=== PATIENT | female | born 1965 | race Caucasian/White ===

== ENCOUNTER 2017-10-30 11:48 | Emergency (ER) | payer MEDICARE, MEDICAID ==
[2016-01-01 08:47] VITALS: Wt 70.3 kg
[~2017-10-30 11:48] MED LIST: ACE3 PO; ACE500 PO; AMOX-556 PO; AMOX875T60 PO; AZIT-1 PO; BEN100 PO; BENZ100C4 PO; BENZ200C15 PO; BUTA1CAP2 PO; BUTA1CAP4 PO; BUTA1TAB14 PO; CEP125L PO; CEP500 PO; CEPH500C24 PO; CHOL400C10 PO; CHOL500045 PO; CHOL500050 PO; CIP500 PO; CIPR-212 PO; CIPR-214 PO; CIPR-344 PO; CODE118S5 PO; CODE473S6 PO; COL0.6 PO; COLC0.6T2; COLC0.6T2 PO; CROM10DR8 OP; CYC10 PO; CYCL10TA29 PO; DAR75 PO; DARI15TA5; DIA5 PO; ENTLA PO; ERGO400T9 PO; ESTR1.2525 PO; ESTR1PAT TD; ESTR1PAT3 TD; ESTR1PAT89; ESTR1PAT89 TD; ESTRADIOL; FAM20 PO; FAMO-67 PO; FEBU40TA2 PO; FEBU80TA3 PO; FES4PT PO; FLUT16SP19 NS; FURO40TA35 PO; GUAI120L3 PO; GUAI600T57 PO; HEPA1DIS12 IM; HYDR-317 PO; HYDR-385 PO; HYDR-4309 PO; HYDR2TAB74 PO; IMI25; IMI25 PO; IMITREX PO; LANS15CA32 PO; LEV100 PO; LEV112 PO; LEV125 PO; LEVO-3 PO; LEVO75TA73 PO; LEVO88TA45 PO; LOPE1TAB55 PO; LOR5 PO; LOR5/325 PO; LOSA25TA50 PO; LOSA25TA51 PO; LOSA50TA72 PO; MECL25TA9 PO; MELA1TAB9; MELA5TAB6 PO; MEPE50TA29 PO; METH-542 PO; METH-543 PO; METH4TAB57 PO; METH4TAB66 PO; MORP-181 PO; MUPI15CR10 TP; NARA2.5T2 PO; OLAN5TAB25 PO; OLME5TAB8 PO; OMEP-218 PO; ONDA-2 PO; ONDA4TAB PO; ONDA4TAB9 PO; ONDA4TAB97 PO; ONDA8TAB94 PO; OSE75 PO; OXY5 PO; OXYC-865 PO; OXYC1TAB54 PO; PER PO; PHEN120S16 PO; PHEN200T32 PO; PHENA200 PO; PNEI IJ; PNEU0.5D3 IM; PRAM0.1221 PO; PRAM0.1225 PO; PRAM0.2520 PO; PRAM0.2524 PO; PRE20 PO; PRED-1 PO; PRED20TA6 PO; PRO25 PO; PROM-110 PO; PROP10TA58 PO; PROP60TA16 PO; PROP80CA40 PO; PROP80TA25 PO; RAM8 PO; RISP0.2563 PO; RISP1TAB79 PO; ROP5 PO; SERT-173 PO; SERT-181 PO; SIMV10TA98 PO; SODI650T7 PO; SULF-198 PO; SUM25 PO; SUMA100T32 PO; SUMA20SP8 NS; SUMA25TA26 PO; SUMA50TA34 PO; SUMA6CAR2 SQ; SUMA6PEN7 SQ; SUMA6VIA16 SQ; TAMS0.4C25 PO; TOBOD OU; TOPI-28 PO; TOVIAZ; TRAM-420 PO; TRAM-627 PO; TROS20TA4 PO; VENL150C61 PO; VENL25TA29 PO; VIT D; ZOLP-350 PO; ZOLP-358 PO; [UNRECOGNIZED DRUG - CODE]; [UNRECOGNIZED DRUG - CODE] PO; [UNRECOGNIZED DRUG - CODE] SQ; [UNRECOGNIZED DRUG - CODE] TD; [UNRECOGNIZED DRUG - OTHER]
--- NOTE | 2017-10-30 11:57 | ER Report ---
History and Physical Time Seen By MD: 11:56 HPI/ROS CHIEF COMPLAINT: Vomiting and diarrhea HISTORY OF PRESENT ILLNESS: This is a 52-year-old female who presents to the emergency department for vomiting and diarrhea. Patient states that she developed some nausea, vomiting and diarrhea about 4:30 yesterday morning. Patient states her is sick with similar symptoms. They've been trying to manage this at home with little success. Bring her in because he is concerned as she only has one functioning kidney and wanted to be sure her renal function is okay with her episodes. Patient denies blood in the stool or the emesis. Patient has no other complaints. REVIEW OF SYSTEMS: Respiratory: No cough, no dyspnea. Cardiovascular: No chest pain, no palpitations. Gastrointestinal: As above. Musculoskeletal: No back pain. Allergies: Coded Allergies: promethazine (Verified Allergy, Severe, RESTLESS LEGS, 10/10/17) sumatriptan (Verified Allergy, Intermediate, HIVES, SOB, 10/10/17) only with nose spray, she can take oral sumatriptan NSAIDS (Non-Steroidal Anti-Inflamma (Verified Allergy, Mild, NAUSEA, HEADACHES, 10/10/17) orphenadrine (Verified Allergy, Unknown, 10/10/17) keeps her awake oxycodone (Verified Allergy, Unknown, 10/10/17) aspirin (Verified Adverse Reaction, Mild, NAUSEA, 10/10/17) furosemide (Verified Adverse Reaction, Unknown, 10/10/17) too hard on kidneys Uncoded Allergies: COBAN (Allergy, Mild, rash, 04/03/13) Home Meds Active Scripts Ondansetron (ZOFRAN ODT) 4 Mg Tab.rapdis, 4 MG PO Q6H Y for NAUSEA/VOMITING, # 20 TAB.ALEJANDRINA Prov:MY HOOPER INTERIOR DESIGN COORDINATOR-BC 10/30/17 Guaifenesin (MUCINEX) 600 Mg Tablet.er, 1 TAB PO QDAY Y for Sinus Congestion, # 30 TAB 0 Refills Prov:BETSEY PIERSON MD 10/23/17 Estradiol (ESTRADIOL 0.05 MG) 1 Each Patch.tdwk, 1 EACH TD Q7D, #4 PATCH.WK 6 Refills Prov:BETSEY PIERSON MD 10/23/17 Losartan Potassium (LOSARTAN POTASSIUM) 50 Mg Tablet, 50 MG PO QDAY, #30 TAB 6 Refills Prov:BETSEY PIERSON MD 10/23/17 Topiramate (TOPIRAMATE) 100 Mg Tablet, 1 TAB PO QDAY, #30 TAB 6 Refills Prov:BETSEY PIERSON MD 10/09/17 Propranolol Hcl (INDERAL LA) 80 Mg Cap.sa.24h, 1 CAP PO QDAY, #90 CAP 1 Refill Prov:BETSEY PIERSON MD 08/06/17 Hydrocodone Bit/Acetaminophen (HYDROCODON-ACETAMINOPHEN 5-325) 1 Each Tablet, 1 EACH PO QDAY Y for MODERATE PAIN, #60 TAB Prov:BETSEY PIERSON MD 07/29/17 Levothyroxine Sodium (LEVOTHYROXINE SODIUM) 88 Mcg Tablet, 88 MCG PO QDAY, #30 TAB 6 Refills Prov:BETSEY PIERSON MD 06/28/17 Sertraline Hcl (SERTRALINE HCL) 100 Mg Tablet, 1.5 TAB PO QDAY, #45 TAB 6 Refills Prov:BETSEY PIERSON MD 06/27/17 Simvastatin (SIMVASTATIN) 10 Mg Tablet, 1 TAB PO QHS, #90 TAB 4 Refills Prov:BETSEY PIERSON MD 01/08/17 Cyclobenzaprine Hcl (CYCLOBENZAPRINE HCL) 10 Mg Tablet, 10 MG PO QDAY Y for headache, #30 TAB 3 Refills Prov:BETSEY PIERSON MD 12/31/16 Olanzapine (ZYPREXA) 5 Mg Tablet, 5 MG PO QDAY, #30 TAB 0 Refills Prov:EFREN URIOSTEGUI MD 10/14/16 Febuxostat (ULORIC) 40 Mg Tablet, 1 TAB PO QDAY, #90 TAB 1 Refill Prov:BETSEY PIERSON MD 07/27/16 Reported Medications Melatonin/Pyridoxine HCl (B6) (Melatonin 3 mg Tablet) 1 Each Tablet, 1 TAB QHS, TAB 10/23/17 Sodium Bicarbonate (SODIUM BICARBONATE) 650 Mg Tablet, 2 TAB PO BID 07/26/16 Lansoprazole (LANSOPRAZOLE) 15 Mg Capsule.dr, 1 CAP PO QDAY 07/25/16 Cholecalciferol (Vitamin D3) (Vitamin D) 50,000 Unit Capsule, 1 CAP PO Q30D 07/25/16 Risperidone (RISPERIDONE) 1 Mg Tablet, 1 MG PO DAILY 05/04/16 Imipramine Hcl (Tofranil) 25 Mg Tab, 1 TAB PO DAILY, 0 Refills 09/26/12 Discontinued Reported Medications Melatonin (MELATONIN) 5 Mg Tablet, 5 MG PO QDAY 07/23/17 Discontinued Scripts Methylprednisolone (METHYLPREDNISOLONE) 4 Mg Tab.ds.pk, 4 MG PO DIRECTED, #1 DOSE-PACK Prov:BETSEY PIERSON MD 09/04/17 Tamsulosin Hcl (FLOMAX) 0.4 Mg Cap.er.24h, 0.4 MG PO DAILY for 10 Days, #10 CAP Prov:YONG HUMPHREY MD 08/11/17 Meclizine Hcl (MECLIZINE HCL) 25 Mg Tablet, 25 MG PO BID Y for DIZZINESS, #10 Prov:MARK SMITH MD 08/09/17 Ondansetron Hcl (ZOFRAN) 4 Mg Tablet, 4 MG PO Q8H for Nausea, #15 TAB 0 Refills Prov:ESTEBAN ALDANA MD 06/14/17 Mupirocin Calcium (BACTROBAN) 15 Gm Cream..g., 0 TP BID, #15 GM Prov:BETSEY PIERSON MD 03/21/17 Losartan Potassium (LOSARTAN POTASSIUM) 25 Mg Tablet, 25 MG PO QDAY, #0 TAB Prov:ALEJANDRO AVELAR MD 08/08/16 Past Medical/Surgical History Patient has a past medical and surgical history of migraines, occasionally has a heart murmur, angina, cardiac catheter which was normal, hypertension, hypercholesterolemia, bronchitis, pneumonia, frequent nausea, colonoscopy, has recurrent abdominal pain, incontinence, one kidney, UTIs, breast augmentation, biopsy, gout, wrist and hand surgery, arthritis, scoliosis, wears glasses, depression, anxiety, tonsillectomy. Reviewed Nurses Notes: Yes Hx Smoking: Yes (SMOKED AGE 16 TO UNTIL 2000, 10/29 PPD) Smoking Status: Former Smoker Exposure to Second Hand Smoke?: No Hx Substance Use Disorder: No Hx Alcohol Use: Yes Constitutional Vital Sign - Last 24 Hours 10/30/17 10/30/17 10/30/17 10/30/17 11:53 11:54 11:58 12:00 Temp 98.1 Pulse 94 87 Resp 18 B/P (MAP) 164/93 (116) 164/93 141/100 (114) Pulse Ox 97 100 O2 Delivery Room Air 10/30/17 10/30/17 10/30/17 10/30/17 12:03 12:08 12:19 12:23 Pulse 84 88 91 B/P (MAP) 144/101 (115) Pulse Ox 100 100 98 10/30/17 10/30/17 10/30/17 10/30/17 12:28 12:33 12:38 12:40 Pulse 88 89 90 B/P (MAP) 145/94 (111) Pulse Ox 96 96 97 10/30/17 10/30/17 10/30/17 10/30/17 12:43 12:48 13:00 13:03 Pulse 91 90 90 B/P (MAP) 145/90 (108) Pulse Ox 95 97 95 10/30/17 10/30/17 10/30/17 10/30/17 13:18 13:20 13:33 13:40 Pulse 89 87 B/P (MAP) 145/94 (111) 159/99 (119) Pulse Ox 95 96 10/30/17 10/30/17 10/30/17 10/30/17 13:45 13:50 13:55 14:00 Pulse 88 86 87 B/P (MAP) 141/93 (109) Pulse Ox 94 94 98 93 10/30/17 10/30/17 10/30/17 10/30/17 14:05 14:10 14:15 14:20 Pulse 87 88 87 85 B/P (MAP) 149/95 (113) Pulse Ox 96 94 94 Intake and Output 10/30/17 10/30/17 10/31/17 15:00 23:00 07:00 Intake Total 1000 ml Balance 1000 ml Physical Exam General Appearance: The patient is alert, has no immediate need for airway protection and no current signs of toxicity. Eyes: Pupils equal and round no injection. Respiratory: Chest is non tender, lungs are clear to auscultation. Cardiac: regular rate and rhythm, mild systolic murmur, no clicks rubs. Gastrointestinal: Abdomen is soft and mild tenderness to epigastrium, no masses , bowel sounds normal. Musculoskeletal: Neck: Neck is supple and non tender. Extremities have full range of motion and are non tender. Skin: No rashes or lesions. DIFFERENTIAL DIAGNOSIS: After history and physical exam differential diagnosis was considered for abdominal pain including but not limited to appendicitis, cholecystitis, gastritis and urinary tract infection. Medical Decision Making Data Points Result Diagram: 10/30/17 1212 10/30/17 1212 Laboratory Hematology Test 10/30/17 12:12 10/30/17 12:25 Red Blood Count 3.90 M/uL (4.17-5.56) Mean Corpuscular Volume 94.7 fL (80.0-96.0) Mean Corpuscular Hemoglobin 33.4 pg (26.0-33.0) Mean Corpuscular Hemoglobin Concent 35.3 g/dL (32.0-36.0) Red Cell Distribution Width 12.6 % (11.5-14.5) Mean Platelet Volume 6.8 fL (7.2-11.1) Neutrophils (%) (Auto) 81.0 % (39.4-72.5) Lymphocytes (%) (Auto) 9.6 % (17.6-49.6) Monocytes (%) (Auto) 6.5 % (4.1-12.4) Eosinophils (%) (Auto) 2.3 % (0.4-6.7) Basophils (%) (Auto) 0.6 % (0.3-1.4) Nucleated RBC Relative Count (auto) 0.0 /100WBC Neutrophils # (Auto) 8.0 K/uL (2.0-7.4) Lymphocytes # (Auto) 0.9 K/uL (1.3-3.6) Monocytes # (Auto) 0.6 K/uL (0.3-1.0) Eosinophils # (Auto) 0.2 K/uL (0.0-0.5) Basophils # (Auto) 0.1 K/uL (0.0-0.1) Nucleated RBC Absolute Count (auto) 0.00 K/uL Sodium Level 140 mmol/L (137-145) Potassium Level 3.8 mmol/L (3.5-5.0) Chloride Level 104 mmol/L (98-107) Carbon Dioxide Level 23 mmol/L (22-31) Blood Urea Nitrogen 22 mg/dl (7-18) Creatinine 2.70 mg/dl (0.52-1.04) Glomerular Filtration Rate Calc 18.5 Random Glucose 83 mg/dl (75-110) Calcium Level 9.2 mg/dl (8.4-10.2) Total Bilirubin 0.4 mg/dl (0.2-1.3) Aspartate Amino Transf (AST/SGOT) 14 U/L (0-35) Alanine Aminotransferase (ALT/SGPT) 31 U/L (0-56) Alkaline Phosphatase 70 U/L (0-126) Total Protein 7.6 gm/dl (6.3-8.2) Albumin 4.1 g/dl (3.5-5.0) Urine Color Straw Urine Clarity Slightly-cloudy Urine pH 8.0 pH (4.8-9.5) Urine Specific [place] 1.010 Urine Protein 100 mg/dL (NEGATIVE) Urine Glucose (UA) Negative mg/dL (NEGATIVE) Urine Ketones Negative mg/dL (NEGATIVE) Urine Blood Moderate (NEGATIVE) Urine Nitrite Negative (NEGATIVE) Urine Bilirubin Negative (NEGATIVE) Urine Urobilinogen Negative mg/dL (0.2-1.9) Urine Leukocyte Esterase Trace (NEGATIVE) Urine RBC 66 /HPF (0-2/HPF) Urine WBC 16 /HPF (0-5/HPF) Urine Squamous Epithelial Cells Many /LPF (</=FEW) Urine Bacteria Negative /HPF (NONE-FEW) Urine Mucus None /HPF (NONE-FEW) Chemistry Test 10/30/17 12:12 10/30/17 12:25 White Blood Count 9.9 k/uL (4.5-11.0) Red Blood Count 3.90 M/uL (4.17-5.56) Hemoglobin 13.0 g/dL (12.0-16.0) Hematocrit 36.9 % (34.0-47.0) Mean Corpuscular Volume 94.7 fL (80.0-96.0) Mean Corpuscular Hemoglobin 33.4 pg (26.0-33.0) Mean Corpuscular Hemoglobin Concent 35.3 g/dL (32.0-36.0) Red Cell Distribution Width 12.6 % (11.5-14.5) Platelet Count 198 K/uL (150-450) Mean Platelet Volume 6.8 fL (7.2-11.1) Neutrophils (%) (Auto) 81.0 % (39.4-72.5) Lymphocytes (%) (Auto) 9.6 % (17.6-49.6) Monocytes (%) (Auto) 6.5 % (4.1-12.4) Eosinophils (%) (Auto) 2.3 % (0.4-6.7) Basophils (%) (Auto) 0.6 % (0.3-1.4) Nucleated RBC Relative Count (auto) 0.0 /100WBC Neutrophils # (Auto) 8.0 K/uL (2.0-7.4) Lymphocytes # (Auto) 0.9 K/uL (1.3-3.6) Monocytes # (Auto) 0.6 K/uL (0.3-1.0) Eosinophils # (Auto) 0.2 K/uL (0.0-0.5) Basophils # (Auto) 0.1 K/uL (0.0-0.1) Nucleated RBC Absolute Count (auto) 0.00 K/uL Glomerular Filtration Rate Calc 18.5 Calcium Level 9.2 mg/dl (8.4-10.2) Total Bilirubin 0.4 mg/dl (0.2-1.3) Aspartate Amino Transf (AST/SGOT) 14 U/L (0-35) Alanine Aminotransferase (ALT/SGPT) 31 U/L (0-56) Alkaline Phosphatase 70 U/L (0-126) Total Protein 7.6 gm/dl (6.3-8.2) Albumin 4.1 g/dl (3.5-5.0) Urine Color Straw Urine Clarity Slightly-cloudy Urine pH 8.0 pH (4.8-9.5) Urine Specific [place] 1.010 Urine Protein 100 mg/dL (NEGATIVE) Urine Glucose (UA) Negative mg/dL (NEGATIVE) Urine Ketones Negative mg/dL (NEGATIVE) Urine Blood Moderate (NEGATIVE) Urine Nitrite Negative (NEGATIVE) Urine Bilirubin Negative (NEGATIVE) Urine Urobilinogen Negative mg/dL (0.2-1.9) Urine Leukocyte Esterase Trace (NEGATIVE) Urine RBC 66 /HPF (0-2/HPF) Urine WBC 16 /HPF (0-5/HPF) Urine Squamous Epithelial Cells Many /LPF (</=FEW) Urine Bacteria Negative /HPF (NONE-FEW) Urine Mucus None /HPF (NONE-FEW) Urinalysis Test 10/30/17 12:25 Urine Color Straw Urine Clarity Slightly-cloudy Urine pH 8.0 pH (4.8-9.5) Urine Specific [place] 1.010 Urine Protein 100 mg/dL (NEGATIVE) Urine Glucose (UA) Negative mg/dL (NEGATIVE) Urine Ketones Negative mg/dL (NEGATIVE) Urine Blood Moderate (NEGATIVE) Urine Nitrite Negative (NEGATIVE) Urine Bilirubin Negative (NEGATIVE) Urine Urobilinogen Negative mg/dL (0.2-1.9) Urine Leukocyte Esterase Trace (NEGATIVE) Urine RBC 66 /HPF (0-2/HPF) Urine WBC 16 /HPF (0-5/HPF) Urine Squamous Epithelial Cells Many /LPF (</=FEW) Urine Bacteria Negative /HPF (NONE-FEW) Urine Mucus None /HPF (NONE-FEW) ED Course/Re-evaluation Clinical Indication for ER IV: Hydration, IV Access ED Course The patient was admitted to room. A history physical obtained. Differential diagnoses were considered. IV was started. A 1 L normal saline bolus was given. A CBC, CMP and UA were obtained which were unchanged and unremarkable from patient's previous visits. 4 mg IV Zofran 2 were given. She states she is feeling better still has some abdominal pain related to the vomiting but at this time the patient feels like she could go home and manage this well enough with her . I did call a prescription for Zofran. She was also encouraged to follow up with her primary care provider the appointment was rescheduled for next week. The patient was also encouraged to return to the emergency department for worsening symptoms. Decision to Disposition Date: Oct 30, 2017 Decision to Disposition Time: 14:13 Depart Departure Latest Vital Signs Vital Signs Date Time Temp Pulse Resp B/P (MAP) Pulse Ox O2 Delivery O2 Flow Rate FiO2 10/30/17 14:20 85 149/95 (113) 94 10/30/17 11:54 98.1 18 Room Air Impression: Primary Impression: Gastroenteritis Condition: Improved Disposition: HOME OR SELF-CARE Referrals: BETSEY PIERSON MD (PCP) New Scripts Ondansetron (ZOFRAN ODT) 4 Mg Tab.rapdis 4 MG PO Q6H Y for NAUSEA/VOMITING, #20 TAB.ALEJANDRINA Prov: MY HOOPER INTERIOR DESIGN COORDINATOR-BC 10/30/17 Patient Instructions: Gastroenteritis (ED) Additional Instructions: Continue drinking G2 as indicated. Get plenty of rest. Keep the appointment with Dr. Deejay next week. Take Zofran as needed for nausea and vomiting. May return to the ED for worsening symptoms. FORM WORKER/PA consult with MD: Verbally MD Consult Note: MY LaroseP-BC Oct 30, 2017 11:57
[2017-10-30] MEDS ORDERED: ONDANSETRON 4 MG/2 ML VIAL IVP ONE ×2 (12:05→13:15)
[2017-10-30] MEDS ORDERED: NS(*) 0.9% 1000 ML BAG 1,000 ML IV ONE (12:05)
[2017-10-30 12:19] LABS: PLATELET COUNT, AUTOMATED 198 K/uL (150-450)
[2017-10-30] MEDS ORDERED: ONDA4TAB PO (14:15)
[2017-10-30 14:20] VITALS: BP 149/95
== END 2017-10-30 14:24 | disposition home or self-care (01) ==
LOC: ER 11:48
DX: K52.9 Noninfective gastroenteritis and colitis, unspecified (principal); R10.9 Unspecified abdominal pain
CPT/HCPCS: 81001; 85025; 87088; 96361; 96374; 96375; 99284; J2405; J7030; 82040; 82247; 82310; 82374; 82435; 82565; 82947; 84075; 84132; 84155; 84295; 84450; 84460; 84520

== ENCOUNTER → 2017-11-05 | Outpatient (CLI) | payer MEDICARE, MEDICAID ==
[2016-01-01 08:47] VITALS: BMI 31.4
== END ==
LOC: SPU 17:08
DX: N30.01 Acute cystitis with hematuria (principal)
CPT/HCPCS: 81001; 87077; 87088; 87186

== ENCOUNTER 2017-11-11 16:33 | Emergency (ER) | payer MEDICARE, MEDICAID ==
[2016-01-01 08:47] VITALS: Ht 149.9 cm; Wt 70.3 kg
[~2017-11-11] VITALS: Ht 149.9 cm; Wt 70.3 kg
[2017-11-11 16:39] VITALS: BP 141/84
--- NOTE | 2017-11-11 16:55 | ER Report ---
History and Physical Time Seen By MD: 16:40 Hx. of Stated Complaint: double took morning meds. refered by pharmacy HPI/ROS CHIEF COMPLAINT: Took her morning meds twice. HISTORY OF PRESENT ILLNESS: Patient is a 52-year-old female coming by her , who presents the ED with complaint that she took her morning medications twice. She states that she initially took her morning dose at 5 AM and then took her medications and can at 11 AM. Her morning medications included simvastatin, Inderal, losartan, 2 [id number] reflux medications. She states that she is feeling well. She was is concerned about possible side effects of taking her medications twice. She denies any dizziness, chest pain, shortness of breath, abdominal pain, nausea, vomiting. REVIEW OF SYSTEMS: Respiratory: No cough, no dyspnea. Cardiovascular: No chest pain, no palpitations. Gastrointestinal: No vomiting, no abdominal pain. Musculoskeletal: No back pain. Allergies: Coded Allergies: promethazine (Verified Allergy, Severe, RESTLESS LEGS, 11/11/17) sumatriptan (Verified Allergy, Intermediate, HIVES, SOB, 11/11/17) only with nose spray, she can take oral sumatriptan NSAIDS (Non-Steroidal Anti-Inflamma (Verified Allergy, Mild, NAUSEA, HEADACHES, 11/11/17) orphenadrine (Verified Allergy, Unknown, 11/11/17) keeps her awake oxycodone (Verified Allergy, Unknown, 11/11/17) aspirin (Verified Adverse Reaction, Mild, NAUSEA, 11/11/17) furosemide (Verified Adverse Reaction, Unknown, 11/11/17) too hard on kidneys Uncoded Allergies: COBAN (Allergy, Mild, rash, 04/03/13) Home Meds Active Scripts Hydrocodone Bit/Acetaminophen (HYDROCODON-ACETAMINOPHEN 5-325) 1 Each Tablet, 1 EACH PO QDAY Y for MODERATE PAIN, #60 TAB Prov:BETSEY PIERSON MD 11/06/17 Ondansetron (ZOFRAN ODT) 4 Mg Tab.rapdis, 4 MG PO Q6H Y for NAUSEA/VOMITING, # 20 TAB.ALEJANDRINA Prov:MY HOOPER DRILL PUNCH OPERATOR-BC 10/30/17 Guaifenesin (MUCINEX) 600 Mg Tablet.er, 1 TAB PO QDAY Y for Sinus Congestion, # 30 TAB 0 Refills Prov:BETSEY PIERSON MD 10/23/17 Estradiol (ESTRADIOL 0.05 MG) 1 Each Patch.tdwk, 1 EACH TD Q7D, #4 PATCH.WK 6 Refills Prov:BETSEY PIERSON MD 10/23/17 Losartan Potassium (LOSARTAN POTASSIUM) 50 Mg Tablet, 50 MG PO QDAY, #30 TAB 6 Refills Prov:BETSEY PIERSON MD 10/23/17 Topiramate (TOPIRAMATE) 100 Mg Tablet, 1 TAB PO QDAY, #30 TAB 6 Refills Prov:BETSEY PIERSON MD 10/09/17 Propranolol Hcl (INDERAL LA) 80 Mg Cap.sa.24h, 1 CAP PO QDAY, #90 CAP 1 Refill Prov:BETSEY PIERSON MD 08/06/17 Levothyroxine Sodium (LEVOTHYROXINE SODIUM) 88 Mcg Tablet, 88 MCG PO QDAY, #30 TAB 6 Refills Prov:BETSEY PIERSON MD 06/28/17 Sertraline Hcl (SERTRALINE HCL) 100 Mg Tablet, 1.5 TAB PO QDAY, #45 TAB 6 Refills Prov:BETSEY PIERSON MD 06/27/17 Simvastatin (SIMVASTATIN) 10 Mg Tablet, 1 TAB PO QHS, #90 TAB 4 Refills Prov:BETSEY PIERSON MD 01/08/17 Cyclobenzaprine Hcl (CYCLOBENZAPRINE HCL) 10 Mg Tablet, 10 MG PO QDAY Y for headache, #30 TAB 3 Refills Prov:BETSEY PIERSON MD 12/31/16 Olanzapine (ZYPREXA) 5 Mg Tablet, 5 MG PO QDAY, #30 TAB 0 Refills Prov:EFREN URIOSTEGUI MD 10/14/16 Febuxostat (ULORIC) 40 Mg Tablet, 1 TAB PO QDAY, #90 TAB 1 Refill Prov:BETSEY PIERSON MD 07/27/16 Reported Medications Ciprofloxacin Hcl (CIPROFLOXACIN HCL) 500 Mg Tablet, 500 MG PO Q24H, #14 TAB 11/06/17 Melatonin/Pyridoxine HCl (B6) (Melatonin 3 mg Tablet) 1 Each Tablet, 1 TAB QHS, TAB 10/23/17 Sodium Bicarbonate (SODIUM BICARBONATE) 650 Mg Tablet, 2 TAB PO BID 9/29/16 Lansoprazole (LANSOPRAZOLE) 15 Mg Capsule.dr, 1 CAP PO QDAY 07/25/16 Cholecalciferol (Vitamin D3) (Vitamin D) 50,000 Unit Capsule, 1 CAP PO Q30D 07/25/16 Risperidone (RISPERIDONE) 1 Mg Tablet, 1 MG PO DAILY 05/04/16 Imipramine Hcl (Tofranil) 25 Mg Tab, 1 TAB PO DAILY, 0 Refills 09/26/12 Reviewed Nurses Notes: Yes Old Medical Records Reviewed: Yes Hx Smoking: Yes (SMOKED AGE 16 TO UNTIL 2000, 1/ PPD) Smoking Status: Former Smoker Exposure to Second Hand Smoke?: No Hx Substance Use Disorder: No Hx Alcohol Use: Yes Constitutional Vital Sign - Last 24 Hours 11/11/17 16:39 Temp 97.1 Pulse 72 Resp 14 B/P (MAP) 141/84 Pulse Ox 95 O2 Delivery Room Air Physical Exam General Appearance: The patient is alert, has no immediate need for airway protection and no current signs of toxicity. She appears to be no acute distress. Eyes: Pupils equal and round no injection. Respiratory: Chest is non tender, lungs are clear to auscultation. Cardiac: regular rate and rhythm Gastrointestinal: Abdomen is soft and non tender, no masses, bowel sounds normal. Musculoskeletal: Neck: Neck is supple and non tender. Extremities have full range of motion and are non tender. Skin: No rashes or lesions. Medical Decision Making ED Course/Re-evaluation ED Course Discussed with patient that her blood pressure and heart rate are normal now. She did take 2 medications that could have made her hypotensive or bradycardic but appears to not be an issue and she is now 5-1/2 hours out from her last dose. Discussed that this does not seem to be too concerning at this point. Decision to Disposition Date: Nov 11, 2017 Decision to Disposition Time: 16:54 Depart Departure Latest Vital Signs Vital Signs Date Time Temp Pulse Resp B/P (MAP) Pulse Ox O2 Delivery O2 Flow Rate FiO2 11/11/17 16:39 97.1 72 14 141/84 95 Room Air Impression: Primary Impression: Medication administered in error Condition: Improved Disposition: HOME OR SELF-CARE Referrals: BETSEY PIERSON MD (PCP) Additional Instructions: Stay well-hydrated. Follow-up with primary care provider in 2-3 days. If having any worsening or concerning symptoms may return to the emergency department. Problem Qualifiers Primary Impression: Medication administered in error Encounter type: initial encounter Injury intent: accidental or unintentional Qualified Codes: T50.901A - Poisoning by unspecified drugs, medicaments and biological substances, accidental (unintentional), initial encounter CHANDAN SANCHEZ PA-C Nov 11, 2017 16:55
== END 2017-11-11 17:05 | disposition home or self-care (01) ==
LOC: ER 17:00
DX: T50.901A Poisoning by unspecified drugs, medicaments and biological substances, accidental (unintentional), initial encounter (principal)
CPT/HCPCS: 99281

== ENCOUNTER 2017-12-05 15:59 | Emergency (ER) | payer MEDICARE, MEDICAID ==
[2016-01-01 08:47] VITALS: Ht 149.9 cm; Wt 70.3 kg
[~2017-12-05] VITALS: Ht 149.9 cm; Wt 70.3 kg
[2017-12-05] MEDS ORDERED: MECLIZINE HCL 25 MG TAB PO ONE (16:15)
[2017-12-05] MEDS ORDERED: LORazepam 2 MG/ML VIAL IVP ONE (16:15)
[2017-12-05] MEDS ORDERED: NS(*) 0.9% 500 ML BAG 500 ML IV ONE (16:15)
--- NOTE | 2017-12-05 16:24 | ER Report ---
History and Physical Time Seen By MD: 15:58 Hx. of Stated Complaint: PT REPORTS NAUSEA AND DIZZINESS; SAW PCP YESTERDAY AND WAS STARTED ON MECLIZINE , WANT TO MAKE SURE EVERYTHING IS OK HPI/ROS CHIEF COMPLAINT: dizziness HISTORY OF PRESENT ILLNESS: Pt started Saturday with intermittent dizziness. Feels the room is moving, off balance and nausea. PT went to pcp yesterday and was started on meclinze.Pt has some improvement but it is not gone. no weakness. no uri symptoms. symptoms worse when changes positions or moves head in certain directions. Pt also with occasional ear ringing. Pt had similar symptoms this summer and was seen in the emergency department. Pt states in the summer it resolved sooner. REVIEW OF SYSTEMS: Constitutional: No fever, no chills. Eyes: No discharge. ENT: No sore throat. Cardiovascular: No chest pain, no palpitations. Respiratory: No cough, no shortness of breath. Gastrointestinal: No abdominal pain, +nauesa, no vomiting. Genitourinary: No hematuria. Musculoskeletal: No back pain. Skin: No rashes. Neurological: No headache, off balance, room spinning. Allergies: Coded Allergies: promethazine (Verified Allergy, Severe, RESTLESS LEGS, 12/05/17) sumatriptan (Verified Allergy, Intermediate, HIVES, SOB, 12/05/17) only with nose spray, she can take oral sumatriptan NSAIDS (Non-Steroidal Anti-Inflamma (Verified Allergy, Mild, NAUSEA, HEADACHES, 12/05/17) orphenadrine (Verified Allergy, Unknown, 12/05/17) keeps her awake oxycodone (Verified Allergy, Unknown, 12/05/17) aspirin (Verified Adverse Reaction, Mild, NAUSEA, 12/05/17) furosemide (Verified Adverse Reaction, Unknown, 12/05/17) too hard on kidneys Uncoded Allergies: COBAN (Allergy, Mild, rash, 04/03/13) Home Meds Active Scripts Meclizine Hcl (MECLIZINE HCL) 25 Mg Tablet, 1 TAB PO BID Y for DIZZINESS, #20 TAB 0 Refills Prov:DADA SHERWOOD DNP, [employer]ING [employer] 12/04/17 Fluticasone Prop 50 Mcg Ns (FLONASE 50 MCG NS) 16 Gm [place].susp, 1 SPRAY NS QDAY , #1 BOT 0 Refills Prov:DADA SHERWOOD DNP, [employer]ING [employer]BC 12/04/17 Hydrocodone Bit/Acetaminophen (HYDROCODON-ACETAMINOPHEN 5-325) 1 Each Tablet, 1 EACH PO QDAY Y for MODERATE PAIN, #60 TAB Prov:BETSEY PIERSON MD 11/06/17 Ondansetron (ZOFRAN ODT) 4 Mg Tab.rapdis, 4 MG PO Q6H Y for NAUSEA/VOMITING, # 20 TAB.ALEJANDRINA Prov:MY HOOPER [employer]LECT[employer]ICAL LOGGING [employer]INE[employer]-BC 10/30/17 Guaifenesin (MUCINEX) 600 Mg Tablet.er, 1 TAB PO QDAY Y for Sinus Congestion, # 30 TAB 0 Refills Prov:BETSEY PIERSON MD 10/23/17 Estradiol (ESTRADIOL 0.05 MG) 1 Each Patch.tdwk, 1 EACH TD Q7D, #4 PATCH.WK 6 Refills Prov:BETSYE PIERSON MD 10/23/17 Losartan Potassium (LOSARTAN POTASSIUM) 50 Mg Tablet, 50 MG PO QDAY, #30 TAB 6 Refills Prov:BETSEY PIERSON MD 10/23/17 Topiramate (TOPIRAMATE) 100 Mg Tablet, 1 TAB PO QDAY, #30 TAB 6 Refills Prov:BETSEY PIERSON MD 10/09/17 Propranolol Hcl (INDERAL LA) 80 Mg Cap.sa.24h, 1 CAP PO QDAY, #90 CAP 1 Refill Prov:BETSEY PIERSON MD 08/06/17 Levothyroxine Sodium (LEVOTHYROXINE SODIUM) 88 Mcg Tablet, 88 MCG PO QDAY, #30 TAB 6 Refills Prov:BETSEY PIERSON MD 06/28/17 Sertraline Hcl (SERTRALINE HCL) 100 Mg Tablet, 1.5 TAB PO QDAY, #45 TAB 6 Refills Prov:BETSEY PIERSON MD 06/27/17 Simvastatin (SIMVASTATIN) 10 Mg Tablet, 1 TAB PO QHS, #90 TAB 4 Refills Prov:BETSEY PIERSON MD 01/08/17 Cyclobenzaprine Hcl (CYCLOBENZAPRINE HCL) 10 Mg Tablet, 10 MG PO QDAY Y for headache, #30 TAB 3 Refills Prov:BETSEY PIERSON MD 12/31/16 Olanzapine (ZYPREXA) 5 Mg Tablet, 5 MG PO QDAY, #30 TAB 0 Refills Prov:EFREN URIOSTEGUI MD 10/14/16 Febuxostat (ULORIC) 40 Mg Tablet, 1 TAB PO QDAY, #90 TAB 1 Refill Prov:BETSEY PIERSON MD 07/27/16 Reported Medications Melatonin/Pyridoxine HCl (B6) (Melatonin 3 mg Tablet) 1 Each Tablet, 1 TAB QHS, TAB 10/23/17 Sodium Bicarbonate (SODIUM BICARBONATE) 650 Mg Tablet, 2 TAB PO BID 07/26/16 Lansoprazole (LANSOPRAZOLE) 15 Mg Capsule.dr, 1 CAP PO QDAY 07/25/16 Cholecalciferol (Vitamin D3) (Vitamin D) 50,000 Unit Capsule, 1 CAP PO Q30D 07/25/16 Risperidone (RISPERIDONE) 1 Mg Tablet, 1 MG PO DAILY 05/04/16 Imipramine Hcl (Tofranil) 25 Mg Tab, 1 TAB PO DAILY, 0 Refills 09/26/12 Discontinued Reported Medications Ciprofloxacin Hcl (CIPROFLOXACIN HCL) 500 Mg Tablet, 500 MG PO Q24H, #14 TAB 11/06/17 Past Medical/Surgical History Pmhx: depression, anxiety, migraines, chronic kidney ds, hypothyroid, restless leg syndrome, gerd, kidney stones Pshx: appy, hyster, lithotripsy Reviewed Nurses Notes: Yes Old Medical Records Reviewed: Yes Hx Smoking: Yes (SMOKED AGE 16 TO UNTIL 2000, 1/ PPD) Smoking Status: Former Smoker Exposure to Second Hand Smoke?: No Hx Substance Use Disorder: No Hx Alcohol Use: Yes Constitutional Vital Sign - Last 24 Hours 12/05/17 16:05 Temp 98.0 Pulse 79 Resp 16 B/P (MAP) 173/86 Pulse Ox 99 O2 Delivery Room Air Physical Exam General Appearance: The patient is alert, has no immediate need for airway protection and no signs of toxicity. Eyes: Pupils equal and round no pallor or injection, EOMI ENT: no pharyngeal erythema or exudates, Mucous membranes are moist, TM are nl b/l Respiratory: There are no retractions, lungs are clear to auscultation. Cardiovascular: Regular rate and rhythm. pulses are equal and symmetrical Gastrointestinal: Abdomen is soft and non tender, no masses, bowel sounds normal, no guarding, no rigidity or rebound Neurological: Cranial nerves II-XII grossly intact, no sensory or motor loss, + halpikes maneuver Skin: Warm and dry, no rashes. Musculoskeletal: Neck is supple non tender, no vertebral tenderness Extremities are nontender, non swollen and have full range of motion. DIFFERENTIAL DIAGNOSIS: After history and physical exam differential diagnosis was considered for bppv, ashly ds Medical Decision Making Data Points Result Diagram: 12/05/17 1610 12/05/17 1610 Laboratory Hematology Test 12/05/17 16:10 Red Blood Count 4.01 M/uL (4.17-5.56) Mean Corpuscular Volume 95.8 fL (80.0-96.0) Mean Corpuscular Hemoglobin 33.2 pg (26.0-33.0) Mean Corpuscular Hemoglobin Concent 34.7 g/dL (32.0-36.0) Red Cell Distribution Width 13.4 % (11.5-14.5) Mean Platelet Volume 6.8 fL (7.2-11.1) Neutrophils (%) (Auto) 67.5 % (39.4-72.5) Lymphocytes (%) (Auto) 18.2 % (17.6-49.6) Monocytes (%) (Auto) 7.3 % (4.1-12.4) Eosinophils (%) (Auto) 6.3 % (0.4-6.7) Basophils (%) (Auto) 0.7 % (0.3-1.4) Nucleated RBC Relative Count (auto) 0.0 /100WBC Neutrophils # (Auto) 4.2 K/uL (2.0-7.4) Lymphocytes # (Auto) 1.1 K/uL (1.3-3.6) Monocytes # (Auto) 0.4 K/uL (0.3-1.0) Eosinophils # (Auto) 0.4 K/uL (0.0-0.5) Basophils # (Auto) 0.0 K/uL (0.0-0.1) Nucleated RBC Absolute Count (auto) 0.00 K/uL Sodium Level 140 mmol/L (137-145) Potassium Level 4.0 mmol/L (3.5-5.0) Chloride Level 104 mmol/L (98-107) Carbon Dioxide Level 23 mmol/L (22-31) Blood Urea Nitrogen 19 mg/dl (7-18) Creatinine 2.90 mg/dl (0.52-1.04) Glomerular Filtration Rate Calc 17.0 Random Glucose 70 mg/dl (75-110) Calcium Level 8.8 mg/dl (8.4-10.2) Chemistry Test 12/05/17 16:10 White Blood Count 6.2 k/uL (4.5-11.0) Red Blood Count 4.01 M/uL (4.17-5.56) Hemoglobin 13.3 g/dL (12.0-16.0) Hematocrit 38.4 % (34.0-47.0) Mean Corpuscular Volume 95.8 fL (80.0-96.0) Mean Corpuscular Hemoglobin 33.2 pg (26.0-33.0) Mean Corpuscular Hemoglobin Concent 34.7 g/dL (32.0-36.0) Red Cell Distribution Width 13.4 % (11.5-14.5) Platelet Count 181 K/uL (150-450) Mean Platelet Volume 6.8 fL (7.2-11.1) Neutrophils (%) (Auto) 67.5 % (39.4-72.5) Lymphocytes (%) (Auto) 18.2 % (17.6-49.6) Monocytes (%) (Auto) 7.3 % (4.1-12.4) Eosinophils (%) (Auto) 6.3 % (0.4-6.7) Basophils (%) (Auto) 0.7 % (0.3-1.4) Nucleated RBC Relative Count (auto) 0.0 /100WBC Neutrophils # (Auto) 4.2 K/uL (2.0-7.4) Lymphocytes # (Auto) 1.1 K/uL (1.3-3.6) Monocytes # (Auto) 0.4 K/uL (0.3-1.0) Eosinophils # (Auto) 0.4 K/uL (0.0-0.5) Basophils # (Auto) 0.0 K/uL (0.0-0.1) Nucleated RBC Absolute Count (auto) 0.00 K/uL Glomerular Filtration Rate Calc 17.0 Calcium Level 8.8 mg/dl (8.4-10.2) EKG/Imaging EKG Interpretation EKG nsr @ 80 with incoplete rbbb and non specific st abnormality when compared to prior ekg on 10-Oct-2017 no signinficant changes are found. ED Course/Re-evaluation Clinical Indication for ER IV: Hydration, IV Access ED Course 12/05/2017 5:01:14 pm Pt feeling tired but improved. Will d/c to home after the fluid bolus is complete. Suggest pt follow up with ENT if symptoms continue. Pt has meclizine by pcp at home. Decision to Disposition Date: Dec 05, 2017 Decision to Disposition Time: 17:01 Depart Departure Latest Vital Signs Vital Signs Date Time Temp Pulse Resp B/P (MAP) Pulse Ox O2 Delivery O2 Flow Rate FiO2 12/05/17 16:05 98.0 79 16 173/86 99 Room Air Impression: Primary Impression: Dizziness Additional Impression: Vertigo Condition: Improved Disposition: HOME OR SELF-CARE Referrals: BETSEY PIERSON MD (PCP) CHANDA CAUSEY JR, MD 5 Days Departure Forms: ER Transition Record, Medications Reconciliation, Patient Portal Information Patient Instructions: Dizziness (GEN) Additional Instructions: Recommend you follow up with ENT specialist, Dr. Causey. You may increase the frequency of your Meclizine to 25mg every 6-8 hours as needed for nausea and dizziness. Return as needed. Problem Qualifiers CHAZ TAYLOR DO Dec 05, 2017 16:24
[2017-12-05 16:29] LABS: PLATELET COUNT, AUTOMATED 181 K/uL (150-450)
--- NOTE | 2017-12-05 16:38 | EKG ---
FACILITY: [facility] - [place], [place] PATIENT NAME: GREGORIO LINDSEY : [id number] MR: [id number] V: [id number] EXAM DATE: ORDERING PHYSICIAN: CHAZ TAYLOR TECHNOLOGIST: JAIR Aguilar Reason : DIZZY Blood Pressure : / mmHG Vent. Rate : 081 BPM Atrial Rate : 081 BPM P-R Int : 156 ms QRS Dur : 096 ms QT Int : 392 ms P-R-T Axes : 066 050 011 degrees QTc Int : 455 ms Sinus rhythm Incomplete right bundle branch block Nonspecific T wave abnormality Abnormal ECG Confirmed by QASIM HAM ([id number] on 12/06/2017 6:03:18 AM Referred By: BRANDON Confirmed By:QASIM HAM
[2017-12-05 17:12] VITALS: BP 152/96
== END 2017-12-05 17:10 | disposition home or self-care (01) ==
LOC: ER 16:12
DX: R42 Dizziness and giddiness (principal)
CPT/HCPCS: 85025; 93005; 96361; 96374; 99284; J2060; J7040; J8597; 82310; 82374; 82435; 82565; 82947; 84132; 84295; 84520

== ENCOUNTER 2017-12-17 14:40 | Emergency (ER) | payer MEDICARE, MEDICAID ==
[2016-01-01 08:47] VITALS: Ht 149.9 cm; Wt 70.3 kg
[~2017-12-17] VITALS: Ht 149.9 cm; Wt 70.3 kg
--- NOTE | 2017-12-17 14:55 | ER Report ---
History and Physical Time Seen By MD: 14:54 HPI/ROS CHIEF COMPLAINT: Cough HISTORY OF PRESENT ILLNESS: This is a well-known 52-year-old female who presents to the emergency department with her for a cough. Patient states that since Saturday she developed a dry nonproductive cough, has had aches and chills since yesterday as well as lightheadedness. She also reports nausea and vomiting. Patient denies fevers, headaches, chest pain or shortness of breath. Patient's had similar symptoms this last week. They're concerned that she has only one kidney. Patient did take Zofran last night for her nausea and vomiting. REVIEW OF SYSTEMS: Constitutional: As above. Eyes: No discharge. ENT: No sore throat. Cardiovascular: No chest pain, no palpitations. Respiratory: No cough, no shortness of breath. Gastrointestinal: As above. Genitourinary: No hematuria. Musculoskeletal: No back pain. Skin: No rashes. Neurological: No headache. Allergies: Coded Allergies: promethazine (Verified Allergy, Severe, RESTLESS LEGS, 12/17/17) sumatriptan (Verified Allergy, Intermediate, HIVES, SOB, 12/17/17) only with nose spray, she can take oral sumatriptan NSAIDS (Non-Steroidal Anti-Inflamma (Verified Allergy, Mild, NAUSEA, HEADACHES, 12/17/17) orphenadrine (Verified Allergy, Unknown, 12/17/17) keeps her awake oxycodone (Verified Allergy, Unknown, 12/17/17) aspirin (Verified Adverse Reaction, Mild, NAUSEA, 12/17/17) furosemide (Verified Adverse Reaction, Unknown, 12/17/17) too hard on kidneys Uncoded Allergies: COBAN (Allergy, Mild, rash, 04/03/13) Home Meds Active Scripts Meclizine Hcl (MECLIZINE HCL) 25 Mg Tablet, 1 TAB PO BID Y for DIZZINESS, #20 TAB 0 Refills Prov:DADA SHERWOOD DNP, FNP-BC 12/04/17 Fluticasone Prop 50 Mcg Ns (FLONASE 50 MCG NS) 16 Gm [place].susp, 1 SPRAY NS QDAY , #1 BOT 0 Refills Prov:DADA SHERWOOD DNP, FNP-BC 12/04/17 Hydrocodone Bit/Acetaminophen (HYDROCODON-ACETAMINOPHEN 5-325) 1 Each Tablet, 1 EACH PO QDAY Y for MODERATE PAIN, #60 TAB Prov:BETSEY VILLALBA MD 11/06/17 Ondansetron (ZOFRAN ODT) 4 Mg Tab.rapdis, 4 MG PO Q6H Y for NAUSEA/VOMITING, # 20 TAB.ALEJANDRINA Prov:[employer]CE WORKER-BC 10/30/17 Guaifenesin (MUCINEX) 600 Mg Tablet.er, 1 TAB PO QDAY Y for Sinus Congestion, # 30 TAB 0 Refills Prov:BETSEY VILLALBA MD 10/23/17 Estradiol (ESTRADIOL 0.05 MG) 1 Each Patch.tdwk, 1 EACH TD Q7D, #4 PATCH.WK 6 Refills Prov:BETSEY VILLALBA MD 10/23/17 Losartan Potassium (LOSARTAN POTASSIUM) 50 Mg Tablet, 50 MG PO QDAY, #30 TAB 6 Refills Prov:BETSEY VILLALBA MD 10/23/17 Topiramate (TOPIRAMATE) 100 Mg Tablet, 1 TAB PO QDAY, #30 TAB 6 Refills Prov:BETSEY VILLALBA MD 10/09/17 Propranolol Hcl (INDERAL LA) 80 Mg Cap.sa.24h, 1 CAP PO QDAY, #90 CAP 1 Refill Prov:BETSEY VILLALBA MD 08/06/17 Levothyroxine Sodium (LEVOTHYROXINE SODIUM) 88 Mcg Tablet, 88 MCG PO QDAY, #30 TAB 6 Refills Prov:BETSEY VILLALBA MD 06/28/17 Sertraline Hcl (SERTRALINE HCL) 100 Mg Tablet, 1.5 TAB PO QDAY, #45 TAB 6 Refills Prov:BETSEY VLILALBA MD 06/27/17 Simvastatin (SIMVASTATIN) 10 Mg Tablet, 1 TAB PO QHS, #90 TAB 4 Refills Prov:BETSEY VILLALBA MD 01/08/17 Cyclobenzaprine Hcl (CYCLOBENZAPRINE HCL) 10 Mg Tablet, 10 MG PO QDAY Y for headache, #30 TAB 3 Refills Prov:BETSEY VILLALBA MD 12/31/16 Olanzapine (ZYPREXA) 5 Mg Tablet, 5 MG PO QDAY, #30 TAB 0 Refills Prov:EFREN URIOSTEGUI MD 10/14/16 Febuxostat (ULORIC) 40 Mg Tablet, 1 TAB PO QDAY, #90 TAB 1 Refill Prov:BETSEY VILLALBA MD 07/27/16 Reported Medications Melatonin/Pyridoxine HCl (B6) (Melatonin 3 mg Tablet) 1 Each Tablet, 1 TAB QHS, TAB 10/23/17 Sodium Bicarbonate (SODIUM BICARBONATE) 650 Mg Tablet, 2 TAB PO BID 07/26/16 Lansoprazole (LANSOPRAZOLE) 15 Mg Capsule.dr, 1 CAP PO QDAY 07/25/16 Cholecalciferol (Vitamin D3) (Vitamin D) 50,000 Unit Capsule, 1 CAP PO Q30D 07/25/16 Risperidone (RISPERIDONE) 1 Mg Tablet, 1 MG PO DAILY 05/04/16 Imipramine Hcl (Tofranil) 25 Mg Tab, 1 TAB PO DAILY, 0 Refills 09/26/12 Past Medical/Surgical History She has a past medical and surgical history of migraines, heart murmur, angina, cardiac catheter which was normal, hypertension, hypercholesterolemia, bronchitis, pneumonia, intermittent abdominal pain, frequent nausea, GERD, incontinence, UTIs, breast augmentation, gout, arthritis, scoliosis, wears glasses, depression, anxiety, right shoulder surgery, right elbow, right hand surgery, tonsillectomy. Reviewed Nurses Notes: Yes Hx Smoking: Yes (SMOKED AGE 16 TO UNTIL 2000, 10/29 PPD) Smoking Status: Former Smoker Exposure to Second Hand Smoke?: No Hx Substance Use Disorder: No Hx Alcohol Use: Yes Constitutional Vital Sign - Last 24 Hours 12/17/17 12/17/17 12/17/17 12/17/17 14:50 14:57 15:00 15:10 Temp 99.0 Pulse 81 82 Resp 16 B/P (MAP) 119/86 149/94 (112) 119/85 (96) Pulse Ox 92 96 O2 Delivery Room Air 12/17/17 12/17/17 12/17/17 12/17/17 15:18 15:18 15:20 15:21 Pulse 91 97 B/P (MAP) 121/80 (94) 121/80 (94) 119/80 (93) 119/80 (93) Pulse Ox 94 O2 Delivery Room Air 12/17/17 12/17/17 12/17/17 12/17/17 15:23 15:24 15:30 15:40 Pulse 93 79 B/P (MAP) 129/82 (98) 129/82 (98) 124/77 (93) Pulse Ox 94 12/17/17 12/17/17 12/17/17 12/17/17 15:55 16:00 16:10 16:25 Pulse 79 80 88 B/P (MAP) 125/82 (96) Pulse Ox 94 96 97 12/17/17 12/17/17 12/17/17 12/17/17 16:30 16:35 16:40 16:55 Pulse 85 79 82 79 B/P (MAP) 147/84 (105) Pulse Ox 93 95 93 97 12/17/17 12/17/17 12/17/17 12/17/17 17:00 17:05 17:10 17:15 Pulse 82 84 81 81 B/P (MAP) 125/82 (96) Pulse Ox 97 95 95 96 12/17/17 17:20 Pulse 79 Pulse Ox 95 Intake and Output 12/17/17 12/17/17 12/18/17 15:00 23:00 07:00 Intake Total 500 ml Balance 500 ml Physical Exam General Appearance: The patient is alert, has no immediate need for airway protection and no signs of toxicity. Eyes: Pupils equal and round no pallor or injection. ENT, Mouth: Mucous membranes are moist. Respiratory: There are no retractions, lungs are clear to auscultation. Cardiovascular: Regular rate and rhythm, no murmurs, clicks or rubs. Gastrointestinal: Abdomen is soft and non tender, no masses, bowel sounds normal. Neurological: Alert and oriented 4. Moving all extremities. Following all commands. No focal neuro deficits. Skin: Warm and dry, no rashes. Musculoskeletal: Neck is supple non tender. Right anterior cervical chain lymphadenopathy. Extremities are nontender, nonswollen and have full range of motion. DIFFERENTIAL DIAGNOSIS: After history and physical exam differential diagnosis was considered for nausea and vomiting including but not limited to gastroenteritis, gastritis, appendicitis, influenza, viral syndrome and medication side effect. Medical Decision Making Data Points Result Diagram: 12/17/17 1505 12/17/17 1505 Laboratory Hematology Test 12/17/17 14:49 12/17/17 15:04 12/17/17 15:05 Urine Color Yellow Urine Clarity Clear Urine pH 7.0 pH (4.8-9.5) Urine Specific [place] 1.011 Urine Protein 30 mg/dL (NEGATIVE) Urine Glucose (UA) Negative mg/dL (NEGATIVE) Urine Ketones Negative mg/dL (NEGATIVE) Urine Blood Negative (NEGATIVE) Urine Nitrite Negative (NEGATIVE) Urine Bilirubin Negative (NEGATIVE) Urine Urobilinogen Negative mg/dL (0.2-1.9) Urine Leukocyte Esterase Negative (NEGATIVE) Urine RBC 1 /HPF (0-2/HPF) Urine WBC <1 /HPF (0-5/HPF) Urine Squamous Epithelial Cells Many /LPF (</=FEW) Urine Bacteria Negative /HPF (NONE-FEW) Urine Mucus None /HPF (NONE-FEW) Influenza Virus Type A (PCR) Negative (NEGATIVE) Influenza Virus Type B (PCR) Negative (NEGATIVE) Red Blood Count 4.06 M/uL (4.17-5.56) Mean Corpuscular Volume 95.3 fL (80.0-96.0) Mean Corpuscular Hemoglobin 33.0 pg (26.0-33.0) Mean Corpuscular Hemoglobin Concent 34.6 g/dL (32.0-36.0) Red Cell Distribution Width 13.1 % (11.5-14.5) Mean Platelet Volume 7.0 fL (7.2-11.1) Neutrophils (%) (Auto) 56.7 % (39.4-72.5) Lymphocytes (%) (Auto) 20.5 % (17.6-49.6) Monocytes (%) (Auto) 19.9 % (4.1-12.4) Eosinophils (%) (Auto) 2.0 % (0.4-6.7) Basophils (%) (Auto) 0.9 % (0.3-1.4) Nucleated RBC Relative Count (auto) 0.0 /100WBC Neutrophils # (Auto) 1.8 K/uL (2.0-7.4) Lymphocytes # (Auto) 0.7 K/uL (1.3-3.6) Monocytes # (Auto) 0.6 K/uL (0.3-1.0) Eosinophils # (Auto) 0.1 K/uL (0.0-0.5) Basophils # (Auto) 0.0 K/uL (0.0-0.1) Nucleated RBC Absolute Count (auto) 0.00 K/uL Sodium Level 137 mmol/L (137-145) Potassium Level 3.8 mmol/L (3.5-5.0) Chloride Level 102 mmol/L (98-107) Carbon Dioxide Level 22 mmol/L (22-31) Blood Urea Nitrogen 18 mg/dl (7-18) Creatinine 3.10 mg/dl (0.52-1.04) Glomerular Filtration Rate Calc 15.8 Random Glucose 83 mg/dl (75-110) Calcium Level 9.3 mg/dl (8.4-10.2) Total Bilirubin 0.4 mg/dl (0.2-1.3) Aspartate Amino Transf (AST/SGOT) 16 U/L (0-35) Alanine Aminotransferase (ALT/SGPT) 26 U/L (0-56) Alkaline Phosphatase 61 U/L (0-126) Total Protein 7.7 gm/dl (6.3-8.2) Albumin 4.1 g/dl (3.5-5.0) Chemistry Test 12/17/17 14:49 12/17/17 15:04 12/17/17 15:05 Urine Color Yellow Urine Clarity Clear Urine pH 7.0 pH (4.8-9.5) Urine Specific [place] 1.011 Urine Protein 30 mg/dL (NEGATIVE) Urine Glucose (UA) Negative mg/dL (NEGATIVE) Urine Ketones Negative mg/dL (NEGATIVE) Urine Blood Negative (NEGATIVE) Urine Nitrite Negative (NEGATIVE) Urine Bilirubin Negative (NEGATIVE) Urine Urobilinogen Negative mg/dL (0.2-1.9) Urine Leukocyte Esterase Negative (NEGATIVE) Urine RBC 1 /HPF (0-2/HPF) Urine WBC <1 /HPF (0-5/HPF) Urine Squamous Epithelial Cells Many /LPF (</=FEW) Urine Bacteria Negative /HPF (NONE-FEW) Urine Mucus None /HPF (NONE-FEW) Influenza Virus Type A (PCR) Negative (NEGATIVE) Influenza Virus Type B (PCR) Negative (NEGATIVE) White Blood Count 3.2 k/uL (4.5-11.0) Red Blood Count 4.06 M/uL (4.17-5.56) Hemoglobin 13.4 g/dL (12.0-16.0) Hematocrit 38.7 % (34.0-47.0) Mean Corpuscular Volume 95.3 fL (80.0-96.0) Mean Corpuscular Hemoglobin 33.0 pg (26.0-33.0) Mean Corpuscular Hemoglobin Concent 34.6 g/dL (32.0-36.0) Red Cell Distribution Width 13.1 % (11.5-14.5) Platelet Count 156 K/uL (150-450) Mean Platelet Volume 7.0 fL (7.2-11.1) Neutrophils (%) (Auto) 56.7 % (39.4-72.5) Lymphocytes (%) (Auto) 20.5 % (17.6-49.6) Monocytes (%) (Auto) 19.9 % (4.1-12.4) Eosinophils (%) (Auto) 2.0 % (0.4-6.7) Basophils (%) (Auto) 0.9 % (0.3-1.4) Nucleated RBC Relative Count (auto) 0.0 /100WBC Neutrophils # (Auto) 1.8 K/uL (2.0-7.4) Lymphocytes # (Auto) 0.7 K/uL (1.3-3.6) Monocytes # (Auto) 0.6 K/uL (0.3-1.0) Eosinophils # (Auto) 0.1 K/uL (0.0-0.5) Basophils # (Auto) 0.0 K/uL (0.0-0.1) Nucleated RBC Absolute Count (auto) 0.00 K/uL Glomerular Filtration Rate Calc 15.8 Calcium Level 9.3 mg/dl (8.4-10.2) Total Bilirubin 0.4 mg/dl (0.2-1.3) Aspartate Amino Transf (AST/SGOT) 16 U/L (0-35) Alanine Aminotransferase (ALT/SGPT) 26 U/L (0-56) Alkaline Phosphatase 61 U/L (0-126) Total Protein 7.7 gm/dl (6.3-8.2) Albumin 4.1 g/dl (3.5-5.0) Urinalysis Test 12/17/17 14:49 Urine Color Yellow Urine Clarity Clear Urine pH 7.0 pH (4.8-9.5) Urine Specific [place] 1.011 Urine Protein 30 mg/dL (NEGATIVE) Urine Glucose (UA) Negative mg/dL (NEGATIVE) Urine Ketones Negative mg/dL (NEGATIVE) Urine Blood Negative (NEGATIVE) Urine Nitrite Negative (NEGATIVE) Urine Bilirubin Negative (NEGATIVE) Urine Urobilinogen Negative mg/dL (0.2-1.9) Urine Leukocyte Esterase Negative (NEGATIVE) Urine RBC 1 /HPF (0-2/HPF) Urine WBC <1 /HPF (0-5/HPF) Urine Squamous Epithelial Cells Many /LPF (</=FEW) Urine Bacteria Negative /HPF (NONE-FEW) Urine Mucus None /HPF (NONE-FEW) EKG/Imaging EKG Interpretation 12 lead EKG: EKG time 1505. Rhythm: Normal sinus rhythm, ventricular rate 80 bpm. [place]: normal QRS: normal ST segments: normal No significant changes from the 12/05/2017 EKG. Imaging 2 VIEWS CHEST INDICATION: Cough COMPARISON: X-ray examination the chest October 10, 2017 FINDINGS: Heart size within normal limits. Lungs are clear without focal infiltrate, consolidation, effusion or pneumothorax. Moderate spondylotic changes are seen in the mid and lower thoracic spine. Bridging osteophytic change is noted in the midthoracic spine. No fracture or acute destructive osseous process is identified. IMPRESSION: 1. No acute cardiopulmonary process. Report Dictated By: Venancio Arevalo MD at 12/17/2017 5:01 PM Report E-Signed By: Venancio Arevalo MD at 12/17/2017 5:02 PM WSN:[id number] ED Course/Re-evaluation Clinical Indication for ER IV: Hydration, IV Access ED Course The patient was admitted to a room. A history of physical obtained. Different diagnoses were considered. An IV was started. A 500 mL bolus of normal saline was given. A CBC, CMP were obtained. White blood cell 3.2 otherwise CBC unremarkable. BUN and creatinine 18 and 3.10 is not significantly different from her previous BUN and creatinine studies. Twelve-lead EKG normal sinus rhythm. I did review these results with the patient and her , I did tell him that this is likely a viral type of illness. While was in their patients that she had been coughing and coughed up some product. I did tell him we go ahead and do a chest x-ray and tried to collect a sputum sample. The chest x- ray was negative for any acute cardiopulmonary process. I did review these results with the patient and her . I did at this is consistent with a viral type of illness and they can go ahead and treat the symptoms however there is no improvements within the next 2-4 days she can follow up with her primary care provider. They are both in agreement with this plan of care and will be discharged home. Patient does states she feels better after the fluids and Zofran. Decision to Disposition Date: Dec 17, 2017 Decision to Disposition Time: 17:21 Depart Departure Latest Vital Signs Vital Signs Date Time Temp Pulse Resp B/P (MAP) Pulse Ox O2 Delivery O2 Flow Rate FiO2 12/17/17 17:20 79 95 12/17/17 17:00 125/82 (96) 12/17/17 15:18 Room Air 12/17/17 14:50 99.0 16 Impression: Primary Impression: Viral illness Additional Impressions: Lightheadedness Nausea Condition: Improved Disposition: HOME OR SELF-CARE Referrals: BETSEY VILLALBA MD (PCP) Patient Instructions: Viral Syndrome (ED) Additional Instructions: Continue drinking the same amount of fluids as were committed by your primary care provider. Get plenty of rest. Continue Taking your current medications. Didn't take the Zofran as directed for your nausea and vomiting. Follow-up with Dr. Villalba and 2-4 days if no improvement. May return to the emergency department for any other concerns or worsening symptoms. 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
[2017-12-17] MEDS ORDERED: NS(*) 0.9% 500 ML BAG 500 ML IV ONE (15:02)
[2017-12-17] MEDS ORDERED: ONDANSETRON 4 MG/2 ML VIAL IVP ONE (15:05)
--- NOTE | 2017-12-17 15:15 | EKG ---
FACILITY: [facility] PATIENT NAME: GREGORIO LINDSEY : [id number] MR: [id number] V: [id number] EXAM DATE: ORDERING PHYSICIAN: MY HOOPER TECHNOLOGIST: SARAH Aguilar Reason : LIGHTHEADEDS Blood Pressure : / mmHG Vent. Rate : 080 BPM Atrial Rate : 080 BPM P-R Int : 148 ms QRS Dur : 094 ms QT Int : 394 ms P-R-T Axes : 040 018 -04 degrees QTc Int : 454 ms Normal sinus rhythm Nonspecific T wave abnormality Abnormal ECG When compared with ECG of 05-DEC-2017 16:28, Relatively unchanged Confirmed by JACINTA RECINOS ([id number]) on 12/17/2017 10:25:36 PM Referred By: Confirmed By:JACINTA RECINOS
[2017-12-17 15:26] LABS: PLATELET COUNT, AUTOMATED 156 K/uL (150-450)
[2017-12-17 17:00] VITALS: BP 125/82
--- NOTE | 2017-12-17 17:06 | RADIOLOGY IMAGING REPORT ---
FACILITY: [facility] [place] PATIENT NAME: Rachel Huang : 1965 MR: [id number] V: [id number] EXAM DATE: ORDERING PHYSICIAN: MY HOOPER TECHNOLOGIST: [facility] Patient: Rachel Huang : 1965 Visit/Account:[id number] Date of Sevice: 12/17/2017 2 VIEWS CHEST INDICATION: Cough COMPARISON: X-ray examination the chest October 10, 2017 FINDINGS: Heart size within normal limits. Lungs are clear without focal infiltrate, consolidation, effusion or pneumothorax. Moderate spondylot ic changes are seen in the mid and lower thoracic spine. Bridging osteophytic change is noted in the midthoracic spine. No fracture or acute destructive osseous process is identified. IMPRESSION: 1. No acute cardiopulmonary process. Report Dictated By: Venancio Arevalo MD at 12/17/2017 5:01 PM Report E-Signed By: Venancio Arevalo MD at 12/17/2017 5:02 PM WSN:[id number]
== END 2017-12-17 17:26 | disposition home or self-care (01) ==
LOC: ER 15:00
DX: B34.9 Viral infection, unspecified (principal); R11.0 Nausea
CPT/HCPCS: 71046; 81001; 85025; 87070; 87502; 93005; 96361; 96374; 99284; J2405; J7040; 82040; 82247; 82310; 82374; 82435; 82565; 82947; 84075; 84132; 84155; 84295; 84450; 84460; 84520

== ENCOUNTER → 2018-01-08 | Outpatient (CLI) | payer MEDICARE, MEDICAID ==
[2016-01-01 08:47] VITALS: BMI 31.4
== END ==
LOC: AUD 14:45
PROVIDERS: ATTEND Otolaryngology
DX: R42 Dizziness and giddiness (principal)
CPT/HCPCS: 92557; 92570

== ENCOUNTER → 2018-01-15 | Outpatient (CLI) | payer MEDICARE, MEDICAID ==
[2016-01-01 08:47] VITALS: BMI 31.4
[~2018-01-15] MED LIST changes: +POTA-28 PO
[2018-01-15 13:41] LABS: PLATELET COUNT, AUTOMATED 182 K/uL (150-450)
== END ==
LOC: LAB 13:22
PROVIDERS: ATTEND Internal Medicine
DX: I12.9 Hypertensive chronic kidney disease with stage 1 through stage 4 chronic kidney disease, or unspecified chronic kidney disease (principal); N18.9 Chronic kidney disease, unspecified; E03.9 Hypothyroidism, unspecified
CPT/HCPCS: 36415; 82040; 82247; 82310; 82374; 82435; 82565; 82947; 84075; 84132; 84155; 84295; 84443; 84450; 84460; 84520; 85025

== ENCOUNTER → 2018-01-22 | Outpatient (CLI) | payer MEDICARE, MEDICAID ==
[2016-01-01 08:47] VITALS: BMI 31.4
== END ==
LOC: LAB 14:32
PROVIDERS: ATTEND Internal Medicine
DX: I15.1 Hypertension secondary to other renal disorders (principal); N18.9 Chronic kidney disease, unspecified
CPT/HCPCS: 36415; 82310; 82374; 82435; 82565; 82947; 84132; 84295; 84520

== ENCOUNTER 2018-01-27 10:19 | Emergency (ER) | payer MEDICARE, MEDICAID ==
[2016-01-01 08:47] VITALS: Wt 70.3 kg
--- NOTE | 2018-01-27 10:22 | ER Report ---
History and Physical Time Seen By MD: 10:22 HPI/ROS CHIEF COMPLAINT: Abdominal pain HISTORY OF PRESENT ILLNESS: A 52-year-old female presents with bilateral lower abdominal pain worse on the left associated with flank pain and urinary frequency that she describes as chronic concern for recurrent kidney stones. Past medical history includes diverticulitis. She reports last bowel was yesterday and was loose stool/ diarrhea and no blood in the stool. She is on a pain contract and is not to receive narcotics. She says she cannot take NSAIDs. REVIEW OF SYSTEMS: Constitutional: No fever, no chills. Eyes: No discharge. ENT: No sore throat. Cardiovascular: No chest pain, no palpitations. Respiratory: No cough, no shortness of breath. Gastrointestinal: Denies bloody stools Genitourinary: No hematuria. Musculoskeletal: No back pain. Skin: No rashes. Neurological: No headache. Allergies: Coded Allergies: promethazine (Verified Allergy, Severe, RESTLESS LEGS, 12/17/17) sumatriptan (Verified Allergy, Intermediate, HIVES, SOB, 12/17/17) only with nose spray, she can take oral sumatriptan NSAIDS (Non-Steroidal Anti-Inflamma (Verified Allergy, Mild, NAUSEA, HEADACHES, 12/17/17) orphenadrine (Verified Allergy, Unknown, 12/17/17) keeps her awake oxycodone (Verified Allergy, Unknown, 12/17/17) aspirin (Verified Adverse Reaction, Mild, NAUSEA, 12/17/17) furosemide (Verified Adverse Reaction, Unknown, 12/17/17) too hard on kidneys Uncoded Allergies: COBAN (Allergy, Mild, rash, 04/03/13) Home Meds Active Scripts Levothyroxine Sodium (LEVOTHYROXINE SODIUM) 88 Mcg Tablet, 88 MCG PO QDAY, #90 TAB 4 Refills Prov:BETSEY PIERSON MD 01/22/18 Hydrocodone Bit/Acetaminophen (HYDROCODON-ACETAMINOPHEN 5-325) 1 Each Tablet, 1 EACH PO QDAY Y for MODERATE PAIN, #30 TAB refill on or after 02/15/2018 Prov:BETSEY PIERSON MD 01/15/18 Meclizine Hcl (MECLIZINE HCL) 25 Mg Tablet, 25 MG PO Q8H Y for DIZZINESS, #30 TAB 1 Refill Prov:CHANDA CAUSEY JR, MD 12/30/17 Fluticasone Prop 50 Mcg Ns (FLONASE 50 MCG NS) 16 Gm [place].susp, 1 SPRAY NS QDAY , #1 BOT 0 Refills Prov:DADA SHERWOOD DNP, [employer] 12/04/17 Ondansetron (ZOFRAN ODT) 4 Mg Tab.rapdis, 4 MG PO Q6H Y for NAUSEA/VOMITING, # 20 TAB.ALEJANDRINA Prov:MY HOOPER [employer] 10/30/17 Guaifenesin (MUCINEX) 600 Mg Tablet.er, 1 TAB PO QDAY Y for Sinus Congestion, # 30 TAB 0 Refills Prov:BETSEY PIERSON MD 10/23/17 Estradiol (ESTRADIOL 0.05 MG) 1 Each Patch.tdwk, 1 EACH TD Q7D, #4 PATCH.WK 6 Refills Prov:BETSEY PIERSON MD 10/23/17 Losartan Potassium (LOSARTAN POTASSIUM) 50 Mg Tablet, 50 MG PO QDAY, #30 TAB 6 Refills Prov:BETSEY PIERSON MD 10/23/17 Topiramate (TOPIRAMATE) 100 Mg Tablet, 1 TAB PO QDAY, #30 TAB 6 Refills Prov:BETSEY PIERSON MD 10/09/17 Propranolol Hcl (INDERAL LA) 80 Mg Cap.sa.24h, 1 CAP PO QDAY, #90 CAP 1 Refill Prov:BETSEY PIERSON MD 08/06/17 Sertraline Hcl (SERTRALINE HCL) 100 Mg Tablet, 1.5 TAB PO QDAY, #45 TAB 6 Refills Prov:BETSEY PIERSON MD 06/27/17 Simvastatin (SIMVASTATIN) 10 Mg Tablet, 1 TAB PO QHS, #90 TAB 4 Refills Prov:BETSEY PIERSON MD 01/08/17 Cyclobenzaprine Hcl (CYCLOBENZAPRINE HCL) 10 Mg Tablet, 10 MG PO QDAY Y for headache, #30 TAB 3 Refills Prov:BETSEY PIERSON MD 12/31/16 Olanzapine (ZYPREXA) 5 Mg Tablet, 5 MG PO QDAY, #30 TAB 0 Refills Prov:EFREN URIOSTEGUI MD 10/14/16 Febuxostat (ULORIC) 40 Mg Tablet, 1 TAB PO QDAY, #90 TAB 1 Refill Prov:BETSEY PIERSON MD 07/27/16 Reported Medications Melatonin/Pyridoxine HCl (B6) (Melatonin 3 mg Tablet) 1 Each Tablet, 1 TAB QHS, TAB 10/23/17 Sodium Bicarbonate (SODIUM BICARBONATE) 650 Mg Tablet, 2 TAB PO BID 07/26/16 Lansoprazole (LANSOPRAZOLE) 15 Mg Capsule.dr, 1 CAP PO QDAY 07/25/16 Cholecalciferol (Vitamin D3) (Vitamin D) 50,000 Unit Capsule, 1 CAP PO Q30D 07/25/16 Risperidone (RISPERIDONE) 1 Mg Tablet, 1 MG PO DAILY 05/04/16 Imipramine Hcl (Tofranil) 25 Mg Tab, 1 TAB PO DAILY, 0 Refills 09/26/12 Discontinued Scripts Potassium Chloride (POTASSIUM CHLORIDE) 10 Meq Tablet.er, 10 MEQ PO QDAY for 2 Days, #2 TAB Prov:BETSEY PIERSON MD 01/16/18 Meclizine Hcl (MECLIZINE HCL) 25 Mg Tablet, 1 TAB PO BID Y for DIZZINESS, #20 TAB 0 Refills Prov:DADA SHERWOOD DNP, [employer] 12/04/17 Hx Smoking: Yes (SMOKED AGE 16 TO UNTIL 2000, 10/29 PPD) Smoking Status: Former Smoker Exposure to Second Hand Smoke?: No Hx Substance Use Disorder: No Hx Alcohol Use: Yes Constitutional Vital Sign - Last 24 Hours 01/27/18 01/27/18 01/27/18 01/27/18 10:19 10:27 10:29 10:34 Temp 97.5 Pulse ??? 71 75 Resp 16 B/P (MAP) 172/114 172/114 (133) Pulse Ox 98 96 O2 Delivery Room Air 01/27/18 01/27/18 01/27/18 01/27/18 10:49 11:03 11:04 11:19 Pulse 75 ??? 72 B/P (MAP) 145/93 (110) Pulse Ox 82 98 01/27/18 11:34 Pulse 74 Pulse Ox 98 Physical Exam General Appearance: The patient is alert, has no immediate need for airway protection and no signs of toxicity. No acute distress Eyes: Pupils equal and round no pallor or injection. ENT, Mouth: Mucous membranes are moist. Respiratory: There are no retractions, lungs are clear to auscultation. Cardiovascular: Regular rate and rhythm. No murmurs gallops or rubs Gastrointestinal: Abdomen is soft and LLQ is tender, no masses, bowel sounds hyperactive. Neurological: normal, grossly Skin: Warm and dry, no rashes. Musculoskeletal: Neck is supple non tender. Extremities are nontender, nonswollen and have full range of motion. no edema DIFFERENTIAL DIAGNOSIS: After history and physical exam differential diagnosis was considered for renal stone, diverticulitis, gastroenteritis, ileitis, crohn' s, inflammatory bowel disorder. This is an incomplete list of diagnoses considered. Medical Decision Making Data Points Result Diagram: 01/27/18 1057 01/27/18 1057 Laboratory Hematology Test 01/27/18 10:26 01/27/18 10:57 Urine Color Yellow Urine Clarity Slightly-cloudy Urine pH 7.0 pH (4.8-9.5) Urine Specific [place] 1.012 Urine Protein 30 mg/dL (NEGATIVE) Urine Glucose (UA) Negative mg/dL (NEGATIVE) Urine Ketones Negative mg/dL (NEGATIVE) Urine Blood Negative (NEGATIVE) Urine Nitrite Negative (NEGATIVE) Urine Bilirubin Negative (NEGATIVE) Urine Urobilinogen Negative mg/dL (0.2-1.9) Urine Leukocyte Esterase Negative (NEGATIVE) Urine RBC <1 /HPF (0-2/HPF) Urine WBC 1 /HPF (0-5/HPF) Urine Squamous Epithelial Cells Many /LPF (</=FEW) Urine Bacteria Negative /HPF (NONE-FEW) Urine Mucus None /HPF (NONE-FEW) Red Blood Count 3.65 M/uL (4.17-5.56) Mean Corpuscular Volume 94.7 fL (80.0-96.0) Mean Corpuscular Hemoglobin 34.2 pg (26.0-33.0) Mean Corpuscular Hemoglobin Concent 36.1 g/dL (32.0-36.0) Red Cell Distribution Width 13.2 % (11.5-14.5) Mean Platelet Volume 7.0 fL (7.2-11.1) Neutrophils (%) (Auto) 66.4 % (39.4-72.5) Lymphocytes (%) (Auto) 18.8 % (17.6-49.6) Monocytes (%) (Auto) 8.3 % (4.1-12.4) Eosinophils (%) (Auto) 5.7 % (0.4-6.7) Basophils (%) (Auto) 0.8 % (0.3-1.4) Nucleated RBC Relative Count (auto) 0.0 /100WBC Neutrophils # (Auto) 4.1 K/uL (2.0-7.4) Lymphocytes # (Auto) 1.2 K/uL (1.3-3.6) Monocytes # (Auto) 0.5 K/uL (0.3-1.0) Eosinophils # (Auto) 0.4 K/uL (0.0-0.5) Basophils # (Auto) 0.1 K/uL (0.0-0.1) Nucleated RBC Absolute Count (auto) 0.00 K/uL Peripheral Blood Smear No Y/N Sodium Level 143 mmol/L (137-145) Potassium Level 3.6 mmol/L (3.5-5.0) Chloride Level 108 mmol/L (98-107) Carbon Dioxide Level 21 mmol/L (22-31) Blood Urea Nitrogen 20 mg/dl (7-18) Creatinine 2.80 mg/dl (0.52-1.04) Glomerular Filtration Rate Calc 17.7 Random Glucose 92 mg/dl (75-110) Calcium Level 8.6 mg/dl (8.4-10.2) Total Bilirubin 0.3 mg/dl (0.2-1.3) Aspartate Amino Transf (AST/SGOT) 12 U/L (0-35) Alanine Aminotransferase (ALT/SGPT) 21 U/L (0-56) Alkaline Phosphatase 59 U/L (0-126) Total Protein 7.2 gm/dl (6.3-8.2) Albumin 3.8 g/dl (3.5-5.0) Lipase 424 U/L (23-300) Chemistry Test 01/27/18 10:26 01/27/18 10:57 Urine Color Yellow Urine Clarity Slightly-cloudy Urine pH 7.0 pH (4.8-9.5) Urine Specific [place] 1.012 Urine Protein 30 mg/dL (NEGATIVE) Urine Glucose (UA) Negative mg/dL (NEGATIVE) Urine Ketones Negative mg/dL (NEGATIVE) Urine Blood Negative (NEGATIVE) Urine Nitrite Negative (NEGATIVE) Urine Bilirubin Negative (NEGATIVE) Urine Urobilinogen Negative mg/dL (0.2-1.9) Urine Leukocyte Esterase Negative (NEGATIVE) Urine RBC <1 /HPF (0-2/HPF) Urine WBC 1 /HPF (0-5/HPF) Urine Squamous Epithelial Cells Many /LPF (</=FEW) Urine Bacteria Negative /HPF (NONE-FEW) Urine Mucus None /HPF (NONE-FEW) White Blood Count 6.2 k/uL (4.5-11.0) Red Blood Count 3.65 M/uL (4.17-5.56) Hemoglobin 12.5 g/dL (12.0-16.0) Hematocrit 34.5 % (34.0-47.0) Mean Corpuscular Volume 94.7 fL (80.0-96.0) Mean Corpuscular Hemoglobin 34.2 pg (26.0-33.0) Mean Corpuscular Hemoglobin Concent 36.1 g/dL (32.0-36.0) Red Cell Distribution Width 13.2 % (11.5-14.5) Platelet Count 179 K/uL (150-450) Mean Platelet Volume 7.0 fL (7.2-11.1) Neutrophils (%) (Auto) 66.4 % (39.4-72.5) Lymphocytes (%) (Auto) 18.8 % (17.6-49.6) Monocytes (%) (Auto) 8.3 % (4.1-12.4) Eosinophils (%) (Auto) 5.7 % (0.4-6.7) Basophils (%) (Auto) 0.8 % (0.3-1.4) Nucleated RBC Relative Count (auto) 0.0 /100WBC Neutrophils # (Auto) 4.1 K/uL (2.0-7.4) Lymphocytes # (Auto) 1.2 K/uL (1.3-3.6) Monocytes # (Auto) 0.5 K/uL (0.3-1.0) Eosinophils # (Auto) 0.4 K/uL (0.0-0.5) Basophils # (Auto) 0.1 K/uL (0.0-0.1) Nucleated RBC Absolute Count (auto) 0.00 K/uL Peripheral Blood Smear No Y/N Glomerular Filtration Rate Calc 17.7 Calcium Level 8.6 mg/dl (8.4-10.2) Total Bilirubin 0.3 mg/dl (0.2-1.3) Aspartate Amino Transf (AST/SGOT) 12 U/L (0-35) Alanine Aminotransferase (ALT/SGPT) 21 U/L (0-56) Alkaline Phosphatase 59 U/L (0-126) Total Protein 7.2 gm/dl (6.3-8.2) Albumin 3.8 g/dl (3.5-5.0) Lipase 424 U/L (23-300) Urinalysis Test 01/27/18 10:26 Urine Color Yellow Urine Clarity Slightly-cloudy Urine pH 7.0 pH (4.8-9.5) Urine Specific [place] 1.012 Urine Protein 30 mg/dL (NEGATIVE) Urine Glucose (UA) Negative mg/dL (NEGATIVE) Urine Ketones Negative mg/dL (NEGATIVE) Urine Blood Negative (NEGATIVE) Urine Nitrite Negative (NEGATIVE) Urine Bilirubin Negative (NEGATIVE) Urine Urobilinogen Negative mg/dL (0.2-1.9) Urine Leukocyte Esterase Negative (NEGATIVE) Urine RBC <1 /HPF (0-2/HPF) Urine WBC 1 /HPF (0-5/HPF) Urine Squamous Epithelial Cells Many /LPF (</=FEW) Urine Bacteria Negative /HPF (NONE-FEW) Urine Mucus None /HPF (NONE-FEW) EKG/Imaging Imaging 1mm L renal stone unchanged in location ED Course/Re-evaluation ED Course Plan of care agree upon prior to orders placed. RESULTS WERE REVIEWED AND DISCUSSED Re-evaluation Creatinine 2.88 this is typically high in her case based on prior lab data. It is not significant change from her baseline. On reevaluation she requested further medication for nausea. Additional 4 mg of Zofran IV has been ordered. Decision to Disposition Date: Jan 27, 2018 Decision to Disposition Time: 12:07 Depart Departure Latest Vital Signs Vital Signs Date Time Temp Pulse Resp B/P (MAP) Pulse Ox O2 Delivery O2 Flow Rate FiO2 01/27/18 11:34 74 98 01/27/18 11:03 145/93 (110) 01/27/18 10:27 97.5 16 Room Air Impression: Primary Impression: Abdominal left lower quadrant tenderness Additional Impression: Diarrhea Condition: Improved Disposition: HOME OR SELF-CARE Referrals: BETSEY PIERSON MD (PCP) New Scripts Diphenoxylate Hcl/Atropine (LOMOTIL TABLET) 1 Each Tablet 1 EACH PO 1-3XD Y for DIARRHEA, #10 TAB Prov: YONG HUMPHREY MD 01/27/18 Dicyclomine Hcl (DICYCLOMINE HCL) 20 Mg Tablet 20 MG PO QID for PAIN for 7 Days, #20 CAP Prov: YONG HUMPHREY MD 01/27/18 Patient Instructions: Acute Diarrhea (ED) Problem Qualifiers Primary Impression: Abdominal left lower quadrant tenderness Presence of rebound: absent Qualified Codes: R10.814 - Left lower quadrant abdominal tenderness Additional Impression: Diarrhea Diarrhea type: unspecified type Qualified Codes: R19.7 - Diarrhea, unspecified YONG HUMPHREY MD Jan 27, 2018 10:22
[2018-01-27] MEDS ORDERED: NS(*) 0.9% 1000 ML BAG 1,000 ML IV ONE (10:40)
[2018-01-27] MEDS ORDERED: ONDANSETRON 4 MG/2 ML VIAL IVP ONE ×2 (10:40→12:00)
[2018-01-27] MEDS ORDERED: IOPAMIDOL 76% 75 ML INFUS BTL 75 ML ONE (10:51)
[2018-01-27 11:12] LABS: PLATELET COUNT, AUTOMATED 179 K/uL (150-450)
--- NOTE | 2018-01-27 11:59 | RADIOLOGY IMAGING REPORT ---
FACILITY: [facility] - [place] PATIENT NAME: Rachel Huang : 1965 MR: [id number] V: [id number] EXAM DATE: ORDERING PHYSICIAN: YONG HUMPHREY TECHNOLOGIST: Location: [facility] - [place] Patient: Rachel Huang : 1965 Visit/Account:[id number] Date of Sevice: 01/27/2018 ABDOMEN/PELVIS W/O CONTRAST HISTORY: Left-sided renal pain TECHNIQUE: Axial images acquired through the abdomen/pelvis. Coronal and sagittal reformatting also performed. No IV contrast administered. One of the following dose optimization techniques was utili zed in the performance of this exam: Automated exposure control; adjustment of the mA and/or kV accor ding to the patient's size; or use of an iterative reconstruction technique. Specific details can b e referenced in the facility's radiology CT exam operational policy. COMPARISON: CT scan 10/10/2017 FINDINGS: Visualized lung bases: Negative. Hepatobiliary: Normal-appearing liver. Remote cholecystectomy. Spleen: Negative. Adrenals: Negative. Pancreas: Negative. Kidneys ureters and bladder: There is very advanced right renal atrophy and essentially a nonfunction al kidney. The left kidney demonstrates stable cortical lobulation. There is a single 1 mm nonobstructive stone in the left kidney (axial image 38 series 3) which is unchanged. There is no left-sided perinephric f at stranding to suggest inflammation and no evidence of hydronephrosis. Left ureter normal without ev idence of stones. Urinary bladder normal. Genitalia: Remote hysterectomy. GI: Negative. Vessels/spaces/nodes: Negative. Bones/soft tissues: Remote discectomy at L4-L5 with disc prosthesis in place. Accompanying laminecto my at this level. There is multilevel degenerative lumbar facet arthropathy causing at least mild spi nal canal stenosis L3-4. No acute osseous pathology identified. Additional findings: None pertinent. IMPRESSION: No acute pathology identified. Left-sided nephrolithiasis with single nonobstructive 1 mm stone unchanged. Lobulated left renal kenn ex appears stable. Advanced right renal atrophy. Remote hysterectomy and cholecystectomy and lumbar spine surgery as discussed above. Report Dictated By: Arnie Santos MD at 01/27/2018 11:46 AM Report E-Signed By: Arnie Santos MD at 01/27/2018 11:55 AM WSN:[id number]
[2018-01-27 12:08] VITALS: BP 116/87
[2018-01-27] MEDS ORDERED: DICY20TA70 PO (12:10)
[2018-01-27] MEDS ORDERED: DIPH-1 PO (12:10)
== END 2018-01-27 12:25 | disposition home or self-care (01) ==
LOC: ER 10:31
DX: R10.31 Right lower quadrant pain (principal); R10.32 Left lower quadrant pain; R19.7 Diarrhea, unspecified; R11.0 Nausea
CPT/HCPCS: 74176; 81001; 83690; 85025; 96361; 96374; 96376; 99284; J2405; J7030; 82040; 82247; 82310; 82374; 82435; 82565; 82947; 84075; 84132; 84155; 84295; 84450; 84460; 84520; Q9967

== ENCOUNTER → 2018-01-29 | Outpatient (CLI) | payer MEDICARE, MEDICAID ==
[2016-01-01 08:47] VITALS: BMI 31.4
[~2018-01-29] MED LIST changes: +DICY20TA70 PO; +DIPH-1 PO
--- NOTE | 2018-01-29 12:53 | RADIOLOGY IMAGING REPORT ---
FACILITY: [facility] PATIENT NAME: Rachel Huang : 1965 MR: [id number] V: [id number] EXAM DATE: ORDERING PHYSICIAN: PÉREZ BELL TECHNOLOGIST: Location: [facility] [place] Patient: Rachel Huang : 1965 Visit/Account:[id number] Date of Sevice: 01/29/2018 EXAMINATION: Single Isotope SPECT Imaging with Exercise and Gated SPECT Imaging DATE OF EXAMINATION: 01/29/18 DATE OF INTERPRETATION: 01/29/18 REQUESTING PHYSICIAN: PÉREZ BELL INDICATION: The patient is a 52-year-old female evaluated for Renal transplant. PROCEDURE: After informed consent the patient received an intravenous injection of 11.9 mCi of Tc-9 9m sestamibi followed at the appropriate time interval by rest imaging. The patient then exercised a ccording to the standard [place] protocol for 9:30 minutes achieving 10 METS. Resting heart rate was 7 2 bpm with a peak heart rate of 145 bpm which is 88 % of maximal predicted heart rate for age. Bloo d pressure at rest was 165 / 99; blood pressure during exercise was 165 / 99. There was no chest bj n during exercise. Exercise was discontinued because of fatigue. Baseline EKG demonstrates NSR with incomplete RBBB. There were no new EKG changes of ischemia at peak exercise. Approximately one min [place] and 30 seconds prior to the termination of exercise, the patient received an intravenous injectio n of 31.7 mCi of Tc-99m sestamibi followed by stress imaging. RAW DATA: Examination of the summed raw data revealed a good quality study. MYOCARDIAL PERFUSION: The tomographic images demonstrate Small anteroseptal defect at rest and stre ss consistent with RV insertion. No evidence of infarct or ischemia. GATED IMAGES: The gated images demonstrate hyperdynamic wall motion, EF 80% IMPRESSION: 1. Good quality study. 2. Normal myocardial perfusion scan. 3. Hyperdynamic LV systolic function; LVEF 80%. 4. Based on the results of this exam, the patient appears to be at low risk for future cardiovascular events. Report Dictated By: Jose L Noe at 01/29/2018 12:43 PM Report E-Signed By: Jose L Noe at 01/29/2018 12:47 PM WSN:[id number]
--- NOTE | 2018-01-30 08:38 | RT STRESS TEST REPORT ---
FACILITY: [facility] PATIENT NAME: GREGORIO LINDSEY : [id number] MR: [id number] V: [id number] EXAM DATE: ORDERING PHYSICIAN: ARTEMIO COLUNGA TECHNOLOGIST: [employer] Time: 2018-01-29 09:10:57 Total Exercise Time: 00:09:30 Test Indications: Renal Transplant work-up Medications: see nuc med list Protocol: COM/MODBRUCE Max HR: 148 BPM 88% of Pred: 168 BPM Max BP: 165/099 mmHG Max Work Load: 5.9 METS see nuc. report Confirmed by BHASKAR JOYNER ([id number]) on 01/30/2018 8:38:11 AM Referred By: Artemio Colunga Overread By: BHASKAR JOYNER
== END ==
LOC: NUC 02:13
PROVIDERS: ATTEND Internal Medicine Nephrology
DX: Z01.818 Encounter for other preprocedural examination (principal); N18.4 Chronic kidney disease, stage 4 (severe)
CPT/HCPCS: 78452; 93017; A9500

== ENCOUNTER → 2018-02-05 | Outpatient (CLI) | payer MEDICARE, MEDICAID ==
[2016-01-01 08:47] VITALS: BMI 31.4
--- NOTE | 2018-02-05 11:02 | RADIOLOGY IMAGING REPORT ---
FACILITY: [facility] PATIENT NAME: Rachel Huang : 1965 MR: [id number] V: [id number] EXAM DATE: ORDERING PHYSICIAN: PÉREZ BELL TECHNOLOGIST: Location: [facility] Patient: Rachel Huang : 1965 Visit/Account:[id number] Date of Sevice: 02/05/2018 Exam type: CHEST PA AND LAT History: Patient or chronic kidney disease Comparison: December 17, 2017. Findings: The lungs are free of acute effusions, infiltrates or edema. There is no evidence of a pneumothorax or pneumomediastinum. The cardiac silhouette is normal in size. There are moderate spondylotic ross ges of the thoracic spine and postsurgical changes the right shoulder IMPRESSION: 1. No acute cardiac pulmonary process is seen Report Dictated By: Laura Olson MD at 02/05/2018 10:57 AM Report E-Signed By: Laura Olson MD at 02/05/2018 10:58 AM WSN:[id number]
--- NOTE | 2018-02-05 11:06 | RADIOLOGY IMAGING REPORT ---
FACILITY: [facility] - [place] PATIENT NAME: Rachel Huang : 1965 MR: [id number] V: [id number] EXAM DATE: ORDERING PHYSICIAN: PÉREZ BELL TECHNOLOGIST: Location: [facility] - [place] Patient: Rachel Huang : 1965 Visit/Account:[id number] Date of Sevice: 02/05/2018 Exam type: ARTERIAL BILAT LOWER EXT History: Prerenal transplant Comparison: May 30, 2016. Findings: Triphasic flow is seen throughout the lower extremity arterial tree bilaterally. The peak systolic velocities in the right lower extremity are as follows measured in centimeters per second: Common femoral artery 97 Profunda femoral artery 68 Superficial femoral artery 100 Popliteal artery 89 Peroneal artery 46 Posterior tibial artery 62 Anterior tibial artery 60 Dorsalis pedis artery 60 The peak systolic velocities in the left lower extremity are as follows measured in centimeters per s econd: Common femoral artery 157 Profunda femoral artery 89 Superficial femoral artery 125 Popliteal artery 81 Peroneal artery 50 Posterior tibial artery 76 Anterior tibial artery 72 Dorsalis pedis artery 57 IMPRESSION: 1. Triphasic flow seen throughout the lower extremity tree bilaterally with no abnormal peak systoli c velocities identified Report Dictated By: Laura Olson MD at 02/05/2018 10:58 AM Report E-Signed By: Laura Olson MD at 02/05/2018 11:03 AM WSN:[email or web address]
--- NOTE | 2018-02-06 14:45 | RADIOLOGY IMAGING REPORT ---
FACILITY: [facility] - [place], [place] PATIENT NAME: GREGORIO LINDSEY : [id number] MR: [id number] V: [id number] EXAM DATE: ORDERING PHYSICIAN: PÉREZ BELL TECHNOLOGIST: Kentrell Mcfarlane EXAMINATION:TWO-DIMENSIONAL ECHOCARDIOGRAPH REASON:PRERENAL TRANSPLANT EVALUATION 2D Measurements (normal values in centimeters) LV endLV endRV endVent.LV PostAorticLeftPercent DiastolicSystolicDiastolicSeptumWallRootAtriumShortening (3.5-5.7)(0.9-2.6)(0.6-1.1)(0.6-1.1)(2.0-3.7)(1.9-4.0)(25-35%) [id number]% STROKE VOLUME: 41ml ESTIMATED EJECTION FRACTION: 69% PARASTERNAL LONG AXIS: Overall left ventricular systolic function appears to be normal. Mild concentric left ventricular thickening is noted but no evidence for any outflow tract obstruction. There is minimal mitral annular calcification. The patient appears to be in sinus rhythm. Color examination of the valves reveals a trace of mitral insufficiency and some aortic insufficiency present. Mild amount of tricuspid insufficiency is also noted. PARASTERNAL SHORT AXIS: Again overall left ventricular systolic function appears to be normal with mild concentric left ventricular thickening. Aortic valve is trileaflet in configuration and appears to open normally. There is some aortic insufficiency present. Tricuspid insufficiency is also noted in this view. Pulmonic insufficiency is also noted as a trace. APICAL FOUR AND TWO CHAMBER: Normal left ventricular ejection fraction. The aortic valve area was measured within normal range at 1.7cm2 with a mean pressure grain across the valve of 6mm Hg and a dimensionless index of 0.8. Mitral valve area is also measured within normal range at 2.5cm2. The left atrial and right atrial volumes are measured within normal ranges at 14.2 and 10.4ml/m2. The tricuspid regurgitation Vmax measured 2.55m/sec. No wall motion abnormalities are noted. The aortic insufficiency is noted. SUBCOSTAL VIEW: Prominent pericardial fat pad is noted but no pericardial effusion is noted. No atrioseptal or ventriculoseptal defects were appreciated. The IVC is normal in size. Doppler examination of the mitral valve in diastole does reveal the A wave > E wave. The aortic insufficiency pressure at half time is 224 to 240msec. There is decreased medial E prime velocity of 4.9cm. OVERALL IMPRESSION: 1. Normal left ventricular ejection fraction of approximately 69% with a mild Grade 1 decrease in diastolic function. 2. Mild concentric left ventricular thickening but no evidence for any outflow tract obstruction. 3. Patient's in sinus rhythm. 4. A trileaflet aortic valve with minimal aortic sclerosis but no stenosis and moderate to border line severe aortic insufficiency is noted by pressure half time measurements. 5. A trace amount of mitral insufficiency with no mitral stenosis. 6. There is a mild amount of tricuspid insufficiency with estimated right ventricular systolic pressures at 29mm Hg which does include an estimated right atrial pressure of 3mm Hg. 7. A trace of pulmonic insufficiency present. 8. In comparison to the examination done on 05/30/16 no appreciable change is noted except the aortic insufficiency maybe slightly more. Right ventricular pressures and ejection fractions are approximately the same as well as the diastolic function. Dictated by: Gillian Monson M.D. on 02/05/2018 at 15:01 Transcribed by: AMELIA on 02/06/2018 at 11:20 Approved by: Gillian Monson M.D. on 02/06/2018 at 14:44 [facility]
== END ==
LOC: US 00:56
PROVIDERS: ATTEND Internal Medicine Nephrology
DX: Z01.818 Encounter for other preprocedural examination (principal); N18.4 Chronic kidney disease, stage 4 (severe)
CPT/HCPCS: 71046; 93306; 93925

== ENCOUNTER → 2018-02-11 | Outpatient (CLI) | payer MEDICARE, MEDICAID ==
[2016-01-01 08:47] VITALS: BMI 31.4
[2018-02-11 16:17] LABS: PLATELET COUNT, AUTOMATED 193 K/uL (150-450)
== END ==
LOC: LAB 15:59
PROVIDERS: ATTEND Internal Medicine Nephrology
DX: I12.9 Hypertensive chronic kidney disease with stage 1 through stage 4 chronic kidney disease, or unspecified chronic kidney disease (principal); N00.8 Acute nephritic syndrome with other morphologic changes; N18.4 Chronic kidney disease, stage 4 (severe); R80.1 Persistent proteinuria, unspecified; N25.81 Secondary hyperparathyroidism of renal origin
CPT/HCPCS: 82040; 82247; 82310; 82374; 82435; 82565; 82947; 83970; 84075; 84100; 84132; 84155; 84295; 84450; 84460; 84520; 84550; 85025

== ENCOUNTER → 2018-02-19 | Outpatient (CLI) | payer MEDICARE, MEDICAID ==
[2016-01-01 08:47] VITALS: BMI 31.4
--- NOTE | 2018-02-19 08:46 | RADIOLOGY IMAGING REPORT ---
FACILITY: [facility] [place] PATIENT NAME: Rachel Huang : 1965 MR: [id number] V: [id number] EXAM DATE: ORDERING PHYSICIAN: PÉREZ BELL TECHNOLOGIST: Location: [facility] Patient: Rachel Huang : 1965 Visit/Account:[id number] Date of Sevice: 02/19/2018 ABDOMEN/PELVIS W/O CONTRAST HISTORY: Chronic kidney disease stage IV, pretransplant evaluation TECHNIQUE: Axial images acquired through the abdomen/pelvis. Coronal and sagittal reformatting also performed. No IV contrast administered. Dose Lowering Technique One of the following dose optimization techniques was utilized in the performance of this exam: Autom ated exposure control; adjustment of the mA and/or kV according to the patient's size; or use of an i terative reconstruction technique. Specific details can be referenced in the facility's radiology C T exam operational policy. COMPARISON: January 27, 2018 FINDINGS: Visualized lung bases: Small amount scarring versus atelectasis in the inferior lingula and left lowe r lobe Hepatobiliary: Postsurgical changes from a prior cholecystectomy. The right lobe appears prominent measuring 21 cm in length Spleen: Negative. Adrenals: Negative. Pancreas: Negative. Kidneys ureters and bladder: There is extreme atrophy of the right kidney again noted. The left kidney has a polylobular contour appear similar to the prior study. Mild perinephric strand ing on the left also appears similar to the prior study again noted is a 1 mm nonobstructing calculus in the midpole of the left kidney. Also noted are two tiny punctate 1 mm calculi in the lower pole of the left kidney not well seen on the prior study. No evidence of hydronephrosis or hydroureter Genitalia: Hysterectomy GI: There is diffuse wall thickening of the distal esophagus. The right side of the colon is redund ant Vessels/spaces/nodes: Shotty mesenteric lymph nodes appear similar to the prior study Bones/soft tissues: Small periumbilical hernia containing fat, postoperative changes of the lumbar s pine and moderate spondylotic changes of the thoracic spine Additional findings: None pertinent. IMPRESSION: Extremely atrophic right kidney Left kidney has a polylobular contour and mild perinephric stranding similar to the prior examination . There are three tiny 1 mm nonobstructing calculi are identified in the left renal collecting system There is diffuse wall thickening of the distal esophagus which may represent inflammation however fur ther evaluation recommended. Small amount scarring versus atelectasis in the inferior lingula and left lower lobe Additional chronic findings as described Report Dictated By: Laura Olson MD at 02/19/2018 8:26 AM Report E-Signed By: Laura Olson MD at 02/19/2018 8:42 AM SINN:AMICIVMikaela
== END ==
LOC: CT 01:04
PROVIDERS: ATTEND Internal Medicine Nephrology
DX: Z01.818 Encounter for other preprocedural examination (principal); N18.4 Chronic kidney disease, stage 4 (severe); N26.1 Atrophy of kidney (terminal); N20.0 Calculus of kidney
CPT/HCPCS: 74176

== ENCOUNTER 2018-03-02 10:11 | Emergency (ER) | payer MEDICARE, MEDICAID ==
[2016-01-01 08:47] VITALS: Wt 74.4 kg
--- NOTE | 2018-03-02 10:26 | ER Report ---
History and Physical Time Seen By MD: 10:15 HPI/ROS CHIEF COMPLAINT: Left flank pain HISTORY OF PRESENT ILLNESS: Patient is a 52-year-old female who began complaining of severe left flank pain this morning. Patient does have a history of kidney stones and she is also on a kidney transplant list. Patient is known to department has multiple medical problems including migraines renal dysfunction chronic pain syndromes. Patient states that she was having pain in the side which caused her to fall at home this morning. Current pain level is 7 out of 10 in intensity. Works no nausea or vomiting. No history of fevers. She also reports burning with urination and increased urinary frequency. Patient does have a history of hemorrhagic cystitis in the past. REVIEW OF SYSTEMS: Respiratory: No cough, no dyspnea. Cardiovascular: No chest pain, no palpitations. Gastrointestinal: No vomiting, no abdominal pain. Musculoskeletal: No back pain. Left flank pain Allergies: Coded Allergies: promethazine (Verified Allergy, Severe, RESTLESS LEGS, 12/17/17) sumatriptan (Verified Allergy, Intermediate, HIVES, SOB, 12/17/17) only with nose spray, she can take oral sumatriptan NSAIDS (Non-Steroidal Anti-Inflamma (Verified Allergy, Mild, NAUSEA, HEADACHES, 12/17/17) orphenadrine (Verified Allergy, Unknown, 12/17/17) keeps her awake oxycodone (Verified Allergy, Unknown, 12/17/17) aspirin (Verified Adverse Reaction, Mild, NAUSEA, 12/17/17) furosemide (Verified Adverse Reaction, Unknown, 12/17/17) too hard on kidneys Uncoded Allergies: COBAN (Allergy, Mild, rash, 04/03/13) Home Meds Active Scripts Sertraline Hcl (SERTRALINE HCL) 100 Mg Tablet, 1.5 TAB PO QDAY, #135 TAB 1 Refill Prov:BETSEY PIERSON MD 02/19/18 Propranolol Hcl (INDERAL LA) 80 Mg Cap.sa.24h, 1 CAP PO QDAY, #90 CAP 4 Refills Prov:BETSEY PIERSON MD 02/05/18 Diphenoxylate Hcl/Atropine (LOMOTIL TABLET) 1 Each Tablet, 1 EACH PO 1-3XD Y for DIARRHEA, #10 TAB Prov:YONG HUMPHREY MD 01/27/18 Dicyclomine Hcl (DICYCLOMINE HCL) 20 Mg Tablet, 20 MG PO QID for PAIN for 7 Days , #20 CAP Prov:YONG HUMPHREY MD 01/27/18 Levothyroxine Sodium (LEVOTHYROXINE SODIUM) 88 Mcg Tablet, 88 MCG PO QDAY, #90 TAB 4 Refills Prov:BETSEY PIERSON MD 01/22/18 Hydrocodone Bit/Acetaminophen (HYDROCODON-ACETAMINOPHEN 5-325) 1 Each Tablet, 1 EACH PO QDAY Y for MODERATE PAIN, #30 TAB refill on or after 02/15/2018 Prov:BETSEY PIERSON MD 01/15/18 Meclizine Hcl (MECLIZINE HCL) 25 Mg Tablet, 25 MG PO Q8H Y for DIZZINESS, #30 TAB 1 Refill Prov:CHANDA CAUSEY JR, MD 12/30/17 Fluticasone Prop 50 Mcg Ns (FLONASE 50 MCG NS) 16 Gm [place].susp, 1 SPRAY NS QDAY , #1 BOT 0 Refills Prov:DADA SHERWOOD DNP, SITE RELIABILITY ENGINEER-BC 12/04/17 Ondansetron (ZOFRAN ODT) 4 Mg Tab.rapdis, 4 MG PO Q6H Y for NAUSEA/VOMITING, # 20 TAB.ALEJANDRINA Prov:MY HOOPER SITE RELIABILITY ENGINEER-BC 10/30/17 Guaifenesin (MUCINEX) 600 Mg Tablet.er, 1 TAB PO QDAY Y for Sinus Congestion, # 30 TAB 0 Refills Prov:BETSEY PIERSON MD 10/23/17 Estradiol (ESTRADIOL 0.05 MG) 1 Each Patch.tdwk, 1 EACH TD Q7D, #4 PATCH.WK 6 Refills Prov:BETSEY PIERSON MD 10/23/17 Losartan Potassium (LOSARTAN POTASSIUM) 50 Mg Tablet, 50 MG PO QDAY, #30 TAB 6 Refills Prov:BETSEY PIERSON MD 10/23/17 Topiramate (TOPIRAMATE) 100 Mg Tablet, 1 TAB PO QDAY, #30 TAB 6 Refills Prov:BETSEY PIERSON MD 10/09/17 Simvastatin (SIMVASTATIN) 10 Mg Tablet, 1 TAB PO QHS, #90 TAB 4 Refills Prov:BETSEY PIERSON MD 01/08/17 Cyclobenzaprine Hcl (CYCLOBENZAPRINE HCL) 10 Mg Tablet, 10 MG PO QDAY Y for headache, #30 TAB 3 Refills Prov:BETSEY PIERSON MD 12/31/16 Olanzapine (ZYPREXA) 5 Mg Tablet, 5 MG PO QDAY, #30 TAB 0 Refills Prov:EFREN URIOSTEGUI MD 10/14/16 Febuxostat (ULORIC) 40 Mg Tablet, 1 TAB PO QDAY, #90 TAB 1 Refill Prov:BETSEY PIERSON MD 07/27/16 Reported Medications Melatonin/Pyridoxine HCl (B6) (Melatonin 3 mg Tablet) 1 Each Tablet, 1 TAB QHS, TAB 10/23/17 Sodium Bicarbonate (SODIUM BICARBONATE) 650 Mg Tablet, 2 TAB PO BID 07/26/16 Lansoprazole (LANSOPRAZOLE) 15 Mg Capsule.dr, 1 CAP PO QDAY 07/25/16 Cholecalciferol (Vitamin D3) (Vitamin D) 50,000 Unit Capsule, 1 CAP PO Q30D 07/25/16 Risperidone (RISPERIDONE) 1 Mg Tablet, 1 MG PO DAILY 05/04/16 Imipramine Hcl (Tofranil) 25 Mg Tab, 1 TAB PO DAILY, 0 Refills 09/26/12 Past Medical/Surgical History She has a past medical and surgical history of migraines, heart murmur, angina, cardiac catheter which was normal, hypertension, hypercholesterolemia, bronchitis, pneumonia, intermittent abdominal pain, frequent nausea, GERD, incontinence, UTIs, breast augmentation, gout, arthritis, scoliosis, wears glasses, depression, anxiety, right shoulder surgery, right elbow, right hand surgery, tonsillectomy. Hx Smoking: Yes (SMOKED AGE 16 TO UNTIL 2000, 10/29 PPD) Smoking Status: Former Smoker Exposure to Second Hand Smoke?: No Hx Substance Use Disorder: No Hx Alcohol Use: Yes Constitutional Vital Sign - Last 24 Hours 03/02/18 03/02/18 03/02/18 03/02/18 10:16 10:22 10:26 10:30 Temp 98.0 Pulse 75 73 Resp 20 11 B/P (MAP) 179/88 179/88 (118) 166/92 (116) Pulse Ox 93 93 O2 Delivery Room Air 03/02/18 03/02/18 03/02/18 03/02/18 10:41 10:56 11:11 11:26 Pulse 77 85 80 80 Resp 10 15 8 28 B/P (MAP) 153/93 (113) Pulse Ox 99 96 97 98 03/02/18 03/02/18 03/02/18 03/02/18 11:30 11:41 11:56 11:57 Pulse 80 77 Resp 6 8 B/P (MAP) 147/93 (111) 153/102 (119) Pulse Ox 98 96 03/02/18 11:58 B/P (MAP) 153/96 (115) Intake and Output 03/02/18 03/02/18 03/03/18 14:59 22:59 06:59 Intake Total 1000 ml Balance 1000 ml Physical Exam General Appearance: The patient is alert, has no immediate need for airway protection and no current signs of toxicity. Eyes: Conjunctival clear Respiratory: Chest is non tender, lungs are clear to auscultation. Cardiac: regular rate and rhythm [ ] Gastrointestinal: Abdomen is soft and non tender, no masses, bowel sounds normal. Left flank tenderness Musculoskeletal: Neck: Neck is supple and non tender. Extremities have full range of motion and are non tender. Skin: No rashes, abrasions to left CVA area Medical Decision Making Data Points Result Diagram: 03/02/18 1030 03/02/18 1030 Laboratory Hematology Test 03/02/18 10:30 Red Blood Count 3.86 M/uL (4.17-5.56) Mean Corpuscular Volume 96.0 fL (80.0-96.0) Mean Corpuscular Hemoglobin 34.1 pg (26.0-33.0) Mean Corpuscular Hemoglobin Concent 35.6 g/dL (32.0-36.0) Red Cell Distribution Width 13.2 % (11.5-14.5) Mean Platelet Volume 7.0 fL (7.2-11.1) Neutrophils (%) (Auto) 65.8 % (39.4-72.5) Lymphocytes (%) (Auto) 19.4 % (17.6-49.6) Monocytes (%) (Auto) 8.6 % (4.1-12.4) Eosinophils (%) (Auto) 5.5 % (0.4-6.7) Basophils (%) (Auto) 0.7 % (0.3-1.4) Nucleated RBC Relative Count (auto) 0.0 /100WBC Neutrophils # (Auto) 4.6 K/uL (2.0-7.4) Lymphocytes # (Auto) 1.3 K/uL (1.3-3.6) Monocytes # (Auto) 0.6 K/uL (0.3-1.0) Eosinophils # (Auto) 0.4 K/uL (0.0-0.5) Basophils # (Auto) 0.0 K/uL (0.0-0.1) Nucleated RBC Absolute Count (auto) 0.00 K/uL Urine Color Straw Urine Clarity Clear Urine pH 8.0 pH (4.8-9.5) Urine Specific [place] 1.006 Urine Protein Negative mg/dL (NEGATIVE) Urine Glucose (UA) Negative mg/dL (NEGATIVE) Urine Ketones Negative mg/dL (NEGATIVE) Urine Blood Negative (NEGATIVE) Urine Nitrite Negative (NEGATIVE) Urine Bilirubin Negative (NEGATIVE) Urine Urobilinogen Negative mg/dL (0.2-1.9) Urine Leukocyte Esterase Negative (NEGATIVE) Urine RBC None /HPF (0-2/HPF) Urine WBC <1 /HPF (0-5/HPF) Urine Squamous Epithelial Cells Many /LPF (</=FEW) Urine Bacteria Negative /HPF (NONE-FEW) Urine Mucus None /HPF (NONE-FEW) Sodium Level 141 mmol/L (137-145) Potassium Level 3.6 mmol/L (3.5-5.0) Chloride Level 104 mmol/L (98-107) Carbon Dioxide Level 23 mmol/L (22-31) Blood Urea Nitrogen 18 mg/dl (7-18) Creatinine 2.70 mg/dl (0.52-1.04) Glomerular Filtration Rate Calc 18.5 Random Glucose 81 mg/dl (75-110) Calcium Level 9.5 mg/dl (8.4-10.2) Total Bilirubin 0.3 mg/dl (0.2-1.3) Aspartate Amino Transf (AST/SGOT) 20 U/L (0-35) Alanine Aminotransferase (ALT/SGPT) 18 U/L (0-56) Alkaline Phosphatase 80 U/L (0-126) Total Protein 7.5 gm/dl (6.3-8.2) Albumin 4.0 g/dl (3.5-5.0) Chemistry Test 03/02/18 10:30 White Blood Count 6.9 k/uL (4.5-11.0) Red Blood Count 3.86 M/uL (4.17-5.56) Hemoglobin 13.2 g/dL (12.0-16.0) Hematocrit 37.0 % (34.0-47.0) Mean Corpuscular Volume 96.0 fL (80.0-96.0) Mean Corpuscular Hemoglobin 34.1 pg (26.0-33.0) Mean Corpuscular Hemoglobin Concent 35.6 g/dL (32.0-36.0) Red Cell Distribution Width 13.2 % (11.5-14.5) Platelet Count 182 K/uL (150-450) Mean Platelet Volume 7.0 fL (7.2-11.1) Neutrophils (%) (Auto) 65.8 % (39.4-72.5) Lymphocytes (%) (Auto) 19.4 % (17.6-49.6) Monocytes (%) (Auto) 8.6 % (4.1-12.4) Eosinophils (%) (Auto) 5.5 % (0.4-6.7) Basophils (%) (Auto) 0.7 % (0.3-1.4) Nucleated RBC Relative Count (auto) 0.0 /100WBC Neutrophils # (Auto) 4.6 K/uL (2.0-7.4) Lymphocytes # (Auto) 1.3 K/uL (1.3-3.6) Monocytes # (Auto) 0.6 K/uL (0.3-1.0) Eosinophils # (Auto) 0.4 K/uL (0.0-0.5) Basophils # (Auto) 0.0 K/uL (0.0-0.1) Nucleated RBC Absolute Count (auto) 0.00 K/uL Urine Color Straw Urine Clarity Clear Urine pH 8.0 pH (4.8-9.5) Urine Specific [place] 1.006 Urine Protein Negative mg/dL (NEGATIVE) Urine Glucose (UA) Negative mg/dL (NEGATIVE) Urine Ketones Negative mg/dL (NEGATIVE) Urine Blood Negative (NEGATIVE) Urine Nitrite Negative (NEGATIVE) Urine Bilirubin Negative (NEGATIVE) Urine Urobilinogen Negative mg/dL (0.2-1.9) Urine Leukocyte Esterase Negative (NEGATIVE) Urine RBC None /HPF (0-2/HPF) Urine WBC <1 /HPF (0-5/HPF) Urine Squamous Epithelial Cells Many /LPF (</=FEW) Urine Bacteria Negative /HPF (NONE-FEW) Urine Mucus None /HPF (NONE-FEW) Glomerular Filtration Rate Calc 18.5 Calcium Level 9.5 mg/dl (8.4-10.2) Total Bilirubin 0.3 mg/dl (0.2-1.3) Aspartate Amino Transf (AST/SGOT) 20 U/L (0-35) Alanine Aminotransferase (ALT/SGPT) 18 U/L (0-56) Alkaline Phosphatase 80 U/L (0-126) Total Protein 7.5 gm/dl (6.3-8.2) Albumin 4.0 g/dl (3.5-5.0) Urinalysis Test 03/02/18 10:30 Urine Color Straw Urine Clarity Clear Urine pH 8.0 pH (4.8-9.5) Urine Specific [place] 1.006 Urine Protein Negative mg/dL (NEGATIVE) Urine Glucose (UA) Negative mg/dL (NEGATIVE) Urine Ketones Negative mg/dL (NEGATIVE) Urine Blood Negative (NEGATIVE) Urine Nitrite Negative (NEGATIVE) Urine Bilirubin Negative (NEGATIVE) Urine Urobilinogen Negative mg/dL (0.2-1.9) Urine Leukocyte Esterase Negative (NEGATIVE) Urine RBC None /HPF (0-2/HPF) Urine WBC <1 /HPF (0-5/HPF) Urine Squamous Epithelial Cells Many /LPF (</=FEW) Urine Bacteria Negative /HPF (NONE-FEW) Urine Mucus None /HPF (NONE-FEW) EKG/Imaging Imaging FACILITY: [facility] PATIENT NAME: Rachel Huang : 1965 MR: [id number] V: [id number] EXAM DATE: ORDERING PHYSICIAN: ESTEBAN ALDANA TECHNOLOGIST: Location: [facility] Patient: Rachel Huang : 1965 Visit/Account:[id number] Date of Sevice: 03/02/2018 ABDOMEN/PELVIS W/O CONTRAST HISTORY: Left flank pain. TECHNIQUE: CT abdomen and pelvis without intravenous contrast. One of the following dose optimization techniques was utilized in the performance of this exam: Automated exposure control; adjustment of the mA and/ or kV according to the patient's size; or use of an iterative reconstruction technique. Specific details can be referenced in the facility's radiology CT exam operational policy. CONTRAST: None. Please note, lack of IV contrast limits evaluation of solid organs. COMPARISON: CT dated February 19, 2018. FINDINGS: Visualized lung bases: Trace left pleural effusion versus pleural thickening within the lung base, unchanged. Nonspecific mild circumferential thickening of the distal esophagus. Otherwise negative. Hepatobiliary: Gallbladder surgically absent. Otherwise negative. Spleen: Negative. Adrenals: Negative. Pancreas: Negative. Kidneys/: Significantly atrophic right kidney. There is multifocal cortical atrophy and lobulation of the left kidney, unchanged. Punctate 1 mm nonobstructing calculus within the left kidney. No hydronephrosis. No ureteral or bladder calculi identified. Uterus is surgically absent. GI: Negative. Vessels/spaces/nodes: Negative. Bones/soft tissues: Post surgical changes within the lower lumbar spine. Mild multilevel degenerative changes. IMPRESSION: 1. No acute findings. 2. Punctate 1 mm nonobstructing calculus within the left kidney. 3. Mild nonspecific circumferential thickening of the distal esophagus. 4. Additional incidental/chronic findings, as above. Report Dictated By: Walter Rowan MD at 03/02/2018 11:15 AM Report E-Signed By: Walter Rowan MD at 03/02/2018 11:18 AM WSN:[id number] ED Course/Re-evaluation ED Course 03/02/2018 10:46:39 am bedside ultrasound reveals no evidence of hydronephrosis to the left kidney. No obvious intraperitoneal fluid was noted. Decision to Disposition Date: March 02, 2018 Decision to Disposition Time: 11:53 Depart Departure Latest Vital Signs Vital Signs Date Time Temp Pulse Resp B/P (MAP) Pulse Ox O2 Delivery O2 Flow Rate FiO2 03/02/18 11:58 153/96 (115) 03/02/18 11:56 77 8 96 03/02/18 10:16 98.0 Room Air Impression: Primary Impression: Left flank pain Condition: Improved Disposition: HOME OR SELF-CARE Referrals: BETSEY PIERSON MD (PCP) 2 Days if symptoms persist ESTEBAN ALDANA MD March 02, 2018 10:26
[2018-03-02] MEDS ORDERED: NS(*) 0.9% 1000 ML BAG 1,000 ML IV ONE (10:29)
[2018-03-02 10:42] LABS: PLATELET COUNT, AUTOMATED 182 K/uL (150-450)
[2018-03-02] MEDS ORDERED: ACETAMINOPHEN 325 MG TAB PO ONE (10:50)
--- NOTE | 2018-03-02 11:21 | RADIOLOGY IMAGING REPORT ---
FACILITY: [facility] [place] PATIENT NAME: Rachel Huang : 1965 MR: [id number] V: [id number] EXAM DATE: ORDERING PHYSICIAN: ESTEBAN ALDANA TECHNOLOGIST: Location: [facility] Patient: Rachel Huang : 1965 Visit/Account:[id number] Date of Sevice: 03/02/2018 ABDOMEN/PELVIS W/O CONTRAST HISTORY: Left flank pain. TECHNIQUE: CT abdomen and pelvis without intravenous contrast. One of the following dose optimization techniques was utilized in the performance of this exam: Autom ated exposure control; adjustment of the mA and/or kV according to the patient's size; or use of an i terative reconstruction technique. Specific details can be referenced in the facility's radiology C T exam operational policy. CONTRAST: None. Please note, lack of IV contrast limits evaluation of solid organs. COMPARISON: CT dated February 19, 2018. FINDINGS: Visualized lung bases: Trace left pleural effusion versus pleural thickening within the lung base, u nchanged. Nonspecific mild circumferential thickening of the distal esophagus. Otherwise negative. Hepatobiliary: Gallbladder surgically absent. Otherwise negative. Spleen: Negative. Adrenals: Negative. Pancreas: Negative. Kidneys/: Significantly atrophic right kidney. There is multifocal cortical atrophy and lobulation of the left kidney, unchanged. Punctate 1 mm nonobstructing calculus within the left kidney. No hydr onephrosis. No ureteral or bladder calculi identified. Uterus is surgically absent. GI: Negative. Vessels/spaces/nodes: Negative. Bones/soft tissues: Post surgical changes within the lower lumbar spine. Mild multilevel degenerativ e changes. IMPRESSION: 1. No acute findings. 2. Punctate 1 mm nonobstructing calculus within the left kidney. 3. Mild nonspecific circumferential thickening of the distal esophagus. 4. Additional incidental/chronic findings, as above. Report Dictated By: Walter Rowan MD at 03/02/2018 11:15 AM Report E-Signed By: Walter Rowan MD at 03/02/2018 11:18 AM WSN:[id number]
[2018-03-02 11:58] VITALS: BP 153/96
== END 2018-03-02 12:05 | disposition home or self-care (01) ==
LOC: ER 10:49
DX: N20.0 Calculus of kidney (principal); R10.9 Unspecified abdominal pain
CPT/HCPCS: 74176; 81001; 85025; 96360; 99284; A9270; J7030; 82040; 82247; 82310; 82374; 82435; 82565; 82947; 84075; 84132; 84155; 84295; 84450; 84460; 84520

== ENCOUNTER 2018-03-10 16:27 | Emergency (ER) | payer MEDICARE, MEDICAID ==
[2016-01-01 08:47] VITALS: Wt 74.4 kg
[~2018-03-10 16:27] MED LIST changes: -HEPA1DIS12 IM; +HEPA1DIS3 IM
--- NOTE | 2018-03-10 16:33 | ER Report ---
History and Physical Time Seen By MD: 16:33 HPI/ROS CHIEF COMPLAINT: Right shoulder pain HISTORY OF PRESENT ILLNESS: Patient is a 52-year-old female here with complaints of right shoulder pain after doing laundry yesterday. She reports that she has had multiple orthopedic procedures completed on her right shoulder by Dr. Aguilera. She reports worsening pain with adduction of the shoulder/arm, rotation. She did take her home analgesia without significant relief of symptoms. Patient has further trauma, fevers, chills, numbness or tingling. REVIEW OF SYSTEMS: Respiratory: No cough, no dyspnea. Cardiovascular: No chest pain, no palpitations. Gastrointestinal: No vomiting, no abdominal pain. Musculoskeletal: No back pain. Extremities: + Right shoulder pain with ROM or movement Allergies: Coded Allergies: promethazine (Verified Allergy, Severe, RESTLESS LEGS, 03/10/18) sumatriptan (Verified Allergy, Intermediate, HIVES, SOB, 03/10/18) only with nose spray, she can take oral sumatriptan NSAIDS (Non-Steroidal Anti-Inflamma (Verified Allergy, Mild, NAUSEA, HEADACHES, 03/10/18) orphenadrine (Verified Allergy, Unknown, 03/10/18) keeps her awake oxycodone (Verified Allergy, Unknown, 03/10/18) aspirin (Verified Adverse Reaction, Mild, NAUSEA, 03/10/18) furosemide (Verified Adverse Reaction, Unknown, 03/10/18) too hard on kidneys Uncoded Allergies: COBAN (Allergy, Mild, rash, 04/03/13) Home Meds Active Scripts Sertraline Hcl (SERTRALINE HCL) 100 Mg Tablet, 1.5 TAB PO QDAY, #135 TAB 1 Refill Prov:BETSEY PIERSON MD 02/19/18 Propranolol Hcl (INDERAL LA) 80 Mg Cap.sa.24h, 1 CAP PO QDAY, #90 CAP 4 Refills Prov:BETSEY PIERSON MD 02/05/18 Diphenoxylate Hcl/Atropine (LOMOTIL TABLET) 1 Each Tablet, 1 EACH PO 1-3XD Y for DIARRHEA, #10 TAB Prov:YONG HUMPHREY MD 01/27/18 Dicyclomine Hcl (DICYCLOMINE HCL) 20 Mg Tablet, 20 MG PO QID for PAIN for 7 Days , #20 CAP Prov:YONG HUMPHREY MD 01/27/18 Levothyroxine Sodium (LEVOTHYROXINE SODIUM) 88 Mcg Tablet, 88 MCG PO QDAY, #90 TAB 4 Refills Prov:BETSEY PIERSON MD 01/22/18 Hydrocodone Bit/Acetaminophen (HYDROCODON-ACETAMINOPHEN 5-325) 1 Each Tablet, 1 EACH PO QDAY Y for MODERATE PAIN, #30 TAB refill on or after 02/15/2018 Prov:BETSEY PIERSON MD 01/15/18 Meclizine Hcl (MECLIZINE HCL) 25 Mg Tablet, 25 MG PO Q8H Y for DIZZINESS, #30 TAB 1 Refill Prov:CHANDA CAUSEY JR, MD 12/30/17 Fluticasone Prop 50 Mcg Ns (FLONASE 50 MCG NS) 16 Gm [place].susp, 1 SPRAY NS QDAY , #1 BOT 0 Refills Prov:DADA SHERWOOD DNP, CONVEYOR FEEDER-BC 12/04/17 Ondansetron (ZOFRAN ODT) 4 Mg Tab.rapdis, 4 MG PO Q6H Y for NAUSEA/VOMITING, # 20 TAB.ALEJANDRINA Prov:MY HOOPER CONVEYOR FEEDER-BC 10/30/17 Guaifenesin (MUCINEX) 600 Mg Tablet.er, 1 TAB PO QDAY Y for Sinus Congestion, # 30 TAB 0 Refills Prov:BETSEY PIERSON MD 10/23/17 Estradiol (ESTRADIOL 0.05 MG) 1 Each Patch.tdwk, 1 EACH TD Q7D, #4 PATCH.WK 6 Refills Prov:BETSEY PIERSON MD 10/23/17 Losartan Potassium (LOSARTAN POTASSIUM) 50 Mg Tablet, 50 MG PO QDAY, #30 TAB 6 Refills Prov:BETSEY PIERSON MD 10/23/17 Topiramate (TOPIRAMATE) 100 Mg Tablet, 1 TAB PO QDAY, #30 TAB 6 Refills Prov:BETSEY PIERSON MD 10/09/17 Simvastatin (SIMVASTATIN) 10 Mg Tablet, 1 TAB PO QHS, #90 TAB 4 Refills Prov:BETSEY PIERSON MD 01/08/17 Cyclobenzaprine Hcl (CYCLOBENZAPRINE HCL) 10 Mg Tablet, 10 MG PO QDAY Y for headache, #30 TAB 3 Refills Prov:BETSEY PIERSON MD 12/31/16 Olanzapine (ZYPREXA) 5 Mg Tablet, 5 MG PO QDAY, #30 TAB 0 Refills Prov:EFREN URIOSTEGUI MD 10/14/16 Febuxostat (ULORIC) 40 Mg Tablet, 1 TAB PO QDAY, #90 TAB 1 Refill Prov:BETSEY PIERSON MD 07/27/16 Reported Medications Melatonin/Pyridoxine HCl (B6) (Melatonin 3 mg Tablet) 1 Each Tablet, 1 TAB QHS, TAB 10/23/17 Sodium Bicarbonate (SODIUM BICARBONATE) 650 Mg Tablet, 2 TAB PO BID 07/26/16 Lansoprazole (LANSOPRAZOLE) 15 Mg Capsule.dr, 1 CAP PO QDAY 07/25/16 Cholecalciferol (Vitamin D3) (Vitamin D) 50,000 Unit Capsule, 1 CAP PO Q30D 07/25/16 Risperidone (RISPERIDONE) 1 Mg Tablet, 1 MG PO DAILY 05/04/16 Imipramine Hcl (Tofranil) 25 Mg Tab, 1 TAB PO DAILY, 0 Refills 09/26/12 Hx Smoking: Yes (SMOKED AGE 16 TO UNTIL 2000, 1/2 PPD) Smoking Status: Former Smoker Exposure to Second Hand Smoke?: No Hx Substance Use Disorder: No Hx Alcohol Use: Yes Constitutional Vital Sign - Last 24 Hours 03/10/18 16:32 Temp 97.8 Pulse 79 Resp 18 B/P (MAP) 169/99 Pulse Ox 97 O2 Delivery Room Air Physical Exam General Appearance: The patient is alert, has no immediate need for airway protection and no current signs of toxicity. Musculoskeletal: Neck: Neck is supple and non tender. Extremities: Right shoulder decreased ROM secondary to pain, NV exam intact in RUE Skin: No rashes or lesions. 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 Pain started yesterday while doing laundry and the patient reports worsening pain today with range of motion of the shoulder. She does have a history of being followed by Dr. Aguilera with orthopedics and the patient reports that she will follow-up with Dr. Aguilera. X-ray showed no acute findings, stable post surgical changes. He was placed in a sling for comfort and given a gram of Tylenol. No narcotics were administered due to medication plan. Decision to Disposition Date: March 10, 2018 Decision to Disposition Time: 17:46 Depart Departure Latest Vital Signs Vital Signs Date Time Temp Pulse Resp B/P (MAP) Pulse Ox O2 Delivery O2 Flow Rate FiO2 03/10/18 16:32 97.8 79 18 169/99 97 Room Air Impression: Primary Impression: Shoulder pain, acute Condition: Improved Disposition: HOME OR SELF-CARE Referrals: BETSEY PIERSON MD (PCP) Patient Instructions: Shoulder Pain (ED) Additional Instructions: Please keep her shoulder in a sling for comfort. You may take your home pain medications as prescribed. Please follow-up with your orthopedic doctor as soon as possible for further evaluation. PANKAJ RODRIGUEZ DO March 10, 2018 16:33
[2018-03-10] MEDS ORDERED: ACETAMINOPHEN 500 MG TAB PO ONE (16:45)
[2018-03-10] MEDS ORDERED: MORPHINE 4 MG/ML SDV IVP ONE (16:45)
--- NOTE | 2018-03-10 17:44 | RADIOLOGY IMAGING REPORT ---
FACILITY: PATIENT NAME: Rachel Huang : 1965 MR: [id number] V: [id number] EXAM DATE: ORDERING PHYSICIAN: PANKAJ RODRIGUEZ TECHNOLOGIST: Location: [facility] Patient: Rachel Huang : 1965 Visit/Account:[id number] Date of Sevice: 03/10/2018 INDICATION: right shoulder pain, prior surgery with ortho. DATE: 03/10/2018 5:40 PM. TECHNIQUE: SHOULDER MIN 2 VIEWS RIGHT COMPARISON: None FINDINGS: There is been a distal clavicle resection. There are surgical anchors at the glenoid rim an teriorly. IMPRESSION: Post surgical change but no acute osseous abnormality. Report Dictated By: Sarah Carter MD at 03/10/2018 5:40 PM Report E-Signed By: Sarah Carter MD at 03/10/2018 5:41 PM WSN:[id number]
[2018-03-10 17:51] VITALS: BP 140/90
== END 2018-03-10 17:52 | disposition home or self-care (01) ==
LOC: ER 16:28
DX: M25.511 Pain in right shoulder (principal)
CPT/HCPCS: 73030; 99282; A4565; A9270

== ENCOUNTER 2018-04-11 00:37 | Day surgery (SDC) | payer MEDICARE, MEDICAID ==
[2016-01-01 08:47] VITALS: Ht 149.9 cm; Wt 67.6 kg
[~2018-04-11] VITALS: Ht 149.9 cm; Wt 67.6 kg
[2018-04-11] MEDS ORDERED: KETAMINE HCL 200 MG/20 ML MDV ONE (07:25)
[2018-04-11 08:50] VITALS: BP 145/79
[2018-04-11] MEDS ORDERED: NORMOSOL R SOLN(*) 1000 ML BAG 1,000 ML IV PRN (09:40)
[2018-04-11] MEDS ORDERED: LIDOCAINE/SOD BICARB 8.4% SYR ID ONE (09:40)
[2018-04-11 11:08] VITALS: BP 119/79
--- NOTE | 2018-04-11 11:22 | Short(Outpt) Discharge Summary ---
Discharge Summary Reason for Hosp/Final Diag: (1) Esophageal thickening Status: Chronic Hospital Course & Plan: EGD with esophageal dilation completed without problems. (2) Dysphagia Status: Chronic Departure Discharge to: Home, Self Care Discharge Instructions Home Meds Active Scripts Simvastatin (SIMVASTATIN) 10 Mg Tablet, 1 TAB PO QHS, #90 TAB 4 Refills Prov:BETSEY PIERSON MD 04/10/18 Losartan Potassium (LOSARTAN POTASSIUM) 50 Mg Tablet, 50 MG PO QDAY, #90 TAB 1 Refill Prov:BETSEY PIERSON MD 03/21/18 Sertraline Hcl (SERTRALINE HCL) 100 Mg Tablet, 1.5 TAB PO QDAY, #135 TAB 1 Refill Prov:BETSEY PIERSON MD 02/19/18 Propranolol Hcl (INDERAL LA) 80 Mg Cap.sa.24h, 1 CAP PO QDAY, #90 CAP 4 Refills Prov:BETSEY PIERSON MD 02/05/18 Diphenoxylate Hcl/Atropine (LOMOTIL TABLET) 1 Each Tablet, 1 EACH PO 1-3XD Y for DIARRHEA, #10 TAB Prov:YONG HUMPHREY MD 01/27/18 Dicyclomine Hcl (DICYCLOMINE HCL) 20 Mg Tablet, 20 MG PO QID for PAIN for 7 Days , #20 CAP Prov:YONG HUMPHREY MD 01/27/18 Levothyroxine Sodium (LEVOTHYROXINE SODIUM) 88 Mcg Tablet, 88 MCG PO QDAY, #90 TAB 4 Refills Prov:BETSEY PIERSON MD 01/22/18 Hydrocodone Bit/Acetaminophen (HYDROCODON-ACETAMINOPHEN 5-325) 1 Each Tablet, 1 EACH PO QDAY Y for MODERATE PAIN, #30 TAB refill on or after 02/15/2018 Prov:BETSEY PIERSON MD 01/15/18 Meclizine Hcl (MECLIZINE HCL) 25 Mg Tablet, 25 MG PO Q8H Y for DIZZINESS, #30 TAB 1 Refill Prov:CHANDA CAUSEY JR, MD 12/30/17 Fluticasone Prop 50 Mcg Ns (FLONASE 50 MCG NS) 16 Gm [place].susp, 1 SPRAY NS QDAY , #1 BOT 0 Refills Prov:DADA SHERWOOD DNP, IN STORE MARKETING REPRESENTATIVE-BC 12/04/17 Ondansetron (ZOFRAN ODT) 4 Mg Tab.rapdis, 4 MG PO Q6H Y for NAUSEA/VOMITING, # 20 TAB.ALEJANDRINA Prov:MY HOOPER IN STORE MARKETING REPRESENTATIVE-BC 10/30/17 Guaifenesin (MUCINEX) 600 Mg Tablet.er, 1 TAB PO QDAY Y for Sinus Congestion, # 30 TAB 0 Refills Prov:BETSEY PIERSON MD 10/23/17 Estradiol (ESTRADIOL 0.05 MG) 1 Each Patch.tdwk, 1 EACH TD Q7D, #4 PATCH.WK 6 Refills Prov:BETSEY PIERSON MD 10/23/17 Topiramate (TOPIRAMATE) 100 Mg Tablet, 1 TAB PO QDAY, #30 TAB 6 Refills Prov:BETSEY PIERSON MD 10/09/17 Cyclobenzaprine Hcl (CYCLOBENZAPRINE HCL) 10 Mg Tablet, 10 MG PO QDAY Y for headache, #30 TAB 3 Refills Prov:BETSEY PIERSON MD 12/31/16 Olanzapine (ZYPREXA) 5 Mg Tablet, 5 MG PO QDAY, #30 TAB 0 Refills Prov:EFREN URIOSTEGUI MD 10/14/16 Febuxostat (ULORIC) 40 Mg Tablet, 1 TAB PO QDAY, #90 TAB 1 Refill Prov:BETSEY PIERSON MD 07/27/16 Reported Medications Melatonin/Pyridoxine HCl (B6) (Melatonin 3 mg Tablet) 1 Each Tablet, 1 TAB QHS, TAB 10/23/17 Sodium Bicarbonate (SODIUM BICARBONATE) 650 Mg Tablet, 2 TAB PO BID 07/26/16 Lansoprazole (LANSOPRAZOLE) 15 Mg Capsule.dr, 1 CAP PO QDAY 07/25/16 Cholecalciferol (Vitamin D3) (Vitamin D) 50,000 Unit Capsule, 1 CAP PO Q30D 07/25/16 Risperidone (RISPERIDONE) 1 Mg Tablet, 1 MG PO DAILY 05/04/16 Imipramine Hcl (Tofranil) 25 Mg Tab, 1 TAB PO DAILY, 0 Refills 09/26/12 Diet: Regular Activity: As Tolerated Special Instructions: Your EGD was completed without problems and I dilated your esophagus so we'll see if this helps your swallowing pills. If not, let me know by calling my office at [phone] (my nurse's phone number) and we'll get you an appointment. I didn't find any evidence of esophagitis (inflammation in your esophagus) ulcers, cancer, or other problems. Problem Qualifiers (1) Dysphagia: Dysphagia type: oropharyngeal phase Qualified Codes: R13.12 - Dysphagia, oropharyngeal phase MIRNA SIEGEL MD Apr 11, 2018 11:22
[2018-04-11 11:23] VITALS: BP 114/76
[2018-04-11 11:41] VITALS: BP 123/86
[2018-04-11 11:55] VITALS: BP 127/80
[2018-04-11 11:57] VITALS: BP 118/75
[2018-04-11] MEDS ORDERED: PROPOFOL EMUL(*) 10MG/ML 20 ML 40 ML ONE (12:09)
[2018-04-11] MEDS ORDERED: LIDOCAINE MPF 1% 5 ML VIAL ONE (12:09)
== END 2018-04-11 12:10 | disposition home or self-care (01) ==
LOC: OR 00:37
PROVIDERS: ATTEND Surgery
DX: K44.9 Diaphragmatic hernia without obstruction or gangrene (principal)
CPT/HCPCS: 43248; J2001; J2704; J3490

== ENCOUNTER → 2018-05-07 | Outpatient (CLI) | payer MEDICARE, MEDICAID ==
[2016-01-01 08:47] VITALS: BMI 31.4
--- NOTE | 2018-05-13 15:14 | EKG ---
FACILITY: [facility] PATIENT NAME: GREGORIO LINDSEY : [id number] MR: [id number] V: [id number] EXAM DATE: ORDERING PHYSICIAN: BETSEY PIERSON TECHNOLOGIST: PILAR Aguilar Reason : CLERANCE Blood Pressure : / mmHG Vent. Rate : 074 BPM Atrial Rate : 074 BPM P-R Int : 148 ms QRS Dur : 096 ms QT Int : 402 ms P-R-T Axes : 068 060 -32 degrees QTc Int : 446 ms Normal sinus rhythm Nonspecific T wave abnormality Abnormal ECG No previous ECGs available Referred By: Confirmed By:
== END ==
LOC: RESP 14:16
PROVIDERS: ATTEND Internal Medicine
DX: Z02.9 Encounter for administrative examinations, unspecified (principal)

== ENCOUNTER → 2018-05-12 | Outpatient (CLI) | payer MEDICARE, MEDICAID ==
[2016-01-01 08:47] VITALS: BMI 31.4
[2018-05-12 10:39] LABS: PLATELET COUNT, AUTOMATED 200 K/uL (150-450)
== END ==
LOC: LAB 09:59
PROVIDERS: ATTEND Orthopaedic Surgery
DX: Z01.812 Encounter for preprocedural laboratory examination (principal); M48.02 Spinal stenosis, cervical region
CPT/HCPCS: 36415; 82040; 82247; 82310; 82374; 82435; 82565; 82947; 84075; 84132; 84155; 84295; 84450; 84460; 84520; 85025

== ENCOUNTER 2018-05-19 00:19 | Observation (INO) | payer MEDICARE, MEDICAID ==
[~2018-05-19] VITALS: Ht 162.6 cm; Wt 68.1 kg
[2018-05-19] VITALS (17 sets, daily range): BP systolic 96–156; BP diastolic 66–92
[2018-05-19] MEDS ORDERED: PROPOFOL EMUL(*) 10MG/ML 20 ML 20 ML ONE (07:40)
[2018-05-19] MEDS ORDERED: DEXAMETHASONE SOD PHOS 10MG/ML ONE (07:40)
[2018-05-19] MEDS ORDERED: LIDOCAINE MPF 1% 5 ML VIAL ONE (07:40)
[2018-05-19] MEDS ORDERED: METOCLOPRAMIDE 10 MG/2 ML SDV ONE (07:40)
[2018-05-19] MEDS ORDERED: ONDANSETRON 4 MG/2 ML VIAL ONE (07:40)
[2018-05-19] MEDS ORDERED: fentaNYL CITR 250 MCG/5 ML AMP ONE (07:42)
[2018-05-19] MEDS ORDERED: PROPOFOL EMUL(*) 10MG/ML 20 ML 60 ML ONE (07:57)
[2018-05-19] MEDS ORDERED: SUGAMMADEX SOD 200 MG/2 ML SDV ONE (08:12)
[2018-05-19] MEDS ORDERED: MIRA50TA PO (08:52)
[2018-05-19] MEDS ORDERED: LIDOCAINE/SOD BICARB 8.4% SYR ID ONE (08:55)
[2018-05-19] MEDS ORDERED: NS(*) 0.9% 1000 ML BAG 1,000 ML IV PRN (08:55)
[2018-05-19] MEDS ORDERED: PREGABALIN 150 MG CAPSULE PO ONE (08:55)
[2018-05-19] MEDS ORDERED: NORMOSOL R SOLN(*) 1000 ML BAG 1,000 ML IV PRN (08:55)
[2018-05-19] MEDS ORDERED: ceFAZolin(*) 1 GM VIAL 1 GM in NS(*) 0.9% 100 ML ADDVANT BAG 100 ML IVPB ONE (08:55)
[2018-05-19] MEDS ORDERED: ACETAMINOPHEN 500 MG TAB PO ONE (08:55)
[2018-05-19] MEDS ORDERED: MIDAZOLAM 2 MG/2 ML VIAL IVP PRN (08:55)
[2018-05-19] MEDS ORDERED: ROCURONIUM BROM 10 MG/ML 10 ML ONE (09:00)
[2018-05-19] MEDS ORDERED: fentaNYL CITR 100 MCG/2 ML AMP ONE (11:32)
[2018-05-19] MEDS ORDERED: BENZOCAINE/MENTHOL 1 EACH LOZG PO PRN (11:45)
[2018-05-19] MEDS ORDERED: FLUSH 10 ML SYR IVP PRN (11:45)
[2018-05-19] MEDS ORDERED: DIAZEPAM 5 MG TAB PO PRN (11:45)
[2018-05-19] MEDS ORDERED: LR(*) 1000 ML BAG 1,000 ML IV PRN (11:45)
[2018-05-19] MEDS ORDERED: MAGNESIUM HYDROXIDE* 30ML UDCP PO PRN (11:45)
[2018-05-19] MEDS ORDERED: ACETAMINOPHEN(*)1000 MG/100 ML 100 ML IVPB PRN (11:45)
[2018-05-19] MEDS ORDERED: HYDROmorphone HCL 2 MG/ML SDV IVP PRN (11:45)
[2018-05-19] MEDS ORDERED: oxyCODONE HCL 5 MG CAP PO PRN (11:45)
[2018-05-19] MEDS ORDERED: diphenhydrAMINE 25 MG CAP PO PRN (11:45)
[2018-05-19] MEDS ORDERED: BISACODYL 10 MG SUPP PR PRN (11:45)
[2018-05-19] MEDS ORDERED: ACETAMINOPHEN 500 MG TAB PO PRN (11:45)
--- NOTE | 2018-05-19 11:53 | RADIOLOGY IMAGING REPORT ---
FACILITY: [facility] PATIENT NAME: Rachel Huang : 1965 MR: [id number] V: [id number] EXAM DATE: ORDERING PHYSICIAN: ALANA VU TECHNOLOGIST: Location: [facility] [place] Patient: Rachel Huang : 1965 Visit/Account:[id number] Date of Sevice: 05/19/2018 Exam type: CERVICAL SPINE 1 VIEW History: ANTERIOR C5-6 DISCECTOMIES Comparison: None. Findings: Two Cross table lateral , supine intraoperative views of the cervical spine were submitted demonstrat ing anterior fusion at C5-6. The vertebral bodies appear in good anatomic alignment on these intraop erative views. Incidentally noted is an endotracheal tube and OG tube both of which are incompletely imaged. On one intraoperative image surgical instruments and sponge markers project over the anterior aspect of the cervical spine IMPRESSION: 1. As above Report Dictated By: Laura Olson MD at 05/19/2018 11:47 AM Report E-Signed By: Laura Olson MD at 05/19/2018 11:48 AM WSN:[email or web address]
--- NOTE | 2018-05-19 14:01 | Hospitalist Consultation ---
History of Present Illness Requesting Physician Dr. Guerin Reason for Consult Medical Management Chief Complaint s/p cervical fusion History of Present Illness She was admitted s/p cervical fusion. It is reported the surgery went well and without complication. 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 (3) Depression Status: Chronic (4) Migraine headache Status: Chronic (5) Hypothyroid Status: Chronic Home Meds Active Scripts Simvastatin (SIMVASTATIN) 10 Mg Tablet, 1 TAB PO QHS, #90 TAB 4 Refills Prov:BETSEY PIERSON MD 04/10/18 Losartan Potassium (LOSARTAN POTASSIUM) 50 Mg Tablet, 50 MG PO QDAY, #90 TAB 1 Refill Prov:BETSEY PIERSON MD 03/21/18 Sertraline Hcl (SERTRALINE HCL) 100 Mg Tablet, 1.5 TAB PO QDAY, #135 TAB 1 Refill Prov:BETSEY PIERSON MD 02/19/18 Propranolol Hcl (INDERAL LA) 80 Mg Cap.sa.24h, 1 CAP PO QDAY, #90 CAP 4 Refills Prov:BETSEY PIERSON MD 02/05/18 Diphenoxylate Hcl/Atropine (LOMOTIL TABLET) 1 Each Tablet, 1 EACH PO 1-3XD Y for DIARRHEA, #10 TAB Prov:YONG HUMPHREY MD 01/27/18 Levothyroxine Sodium (LEVOTHYROXINE SODIUM) 88 Mcg Tablet, 88 MCG PO QDAY, #90 TAB 4 Refills Prov:BETSEY PIERSON MD 01/22/18 Hydrocodone Bit/Acetaminophen (HYDROCODON-ACETAMINOPHEN 5-325) 1 Each Tablet, 1 EACH PO QDAY Y for MODERATE PAIN, #30 TAB refill on or after 02/15/2018 Prov:BETSEY PIERSON MD 01/15/18 Fluticasone Prop 50 Mcg Ns (FLONASE 50 MCG NS) 16 Gm [place].susp, 1 SPRAY NS QDAY , #1 BOT 0 Refills Prov:DADA SHERWOOD DNP, CARDROOM MANAGER-BC 12/04/17 Ondansetron (ZOFRAN ODT) 4 Mg Tab.rapdis, 4 MG PO Q6H Y for NAUSEA/VOMITING, # 20 TAB.ALEJANDRINA Prov:MY HOOPER CARDROOM MANAGER-BC 10/30/17 Estradiol (ESTRADIOL 0.05 MG) 1 Each Patch.tdwk, 1 EACH TD Q7D, #4 PATCH.WK 6 Refills Prov:BETSEY PIERSON MD 10/23/17 Topiramate (TOPIRAMATE) 100 Mg Tablet, 1 TAB PO QDAY, #30 TAB 6 Refills Prov:BETSEY PIERSON MD 10/09/17 Olanzapine (ZYPREXA) 5 Mg Tablet, 5 MG PO QDAY, #30 TAB 0 Refills Prov:EFREN URIOSTEGUI MD 10/14/16 Febuxostat (ULORIC) 40 Mg Tablet, 1 TAB PO QDAY, #90 TAB 1 Refill Prov:BETSEY PIERSON MD 07/27/16 Reported Medications Mirabegron (MYRBETRIQ) 50 Mg Tab.er.24h, 50 MG PO QAM 05/19/18 Melatonin/Pyridoxine HCl (B6) (Melatonin 3 mg Tablet) 1 Each Tablet, 1 TAB QHS, TAB 10/23/17 Sodium Bicarbonate (SODIUM BICARBONATE) 650 Mg Tablet, 2 TAB PO BID 07/26/16 Lansoprazole (LANSOPRAZOLE) 15 Mg Capsule.dr, 1 CAP PO QDAY 07/25/16 Cholecalciferol (Vitamin D3) (Vitamin D) 50,000 Unit Capsule, 1 CAP PO Q30D 07/25/16 Risperidone (RISPERIDONE) 1 Mg Tablet, 1 MG PO DAILY 05/04/16 Imipramine Hcl (Tofranil) 25 Mg Tab, 1 TAB PO DAILY, 0 Refills 09/26/12 Allergies: Coded Allergies: promethazine (Verified Allergy, Severe, RESTLESS LEGS, 03/10/18) sumatriptan (Verified Allergy, Intermediate, HIVES, SOB, 03/10/18) only with nose spray, she can take oral sumatriptan NSAIDS (Non-Steroidal Anti-Inflamma (Verified Allergy, Mild, NAUSEA, HEADACHES, 03/10/18) orphenadrine (Verified Allergy, Unknown, 03/10/18) keeps her awake oxycodone (Verified Allergy, Unknown, 03/10/18) aspirin (Verified Adverse Reaction, Mild, NAUSEA, 03/10/18) furosemide (Verified Adverse Reaction, Unknown, 03/10/18) too hard on kidneys Uncoded Allergies: COBAN (Allergy, Mild, rash, 04/03/13) Patient History: Colon cancer requiring screening colonoscopy FH: colon cancer FATHER FH: leukemia BROTHER OR SISTER FH: skin cancer MOTHER FH: stroke MOTHER Hx Smoking: Yes (SMOKED AGE 16 TO UNTIL 2000, 1/2 PPD) Smoking Status: Former Smoker Exposure to Second Hand Smoke?: No Caffeine Intake: Coffee Caffeine/Cups Per Day: 2 CUPS COFFEE PER WEEK Hx Alcohol Use: Yes Hx Substance Use Disorder: No Social Drug Use: Never Review of Systems All Systems Reviewed/Normal: Yes, Except as Noted Exam Vital Signs Vital Signs Date Time Temp Pulse Resp B/P (MAP) Pulse Ox O2 Delivery O2 Flow Rate FiO2 05/19/18 12:31 97.6 87 20 131/89 (103) 99 Nasal Cannula 1.0 General Appearance: No Acute Distress Cardiovascular: Regular Rate and Rhythm Respiratory: No Respiratory Distress, Clear to Auscultation Medical Decision Making Data Points Result Diagram: 05/19/18 0647 Assessment and Plan Problems: (1) S/P cervical spinal fusion Status: Acute Assessment & Plan: Followed by Dr. Guerin (2) Hypertension secondary to other renal disorders Status: Chronic Assessment & Plan: She is on chronic treatment with Propranolol and Losartan. These were restarted with hold parameters. (3) Depression Status: Chronic Assessment & Plan: She is on chronic treatment with Risperidone, Sertraline and Olanzapine. (4) Hypothyroid Status: Chronic Assessment & Plan: She is on chronic treatment with Levothyroxine. (5) Chronic renal failure, stage 4 (severe) Status: Acute Assessment & Plan: She is awaiting kidney transplant at this time. She is on chronic treatment with Sodium Bicarbonate. We will recheck BMP in the morning. (6) Migraine headache Status: Chronic Assessment & Plan: She is on chronic treatment with Topiramate. Venous Thromboembolism Antithrombotics Is Pt On Any Antithrombotics?: No Prophylaxis Tx Contraindicated Pharmacological Contraindicati: Surgical Contraindication Exam Sepsis Risk: No Definite Risk RIA HASTINGS CARDROOM MANAGER May 19, 2018 14:01
[2018-05-19] MEDS: ceFAZolin(*) 2GM/D5W 50ML 50 ML IVPB SCH (16:52)
[2018-05-19] MEDS: DOCUSATE SODIUM 100 MG CAP PO SCH (20:49)
[2018-05-19] MEDS: SODIUM BICARBONATE 650 MG TAB PO SCH (20:49)
[2018-05-19] MEDS ORDERED: SIMVASTATIN 20 MG TAB PO SCH (21:00)
[2018-05-19] MEDS: APAP/HYDROCODONE 325/5 TAB PO PRN (21:04)
[2018-05-20 01:00] VITALS: BP 95/72
[2018-05-20] MEDS: ceFAZolin(*) 2GM/D5W 50ML 50 ML IVPB SCH ×2 (01:00→09:50)
[2018-05-20] MEDS ORDERED: NS(*) 0.9% 500 ML BAG 500 ML ONE (01:00)
[2018-05-20] MEDS: APAP/HYDROCODONE 325/5 TAB PO PRN ×2 (01:18→07:53)
[2018-05-20] MEDS: ONDANSETRON 4 MG/2 ML VIAL IVP PRN ×2 (01:18→07:54)
[2018-05-20 03:27] VITALS: BP 105/71
[2018-05-20] MEDS ORDERED: LEVOTHYROXINE SOD 0.088 MG TAB PO SCH (06:00)
[2018-05-20 07:32] VITALS: BP 121/77
[2018-05-20] MEDS ORDERED: LOR5/325 PO (08:00)
[2018-05-20] MEDS ORDERED: DOCU240C84 PO (08:01)
[2018-05-20] MEDS ORDERED: FLUTICASONE PROP 0.05% 16 GM SCH (09:00)
[2018-05-20] MEDS ORDERED: TOPIRAMATE 100 MG TAB PO SCH (09:00)
[2018-05-20] MEDS ORDERED: SERTRALINE HCL 50 MG TAB PO SCH (09:00)
[2018-05-20] MEDS ORDERED: LOSARTAN POTASSIUM 50 MG TAB PO SCH (09:00)
[2018-05-20] MEDS ORDERED: risperiDONE 1 MG TAB PO SCH (09:00)
[2018-05-20] MEDS ORDERED: IMIPRAMINE HCL 25 MG TAB PO SCH (09:00)
[2018-05-20] MEDS ORDERED: PROPRANOLOL HCL LA 80 MG CAPCR PO SCH (09:00)
[2018-05-20] MEDS ORDERED: LANSOPRAZOLE 15 MG CAPCR PO SCH (09:00)
[2018-05-20] MEDS ORDERED: OLANZapine 5 MG TAB PO SCH (09:00)
[2018-05-20 09:30] VITALS: Ht 162.6 cm; Wt 68.1 kg
[2018-05-20] MEDS ORDERED: ONDA4TAB PO (09:46)
--- NOTE | 2018-05-20 09:48 | Hospitalist Progress Note ---
Subjective Progress Notes Subjective She has some c/o nausea this morning. She had no acute events overnight. Patient Complains of: Cardiovascular: No: Chest Pain Respiratory: No: Shortness of Breath Gastrointestinal: Nausea Physical Exam Vital Signs Date Time Temp Pulse Resp B/P (MAP) Pulse Ox O2 Delivery O2 Flow Rate FiO2 05/20/18 07:32 91 05/20/18 07:32 Room Air 05/20/18 07:32 97.8 86 16 121/77 (92) 05/20/18 01:18 0.5 General Appearance: Alert, Awake, No Acute Distress Neuro: No Gross deficits Cardiovascular: Regular Rate and Rhythm Respiratory: No Respiratory Distress, Clear to Auscultation GI: Soft and Non-Tender Psych: Alert & Oriented X3, Appropriate Mood & Affect Result Diagram: 05/20/18 0515 Assessment and Plan Problems: (1) S/P cervical spinal fusion Status: Acute Assessment & Plan: Followed by Dr. Guerin (2) Hypertension secondary to other renal disorders Status: Chronic Assessment & Plan: She is on chronic treatment with Propranolol and Losartan. These were restarted with hold parameters. (3) Depression Status: Chronic Assessment & Plan: She is on chronic treatment with Risperidone, Sertraline and Olanzapine. (4) Hypothyroid Status: Chronic Assessment & Plan: She is on chronic treatment with Levothyroxine. (5) Chronic renal failure, stage 4 (severe) Status: Acute Assessment & Plan: She is awaiting kidney transplant at this time. She is on chronic treatment with Sodium Bicarbonate. Her creatinine is 2.9 this morning, which appears to be near baseline for her. (6) Migraine headache Status: Chronic Assessment & Plan: She is on chronic treatment with Topiramate. Exam Sepsis Risk: No Definite Risk RIA HASTINGS FILM LABORATORY TECHNICIAN May 20, 2018 09:48
[2018-05-20] MEDS: SODIUM BICARBONATE 650 MG TAB PO SCH (09:52)
[2018-05-20] MEDS: DOCUSATE SODIUM 100 MG CAP PO SCH (09:52)
--- NOTE | 2018-05-20 10:10 | RADIOLOGY IMAGING REPORT ---
FACILITY: [facility] PATIENT NAME: Rachel Huang : 1965 MR: [id number] V: [id number] EXAM DATE: ORDERING PHYSICIAN: ALANA VU TECHNOLOGIST: Location: [facility] Patient: Rachel Huang : 1965 Visit/Account:[id number] Date of Sevice: 05/20/2018 Exam type: CERVICAL SPINE 2 OR 3 VIEW History: Postop C5-6 fusion Comparison: Intraoperative views of the cervical spine May 19, 2018. Findings: AP and lateral views of the cervical spine demonstrate postoperative changes from anterior fusion at C5-6. The hardware appears in good alignment as do the vertebral bodies no evidence of fractures or subluxations. IMPRESSION: 1. Postoperative changes from anterior fusion at C5-6 with the vertebral bodies and hardware appeari ng in good alignment Report Dictated By: Laura Olson MD at 05/20/2018 10:03 AM Report E-Signed By: Laura Olson MD at 05/20/2018 10:05 AM WSN:[email or web address]
--- NOTE | 2018-05-20 14:07 | OPERATIVE REPORT 1 ---
EVENT DATE: May 19, 2018 SURGEON: Jose C Guerin MD ANESTHESIOLOGIST: Juan Snowden MD ANESTHESIA: General endotracheal anesthesia. MEAT SELECTOR: Erich Naranjo PA-C PREOPERATIVE DIAGNOSIS Cervical radiculopathy with C5-C6 degenerative disk disease. POSTOPERATIVE DIAGNOSIS Cervical radiculopathy with C5-C6 degenerative disk disease. PROCEDURE PERFORMED C5-C6 anterior cervical diskectomy and fusion. INTRAVENOUS FLUIDS 1400 mL ESTIMATED BLOOD LOSS 30 mL IMPLANTS USED A 6 mm 6-degree lordotic size small interbody titanium spacer from [employer] and 3.5 mm x 14 mm fixation screws, also from [employer]. SPECIMENS None. DRAINS A 10-Korean round Juancarlos-Driscoll drain through the anterior neck. COMPLICATIONS None. DISPOSITION Post-anesthesia care unit. INDICATIONS FOR SURGERY Ms. Huang is a 53-year-old female who presented with the chief complaint of radiating right upper extremity pain, numbness, and tingling. Her symptoms were present in the periscapular region and then down the right arm in the biceps and radial forearm and into her hand. She had failed physical therapy, injections, medications, and activity modifications. Her physical examination was significant for a positive Spurling maneuver to the right, negative to the left. Her imaging studies showed severe degenerative disk disease at C5-C6 with right greater than left foraminal narrowing secondary to disk osteophyte complexes. Secondary to ongoing symptoms and failure of nonsurgical care, Ms. Huang was offered and elected to undergo C5-C6 anterior cervical diskectomy and fusion. Prior to surgery, I explained in detail to the patient possible risks of the surgery. These risks included bleeding, infection, damage to surrounding structures, swallowing difficulties possibly requiring tube feeding, voice changes, hoarseness, damage to the superior or recurrent laryngeal nerve, spinal fluid leak, meningitis, spinal cord injury, nerve root injury, , blindness, sexual dysfunction, autonomic nervous system dysfunction, and other unforeseen medical and surgical complications. An understanding that spinal surgery is more predictive at improving extremity discomfort than axial spine pain was stressed. DESCRIPTION OF PROCEDURE On the date of surgery, the patient was met in the preoperative hold area, and all questions were answered. Her operative site was identified and marked by myself. She was brought in good condition to the operating room, and after succumbing to anesthesia, was positioned in the supine position on a standard OR bed. The neck was extended slightly, and the arms were secured loosely at the sides to afford access to the anterior cervical spine. Final timeout was undertaken by members of the operating team to confirm correct patient, correct levels, and correct surgery. The patient was then prepped and draped in the standard sterile orthopedic fashion. An anterior incision was made over the left side of the neck at approximately the C5-C6 level. Sharp dissection was carried out through anterior tissues until we were able to identify the medial border of the sternocleidomastoid muscle. The interval between the sternocleidomastoid and the anterior strap muscles was then utilized to perform blunt finger dissection coming down on the anterior aspect of the cervical spine. The carotid sheath was palpated, and finger dissection was carried out medial to the carotid sheath. Soft tissues were then cleared off the anterior cervical spine in a subperiosteal manner to include the longus colli muscles at the C5-C6 level. A lateral radiograph was obtained to confirm correct level. A self-retaining retractor was then placed, and a microscope was brought into the field. A combination of a high-speed anita, progressively smaller curettes, and Kerrison rongeurs was used to perform a diskectomy from ventral to dorsal. Once we were approximately two-thirds of the way dorsal in the disk space, a Cloward battery tester and repairer was placed and distracted on the right side. There were no changes in her physiologic monitoring. I continued to use progressively smaller curettes as well as the high-speed bur to perform a complete diskectomy. A small forward-angled curette was then used to dissect through the fibers of the posterior longitudinal ligament. The posterior longitudinal ligament was then removed using a combination of #1 and #2 Kerrisons. Bilateral foraminotomies were performed, and a nerve hook used to check out into the foramen to ensure adequate decompression of the nerve was achieved. The nerve hook was also used to sweep behind the vertebral bodies ensuring no persistent compression of the cervical spinal cord. The endplates of the vertebral bodies were then prepared with the high-speed anita, carefully feathering the bony endplates to ensure aggressive bony bleeding across both surfaces. A 6 mm lordotic rasp was then used, and this gave us nice press-fit. We, therefore, chose a 6 mm tall, 6-degree lordotic interbody implant size small from [employer]. This was packed with ViBone and tapped into the disk space. It had excellent fit, and it was countersunk about 1 mm. The awl was then used to prepare holes for screws through the integrated fixation holes in the graft itself. Fixation screws 3.5 mm x 14 mm were then placed through those holes in the device and torqued down to the appropriate tightness. The wound was then irrigated with sterile saline solution, and meticulous hemostasis was obtained. The wound was then closed in layers using inverted interrupted sutures for the subcutaneous tissue and then a running subcuticular skin stitch. A 10-Korean round Juancarlos-Driscoll drain was left deep to the platysma. Sponge and needle counts were correct times two. POSTOPERATIVE CARE PLAN Ms. Huang will remain in the hospital overnight. Her drain will be pulled in the morning, and she will be discharged home with instructions to follow up in two weeks for examination. ANA
[2018-05-26] MEDS ORDERED: ESTR1PAT3 TD (10:43)
[2018-06-03] MEDS ORDERED: LEV112 PO (13:32)
== END 2018-05-20 07:29 | disposition home or self-care (01) ==
LOC: OR 00:19 → MED 12:25
PROVIDERS: ADMIT Orthopaedic Surgery; ATTEND Orthopaedic Surgery
DX: M50.122 Cervical disc disorder at C5-C6 level with radiculopathy (principal)
CPT/HCPCS: 22551; 36415; 72020; 72040; 84132; 86850; 86900; 86901; 97116; 97161; A9270; C1713; G0378; J0690; J1100; J2001; J2250; J2405; J2704; J2765; J3010; J7030; J7050; 82310; 82374; 82435; 82565; 82947; 84295; 84520

== ENCOUNTER 2018-05-30 12:02 | Emergency (ER) | payer MEDICARE, MEDICAID ==
[2018-05-20 09:30] VITALS: Wt 70.8 kg
[~2018-05-30 12:02] MED LIST changes: +DOCU240C84 PO; +MIRA50TA PO
--- NOTE | 2018-05-30 12:26 | ER Report ---
History and Physical Time Seen By MD: 12:26 Hx. of Stated Complaint: ABD PAIN HPI/ROS 53-year-old female with multiple chronic medical problems presents to the emergency department with nausea, vomiting and feeling dizzy. She states the symptoms have been ongoing for days. She had surgery on her cervical spine approximately 5 days ago. Her pain has been controlled with pain medication, and she denies fever or chills. She states that she's been taking less by mouth because "water tastes funny when I drink it." She also reports feeling constipated. Remainder of the 14 system rev: Yes Allergies: Coded Allergies: promethazine (Verified Allergy, Severe, RESTLESS LEGS, 05/30/18) sumatriptan (Verified Allergy, Intermediate, HIVES, SOB, 05/30/18) only with nose spray, she can take oral sumatriptan NSAIDS (Non-Steroidal Anti-Inflamma (Verified Allergy, Mild, NAUSEA, HEADACHES, 05/30/18) orphenadrine (Verified Allergy, Unknown, 05/30/18) keeps her awake oxycodone (Verified Allergy, Unknown, 05/30/18) aspirin (Verified Adverse Reaction, Mild, NAUSEA, 05/30/18) furosemide (Verified Adverse Reaction, Unknown, 05/30/18) too hard on kidneys Uncoded Allergies: COBAN (Allergy, Mild, rash, 04/03/13) Home Meds Active Scripts Estradiol (ESTRADIOL 0.05 MG) 1 Each Patch.tdwk, 1 EACH TD Q7D, #4 PATCH.WK 6 Refills Prov:BETSEY PIERSON MD 05/26/18 Ondansetron (ZOFRAN ODT) 4 Mg Tab.rapdis, 4 MG PO Q6H Y for NAUSEA/VOMITING, # 20 TAB.ALEJANDRINA Prov:RIA HASTINGS MEN'S GARMENT FITTER 05/20/18 Simvastatin (SIMVASTATIN) 10 Mg Tablet, 1 TAB PO QHS, #90 TAB 4 Refills Prov:BETSEY PIERSON MD 04/10/18 Losartan Potassium (LOSARTAN POTASSIUM) 50 Mg Tablet, 50 MG PO QDAY, #90 TAB 1 Refill Prov:BETSEY PIERSON MD 03/21/18 Sertraline Hcl (SERTRALINE HCL) 100 Mg Tablet, 1.5 TAB PO QDAY, #135 TAB 1 Refill Prov:BETSEY PIERSON MD 02/19/18 Propranolol Hcl (INDERAL LA) 80 Mg Cap.sa.24h, 1 CAP PO QDAY, #90 CAP 4 Refills Prov:BETSEY PIERSON MD 02/05/18 Levothyroxine Sodium (LEVOTHYROXINE SODIUM) 88 Mcg Tablet, 88 MCG PO QDAY, #90 TAB 4 Refills Prov:BETSEY PIERSON MD 01/22/18 Fluticasone Prop 50 Mcg Ns (FLONASE 50 MCG NS) 16 Gm [place].susp, 1 SPRAY NS QDAY , #1 BOT 0 Refills Prov:DADA SHERWOOD DNP, MEN'S GARMENT FITTER-BC 12/04/17 Topiramate (TOPIRAMATE) 100 Mg Tablet, 1 TAB PO QDAY, #30 TAB 6 Refills Prov:BETSEY PIERSON MD 10/09/17 Olanzapine (ZYPREXA) 5 Mg Tablet, 5 MG PO QDAY, #30 TAB 0 Refills Prov:EFREN URIOSTEGUI MD 10/14/16 Febuxostat (ULORIC) 40 Mg Tablet, 1 TAB PO QDAY, #90 TAB 1 Refill Prov:BETSEY PIERSON MD 07/27/16 Reported Medications Docusate Calcium (SURFAK) 240 Mg Capsule, 240 MG PO, CAPSULE 05/20/18 Hydrocodone Bit/Acetaminophen (HYDROCODON-ACETAMINOPHEN 5-325) 1 Each Tablet, 1- 2 EACH PO Q4-6H, TAB 05/20/18 Mirabegron (MYRBETRIQ) 50 Mg Tab.er.24h, 50 MG PO QAM 05/19/18 Melatonin/Pyridoxine HCl (B6) (Melatonin 3 mg Tablet) 1 Each Tablet, 1 TAB QHS, TAB 10/23/17 Sodium Bicarbonate (SODIUM BICARBONATE) 650 Mg Tablet, 2 TAB PO BID 07/26/16 Lansoprazole (LANSOPRAZOLE) 15 Mg Capsule.dr, 1 CAP PO QDAY 07/25/16 Cholecalciferol (Vitamin D3) (Vitamin D) 50,000 Unit Capsule, 1 CAP PO Q30D 07/25/16 Risperidone (RISPERIDONE) 1 Mg Tablet, 1 MG PO DAILY 05/04/16 Imipramine Hcl (Tofranil) 25 Mg Tab, 1 TAB PO DAILY, 0 Refills 09/26/12 Reviewed Nurses Notes: Yes Old Medical Records Reviewed: Yes Hx Smoking: Yes (SMOKED AGE 16 TO UNTIL 2000, 1/2 PPD) Smoking Status: Former Smoker Exposure to Second Hand Smoke?: No Hx Substance Use Disorder: No Hx Alcohol Use: Yes Constitutional Vital Sign - Last 24 Hours 05/30/18 12:19 Temp 98.0 Pulse 83 Resp 16 B/P (MAP) 133/93 Pulse Ox 96 O2 Delivery Room Air Physical Exam General Appearance: The patient is alert, has no immediate need for airway protection and no current signs of toxicity. Eyes: Pupils equal and round no injection. Respiratory: Chest is non tender, lungs are clear to auscultation. Cardiac: regular rate and rhythm Gastrointestinal: Abdomen is soft and non tender, no masses, bowel sounds normal. Neck: Neck is supple and non tender. Well healing surgical incision site on the anterior neck. No erythema or other evidence of infection Extremities have full range of motion and are non tender. Skin: No rashes or lesions. DIFFERENTIAL DIAGNOSIS: After history and physical exam differential diagnosis was considered for wound infection, intra-abdominal infection, side effects from narcotics, dehydration Medical Decision Making Data Points Result Diagram: 05/30/18 1258 05/30/18 1258 Laboratory Hematology Test 05/30/18 12:58 05/30/18 13:10 Red Blood Count 3.90 M/uL (4.17-5.56) Mean Corpuscular Volume 95.9 fL (80.0-96.0) Mean Corpuscular Hemoglobin 34.1 pg (26.0-33.0) Mean Corpuscular Hemoglobin Concent 35.6 g/dL (32.0-36.0) Red Cell Distribution Width 12.8 % (11.5-14.5) Mean Platelet Volume 6.7 fL (7.2-11.1) Neutrophils (%) (Auto) 77.7 % (39.4-72.5) Lymphocytes (%) (Auto) 12.6 % (17.6-49.6) Monocytes (%) (Auto) 6.3 % (4.1-12.4) Eosinophils (%) (Auto) 3.0 % (0.4-6.7) Basophils (%) (Auto) 0.4 % (0.3-1.4) Nucleated RBC Relative Count (auto) 0.1 /100WBC Neutrophils # (Auto) 6.6 K/uL (2.0-7.4) Lymphocytes # (Auto) 1.1 K/uL (1.3-3.6) Monocytes # (Auto) 0.5 K/uL (0.3-1.0) Eosinophils # (Auto) 0.3 K/uL (0.0-0.5) Basophils # (Auto) 0.0 K/uL (0.0-0.1) Nucleated RBC Absolute Count (auto) 0.01 K/uL Sodium Level 139 mmol/L (137-145) Potassium Level 4.3 mmol/L (3.5-5.0) Chloride Level 105 mmol/L (98-107) Carbon Dioxide Level 21 mmol/L (22-31) Blood Urea Nitrogen 22 mg/dl (7-18) Creatinine 2.80 mg/dl (0.52-1.04) Glomerular Filtration Rate Calc 17.7 Random Glucose 100 mg/dl (75-110) Calcium Level 9.0 mg/dl (8.4-10.2) Total Bilirubin 0.4 mg/dl (0.2-1.3) Aspartate Amino Transf (AST/SGOT) 23 U/L (0-35) Alanine Aminotransferase (ALT/SGPT) 15 U/L (0-56) Alkaline Phosphatase 54 U/L (0-126) Total Protein 7.7 g/dl (6.3-8.2) Albumin 4.4 g/dl (3.5-5.0) Lipase 158 U/L (23-300) Urine Color Yellow Urine Clarity Slightly-cloudy Urine pH 7.0 pH (4.8-9.5) Urine Specific [place] 1.010 Urine Protein 100 mg/dL (NEGATIVE) Urine Glucose (UA) Negative mg/dL (NEGATIVE) Urine Ketones Negative mg/dL (NEGATIVE) Urine Blood Negative (NEGATIVE) Urine Nitrite Negative (NEGATIVE) Urine Bilirubin Negative (NEGATIVE) Urine Urobilinogen Negative mg/dL (0.2-1.9) Urine Leukocyte Esterase Negative (NEGATIVE) Urine RBC None /HPF (0-2/HPF) Urine WBC 1 /HPF (0-5/HPF) Urine Squamous Epithelial Cells Many /LPF (</=FEW) Urine Bacteria Negative /HPF (NONE-FEW) Urine Mucus None /HPF (NONE-FEW) Chemistry Test 05/30/18 12:58 8/3/18 13:10 White Blood Count 8.6 k/uL (4.5-11.0) Red Blood Count 3.90 M/uL (4.17-5.56) Hemoglobin 13.3 g/dL (12.0-16.0) Hematocrit 37.4 % (34.0-47.0) Mean Corpuscular Volume 95.9 fL (80.0-96.0) Mean Corpuscular Hemoglobin 34.1 pg (26.0-33.0) Mean Corpuscular Hemoglobin Concent 35.6 g/dL (32.0-36.0) Red Cell Distribution Width 12.8 % (11.5-14.5) Platelet Count 209 K/uL (150-450) Mean Platelet Volume 6.7 fL (7.2-11.1) Neutrophils (%) (Auto) 77.7 % (39.4-72.5) Lymphocytes (%) (Auto) 12.6 % (17.6-49.6) Monocytes (%) (Auto) 6.3 % (4.1-12.4) Eosinophils (%) (Auto) 3.0 % (0.4-6.7) Basophils (%) (Auto) 0.4 % (0.3-1.4) Nucleated RBC Relative Count (auto) 0.1 /100WBC Neutrophils # (Auto) 6.6 K/uL (2.0-7.4) Lymphocytes # (Auto) 1.1 K/uL (1.3-3.6) Monocytes # (Auto) 0.5 K/uL (0.3-1.0) Eosinophils # (Auto) 0.3 K/uL (0.0-0.5) Basophils # (Auto) 0.0 K/uL (0.0-0.1) Nucleated RBC Absolute Count (auto) 0.01 K/uL Glomerular Filtration Rate Calc 17.7 Calcium Level 9.0 mg/dl (8.4-10.2) Total Bilirubin 0.4 mg/dl (0.2-1.3) Aspartate Amino Transf (AST/SGOT) 23 U/L (0-35) Alanine Aminotransferase (ALT/SGPT) 15 U/L (0-56) Alkaline Phosphatase 54 U/L (0-126) Total Protein 7.7 g/dl (6.3-8.2) Albumin 4.4 g/dl (3.5-5.0) Lipase 158 U/L (23-300) Urine Color Yellow Urine Clarity Slightly-cloudy Urine pH 7.0 pH (4.8-9.5) Urine Specific [place] 1.010 Urine Protein 100 mg/dL (NEGATIVE) Urine Glucose (UA) Negative mg/dL (NEGATIVE) Urine Ketones Negative mg/dL (NEGATIVE) Urine Blood Negative (NEGATIVE) Urine Nitrite Negative (NEGATIVE) Urine Bilirubin Negative (NEGATIVE) Urine Urobilinogen Negative mg/dL (0.2-1.9) Urine Leukocyte Esterase Negative (NEGATIVE) Urine RBC None /HPF (0-2/HPF) Urine WBC 1 /HPF (0-5/HPF) Urine Squamous Epithelial Cells Many /LPF (</=FEW) Urine Bacteria Negative /HPF (NONE-FEW) Urine Mucus None /HPF (NONE-FEW) Urinalysis Test 05/30/18 13:10 Urine Color Yellow Urine Clarity Slightly-cloudy Urine pH 7.0 pH (4.8-9.5) Urine Specific [place] 1.010 Urine Protein 100 mg/dL (NEGATIVE) Urine Glucose (UA) Negative mg/dL (NEGATIVE) Urine Ketones Negative mg/dL (NEGATIVE) Urine Blood Negative (NEGATIVE) Urine Nitrite Negative (NEGATIVE) Urine Bilirubin Negative (NEGATIVE) Urine Urobilinogen Negative mg/dL (0.2-1.9) Urine Leukocyte Esterase Negative (NEGATIVE) Urine RBC None /HPF (0-2/HPF) Urine WBC 1 /HPF (0-5/HPF) Urine Squamous Epithelial Cells Many /LPF (</=FEW) Urine Bacteria Negative /HPF (NONE-FEW) Urine Mucus None /HPF (NONE-FEW) ED Course/Re-evaluation Clinical Indication for ER IV: Hydration ED Course 53-year-old female 5 days status post surgery to her cervical spine. She presents with generalized weakness and fatigue and nausea. She reports that she has been taking narcotic pain medication around the clock since her surgery, and admits that she has been taking much less by mouth. She has a benign abdominal exam and no evidence of acute infection either at the surgical site or intra-abdominally. I discussed with her that if she takes narcotic pain medications that can sometimes cause focused to take less by mouth, become dehydrated, and therefore causes him to become weak. I encouraged her to stop taking the narcotic pain medication, and encouraged her to continue to take by mouth. She is able to take by mouth in the emergency department. She has no abdominal tenderness to palpation on repeat abdominal exam. She has Zofran at home if needed. She will follow-up with her primary care physician. Decision to Disposition Date: May 30, 2018 Decision to Disposition Time: 14:25 Depart Departure Latest Vital Signs Vital Signs Date Time Temp Pulse Resp B/P (MAP) Pulse Ox O2 Delivery O2 Flow Rate FiO2 05/30/18 12:19 98.0 83 16 133/93 96 Room Air Impression: Primary Impression: Nausea Condition: Improved Disposition: HOME OR SELF-CARE Referrals: BETSEY PIERSON MD (PCP) Patient Instructions: Acute Nausea and Vomiting (ED) GREGORIO BOATENG MD May 30, 2018 12:26
[2018-05-30 13:13] LABS: PLATELET COUNT, AUTOMATED 209 K/uL (150-450)
[2018-05-30 13:30] VITALS: BP 142/96
[2018-05-30] MEDS ORDERED: ONDANSETRON 4 MG/2 ML VIAL IVP ONE (13:50)
[2018-06-03] MEDS ORDERED: LEV112 PO (13:32)
== END 2018-05-30 14:41 | disposition home or self-care (01) ==
LOC: ER 12:27
DX: R11.2 Nausea with vomiting, unspecified (principal)
CPT/HCPCS: 81001; 83690; 85025; 96374; 99283; J2405; 82040; 82247; 82310; 82374; 82435; 82565; 82947; 84075; 84132; 84155; 84295; 84450; 84460; 84520

== ENCOUNTER → 2018-06-03 | Outpatient (CLI) | payer MEDICARE, MEDICAID ==
[2018-05-20 09:30] VITALS: BMI 25.7
[2018-06-03 11:18] LABS: PLATELET COUNT, AUTOMATED 188 K/uL (150-450)
== END ==
LOC: LAB 10:50
PROVIDERS: ATTEND Internal Medicine
DX: Z98.1 Arthrodesis status (principal); E03.9 Hypothyroidism, unspecified; I15.1 Hypertension secondary to other renal disorders; N18.9 Chronic kidney disease, unspecified
CPT/HCPCS: 36415; 82040; 82247; 82310; 82374; 82435; 82565; 82947; 84075; 84132; 84155; 84295; 84443; 84450; 84460; 84520; 85025

== ENCOUNTER 2018-06-22 17:31 | Emergency (ER) | payer MEDICARE, MEDICAID ==
[2018-05-20 09:30] VITALS: Wt 74.8 kg
--- NOTE | 2018-06-22 18:12 | ER Report ---
History and Physical Time Seen By MD: 18:11 Hx. of Stated Complaint: PT BUMPED HER HEAD ON REFRIGERATOR DOOR THIS MORNING. IT STILL HURTS AND NOW HER NECK HURTS HAD NECK SURGERY ON 05/19, TOOK LAST PAIN MED YESTERDAY HPI/ROS CHIEF COMPLAINT: neck and headache HISTORY OF PRESENT ILLNESS: This is a 53 year old female. She hit the right latter day/forehead on her refrigerator door today about 0600 this morning. Later, about 1200 started to het a headache in posterior head near attachment of neck muscles and some pain in the right side of her neck. Has had neck surgery recently, and was worried about this. Is out of her pain medication that she has used in the past. No weakness or numbness in arms. Has chronic kidney disease, so medicines she can take are limited. No fevers or chills. Anterior neck incision is healing well. No cough or shortness of breath. No chest pain. No changes to bowel or bladder function. Allergies: Coded Allergies: promethazine (Verified Allergy, Severe, RESTLESS LEGS, 05/30/18) sumatriptan (Verified Allergy, Intermediate, HIVES, SOB, 05/30/18) only with nose spray, she can take oral sumatriptan NSAIDS (Non-Steroidal Anti-Inflamma (Verified Allergy, Mild, NAUSEA, HEADACHES, 05/30/18) orphenadrine (Verified Allergy, Unknown, 05/30/18) keeps her awake oxycodone (Verified Allergy, Unknown, 05/30/18) aspirin (Verified Adverse Reaction, Mild, NAUSEA, 05/30/18) furosemide (Verified Adverse Reaction, Unknown, 05/30/18) too hard on kidneys Uncoded Allergies: COBAN (Allergy, Mild, rash, 04/03/13) Home Meds Active Scripts Cyclobenzaprine Hcl (CYCLOBENZAPRINE HCL) 10 Mg Tablet, 10 MG PO Q8H PRN for MUSCLE SPASMS, #20 TAB 0 Refills Prov:EFREN URIOSTEGUI MD 06/22/18 Levothyroxine Sodium (LEVOTHYROXINE SODIUM) 0.112 Mg Tab, 0.112 MG PO QDAY, #30 TAB 6 Refills Prov:BETSEY PIERSON MD 06/03/18 Estradiol (ESTRADIOL 0.05 MG) 1 Each Patch.tdwk, 1 EACH TD Q7D, #4 PATCH.WK 6 Refills Prov:BETSEY PIERSON MD 05/26/18 Ondansetron (ZOFRAN ODT) 4 Mg Tab.rapdis, 4 MG PO Q6H PRN for NAUSEA/VOMITING, #20 TAB.ALEJANDRINA Prov:RIA HASTINGS PEER SPECIALIST 05/20/18 Simvastatin (SIMVASTATIN) 10 Mg Tablet, 1 TAB PO QHS, #90 TAB 4 Refills Prov:BETSEY PIERSON MD 04/10/18 Losartan Potassium (LOSARTAN POTASSIUM) 50 Mg Tablet, 50 MG PO QDAY, #90 TAB 1 Refill Prov:BETSEY PIERSON MD 03/21/18 Sertraline Hcl (SERTRALINE HCL) 100 Mg Tablet, 1.5 TAB PO QDAY, #135 TAB 1 Refill Prov:BETSEY PIERSON MD 02/19/18 Propranolol Hcl (INDERAL LA) 80 Mg Cap.sa.24h, 1 CAP PO QDAY, #90 CAP 4 Refills Prov:BETSEY PIERSON MD 02/05/18 Fluticasone Prop 50 Mcg Ns (FLONASE 50 MCG NS) 16 Gm [place].susp, 1 SPRAY NS QDAY, #1 BOT 0 Refills Prov:DADA SHERWOOD DNP, PEER SPECIALIST-BC 12/04/17 Topiramate (TOPIRAMATE) 100 Mg Tablet, 1 TAB PO QDAY, #30 TAB 6 Refills Prov:BETSEY PIERSON MD 10/09/17 Olanzapine (ZYPREXA) 5 Mg Tablet, 5 MG PO QDAY, #30 TAB 0 Refills Prov:EFREN URIOSTEGUI MD 10/14/16 Febuxostat (ULORIC) 40 Mg Tablet, 1 TAB PO QDAY, #90 TAB 1 Refill Prov:BETSEY PIERSON MD 07/27/16 Reported Medications Docusate Calcium (SURFAK) 240 Mg Capsule, 240 MG PO, CAPSULE 05/20/18 Hydrocodone Bit/Acetaminophen (HYDROCODON-ACETAMINOPHEN 5-325) 1 Each Tablet, 1- 2 EACH PO Q4-6H, TAB 05/20/18 Mirabegron (MYRBETRIQ) 50 Mg Tab.er.24h, 50 MG PO QAM 05/19/18 Melatonin/Pyridoxine HCl (B6) (Melatonin 3 mg Tablet) 1 Each Tablet, 1 TAB QHS, TAB 10/23/17 Sodium Bicarbonate (SODIUM BICARBONATE) 650 Mg Tablet, 2 TAB PO BID 07/26/16 Lansoprazole (LANSOPRAZOLE) 15 Mg Capsule.dr, 1 CAP PO QDAY 07/25/16 Cholecalciferol (Vitamin D3) (Vitamin D) 50,000 Unit Capsule, 1 CAP PO Q30D 07/25/16 Risperidone (RISPERIDONE) 1 Mg Tablet, 1 MG PO DAILY 05/04/16 Imipramine Hcl (Tofranil) 25 Mg Tab, 1 TAB PO DAILY, 0 Refills 09/26/12 Reviewed Nurses Notes: Yes Hx Smoking: Yes (SMOKED AGE 16 TO UNTIL 2000, 1/ PPD) Smoking Status: Former Smoker Exposure to Second Hand Smoke?: No Hx Substance Use Disorder: No Hx Alcohol Use: Yes Constitutional Vital Sign - Last 24 Hours 06/22/18 06/22/18 17:39 20:44 Temp 98.0 Pulse 79 78 Resp 16 B/P (MAP) 152/98 142/86 (104) Pulse Ox 98 97 O2 Delivery Room Air Physical Exam General Appearance: The patient is alert, has no immediate need for airway protection and no current signs of toxicity. Eyes: Pupils equal and round no injection. ENT: Normal oral mucosa with moist mucous membranes. Neck: Anterior incision normal. Neck has some spasming of the right paraspinous muscles and pain at attachment at the base of the skull. Cardiac: Normal cap refill. Regular rate and rhythm. Neuro: normal sensation in extremities. Musculoskeletal: Extremities have full range of motion. Tender and spasm in paraspinous muscles on right. Skin: No rashes or lesions. Incision intact, clean and dry. DIFFERENTIAL DIAGNOSIS: After history and physical exam differential diagnosis was considered for neck muscle spasm. Medical Decision Making EKG/Imaging Imaging EXAMINATION: Cervical Spine 3 views HISTORY: Neck pain. COMPARISON: 05/20/2018. FINDINGS: Stable surgical changes of instrumented interbody fusion at C5-C6. Hardware appears intact. No acute osseous findings along the cervical spine. Normal alignment. Vertebral body height is maintained. Disc spaces are preserved at the unfused level. The dens appears radiographically intact. No prevertebral soft tissue swelling. IMPRESSION: 1. No acute osseous findings along the cervical spine. Normal alignment. 2. Stable surgical changes with interbody fusion at C5-C6. Report Dictated By: Fransisco Sutton MD at 06/22/2018 7:07 PM ED Course/Re-evaluation ED Course Gave Flexeril 10mg oral dose. Improvement in symptoms. Did 4 trigger point injections along the right paraspinous muscles of the neck with 1% lidocaine without epinephrine, 0.5ml each followed by about 1 minute of pressure over the muscle each time. Patient felt better after these injections. Decision to Disposition Date: Jun 22, 2018 Decision to Disposition Time: 20:09 Depart Departure Latest Vital Signs Vital Signs Date Time Temp Pulse Resp B/P (MAP) Pulse Ox O2 Delivery O2 Flow Rate FiO2 06/22/18 20:44 78 142/86 (104) 97 06/22/18 17:39 98.0 16 Room Air Impression: Primary Impression: Neck muscle spasm Condition: Improved Disposition: HOME OR SELF-CARE Referrals: BETSEY PIERSON MD (PCP) New Scripts Cyclobenzaprine Hcl (CYCLOBENZAPRINE HCL) 10 Mg Tablet 10 MG PO Q8H PRN for MUSCLE SPASMS, #20 TAB 0 Refills Prov: EFREN URIOSTEGUI MD 06/22/18 Patient Instructions: Muscle Spasm (ED) Additional Instructions: Take Tylenol as needed for pain. Take Flexeril 10mg, one every 8 hours as needed for muscle spasm. Use a heating pad as needed for pain. Follow-up with your primary care provider this week. EFREN URIOSTEGUI MD Jun 22, 2018 18:12
[2018-06-22] MEDS ORDERED: CYCLOBENZAPRINE HCL 10 MG TAB PO ONE (18:25)
--- NOTE | 2018-06-22 19:12 | RADIOLOGY IMAGING REPORT ---
FACILITY: [facility] [place] PATIENT NAME: Rachel Huang : 1965 MR: [id number] V: [id number] EXAM DATE: ORDERING PHYSICIAN: EFREN URIOSTEGUI TECHNOLOGIST: Location: [facility] Patient: Rachel Huang : 1965 Visit/Account:[id number] Date of Sevice: 06/22/2018 EXAMINATION: Cervical Spine 3 views HISTORY: Neck pain. COMPARISON: 05/20/2018. FINDINGS: Stable surgical changes of instrumented interbody fusion at C5-C6. Hardware appears intact. No acute osseous findings along the cervical spine. Normal alignment. Vertebral body height is mainta ined. Disc spaces are preserved at the unfused level. The dens appears radiographically intact. No prevertebral soft tissue swelling. IMPRESSION: 1. No acute osseous findings along the cervical spine. Normal alignment. 2. Stable surgical changes with interbody fusion at C5-C6. Report Dictated By: Fransisco Sutton MD at 06/22/2018 7:07 PM Report E-Signed By: Fransisco Sutton MD at 06/22/2018 7:09 PM WSN:[id number]
[2018-06-22] MEDS ORDERED: CYCL10TA29 PO (20:10)
[2018-06-22 20:44] VITALS: BP 142/86
[2018-06-25] MEDS ORDERED: LOR5/325 PO (15:36)
[2018-06-25] MEDS ORDERED: CYCL10TA29 PO (15:38)
== END 2018-06-22 20:49 | disposition home or self-care (01) ==
LOC: ER 18:02
DX: M62.838 Other muscle spasm (principal); W22.8XXA Striking against or struck by other objects, initial encounter
CPT/HCPCS: 72040; 99284; A9270

== ENCOUNTER 2018-07-26 10:08 | Emergency (ER) | payer MEDICARE, MEDICAID ==
[2018-05-20 09:30] VITALS: Wt 74.9 kg
[~2018-07-26 10:08] MED LIST changes: -LOSA25TA50 PO; +LOSA25TA52 PO; -LOSA50TA72 PO; +LOSA50TA74 PO
--- NOTE | 2018-07-26 10:47 | ER Report ---
History and Physical Time Seen By MD: 10:20 Hx. of Stated Complaint: SORE THROAT, RUNNY NOSE, FATIGUE HPI/ROS CHIEF COMPLAINT: runny nose, sneezing, fatigue HISTORY OF PRESENT ILLNESS: Recent has had 2 days of consolation of symptoms including sneezing, occasional nonproductive cough, rhinorrhea knee nose with clear rhinitis, and decreased appetite and mild fatigue. Patient has not had REVIEW OF SYSTEMS: Respiratory: [No cough, no dyspnea.] Cardiovascular: [No chest pain, no palpitations.] Gastrointestinal: [No vomiting, no abdominal pain.] Musculoskeletal: [No back pain.] Remainder of the 14 system rev: Yes Allergies: Coded Allergies: promethazine (Verified Allergy, Severe, RESTLESS LEGS, 07/26/18) sumatriptan (Verified Allergy, Intermediate, HIVES, SOB, 07/26/18) only with nose spray, she can take oral sumatriptan NSAIDS (Non-Steroidal Anti-Inflamma (Verified Allergy, Mild, NAUSEA, HEADACHES, 07/26/18) orphenadrine (Verified Allergy, Unknown, 07/26/18) keeps her awake oxycodone (Verified Allergy, Unknown, 07/26/18) aspirin (Verified Adverse Reaction, Mild, NAUSEA, 07/26/18) furosemide (Verified Adverse Reaction, Unknown, 07/26/18) too hard on kidneys Uncoded Allergies: COBAN (Allergy, Mild, rash, 04/03/13) Home Meds Active Scripts Cyclobenzaprine Hcl (CYCLOBENZAPRINE HCL) 10 Mg Tablet, 0.5 TAB PO Q8H PRN for MUSCLE SPASMS, #20 TAB 0 Refills Prov:BETSEY PIERSON MD 06/25/18 Hydrocodone Bit/Acetaminophen (HYDROCODON-ACETAMINOPHEN 5-325) 1 Each Tablet, 1 EACH PO BID, #60 TAB Prov:BETSEY PIERSON MD 06/25/18 Levothyroxine Sodium (LEVOTHYROXINE SODIUM) 0.112 Mg Tab, 0.112 MG PO QDAY, #30 TAB 6 Refills Prov:BETSEY PIERSNO MD 06/03/18 Estradiol (ESTRADIOL 0.05 MG) 1 Each Patch.tdwk, 1 EACH TD Q7D, #4 PATCH.WK 6 Refills Prov:BETSEY PIERSON MD 05/26/18 Ondansetron (ZOFRAN ODT) 4 Mg Tab.rapdis, 4 MG PO Q6H PRN for NAUSEA/VOMITING, #20 TAB.ALEJANDRINA Prov:RIA HASTINGS QUALITY RN 05/20/18 Simvastatin (SIMVASTATIN) 10 Mg Tablet, 1 TAB PO QHS, #90 TAB 4 Refills Prov:BETSEY PIERSON MD 04/10/18 Losartan Potassium (LOSARTAN POTASSIUM) 50 Mg Tablet, 50 MG PO QDAY, #90 TAB 1 Refill Prov:BETSEY PIERSON MD 03/21/18 Sertraline Hcl (SERTRALINE HCL) 100 Mg Tablet, 1.5 TAB PO QDAY, #135 TAB 1 Refill Prov:BETSEY PIERSON MD 02/19/18 Propranolol Hcl (INDERAL LA) 80 Mg Cap.sa.24h, 1 CAP PO QDAY, #90 CAP 4 Refills Prov:BETSEY PIERSON MD 02/05/18 Fluticasone Prop 50 Mcg Ns (FLONASE 50 MCG NS) 16 Gm [place].susp, 1 SPRAY NS QDAY, #1 BOT 0 Refills Prov:DADA SHERWOOD DNP, QUALITY RN-BC 12/04/17 Topiramate (TOPIRAMATE) 100 Mg Tablet, 1 TAB PO QDAY, #30 TAB 6 Refills Prov:BETSEY PIERSON MD 10/09/17 Olanzapine (ZYPREXA) 5 Mg Tablet, 5 MG PO QDAY, #30 TAB 0 Refills Prov:EFREN URIOSTEGUI MD 10/14/16 Febuxostat (ULORIC) 40 Mg Tablet, 1 TAB PO QDAY, #90 TAB 1 Refill Prov:BETSEY PIERSON MD 07/27/16 Reported Medications Docusate Calcium (SURFAK) 240 Mg Capsule, 240 MG PO, CAPSULE 05/20/18 Mirabegron (MYRBETRIQ) 50 Mg Tab.er.24h, 50 MG PO QAM 05/19/18 Melatonin/Pyridoxine HCl (B6) (Melatonin 3 mg Tablet) 1 Each Tablet, 1 TAB QHS, TAB 10/23/17 Sodium Bicarbonate (SODIUM BICARBONATE) 650 Mg Tablet, 2 TAB PO BID 07/26/16 Lansoprazole (LANSOPRAZOLE) 15 Mg Capsule.dr, 1 CAP PO QDAY 07/25/16 Cholecalciferol (Vitamin D3) (Vitamin D) 50,000 Unit Capsule, 1 CAP PO Q30D 07/25/16 Risperidone (RISPERIDONE) 1 Mg Tablet, 1 MG PO DAILY 05/04/16 Imipramine Hcl (Tofranil) 25 Mg Tab, 1 TAB PO DAILY, 0 Refills 09/26/12 Hx Smoking: Yes (SMOKED AGE 16 TO UNTIL 2000, 1/2 PPD) Smoking Status: Former Smoker Exposure to Second Hand Smoke?: No Hx Substance Use Disorder: No Hx Alcohol Use: Yes Constitutional Vital Sign - Last 24 Hours 07/26/18 07/26/18 10:11 10:58 Temp 97.8 Pulse 63 74 Resp 20 16 B/P (MAP) 148/108 138/100 (113) Pulse Ox 97 94 O2 Delivery Room Air Room Air Physical Exam General Appearance: [The patient is alert, has no immediate need for airway protection and no current signs of toxicity.] [ ] Eyes: Pupils equal and round no injection. Respiratory: Chest is non tender, lungs are clear to auscultation. Cardiac: regular rate and rhythm Musculoskeletal: Neck: Neck is supple and non tender. No lymphadenopathy TM's clr bilateral Extremities have full range of motion and are non tender. Skin: No rashes or lesions. DIFFERENTIAL DIAGNOSIS: After history and physical exam differential diagnosis was considered for bacterial illness, otitis media, pneumonia, or other emergent etiolgoy Medical Decision Making ED Course/Re-evaluation ED Course Patient presents with constellation of symptoms concerning for URI. ED evaluation does not show signs of obvious dehydration or bacterial illness. I di scussed at length with patient and supportive treatment especially in light of single kidney and history of renal failure. Patient understands as well as understands strict return precautions. Decision to Disposition Date: Jul 26, 2018 Decision to Disposition Time: 10:45 Depart Departure Latest Vital Signs Vital Signs Date Time Temp Pulse Resp B/P (MAP) Pulse Ox O2 Delivery O2 Flow Rate FiO2 07/26/18 10:58 74 16 138/100 (113) 94 Room Air 07/26/18 10:11 97.8 Impression: Primary Impression: Upper respiratory infection Condition: Condition Unchanged Disposition: HOME OR SELF-CARE Referrals: BETSEY PIERSON MD (PCP) Patient Instructions: Upper Respiratory Infection (ED) Additional Instructions: As you know, you are limited as to the medications that are safe for you, due to your kidney. Use tylenol 650mg every 4 hours as needed for discomfort. Keep hydrated as we discussed. Please return immediately if you are feeling worse or for any concerns. Problem Qualifiers Primary Impression: Upper respiratory infection URI type: unspecified viral URI Qualified Codes: J06.9 - Acute upper respiratory infection, unspecified ESTEBAN BOATENG MD Jul 26, 2018 10:47
[2018-07-26 10:58] VITALS: BP 138/100
== END 2018-07-26 10:59 | disposition home or self-care (01) ==
LOC: ER 10:28
DX: J06.9 Acute upper respiratory infection, unspecified (principal)
CPT/HCPCS: 99281

== ENCOUNTER 2018-08-05 08:03 | Emergency (ER) | payer MEDICARE, MEDICAID ==
[2018-05-20 09:30] VITALS: Wt 74.9 kg
[2018-08-05] MEDS ORDERED: ACETAMINOPHEN 500 MG TAB PO ONE (08:30)
[2018-08-05] MEDS ORDERED: MAG HYD/AL HYD/SIMETH 30ML UDC PO ONE (08:30)
[2018-08-05] MEDS ORDERED: LIDOCAINE 2% VISC SLN 15ML UDC PO ONE (08:30)
[2018-08-05 08:39] LABS: PLATELET COUNT, AUTOMATED 221 K/uL (150-450)
--- NOTE | 2018-08-05 08:49 | EKG ---
FACILITY: [facility] PATIENT NAME: GREGORIO LINDSEY : [id number] MR: [id number] V: [id number] EXAM DATE: ORDERING PHYSICIAN: ESTEBAN BOATENG TECHNOLOGIST: Test Reason : cp Blood Pressure : / mmHG Vent. Rate : 071 BPM Atrial Rate : 071 BPM P-R Int : 124 ms QRS Dur : 092 ms QT Int : 396 ms P-R-T Axes : 043 042 029 degrees QTc Int : 430 ms Normal sinus rhythm Nonspecific T wave abnormality Abnormal ECG Compared to previous, the diffuse T waves have resolved in leads V2-V6 and aVF. Confirmed by JACINTA RECINOS ([id number]) on 08/05/2018 4:02:24 PM Referred By: ALANA VU Confirmed By:JACINTA RECINOS
--- NOTE | 2018-08-05 08:52 | ER Report ---
History and Physical Time Seen By MD: 08:10 Hx. of Stated Complaint: chest pain started last night, worsening, sternal radiating to L side (ESTEBAN BOATENG MD) HPI/ROS CHIEF COMPLAINT: chest pain HISTORY OF PRESENT ILLNESS: Patient presents with mid sternal chest pain. Chest pain has been ongoing since 5 PM yesterday. Patient states she ate between 5 and 6 and noticed pain was somewhat worse. However pain continued throughout the night. Patient became concerned this morning when she felt it may not be like her typical reflux. Pain is sharp and radiates to left side, though not shoulder, jaw, or back. Patient notes that pain was slightly worse with taking a deep breath. Patient feels maybe mildly short of breath. Patient denies nausea, vomiting, abdominal pain, UTI symptoms. Patient notes that she has chronic kidney disease and hypertension. Denies cholesterol, diabetes. Patient notes she had negative stress test 6 months ago as well as negative cardiac catheterization in 2017. Pain is similar to that for which she has been seen previously. REVIEW OF SYSTEMS: Constitutional: No fever, no chills. Eyes: No discharge. ENT: No sore throat. Cardiovascular: above Respiratory: No cough, no shortness of breath. Gastrointestinal: No abdominal pain, no vomiting. Genitourinary: No hematuria. Musculoskeletal: No back pain. Skin: No rashes. Neurological: No headache. Remainder of the 14 system rev: Yes (ESTEBAN BOATENG MD) Allergies: Coded Allergies: promethazine (Verified Allergy, Severe, RESTLESS LEGS, 07/26/18) sumatriptan (Verified Allergy, Intermediate, HIVES, SOB, 07/26/18) only with nose spray, she can take oral sumatriptan NSAIDS (Non-Steroidal Anti-Inflamma (Verified Allergy, Mild, NAUSEA, HEADACHES, 07/26/18) orphenadrine (Verified Allergy, Unknown, 07/26/18) keeps her awake oxycodone (Verified Allergy, Unknown, 07/26/18) aspirin (Verified Adverse Reaction, Mild, NAUSEA, 07/26/18) furosemide (Verified Adverse Reaction, Unknown, 07/26/18) too hard on kidneys Uncoded Allergies: COBAN (Allergy, Mild, rash, 04/03/13) Home Meds Active Scripts Cyclobenzaprine Hcl (CYCLOBENZAPRINE HCL) 10 Mg Tablet, 0.5 TAB PO Q8H PRN for MUSCLE SPASMS, #20 TAB 0 Refills Prov:BETSEY PIERSON MD 06/25/18 Hydrocodone Bit/Acetaminophen (HYDROCODON-ACETAMINOPHEN 5-325) 1 Each Tablet, 1 EACH PO BID, #60 TAB Prov:BETSEY PIERSON MD 06/25/18 Levothyroxine Sodium (LEVOTHYROXINE SODIUM) 0.112 Mg Tab, 0.112 MG PO QDAY, #30 TAB 6 Refills Prov:BETSEY PIERSON MD 06/03/18 Estradiol (ESTRADIOL 0.05 MG) 1 Each Patch.tdwk, 1 EACH TD Q7D, #4 PATCH.WK 6 Refills Prov:BETSEY PIERSON MD 05/26/18 Ondansetron (ZOFRAN ODT) 4 Mg Tab.rapdis, 4 MG PO Q6H PRN for NAUSEA/VOMITING, # 20 TAB.ALEJANDRINA Prov:RIA HASTINGSP 05/20/18 Simvastatin (SIMVASTATIN) 10 Mg Tablet, 1 TAB PO QHS, #90 TAB 4 Refills Prov:BETSEY PIERSON MD 04/10/18 Losartan Potassium (LOSARTAN POTASSIUM) 50 Mg Tablet, 50 MG PO QDAY, #90 TAB 1 Refill Prov:BETSEY PIERSON MD 03/21/18 Sertraline Hcl (SERTRALINE HCL) 100 Mg Tablet, 1.5 TAB PO QDAY, #135 TAB 1 Refill Prov:BETSEY PIERSON MD 02/19/18 Propranolol Hcl (INDERAL LA) 80 Mg Cap.sa.24h, 1 CAP PO QDAY, #90 CAP 4 Refills Prov:BETSEY PIERSON MD 02/05/18 Fluticasone Prop 50 Mcg Ns (FLONASE 50 MCG NS) 16 Gm [place].susp, 1 SPRAY NS QDAY, #1 BOT 0 Refills Prov:DADA SHERWOOD DNP, FLY RAIL OPERATOR-BC 12/04/17 Topiramate (TOPIRAMATE) 100 Mg Tablet, 1 TAB PO QDAY, #30 TAB 6 Refills Prov:BETSEY PIERSON MD 10/09/17 Olanzapine (ZYPREXA) 5 Mg Tablet, 5 MG PO QDAY, #30 TAB 0 Refills Prov:EFREN URIOSTEGUI MD 10/14/16 Febuxostat (ULORIC) 40 Mg Tablet, 1 TAB PO QDAY, #90 TAB 1 Refill Prov:BETSEY PIERSON MD 07/27/16 Reported Medications Docusate Calcium (SURFAK) 240 Mg Capsule, 240 MG PO, CAPSULE 05/20/18 Mirabegron (MYRBETRIQ) 50 Mg Tab.er.24h, 50 MG PO QAM 05/19/18 Melatonin/Pyridoxine HCl (B6) (Melatonin 3 mg Tablet) 1 Each Tablet, 1 TAB QHS, TAB 10/23/17 Sodium Bicarbonate (SODIUM BICARBONATE) 650 Mg Tablet, 2 TAB PO BID 07/26/16 Lansoprazole (LANSOPRAZOLE) 15 Mg Capsule.dr, 1 CAP PO QDAY 07/25/16 Cholecalciferol (Vitamin D3) (Vitamin D) 50,000 Unit Capsule, 1 CAP PO Q30D 07/25/16 Risperidone (RISPERIDONE) 1 Mg Tablet, 1 MG PO DAILY 05/04/16 Imipramine Hcl (Tofranil) 25 Mg Tab, 1 TAB PO DAILY, 0 Refills 09/26/12 Hx Smoking: Yes (SMOKED AGE 16 TO UNTIL 2000, 1/ PPD) Smoking Status: Former Smoker Exposure to Second Hand Smoke?: No Hx Substance Use Disorder: No Hx Alcohol Use: Yes (ESTEBAN BOATENG MD) Constitutional Vital Sign - Last 24 Hours 08/05/18 08/05/18 08/05/18 08/05/18 08:03 08:06 08:06 08:18 Temp 97.4 Pulse ??? 80 73 Resp 16 11 B/P (MAP) 177/104 177/104 (128) Pulse Ox 97 97 O2 Delivery Room Air 08/05/18 08/05/18 08/05/18 08/05/18 08:20 08:33 08:40 08:48 Pulse 71 76 Resp 11 B/P (MAP) 139/93 (108) 143/91 (108) Pulse Ox 98 98 08/05/18 08/05/18 08/05/18 09:00 09:03 09:18 Pulse 75 75 Resp 25 B/P (MAP) 147/94 (111) Pulse Ox 99 98 (GREGORIO BOATENG MD) Physical Exam General Appearance: The patient is alert, has no immediate need for airway protection and no signs of toxicity. Eyes: Pupils equal and round no pallor or injection. ENT, Mouth: Mucous membranes are moist. Midline neck scar noted, intact. Respiratory: There are no retractions, lungs are clear to auscultation. Cardiovascular: Regular rate and rhythm. no m/r/g no carotid bruit. Gastrointestinal: Abdomen is soft and non tender, no masses, bowel sounds normal. Neurological: alert, oriented, moves all ext, no focal cn deficit Skin: Warm and dry, no rashes. Musculoskeletal: Neck is supple non tender. Extremities are nontender, nonswollen and have full range of motion. DIFFERENTIAL DIAGNOSIS: After history and physical exam differential diagnosis was considered for chest pain including but not limited to myocardial ischemia, pericarditis pulmonary embolus, chest wall pain, pleural inflammation and pulmonary infectious causes. Aortic dissection (ESTEBAN BOATENG MD) Medical Decision Making Data Points Result Diagram: 08/05/18 0810 08/05/18 0810 Laboratory Hematology Test 08/05/18 08:10 08/05/18 10:45 Red Blood Count 4.00 M/uL (4.17-5.56) Mean Corpuscular Volume 97.9 fL (80.0-96.0) Mean Corpuscular Hemoglobin 34.5 pg (26.0-33.0) Mean Corpuscular Hemoglobin Concent 35.2 g/dL (32.0-36.0) Red Cell Distribution Width 13.2 % (11.5-14.5) Mean Platelet Volume 7.1 fL (7.2-11.1) Neutrophils (%) (Auto) 73.0 % (39.4-72.5) Lymphocytes (%) (Auto) 14.8 % (17.6-49.6) Monocytes (%) (Auto) 7.5 % (4.1-12.4) Eosinophils (%) (Auto) 4.1 % (0.4-6.7) Basophils (%) (Auto) 0.6 % (0.3-1.4) Nucleated RBC Relative Count (auto) 0.0 /100WBC Neutrophils # (Auto) 6.7 K/uL (2.0-7.4) Lymphocytes # (Auto) 1.4 K/uL (1.3-3.6) Monocytes # (Auto) 0.7 K/uL (0.3-1.0) Eosinophils # (Auto) 0.4 K/uL (0.0-0.5) Basophils # (Auto) 0.1 K/uL (0.0-0.1) Nucleated RBC Absolute Count (auto) 0.00 K/uL Peripheral Blood Smear No Y/N Sodium Level 141 mmol/L (137-145) Potassium Level 3.8 mmol/L (3.5-5.0) Chloride Level 106 mmol/L (98-107) Carbon Dioxide Level 23 mmol/L (22-31) Blood Urea Nitrogen 27 mg/dl (7-18) Creatinine 3.10 mg/dl (0.52-1.04) Glomerular Filtration Rate Calc 15.7 Random Glucose 96 mg/dl (75-110) Calcium Level 9.3 mg/dl (8.4-10.2) Total Bilirubin 0.4 mg/dl (0.2-1.3) Aspartate Amino Transf (AST/SGOT) 12 U/L (0-35) Alanine Aminotransferase (ALT/SGPT) 26 U/L (0-56) Alkaline Phosphatase 61 U/L (0-126) Troponin I < 0.012 ng/ml Total Protein 8.0 g/dl (6.3-8.2) Albumin 4.4 g/dl (3.5-5.0) Lipase 430 U/L (23-300) Urine Color Straw Urine Clarity Clear Urine pH 7.0 pH (4.8-9.5) Urine Specific [place] 1.005 Urine Protein Negative mg/dL (NEGATIVE) Urine Glucose (UA) Negative mg/dL (NEGATIVE) Urine Ketones Negative mg/dL (NEGATIVE) Urine Blood Negative (NEGATIVE) Urine Nitrite Negative (NEGATIVE) Urine Bilirubin Negative (NEGATIVE) Urine Urobilinogen Negative mg/dL (0.2-1.9) Urine Leukocyte Esterase Negative (NEGATIVE) Urine RBC None /HPF (0-2/HPF) Urine WBC <1 /HPF (0-5/HPF) Urine Squamous Epithelial Cells Many /LPF (</=FEW) Urine Bacteria Negative /HPF (NONE-FEW) Urine Mucus None /HPF (NONE-FEW) Chemistry Test 08/05/18 08:10 08/05/18 10:45 White Blood Count 9.2 k/uL (4.5-11.0) Red Blood Count 4.00 M/uL (4.17-5.56) Hemoglobin 13.8 g/dL (12.0-16.0) Hematocrit 39.1 % (34.0-47.0) Mean Corpuscular Volume 97.9 fL (80.0-96.0) Mean Corpuscular Hemoglobin 34.5 pg (26.0-33.0) Mean Corpuscular Hemoglobin Concent 35.2 g/dL (32.0-36.0) Red Cell Distribution Width 13.2 % (11.5-14.5) Platelet Count 221 K/uL (150-450) Mean Platelet Volume 7.1 fL (7.2-11.1) Neutrophils (%) (Auto) 73.0 % (39.4-72.5) Lymphocytes (%) (Auto) 14.8 % (17.6-49.6) Monocytes (%) (Auto) 7.5 % (4.1-12.4) Eosinophils (%) (Auto) 4.1 % (0.4-6.7) Basophils (%) (Auto) 0.6 % (0.3-1.4) Nucleated RBC Relative Count (auto) 0.0 /100WBC Neutrophils # (Auto) 6.7 K/uL (2.0-7.4) Lymphocytes # (Auto) 1.4 K/uL (1.3-3.6) Monocytes # (Auto) 0.7 K/uL (0.3-1.0) Eosinophils # (Auto) 0.4 K/uL (0.0-0.5) Basophils # (Auto) 0.1 K/uL (0.0-0.1) Nucleated RBC Absolute Count (auto) 0.00 K/uL Peripheral Blood Smear No Y/N Glomerular Filtration Rate Calc 15.7 Calcium Level 9.3 mg/dl (8.4-10.2) Total Bilirubin 0.4 mg/dl (0.2-1.3) Aspartate Amino Transf (AST/SGOT) 12 U/L (0-35) Alanine Aminotransferase (ALT/SGPT) 26 U/L (0-56) Alkaline Phosphatase 61 U/L (0-126) Troponin I < 0.012 ng/ml Total Protein 8.0 g/dl (6.3-8.2) Albumin 4.4 g/dl (3.5-5.0) Lipase 430 U/L (23-300) Urine Color Straw Urine Clarity Clear Urine pH 7.0 pH (4.8-9.5) Urine Specific [place] 1.005 Urine Protein Negative mg/dL (NEGATIVE) Urine Glucose (UA) Negative mg/dL (NEGATIVE) Urine Ketones Negative mg/dL (NEGATIVE) Urine Blood Negative (NEGATIVE) Urine Nitrite Negative (NEGATIVE) Urine Bilirubin Negative (NEGATIVE) Urine Urobilinogen Negative mg/dL (0.2-1.9) Urine Leukocyte Esterase Negative (NEGATIVE) Urine RBC None /HPF (0-2/HPF) Urine WBC <1 /HPF (0-5/HPF) Urine Squamous Epithelial Cells Many /LPF (</=FEW) Urine Bacteria Negative /HPF (NONE-FEW) Urine Mucus None /HPF (NONE-FEW) Urinalysis Test 08/05/18 10:45 Urine Color Straw Urine Clarity Clear Urine pH 7.0 pH (4.8-9.5) Urine Specific [place] 1.005 Urine Protein Negative mg/dL (NEGATIVE) Urine Glucose (UA) Negative mg/dL (NEGATIVE) Urine Ketones Negative mg/dL (NEGATIVE) Urine Blood Negative (NEGATIVE) Urine Nitrite Negative (NEGATIVE) Urine Bilirubin Negative (NEGATIVE) Urine Urobilinogen Negative mg/dL (0.2-1.9) Urine Leukocyte Esterase Negative (NEGATIVE) Urine RBC None /HPF (0-2/HPF) Urine WBC <1 /HPF (0-5/HPF) Urine Squamous Epithelial Cells Many /LPF (</=FEW) Urine Bacteria Negative /HPF (NONE-FEW) Urine Mucus None /HPF (NONE-FEW) (GREGORIO BOATENG MD) EKG/Imaging EKG Interpretation 12 lead EKG: Rhythm: Normal sinus rhythm, rate 71 [place]: Normal QRS: Normal ST segments: T wave flat v4-5, avF. No st elevations or depression. Monitor Interpretation: Normal Sinus Rhythm (ESTEBAN BOATENG MD) ED Course/Re-evaluation ED Course I took this patient over as a turnover from Dr. Esteban Boateng. I have reviewed the history and physical, the lab data, and the EKG. There are no new EKG changes to suggest that the pain is from cardiac ischemia. One troponin after almost 24 hours of chest pain is normal, and given her history she does not need an suresh tional troponin. I will adolescent counselor her to follow-up with her primary care physician. Decision to Disposition Date: Aug 05, 2018 Decision to Disposition Time: 13:10 (GREGORIO BOATENG MD) Depart Departure Latest Vital Signs Vital Signs Date Time Temp Pulse Resp B/P (MAP) Pulse Ox O2 Delivery O2 Flow Rate FiO2 08/05/18 09:18 75 25 98 08/05/18 09:00 147/94 (111) 08/05/18 08:06 97.4 Room Air (GREGORIO BOATENG MD) Impression: Primary Impression: Chest pain Condition: Improved Disposition: HOME OR SELF-CARE Referrals: BETSEY PIERSON MD (PCP) Patient Instructions: Chest Pain (ED) Problem Qualifiers Primary Impression: Chest pain Chest pain type: unspecified Qualified Codes: R07.9 - Chest pain, unspecified ESTEBAN BOATENG MD Aug 05, 2018 08:52 GREGORIO BOATENG MD Aug 05, 2018 12:58
--- NOTE | 2018-08-05 08:58 | RADIOLOGY IMAGING REPORT ---
FACILITY: [facility] PATIENT NAME: Rachel Huang : 1965 MR: [id number] V: [id number] EXAM DATE: ORDERING PHYSICIAN: ESTEBAN BOATENG TECHNOLOGIST: Location: [facility] [place] Patient: Rachel Huang : 1965 Visit/Account:[id number] Date of Sevice: 08/05/2018 CHEST SINGLE AP HISTORY: Chest pain COMPARISON: 02/05/2018 FINDINGS: Cardiomediastinal contours: Normal Lungs and pleura: Normal Bones/soft tissues: Normal Other findings: None significant IMPRESSION: 1. No acute cardiopulmonary disease. No change. Report Dictated By: Jaleel Escalera MD at 08/05/2018 8:52 AM Report E-Signed By: Jaleel Escalera MD at 08/05/2018 8:53 AM WSN:[id number]
[2018-08-05] MEDS ORDERED: NS(*) 0.9% 500 ML BAG 500 ML IV ONE (09:20)
[2018-08-05 13:00] VITALS: BP 145/89
[2018-08-06] MEDS ORDERED: LANS15CA32 PO (16:56)
== END 2018-08-05 13:28 | disposition home or self-care (01) ==
LOC: ER 08:14
DX: R07.89 Other chest pain (principal)
CPT/HCPCS: 71045; 81001; 83690; 84484; 85025; 93005; 96360; 99284; A9270; J7040; 82040; 82247; 82310; 82374; 82435; 82565; 82947; 84075; 84132; 84155; 84295; 84450; 84460; 84520

== ENCOUNTER 2018-08-06 07:17 | Emergency (ER) | payer MEDICARE, MEDICAID ==
[2018-05-20 09:30] VITALS: Wt 74.8 kg
--- NOTE | 2018-08-06 07:34 | ER Report ---
History and Physical Time Seen By MD: 07:30 Hx. of Stated Complaint: PATIENT IS REPORTING CHEST PAIN. SHE WAS SEEN YESTERDAY FOR THE SAME THING HPI/ROS CHIEF COMPLAINT: Chest pain HISTORY OF PRESENT ILLNESS: Patient is a 53-year-old female frequent visitor to the emergency department returns again with chest pain was seen her yesterday for the same complaint had a copperheads workup done including EKGs chest x-rays and blood work all which were negative she's had a negative stress test performed 6 months ago and a negative echocardiogram she has been seen numerous times for chest pain has been formally diagnosed with acid reflux is been noncompliant and does not and refuses to take her medications comes back in today less than 24 hours with the same complaint. Patient is To pain is sharp and stabbing kind of a burning sensation worse when she lays flat. Patient has no shortness of breath nausea vomiting diarrhea fever chills has renal insufficiency and multiple other diagnosis is a patient at time of presentation is relatively pain-free but described again as a burning sensation REVIEW OF SYSTEMS: Respiratory: No cough, no dyspnea. Cardiovascular: Chest pain no palpitations Gastrointestinal: No vomiting, no abdominal pain. Musculoskeletal: No back pain. Remainder of the 14 system rev: Yes Allergies: Coded Allergies: promethazine (Verified Allergy, Severe, RESTLESS LEGS, 07/26/18) sumatriptan (Verified Allergy, Intermediate, HIVES, SOB, 07/26/18) only with nose spray, she can take oral sumatriptan NSAIDS (Non-Steroidal Anti-Inflamma (Verified Allergy, Mild, NAUSEA, HEADACHES, 07/26/18) orphenadrine (Verified Allergy, Unknown, 07/26/18) keeps her awake oxycodone (Verified Allergy, Unknown, 07/26/18) aspirin (Verified Adverse Reaction, Mild, NAUSEA, 07/26/18) furosemide (Verified Adverse Reaction, Unknown, 07/26/18) too hard on kidneys Uncoded Allergies: COBAN (Allergy, Mild, rash, 04/03/13) Home Meds Active Scripts Cyclobenzaprine Hcl (CYCLOBENZAPRINE HCL) 10 Mg Tablet, 0.5 TAB PO Q8H PRN for MUSCLE SPASMS, #20 TAB 0 Refills Prov:BETSEY PIERSON MD 06/25/18 Hydrocodone Bit/Acetaminophen (HYDROCODON-ACETAMINOPHEN 5-325) 1 Each Tablet, 1 EACH PO BID, #60 TAB Prov:BETSEY PIERSON MD 06/25/18 Levothyroxine Sodium (LEVOTHYROXINE SODIUM) 0.112 Mg Tab, 0.112 MG PO QDAY, #30 TAB 6 Refills Prov:BETSEY PIERSON MD 06/03/18 Estradiol (ESTRADIOL 0.05 MG) 1 Each Patch.tdwk, 1 EACH TD Q7D, #4 PATCH.WK 6 Refills Prov:BETSEY PIERSON MD 05/26/18 Ondansetron (ZOFRAN ODT) 4 Mg Tab.rapdis, 4 MG PO Q6H PRN for NAUSEA/VOMITING, #20 TAB.ALEJANDRINA Prov:RIA HASTINGS IRRIGATION WORKER 05/20/18 Simvastatin (SIMVASTATIN) 10 Mg Tablet, 1 TAB PO QHS, #90 TAB 4 Refills Prov:BETSEY PIERSON MD 04/10/18 Losartan Potassium (LOSARTAN POTASSIUM) 50 Mg Tablet, 50 MG PO QDAY, #90 TAB 1 Refill Prov:BETSEY PIERSON MD 03/21/18 Sertraline Hcl (SERTRALINE HCL) 100 Mg Tablet, 1.5 TAB PO QDAY, #135 TAB 1 Refill Prov:BETSEY PIERSON MD 02/19/18 Propranolol Hcl (INDERAL LA) 80 Mg Cap.sa.24h, 1 CAP PO QDAY, #90 CAP 4 Refills Prov:BETSEY PIERSON MD 02/05/18 Fluticasone Prop 50 Mcg Ns (FLONASE 50 MCG NS) 16 Gm [place].susp, 1 SPRAY NS QDAY, #1 BOT 0 Refills Prov:DADA SHERWOOD DNP, IRRIGATION WORKER-BC 12/04/17 Topiramate (TOPIRAMATE) 100 Mg Tablet, 1 TAB PO QDAY, #30 TAB 6 Refills Prov:BETSEY PIERSON MD 10/09/17 Olanzapine (ZYPREXA) 5 Mg Tablet, 5 MG PO QDAY, #30 TAB 0 Refills Prov:EFREN URIOSTEGUI MD 10/14/16 Febuxostat (ULORIC) 40 Mg Tablet, 1 TAB PO QDAY, #90 TAB 1 Refill Prov:BETSEY PIERSON MD 9/30/16 Reported Medications Docusate Calcium (SURFAK) 240 Mg Capsule, 240 MG PO, CAPSULE 05/20/18 Mirabegron (MYRBETRIQ) 50 Mg Tab.er.24h, 50 MG PO QAM 05/19/18 Melatonin/Pyridoxine HCl (B6) (Melatonin 3 mg Tablet) 1 Each Tablet, 1 TAB QHS, TAB 10/23/17 Sodium Bicarbonate (SODIUM BICARBONATE) 650 Mg Tablet, 2 TAB PO BID 07/26/16 Lansoprazole (LANSOPRAZOLE) 15 Mg Capsule.dr, 1 CAP PO QDAY 07/25/16 Cholecalciferol (Vitamin D3) (Vitamin D) 50,000 Unit Capsule, 1 CAP PO Q30D 07/25/16 Risperidone (RISPERIDONE) 1 Mg Tablet, 1 MG PO DAILY 05/04/16 Imipramine Hcl (Tofranil) 25 Mg Tab, 1 TAB PO DAILY, 0 Refills 09/26/12 Reviewed Nurses Notes: Yes Old Medical Records Reviewed: Yes Hx Smoking: Yes (SMOKED AGE 16 TO UNTIL 2000, 1/2 PPD) Smoking Status: Former Smoker Exposure to Second Hand Smoke?: No Hx Substance Use Disorder: No Hx Alcohol Use: Yes Constitutional Vital Sign - Last 24 Hours 08/06/18 07:21 Temp 98.5 Pulse 84 Resp 20 B/P (MAP) 169/97 Pulse Ox 96 Physical Exam General Appearance: The patient is alert, has no immediate need for airway protection and no current signs of toxicity. [ ] Eyes: Pupils equal and round no injection. Respiratory: Chest is non tender, lungs are clear to auscultation. Cardiac: regular rate and rhythm [ ] Gastrointestinal: Abdomen is soft and non tender, no masses, bowel sounds normal. Musculoskeletal: Neck: Neck is supple and non tender. Extremities have full range of motion and are non tender. Skin: No rashes or lesions. [ ] DIFFERENTIAL DIAGNOSIS: After history and physical exam differential diagnosis was considered for some reflux myocardial ischemia pulmonary emboli pneumothoraces costochondritis Medical Decision Making Data Points Result Diagram: 08/06/1825 08/06/18 07 Laboratory Hematology Test 08/06/18 07:25 Red Blood Count 3.92 M/uL (4.17-5.56) Mean Corpuscular Volume 99.1 fL (80.0-96.0) Mean Corpuscular Hemoglobin 33.9 pg (26.0-33.0) Mean Corpuscular Hemoglobin Concent 34.2 g/dL (32.0-36.0) Red Cell Distribution Width 13.5 % (11.5-14.5) Mean Platelet Volume 6.7 fL (7.2-11.1) Neutrophils (%) (Auto) 57.6 % (39.4-72.5) Lymphocytes (%) (Auto) 28.4 % (17.6-49.6) Monocytes (%) (Auto) 7.5 % (4.1-12.4) Eosinophils (%) (Auto) 5.7 % (0.4-6.7) Basophils (%) (Auto) 0.8 % (0.3-1.4) Nucleated RBC Relative Count (auto) 0.1 /100WBC Neutrophils # (Auto) 4.1 K/uL (2.0-7.4) Lymphocytes # (Auto) 2.0 K/uL (1.3-3.6) Monocytes # (Auto) 0.5 K/uL (0.3-1.0) Eosinophils # (Auto) 0.4 K/uL (0.0-0.5) Basophils # (Auto) 0.1 K/uL (0.0-0.1) Nucleated RBC Absolute Count (auto) 0.01 K/uL Peripheral Blood Smear No Y/N D-Dimer Quantitative (PE/DVT) 0.72 ug/ml (0-0.50) Sodium Level 142 mmol/L (137-145) Potassium Level 3.8 mmol/L (3.5-5.0) Chloride Level 107 mmol/L (98-107) Carbon Dioxide Level 21 mmol/L (22-31) Blood Urea Nitrogen 24 mg/dl (7-18) Creatinine 3.00 mg/dl (0.52-1.04) Glomerular Filtration Rate Calc 16.3 Random Glucose 109 mg/dl (75-110) Calcium Level 8.8 mg/dl (8.4-10.2) Total Bilirubin 0.3 mg/dl (0.2-1.3) Aspartate Amino Transf (AST/SGOT) 15 U/L (0-35) Alanine Aminotransferase (ALT/SGPT) 13 U/L (0-56) Alkaline Phosphatase 54 U/L (0-126) Troponin I < 0.012 ng/ml Total Protein 7.5 g/dl (6.3-8.2) Albumin 4.0 g/dl (3.5-5.0) Chemistry Test 08/06/18 07:25 White Blood Count 7.2 k/uL (4.5-11.0) Red Blood Count 3.92 M/uL (4.17-5.56) Hemoglobin 13.3 g/dL (12.0-16.0) Hematocrit 38.9 % (34.0-47.0) Mean Corpuscular Volume 99.1 fL (80.0-96.0) Mean Corpuscular Hemoglobin 33.9 pg (26.0-33.0) Mean Corpuscular Hemoglobin Concent 34.2 g/dL (32.0-36.0) Red Cell Distribution Width 13.5 % (11.5-14.5) Platelet Count 210 K/uL (150-450) Mean Platelet Volume 6.7 fL (7.2-11.1) Neutrophils (%) (Auto) 57.6 % (39.4-72.5) Lymphocytes (%) (Auto) 28.4 % (17.6-49.6) Monocytes (%) (Auto) 7.5 % (4.1-12.4) Eosinophils (%) (Auto) 5.7 % (0.4-6.7) Basophils (%) (Auto) 0.8 % (0.3-1.4) Nucleated RBC Relative Count (auto) 0.1 /100WBC Neutrophils # (Auto) 4.1 K/uL (2.0-7.4) Lymphocytes # (Auto) 2.0 K/uL (1.3-3.6) Monocytes # (Auto) 0.5 K/uL (0.3-1.0) Eosinophils # (Auto) 0.4 K/uL (0.0-0.5) Basophils # (Auto) 0.1 K/uL (0.0-0.1) Nucleated RBC Absolute Count (auto) 0.01 K/uL Peripheral Blood Smear No Y/N D-Dimer Quantitative (PE/DVT) 0.72 ug/ml (0-0.50) Glomerular Filtration Rate Calc 16.3 Calcium Level 8.8 mg/dl (8.4-10.2) Total Bilirubin 0.3 mg/dl (0.2-1.3) Aspartate Amino Transf (AST/SGOT) 15 U/L (0-35) Alanine Aminotransferase (ALT/SGPT) 13 U/L (0-56) Alkaline Phosphatase 54 U/L (0-126) Troponin I < 0.012 ng/ml Total Protein 7.5 g/dl (6.3-8.2) Albumin 4.0 g/dl (3.5-5.0) Coagulation Test 08/06/18 07:25 D-Dimer Quantitative (PE/DVT) 0.72 ug/ml ED Course/Re-evaluation ED Course ED clinical course 53-year-old female comes emergency Department with none last 24 hours twice for chest pain slight bump in her d-dimer but due to renal insufficiency she cannot get imaged I do not believe she has a pulmonary emboli is no other clinical indications or clinical findings or physical exam findings and/or vitals indicate that she does however due to her inability to imaged her I will give her a single dose of Lovenox a primary care follow-up for outpatient VQ scan if necessary I believe this is reflux and noncompliance with her medications advised her to continue quickly spoke to her at bedside patient be discharge diagnosis acid reflux Decision to Disposition Date: Aug 06, 2018 Decision to Disposition Time: 08:34 Depart Departure Latest Vital Signs Vital Signs Date Time Temp Pulse Resp B/P (MAP) Pulse Ox O2 Delivery O2 Flow Rate FiO2 08/06/18 07:21 98.5 84 20 169/97 96 Impression: Primary Impression: Gastroesophageal reflux Condition: Improved Disposition: HOME OR SELF-CARE Referrals: BETSEY PIERSON MD (PCP) 5 Days Patient Instructions: Gastroesophageal Reflux Disease (DC) EFE TAYLOR MD Aug 06, 2018 07:34
[2018-08-06 07:42] LABS: PLATELET COUNT, AUTOMATED 210 K/uL (150-450)
--- NOTE | 2018-08-06 07:56 | EKG ---
FACILITY: [facility] - [place] PATIENT NAME: GREGORIO LINDSEY : [id number] MR: [id number] V: [id number] EXAM DATE: ORDERING PHYSICIAN: EFE TAYLOR TECHNOLOGIST: SARAH Aguilar Reason : CARDIAC Blood Pressure : / mmHG Vent. Rate : 075 BPM Atrial Rate : 075 BPM P-R Int : 138 ms QRS Dur : 092 ms QT Int : 382 ms P-R-T Axes : 054 023 019 degrees QTc Int : 426 ms Sinus rhythm Nonspecific T wave abnormality Abnormal ECG When compared with ECG of 05-AUG-2018 08:09, No significant change was found Confirmed by QASIM HAM ([id number]) on 08/06/2018 3:48:07 PM Referred By: BRANDON Confirmed By:QASIM HAM
--- NOTE | 2018-08-06 08:20 | RADIOLOGY IMAGING REPORT ---
FACILITY: [facility] PATIENT NAME: Rachel Huang : 1965 MR: [id number] V: [id number] EXAM DATE: ORDERING PHYSICIAN: EFE TAYLOR TECHNOLOGIST: [facility] Patient: Rachel Huang : 1965 Visit/Account:[id number] Date of Sevice: 08/06/2018 CHEST PA AND LAT COMPARISON: August 05, 2018 portable chest HISTORY: Chest pain FINDINGS: CARDIAC/VASC: No cardiac silhouette abnormality or cardiomegaly. Unremarkable pulmonary vasculatu re. MEDIASTINUM: No visible mass or adenopathy. LUNGS/PLEURA: No pneumothorax. No significant pulmonary parenchymal abnormalities. No effusion or p leural thickening. BONES: No fracture or visible bony lesion. Lower C-spine fusion changes and anchors in the right glenoid from previous labral tear. Moderate endplate spurring throughout the thoracic and upper lumba r spine. OTHER:Clips in the abdomen on the lateral view are probably from prior cholecystectomy. IMPRESSION: No acute cardiopulmonary process. Report Dictated By: Maico Gaspar at 08/06/2018 8:12 AM Report E-Signed By: Maico Gaspar at 08/06/2018 8:16 AM WSN:[id number]
[2018-08-06] MEDS ORDERED: IOPAMIDOL 76% 75 ML INFUS BTL 0 ML ONE (08:27)
[2018-08-06] MEDS ORDERED: NS(*) 0.9% 50 ML BAG 0 ML ONE ×2 (08:27→08:28)
[2018-08-06 08:30] VITALS: BP 127/79
[2018-08-06] MEDS ORDERED: ENOXAPARIN 100 MG/ML SYR SC SCH (09:00)
[2018-08-06] MEDS ORDERED: LANS15CA32 PO (16:56)
== END 2018-08-06 08:47 | disposition home or self-care (01) ==
LOC: ER 07:26
DX: K21.9 Gastro-esophageal reflux disease without esophagitis (principal)
CPT/HCPCS: 71046; 84484; 85025; 85379; 93005; 96372; 99284; J1650; 82040; 82247; 82310; 82374; 82435; 82565; 82947; 84075; 84132; 84155; 84295; 84450; 84460; 84520; J7050; Q9967

== ENCOUNTER 2018-08-10 15:07 | Emergency (ER) | payer MEDICARE, MEDICAID ==
[2018-05-20 09:30] VITALS: Wt 74.8 kg
[~2018-08-10 15:07] MED LIST changes: -HYDR-4309 PO; +HYDR-653 PO
[2018-08-10] MEDS ORDERED: OMEP-218 PO (15:22)
--- NOTE | 2018-08-10 15:26 | ER Report ---
History and Physical Time Seen By MD: 15:25 Hx. of Stated Complaint: left lung pain HPI/ROS CHIEF COMPLAINT: chest pain HISTORY OF PRESENT ILLNESS: Pt here for evaluation of chest pain. PT states she was eating and developed a burning/sharp chest pain.PT state she was dx with a "blood clot" in her lung on her ED visit 08/06 and she is afraid it is getting worse. PT was however dx with gerd on aug 06 and not a blood clot. Pt denies nausea. no vomiting . no sob. no cough. Pt does state her left lung feels tighter then right. Pt has no recent travel or surgery. Pt does wear an estrogen patch. Pt was given a shot of lovenox on 08/06 and was told to follow up [facility] pcp for v/q. pt never followed up last week but is to see pcp on saturday. REVIEW OF SYSTEMS: Constitutional: No fever, no chills. Eyes: No discharge. ENT: No sore throat. Cardiovascular: + chest pain, no palpitations. Respiratory: No cough, no shortness of breath. Gastrointestinal: No abdominal pain, no vomiting. Genitourinary: No hematuria. Musculoskeletal: No back pain. Skin: No rashes. Neurological: No headache. Allergies: Coded Allergies: promethazine (Verified Allergy, Severe, RESTLESS LEGS, 08/10/18) sumatriptan (Verified Allergy, Intermediate, HIVES, SOB, 08/10/18) only with nose spray, she can take oral sumatriptan NSAIDS (Non-Steroidal Anti-Inflamma (Verified Allergy, Mild, NAUSEA, HEADACHES, 08/10/18) orphenadrine (Verified Allergy, Unknown, 08/10/18) keeps her awake oxycodone (Verified Allergy, Unknown, 08/10/18) aspirin (Verified Adverse Reaction, Mild, NAUSEA, 08/10/18) furosemide (Verified Adverse Reaction, Unknown, 08/10/18) too hard on kidneys Uncoded Allergies: COBAN (Allergy, Mild, rash, 04/03/13) Home Meds Active Scripts Lansoprazole (LANSOPRAZOLE) 15 Mg Capsule.dr, 1 CAP PO QDAY, #30 TAB 5 Refills Prov:BETSEY PIERSON MD 08/06/18 Cyclobenzaprine Hcl (CYCLOBENZAPRINE HCL) 10 Mg Tablet, 0.5 TAB PO Q8H PRN for MUSCLE SPASMS, #20 TAB 0 Refills Prov:BETSEY PIERSON MD 06/25/18 Hydrocodone Bit/Acetaminophen (HYDROCODON-ACETAMINOPHEN 5-325) 1 Each Tablet, 1 EACH PO BID, #60 TAB Prov:BETSEY PIERSON MD 06/25/18 Levothyroxine Sodium (LEVOTHYROXINE SODIUM) 0.112 Mg Tab, 0.112 MG PO QDAY, #30 TAB 6 Refills Prov:BETSEY PIERSON MD 06/03/18 Estradiol (ESTRADIOL 0.05 MG) 1 Each Patch.tdwk, 1 EACH TD Q7D, #4 PATCH.WK 6 Refills Prov:BETSEY PIERSON MD 05/26/18 Ondansetron (ZOFRAN ODT) 4 Mg Tab.rapdis, 4 MG PO Q6H PRN for NAUSEA/VOMITING, #20 TAB.ALEJANDRINA Prov:RIA HASTINGS 05/20/18 Simvastatin (SIMVASTATIN) 10 Mg Tablet, 1 TAB PO QHS, #90 TAB 4 Refills Prov:BETSEY PIERSON MD 04/10/18 Losartan Potassium (LOSARTAN POTASSIUM) 50 Mg Tablet, 50 MG PO QDAY, #90 TAB 1 Refill Prov:BETSEY PIERSON MD 03/21/18 Sertraline Hcl (SERTRALINE HCL) 100 Mg Tablet, 1.5 TAB PO QDAY, #135 TAB 1 Refill Prov:BETSEY PIERSON MD 02/19/18 Propranolol Hcl (INDERAL LA) 80 Mg Cap.sa.24h, 1 CAP PO QDAY, #90 CAP 4 Refills Prov:BETSEY PIERSON MD 02/05/18 Fluticasone Prop 50 Mcg Ns (FLONASE 50 MCG NS) 16 Gm [place].susp, 1 SPRAY NS QDAY, #1 BOT 0 Refills Prov:DADA SHERWOOD DNP, TRAVEL WRITER-BC 12/04/17 Topiramate (TOPIRAMATE) 100 Mg Tablet, 1 TAB PO QDAY, #30 TAB 6 Refills Prov:BETSEY PIERSON MD 10/09/17 Olanzapine (ZYPREXA) 5 Mg Tablet, 5 MG PO QDAY, #30 TAB 0 Refills Prov:EFREN URIOSTEGUI MD 10/14/16 Febuxostat (ULORIC) 40 Mg Tablet, 1 TAB PO QDAY, #90 TAB 1 Refill Prov:BETSEY PIERSON MD 07/27/16 Reported Medications Omeprazole Magnesium (PRILOSEC OTC) 20 Mg Tablet.dr, 1 TAB PO QDAY, TAB 08/10/18 Docusate Calcium (SURFAK) 240 Mg Capsule, 240 MG PO, CAPSULE 05/20/18 Mirabegron (MYRBETRIQ) 50 Mg Tab.er.24h, 50 MG PO QAM 05/19/18 Melatonin/Pyridoxine HCl (B6) (Melatonin 3 mg Tablet) 1 Each Tablet, 1 TAB QHS, TAB 10/23/17 Sodium Bicarbonate (SODIUM BICARBONATE) 650 Mg Tablet, 2 TAB PO BID 07/26/16 Cholecalciferol (Vitamin D3) (Vitamin D) 50,000 Unit Capsule, 1 CAP PO Q30D 07/25/16 Risperidone (RISPERIDONE) 1 Mg Tablet, 1 MG PO DAILY 05/04/16 Imipramine Hcl (Tofranil) 25 Mg Tab, 1 TAB PO DAILY, 0 Refills 09/26/12 Past Medical/Surgical History Pmhx: hypothyriod, developmental delay, restless leg syndrome, edema, hyperlipid, htn, depresion, bronchitis, gerd, renal failure, kidney stones, gout Reviewed Nurses Notes: Yes Hx Smoking: Yes (SMOKED AGE 16 TO UNTIL 2000, 1/2 PPD) Smoking Status: Former Smoker Exposure to Second Hand Smoke?: No Hx Substance Use Disorder: No Hx Alcohol Use: Yes Constitutional Vital Sign - Last 24 Hours 08/10/18 08/10/18 08/10/18 08/10/18 15:07 15:13 15:14 15:23 Temp 98.5 Pulse 88 96 Resp 16 B/P (MAP) 147/95 (112) 147/95 130/84 (99) Pulse Ox 99 O2 Delivery Room Air 08/10/18 08/10/18 08/10/18 15:37 15:51 16:07 Pulse 90 89 Resp 22 28 B/P (MAP) 140/93 (109) Pulse Ox 97 96 O2 Delivery Room Air Room Air Physical Exam General Appearance: The patient is alert, has no immediate need for airway protection and no signs of toxicity. Eyes: Pupils equal and round no pallor or injection, EOMI ENT: no pharyngeal erythema or exudates, Mucous membranes are moist Respiratory: There are no retractions, lungs are clear to auscultation. Cardiovascular: Regular rate and rhythm. pulses are equal and symmetrical Gastrointestinal: Abdomen is soft and non tender, no masses, bowel sounds normal, no guarding, no rigidity or rebound Neurological: Cranial nerves II-XII grossly intact, no sensory or motor loss Skin: Warm and dry, no rashes. Musculoskeletal: Neck is supple non tender, no vertebral tenderness Extremities are nontender, non swollen and have full range of motion. DIFFERENTIAL DIAGNOSIS: After history and physical exam differential diagnosis was considered for gerd, anxiety, pe, pancreatitis, acs Medical Decision Making Data Points Result Diagram: 08/10/18 1549 08/10/18 1549 Laboratory Hematology Test 08/10/18 15:49 Red Blood Count 3.93 M/uL (4.17-5.56) Mean Corpuscular Volume 97.5 fL (80.0-96.0) Mean Corpuscular Hemoglobin 34.0 pg (26.0-33.0) Mean Corpuscular Hemoglobin Concent 34.9 g/dL (32.0-36.0) Red Cell Distribution Width 13.4 % (11.5-14.5) Mean Platelet Volume 6.9 fL (7.2-11.1) Neutrophils (%) (Auto) 69.4 % (39.4-72.5) Lymphocytes (%) (Auto) 17.3 % (17.6-49.6) Monocytes (%) (Auto) 9.2 % (4.1-12.4) Eosinophils (%) (Auto) 3.7 % (0.4-6.7) Basophils (%) (Auto) 0.4 % (0.3-1.4) Nucleated RBC Relative Count (auto) 0.0 /100WBC Neutrophils # (Auto) 5.2 K/uL (2.0-7.4) Lymphocytes # (Auto) 1.3 K/uL (1.3-3.6) Monocytes # (Auto) 0.7 K/uL (0.3-1.0) Eosinophils # (Auto) 0.3 K/uL (0.0-0.5) Basophils # (Auto) 0.0 K/uL (0.0-0.1) Nucleated RBC Absolute Count (auto) 0.00 K/uL Prothrombin Time 12.6 seconds (12.0-14.4) Prothromb Time International Ratio 0.94 Activated Partial Thromboplast Time 28 seconds (23-35) Sodium Level 141 mmol/L (137-145) Potassium Level 4.1 mmol/L (3.5-5.0) Chloride Level 106 mmol/L (98-107) Carbon Dioxide Level 25 mmol/L (22-31) Blood Urea Nitrogen 26 mg/dl (7-18) Creatinine 2.90 mg/dl (0.52-1.04) Glomerular Filtration Rate Calc 17.0 Random Glucose 88 mg/dl (75-110) Calcium Level 9.1 mg/dl (8.4-10.2) Total Bilirubin 0.4 mg/dl (0.2-1.3) Aspartate Amino Transf (AST/SGOT) 20 U/L (0-35) Alanine Aminotransferase (ALT/SGPT) 22 U/L (0-56) Alkaline Phosphatase 52 U/L (0-126) Troponin I < 0.012 ng/ml Total Protein 7.6 g/dl (6.3-8.2) Albumin 4.1 g/dl (3.5-5.0) Lipase 395 U/L (23-300) Helicobacter pylori IgG Antibody Negative (NEGATIVE) Chemistry Test 08/10/18 15:49 White Blood Count 7.5 k/uL (4.5-11.0) Red Blood Count 3.93 M/uL (4.17-5.56) Hemoglobin 13.3 g/dL (12.0-16.0) Hematocrit 38.3 % (34.0-47.0) Mean Corpuscular Volume 97.5 fL (80.0-96.0) Mean Corpuscular Hemoglobin 34.0 pg (26.0-33.0) Mean Corpuscular Hemoglobin Concent 34.9 g/dL (32.0-36.0) Red Cell Distribution Width 13.4 % (11.5-14.5) Platelet Count 199 K/uL (150-450) Mean Platelet Volume 6.9 fL (7.2-11.1) Neutrophils (%) (Auto) 69.4 % (39.4-72.5) Lymphocytes (%) (Auto) 17.3 % (17.6-49.6) Monocytes (%) (Auto) 9.2 % (4.1-12.4) Eosinophils (%) (Auto) 3.7 % (0.4-6.7) Basophils (%) (Auto) 0.4 % (0.3-1.4) Nucleated RBC Relative Count (auto) 0.0 /100WBC Neutrophils # (Auto) 5.2 K/uL (2.0-7.4) Lymphocytes # (Auto) 1.3 K/uL (1.3-3.6) Monocytes # (Auto) 0.7 K/uL (0.3-1.0) Eosinophils # (Auto) 0.3 K/uL (0.0-0.5) Basophils # (Auto) 0.0 K/uL (0.0-0.1) Nucleated RBC Absolute Count (auto) 0.00 K/uL Prothrombin Time 12.6 seconds (12.0-14.4) Prothromb Time International Ratio 0.94 Activated Partial Thromboplast Time 28 seconds (23-35) Glomerular Filtration Rate Calc 17.0 Calcium Level 9.1 mg/dl (8.4-10.2) Total Bilirubin 0.4 mg/dl (0.2-1.3) Aspartate Amino Transf (AST/SGOT) 20 U/L (0-35) Alanine Aminotransferase (ALT/SGPT) 22 U/L (0-56) Alkaline Phosphatase 52 U/L (0-126) Troponin I < 0.012 ng/ml Total Protein 7.6 g/dl (6.3-8.2) Albumin 4.1 g/dl (3.5-5.0) Lipase 395 U/L (23-300) Helicobacter pylori IgG Antibody Negative (NEGATIVE) Coagulation Test 08/10/18 15:49 Prothrombin Time 12.6 seconds Prothromb Time International Ratio 0.94 Activated Partial Thromboplast Time 28 seconds EKG/Imaging EKG Interpretation NSR @ [address] wave changes. ED Course/Re-evaluation ED Course 08/10/2018 4:14:56 pm Unable to obtain CT due to pts creatine. Called radiology and unable to obtain v/q due to material is in margo and needs to be ordered. Spoke with pts pcp, Dr. Kebede, who recommend that i obtain US of the legs. If they are negative to give a dose of lovenox and he will order the material tomorrow for outpt V/q. IF the lower extremities are positive for clot then will need nursing home treatment for suspected pe. Also agrees that pts estrodiol should be removed. 08/10/2018 5:09:02 pm Pts venous dopplers were negative for blood clot. Pt does not want to remove her estodiol patch "i want to keep it on but i will speak with my pcp this week". I did explain the risk of estrogen and blood clots. Pts lipase is just above normal. Pt is not having epigastric pain at this time. I told her to return if develops worsening epigastric pain or symptoms. Pt understands that we are going to give a dose of lovenox and she will need to call dr. Kebeed tomorrow to schedule her vq for tuesdy. PT states she understands this time that she should folllow up. Decision to Disposition Date: Aug 10, 2018 Decision to Disposition Time: 17:13 Depart Departure Latest Vital Signs Vital Signs Date Time Temp Pulse Resp B/P (MAP) Pulse Ox O2 Delivery O2 Flow Rate FiO2 08/10/18 16:07 89 28 96 Room Air 08/10/18 15:51 140/93 (109) 08/10/18 15:14 98.5 Impression: Primary Impression: Pleurisy Additional Impression: GERD (gastroesophageal reflux disease) Condition: Improved Disposition: HOME OR SELF-CARE Referrals: BETSEY PIERSON MD (PCP) 2 Days Patient Instructions: Gastritis (ED), Pleurisy (ED) Additional Instructions: You need to have a V/Q test ( to rule out blood clot in your lungs) this week. Call Dr. Kebede tomorrow to determine if that test will be done either Saturday or Saturday. Continue your current medications. Return for worsening symptoms. Problem Qualifiers Additional Impression: GERD (gastroesophageal reflux disease) Esophagitis presence: esophagitis presence not specified Qualified Codes: K21.9 - Gastro-esophageal reflux disease without esophagitis CHAZ TAYLOR DO Aug 10, 2018 15:26
[2018-08-10] MEDS ORDERED: ASPIRIN 81 MG CHEW PO ONE (15:30)
--- NOTE | 2018-08-10 15:44 | EKG ---
FACILITY: [facility] - [place] PATIENT NAME: GREGORIO LINDSEY : [id number] MR: [id number] V: [id number] EXAM DATE: ORDERING PHYSICIAN: CHAZ TAYLOR TECHNOLOGIST: Test Reason : Chest pain Blood Pressure : / mmHG Vent. Rate : 090 BPM Atrial Rate : 090 BPM P-R Int : 120 ms QRS Dur : 092 ms QT Int : 376 ms P-R-T Axes : 044 029 -04 degrees QTc Int : 459 ms Normal sinus rhythm T wave abnormality, consider inferior ischemia Abnormal ECG When compared with ECG of 06-AUG-2018 07:40, Relatively unchanged Confirmed by JACINTA RECINOS ([id number]) on 08/10/2018 5:33:20 PM Referred By: Confirmed By:JACINTA RECINOS
[2018-08-10 15:55] LABS: PLATELET COUNT, AUTOMATED 199 K/uL (150-450)
[2018-08-10 16:05] LABS: INR 0.94
--- NOTE | 2018-08-10 16:17 | RADIOLOGY IMAGING REPORT ---
FACILITY: [facility] PATIENT NAME: Rachel Huang : 1965 MR: [id number] V: [id number] EXAM DATE: ORDERING PHYSICIAN: CHAZ TAYLOR TECHNOLOGIST: Location: [facility] [place] Patient: Rachel uHang : 1965 Visit/Account:[id number] Date of Sevice: 08/10/2018 EXAMINATION: Chest radiographs 2 views HISTORY: Chest pain. COMPARISON: None. FINDINGS: PA and lateral views of the chest are submitted. Lines/tubes: Cholecystectomy clips in the right upper quadrant of the abdomen. Lungs/pleura: No focal consolidation or pleural effusion. Pulmonary vascularity is within normal titus its. No evidence of pneumothorax. There is prominent distention of the stomach with elevation of the left hemidiaphragm. Heart: Negative. Mediastinum: Negative. Bony structures/body wall: Anterior fusion hardware in the cervical spine. Postsurgical changes in t he right shoulder. Anterior and lateral osteophytes in the thoracic spine. IMPRESSION: No radiographic evidence of acute cardiopulmonary disease. Prominent distention of the stomach with elevation of the left hemidiaphragm. Report Dictated By: Sudeep Corbin MD at 08/10/2018 4:10 PM Report E-Signed By: Sudeep Corbin MD at 08/10/2018 4:13 PM WSN:[id number]
[2018-08-10 17:00] VITALS: BP 143/88
--- NOTE | 2018-08-10 17:12 | RADIOLOGY IMAGING REPORT ---
FACILITY: [facility] PATIENT NAME: Rachel Huang : 1965 MR: [id number] V: [id number] EXAM DATE: ORDERING PHYSICIAN: CHAZ TAYLOR TECHNOLOGIST: Location: [facility] Patient: Rachel Huang : 1965 Visit/Account:[id number] Date of Sevice: 08/10/2018 Bilateral lower extremity duplex venous ultrasound Indication: Positive d-dimer. Comparison: 12/17/2015. Findings: Duplex Doppler and color flow imaging was performed. The bilateral common femoral, femoral , and popliteal veins are all patent and compressible with normal Doppler wave forms. There are norm al responses to augmentation. The bilateral posterior tibial and peroneal veins are clear. The proximal greater saphenous veins are also normal. Subcutaneous tissues are unremarkable. Impression: 1. No evidence of deep venous thrombosis of the bilateral lower extremities. Report Dictated By: Ac Mckeon at 08/10/2018 5:06 PM Report E-Signed By: Ac Mckeon at 08/10/2018 5:08 PM WSN:[email or web address]
[2018-08-10] MEDS ORDERED: ENOXAPARIN 100 MG/ML SYR SC ONE (17:20)
[2018-08-11] MEDS ORDERED: OMEP-125 PO (11:09)
== END 2018-08-10 17:28 | disposition home or self-care (01) ==
LOC: ER 15:30
DX: R09.1 Pleurisy (principal); K21.9 Gastro-esophageal reflux disease without esophagitis
CPT/HCPCS: 71046; 83690; 84484; 85025; 85610; 85730; 86677; 93005; 93970; 96372; 99284; A9270; J1650; 82040; 82247; 82310; 82374; 82435; 82565; 82947; 84075; 84132; 84155; 84295; 84450; 84460; 84520

== ENCOUNTER → 2018-08-12 | Outpatient (CLI) | payer MEDICARE, MEDICAID ==
[2018-05-20 09:30] VITALS: BMI 25.7
[~2018-08-12] MED LIST changes: +OMEP-125 PO
--- NOTE | 2018-08-12 13:04 | RADIOLOGY IMAGING REPORT ---
FACILITY: [facility] PATIENT NAME: Rachel Huang : 1965 MR: [id number] V: [id number] EXAM DATE: ORDERING PHYSICIAN: BETSEY PIERSON TECHNOLOGIST: Location: [facility] Patient: Rachel Huang : 1965 Visit/Account:[id number] Date of Sevice: 08/12/2018 Exam type: CHEST PA AND LAT History: Preop testing prior to VQ Scan Comparison: August 10, 2018. Findings: There is minimal platelike atelectasis the right lung base. No evidence of focal infiltrates pleural effusions upon edema. Willie wood is normal in size. The patient is rotated towards the right. The re are postsurgical changes of the right shoulder IMPRESSION: 1. Minimal platelike atelectasis the right lung base Report Dictated By: Laura Olson MD at 08/12/2018 12:32 PM Report E-Signed By: Laura Olson MD at 08/12/2018 1:00 PM WSN:[email or web address]
--- NOTE | 2018-08-12 14:17 | RADIOLOGY IMAGING REPORT ---
FACILITY: [facility] PATIENT NAME: Rachel Huang : 1965 MR: [id number] V: [id number] EXAM DATE: ORDERING PHYSICIAN: BETSEY PIERSON TECHNOLOGIST: Location: [facility] Patient: Rachel Huang : 1965 Visit/Account:[id number] Date of Sevice: 08/12/2018 LUNG PERFUSION AND VENTILATION HISTORY: Technique: 2.1 mCi technetium 99 MAA were instilled IV following 30.5 mCi of technetium 99 aerosolize d DTPA Static images of ventilation and perfusion were submitted. COMPARISON: X-ray examination of the chest from earlier today. FINDINGS: Ventilation images demonstrate mild scintigraphic central clumping indicative of turbulent flow as ca n be seen with COPD. Ventilation is homogeneous otherwise without focal filling defect. Some of the aerosolized technetium was swallowed and appears in the region of the stomach. Perfusion images demonstrate no evidence of a vascular arterial defect. IMPRESSION: No scintigraphic evidence of pulmonary embolus. Report Dictated By: Venancio Arevalo MD at 08/12/2018 2:06 PM Report E-Signed By: Venancio Arevalo MD at 08/12/2018 2:13 PM WSN:[email or web address]
== END ==
LOC: NUC 00:24
PROVIDERS: ATTEND Internal Medicine
DX: Z01.818 Encounter for other preprocedural examination (principal); J44.9 Chronic obstructive pulmonary disease, unspecified; J98.11 Atelectasis
CPT/HCPCS: 71046; 78582; A9540; A9567

== ENCOUNTER 2018-08-19 11:15 | Emergency (ER) | payer MEDICARE, MEDICAID ==
[2018-05-20 09:30] VITALS: Wt 68.9 kg
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
[2018-08-19 13:00] VITALS: BP 140/89
--- NOTE | 2018-08-19 13:12 | RADIOLOGY IMAGING REPORT ---
[place] [facility] [place]: [place] Huang : 1965 MR: [id number] V: [id number] EXAM DATE: ORDERING PHYSICIAN: MABLE EL TECHNOLOGIST: [place] [facility] [place]: Rachel Huang : 1965 Visit/Account:[id number] Date of Sevice: 08/19/2018 CLAVICLE RIGHT HISTORY: shoulder pain Additional history: Trauma one week previously. COMPARISON: Comparison made to chest x-ray 08/05/2018 and 02/05/2018 FINDINGS: There is remote surgical resection or less likely remote ostial lysis of the distal right clavicle wh ich is unchanged. Evidence of previous glenohumeral surgery with 4 Jatinder in the anterior bony glenoid labrum unchanged. On the previous chest x-rays the right clavicular shaft remnant aligned with the a cromion process. On today's examination the acromion process appears slightly elevated above the clav icular shaft. No fractures are identified. IMPRESSION: Remote distal right clavicular shaft surgical resection favored over ostial lysis and unchanged. On today's examination the acromion process appears slightly elevated in relation to the clavicular s haft. It is uncertain whether this is simply positional as I would expect there would be mobility sin ce the AC joint has been resected or whether this is posttraumatic. Negative for fracture. Report Dictated By: Arnie Santos MD at 08/19/2018 1:03 PM Report E-Signed By: Arnie Santos MD at 08/19/2018 1:09 PM WSN:[id number]
[2018-08-19] MEDS ORDERED: CYCL10TA29 PO (13:15)
== END 2018-08-19 13:24 | disposition home or self-care (01) ==
LOC: ER 11:34
DX: S46.911A Strain of unspecified muscle, fascia and tendon at shoulder and upper arm level, right arm, initial encounter (principal)
CPT/HCPCS: 73000; 99283; A4565

== ENCOUNTER 2018-09-11 10:30 | Emergency (ER) | payer MEDICARE, MEDICAID ==
[2018-05-20 09:30] VITALS: Wt 70.8 kg
[2018-09-11] MEDS ORDERED: ACETAMINOPHEN 325 MG TAB PO ONE (11:10)
--- NOTE | 2018-09-11 11:14 | ER Report ---
History and Physical Time Seen By MD: 10:55 Hx. of Stated Complaint: patient started having frequency of urination, pain in right flank and some lower abd pain since yesterday. HPI/ROS CHIEF COMPLAINT: Pain with urination, abdominal pain HISTORY OF PRESENT ILLNESS: Patient states that she began having difficulty and pain with urination starting last night. She states that every time she urinates she has burning with urination. She denies blood in the urine. She notes that she has lower abdominal pain on the right side that radiates to the right flank. She has last had a UTI approximately one year ago. She has felt hot but has not taken her temperature. She has no chest pain, vomiting, nausea, diarrhea, constipation. She is s/p hysterectomy and believes appendix was taken out at this time. NO other abd surgeries. No pain after meals. Pain is moderate, constant. REVIEW OF SYSTEMS: Constitutional: No fever, no chills. Eyes: No discharge. ENT: No sore throat. Cardiovascular: No chest pain, no palpitations. Respiratory: No cough, no shortness of breath. Gastrointestinal: above Genitourinary: above Musculoskeletal: r flank pain Skin: No rashes. Neurological: No headache. Remainder of the 14 system rev: Yes Allergies: Coded Allergies: promethazine (Verified Allergy, Severe, RESTLESS LEGS, 09/11/18) sumatriptan (Verified Allergy, Intermediate, HIVES, SOB, 09/11/18) only with nose spray, she can take oral sumatriptan NSAIDS (Non-Steroidal Anti-Inflamma (Verified Allergy, Mild, NAUSEA, HEADACHES, 09/11/18) orphenadrine (Verified Allergy, Unknown, 09/11/18) keeps her awake oxycodone (Verified Allergy, Unknown, 09/11/18) aspirin (Verified Adverse Reaction, Mild, NAUSEA, 09/11/18) furosemide (Verified Adverse Reaction, Unknown, 09/11/18) too hard on kidneys Uncoded Allergies: COBAN (Allergy, Mild, rash, 04/03/13) Home Meds Active Scripts Sertraline Hcl (SERTRALINE HCL) 100 Mg Tablet, 1.5 TAB PO QDAY, #135 TAB 1 Refill Prov:BETSEY PIERSON MD 08/22/18 Cyclobenzaprine Hcl (CYCLOBENZAPRINE HCL) 10 Mg Tablet, 10 MG PO TID PRN for MUSCLE SPASMS, #21 TAB Prov:SIENNAMABLE [employer] 08/19/18 Prednisone (PREDNISONE) 20 Mg Tablet, 20 MG PO BID, #14 TAB Prov:BETSEY PIERSON MD 08/13/18 Omeprazole (OMEPRAZOLE) 20 Mg Capsule.dr, 1 CAP PO QDAY, #30 CAP 2 Refills Prov:BETSEY PIERSON MD 08/11/18 Cyclobenzaprine Hcl (CYCLOBENZAPRINE HCL) 10 Mg Tablet, 0.5 TAB PO Q8H PRN for MUSCLE SPASMS, #20 TAB 0 Refills Prov:BETSEY PIERSON MD 06/25/18 Hydrocodone Bit/Acetaminophen (HYDROCODON-ACETAMINOPHEN 5-325) 1 Each Tablet, 1 EACH PO BID, #60 TAB Prov:BETSEY PIERSON MD 06/25/18 Levothyroxine Sodium (LEVOTHYROXINE SODIUM) 0.112 Mg Tab, 0.112 MG PO QDAY, #30 TAB 6 Refills Prov:BETSEY PIERSON MD 06/03/18 Ondansetron (ZOFRAN ODT) 4 Mg Tab.rapdis, 4 MG PO Q6H PRN for NAUSEA/VOMITING, #20 TAB.ALEJANDRINA Prov:RIA HASTINGS [employer] 05/20/18 Simvastatin (SIMVASTATIN) 10 Mg Tablet, 1 TAB PO QHS, #90 TAB 4 Refills Prov:BETSEY PIERSON MD 04/10/18 Losartan Potassium (LOSARTAN POTASSIUM) 50 Mg Tablet, 50 MG PO QDAY, #90 TAB 1 Refill Prov:BETSEY PIERSON MD 03/21/18 Propranolol Hcl (INDERAL LA) 80 Mg Cap.sa.24h, 1 CAP PO QDAY, #90 CAP 4 Refills Prov:BETSEY PIERSON MD 02/05/18 Fluticasone Prop 50 Mcg Ns (FLONASE 50 MCG NS) 16 Gm [place].susp, 1 SPRAY NS QDAY, #1 BOT 0 Refills Prov:DADA SHERWOOD DNP, [employer]-BC 12/04/17 Topiramate (TOPIRAMATE) 100 Mg Tablet, 1 TAB PO QDAY, #30 TAB 6 Refills Prov:BETSEY PIERSON MD 10/09/17 Olanzapine (ZYPREXA) 5 Mg Tablet, 5 MG PO QDAY, #30 TAB 0 Refills Prov:EFREN URIOSTEGUI MD 10/14/16 Febuxostat (ULORIC) 40 Mg Tablet, 1 TAB PO QDAY, #90 TAB 1 Refill Prov:BETSEY PIERSON MD 07/27/16 Reported Medications Omeprazole Magnesium (PRILOSEC OTC) 20 Mg Tablet.dr, 1 TAB PO QDAY, TAB 08/10/18 Docusate Calcium (SURFAK) 240 Mg Capsule, 240 MG PO, CAPSULE 05/20/18 Mirabegron (MYRBETRIQ) 50 Mg Tab.er.24h, 50 MG PO QAM 05/19/18 Melatonin/Pyridoxine HCl (B6) (Melatonin 3 mg Tablet) 1 Each Tablet, 1 TAB QHS, TAB 10/23/17 Sodium Bicarbonate (SODIUM BICARBONATE) 650 Mg Tablet, 2 TAB PO BID 07/26/16 Cholecalciferol (Vitamin D3) (Vitamin D) 50,000 Unit Capsule, 1 CAP PO Q30D 07/25/16 Risperidone (RISPERIDONE) 1 Mg Tablet, 1 MG PO DAILY 05/04/16 Imipramine Hcl (Tofranil) 25 Mg Tab, 1 TAB PO DAILY, 0 Refills 09/26/12 Reviewed Nurses Notes: Yes Old Medical Records Reviewed: Yes Hx Smoking: Yes (SMOKED AGE 16 TO UNTIL 2000, 10/29 PPD) Smoking Status: Former Smoker Exposure to Second Hand Smoke?: No Hx Substance Use Disorder: No Hx Alcohol Use: Yes Constitutional Vital Sign - Last 24 Hours 09/11/18 10:42 Temp 97.8 Pulse 72 Resp 20 B/P (MAP) 160/110 Pulse Ox 97 O2 Delivery Room Air Physical Exam General Appearance: The patient is alert, has no immediate need for airway protection and no signs of toxicity. Eyes: Pupils equal and round no pallor or injection. ENT, Mouth: Mucous membranes are moist. Respiratory: There are no retractions, lungs are clear to auscultation. Cardiovascular: Regular rate and rhythm. Gastrointestinal: rlq, llq, suprapubic abd pain with mild guarding. R CVAT. No l cvat. No peritoneal sgs Neurological: alert, no focal deficits Skin: Warm and dry, no rashes. Musculoskeletal: Extremities are nontender, nonswollen and have full range of motion. DIFFERENTIAL DIAGNOSIS: After history and physical exam differential diagnosis was considered for abdominal pain including but not limited to appendicitis, cholecystitis, gastritis and urinary tract infection, pyelonephritis, ureterol ithiasis Medical Decision Making Data Points Result Diagram: 09/11/18 1143 09/11/18 1143 Laboratory Hematology Test 09/11/18 10:35 09/11/18 11:43 Urine Color Yellow Urine Clarity Cloudy Urine pH 8.0 pH (4.8-9.5) Urine Specific [place] 1.010 Urine Protein 30 mg/dL (NEGATIVE) Urine Glucose (UA) Negative mg/dL (NEGATIVE) Urine Ketones Negative mg/dL (NEGATIVE) Urine Blood Negative (NEGATIVE) Urine Nitrite Negative (NEGATIVE) Urine Bilirubin Negative (NEGATIVE) Urine Urobilinogen Negative mg/dL (0.2-1.9) Urine Leukocyte Esterase Negative (NEGATIVE) Urine RBC 5 /HPF (0-2/HPF) Urine WBC None /HPF (0-5/HPF) Urine Squamous Epithelial Cells Many /LPF (</=FEW) Urine Bacteria Few /HPF (NONE-FEW) Urine Mucus None /HPF (NONE-FEW) Red Blood Count 3.74 M/uL (4.17-5.56) Mean Corpuscular Volume 95.5 fL (80.0-96.0) Mean Corpuscular Hemoglobin 33.7 pg (26.0-33.0) Mean Corpuscular Hemoglobin Concent 35.3 g/dL (32.0-36.0) Red Cell Distribution Width 12.6 % (11.5-14.5) Mean Platelet Volume 6.7 fL (7.2-11.1) Neutrophils (%) (Auto) 65.9 % (39.4-72.5) Lymphocytes (%) (Auto) 19.9 % (17.6-49.6) Monocytes (%) (Auto) 7.9 % (4.1-12.4) Eosinophils (%) (Auto) 5.3 % (0.4-6.7) Basophils (%) (Auto) 1.0 % (0.3-1.4) Nucleated RBC Relative Count (auto) 0.1 /100WBC Neutrophils # (Auto) 3.4 K/uL (2.0-7.4) Lymphocytes # (Auto) 1.0 K/uL (1.3-3.6) Monocytes # (Auto) 0.4 K/uL (0.3-1.0) Eosinophils # (Auto) 0.3 K/uL (0.0-0.5) Basophils # (Auto) 0.1 K/uL (0.0-0.1) Nucleated RBC Absolute Count (auto) 0.00 K/uL Peripheral Blood Smear No Y/N Sodium Level 140 mmol/L (137-145) Potassium Level 4.0 mmol/L (3.5-5.0) Chloride Level 108 mmol/L (98-107) Carbon Dioxide Level 22 mmol/L (22-31) Blood Urea Nitrogen 23 mg/dl (7-18) Creatinine 3.30 mg/dl (0.52-1.04) Glomerular Filtration Rate Calc 14.6 Random Glucose 92 mg/dl (75-110) Calcium Level 9.4 mg/dl (8.4-10.2) Total Bilirubin 0.5 mg/dl (0.2-1.3) Aspartate Amino Transf (AST/SGOT) 14 U/L (0-35) Alanine Aminotransferase (ALT/SGPT) 25 U/L (0-56) Alkaline Phosphatase 52 U/L (0-126) Total Protein 7.2 g/dl (6.3-8.2) Albumin 3.8 g/dl (3.5-5.0) Chemistry Test 09/11/18 10:35 09/11/18 11:43 Urine Color Yellow Urine Clarity Cloudy Urine pH 8.0 pH (4.8-9.5) Urine Specific [place] 1.010 Urine Protein 30 mg/dL (NEGATIVE) Urine Glucose (UA) Negative mg/dL (NEGATIVE) Urine Ketones Negative mg/dL (NEGATIVE) Urine Blood Negative (NEGATIVE) Urine Nitrite Negative (NEGATIVE) Urine Bilirubin Negative (NEGATIVE) Urine Urobilinogen Negative mg/dL (0.2-1.9) Urine Leukocyte Esterase Negative (NEGATIVE) Urine RBC 5 /HPF (0-2/HPF) Urine WBC None /HPF (0-5/HPF) Urine Squamous Epithelial Cells Many /LPF (</=FEW) Urine Bacteria Few /HPF (NONE-FEW) Urine Mucus None /HPF (NONE-FEW) White Blood Count 5.2 k/uL (4.5-11.0) Red Blood Count 3.74 M/uL (4.17-5.56) Hemoglobin 12.6 g/dL (12.0-16.0) Hematocrit 35.7 % (34.0-47.0) Mean Corpuscular Volume 95.5 fL (80.0-96.0) Mean Corpuscular Hemoglobin 33.7 pg (26.0-33.0) Mean Corpuscular Hemoglobin Concent 35.3 g/dL (32.0-36.0) Red Cell Distribution Width 12.6 % (11.5-14.5) Platelet Count 210 K/uL (150-450) Mean Platelet Volume 6.7 fL (7.2-11.1) Neutrophils (%) (Auto) 65.9 % (39.4-72.5) Lymphocytes (%) (Auto) 19.9 % (17.6-49.6) Monocytes (%) (Auto) 7.9 % (4.1-12.4) Eosinophils (%) (Auto) 5.3 % (0.4-6.7) Basophils (%) (Auto) 1.0 % (0.3-1.4) Nucleated RBC Relative Count (auto) 0.1 /100WBC Neutrophils # (Auto) 3.4 K/uL (2.0-7.4) Lymphocytes # (Auto) 1.0 K/uL (1.3-3.6) Monocytes # (Auto) 0.4 K/uL (0.3-1.0) Eosinophils # (Auto) 0.3 K/uL (0.0-0.5) Basophils # (Auto) 0.1 K/uL (0.0-0.1) Nucleated RBC Absolute Count (auto) 0.00 K/uL Peripheral Blood Smear No Y/N Glomerular Filtration Rate Calc 14.6 Calcium Level 9.4 mg/dl (8.4-10.2) Total Bilirubin 0.5 mg/dl (0.2-1.3) Aspartate Amino Transf (AST/SGOT) 14 U/L (0-35) Alanine Aminotransferase (ALT/SGPT) 25 U/L (0-56) Alkaline Phosphatase 52 U/L (0-126) Total Protein 7.2 g/dl (6.3-8.2) Albumin 3.8 g/dl (3.5-5.0) Urinalysis Test 09/11/18 10:35 Urine Color Yellow Urine Clarity Cloudy Urine pH 8.0 pH (4.8-9.5) Urine Specific [place] 1.010 Urine Protein 30 mg/dL (NEGATIVE) Urine Glucose (UA) Negative mg/dL (NEGATIVE) Urine Ketones Negative mg/dL (NEGATIVE) Urine Blood Negative (NEGATIVE) Urine Nitrite Negative (NEGATIVE) Urine Bilirubin Negative (NEGATIVE) Urine Urobilinogen Negative mg/dL (0.2-1.9) Urine Leukocyte Esterase Negative (NEGATIVE) Urine RBC 5 /HPF (0-2/HPF) Urine WBC None /HPF (0-5/HPF) Urine Squamous Epithelial Cells Many /LPF (</=FEW) Urine Bacteria Few /HPF (NONE-FEW) Urine Mucus None /HPF (NONE-FEW) ED Course/Re-evaluation ED Course During ED evaluation, pt has slight improvement in pain. Of note, pt's presents and reminds her that she tripped over shoe last night; pt admits that she had hip and back pain subsequently which may be involved with the pain today. Upon review of prior records, pt has had 5 CT's in past 13 mo; I discussed at length the risks and benefits of further radiographic imaging, mahad in light of absent fever, nl wbc. I did consider US though feel due to habitus this may be of little value. Ultimately, in discussion with pt and , she is comfortable eating, going home, and returning if worse. I feel this is best option considering risks/benefits in her case. Of note, renal function is diminished as at baseline. Decision to Disposition Date: Sep 11, 2018 Decision to Disposition Time: 12:19 Depart Departure Latest Vital Signs Vital Signs Date Time Temp Pulse Resp B/P (MAP) Pulse Ox O2 Delivery O2 Flow Rate FiO2 09/11/18 10:42 97.8 72 20 160/110 97 Room Air Impression: Primary Impression: Abdominal pain Condition: Improved Disposition: HOME OR SELF-CARE Referrals: BETSEY PIERSON MD (PCP) Patient Instructions: Abdominal Pain (ED) Problem Qualifiers Primary Impression: Abdominal pain Abdominal location: lower abdomen, unspecified Qualified Codes: R10.30 - Lower abdominal pain, unspecified ESTEBAN BOATENG MD Sep 11, 2018 11:14
[2018-09-11 11:54] LABS: PLATELET COUNT, AUTOMATED 210 K/uL (150-450)
[2018-09-11 12:22] VITALS: BP 142/84
== END 2018-09-11 12:33 | disposition home or self-care (01) ==
LOC: ER 10:52
DX: R10.31 Right lower quadrant pain (principal); R30.0 Dysuria; R31.9 Hematuria, unspecified
CPT/HCPCS: 36415; 81001; 85025; 99283; A9270; 82040; 82247; 82310; 82374; 82435; 82565; 82947; 84075; 84132; 84155; 84295; 84450; 84460; 84520

== ENCOUNTER 2018-09-24 11:15 | Outpatient (RCR) | payer MEDICARE, MEDICAID ==
[2018-05-20 09:30] VITALS: BMI 25.7
--- NOTE | 2018-07-02 17:52 | PT INITIAL EVALUATION ---
MEDICAL DIAGNOSIS: C5-6 Anterior Cervical Disc Fusion TREATMENT DIAGNOSIS: Same, Cervical pain DATE OF ONSET: 05/19/18 SUBJECTIVE: Rachel Huang presents to PT for cervical pain to the shoulder blades from mid-May when she tapered down her pain meds after her C5/6 ACDF (05/19/18). She would like to resolve this pain so she can participate in [employer] classes four days per week, carry light bags of groceries. Neck Disability Index 42% impairment. Rachel states she can dress independently except for tight shirts over the top of her head. Her concentration with reading is reduced, and reading increases posterior neck pain. Pain location is B posterior neck, upper scapular muscles to the rhomboids and described as ache, spasms, tightness. Pain scale is 8 on a ten point pain scale. Pain is worse with carrying heavy items, reading, light house work and better with medicine, rest. REHAB PROBLEM LIST: Increased Pain Decreased ROM Impaired Bed Mobility Decreased Strength Decreased Endurance Decreased Function Decreased ADL's PREVIOUS MEDICAL HISTORY: Lumbar surgeries x4, R shoulder surgeries x4, with cartilage wear in the R shoulder, HTN, hypercholesteremia, migraines, R CTR, gout, breast reduction. OCCUPATION: Disabled, not participating in all the [employer] classes she did before, carries only light grocery sacks, would like to return to exercise at [employer] walking on the treadmill, theraband exercises. OBJECTIVE: Posture: Protracted shoulders, forward head posture, increased thoracic kyphosis. ROM: AROM cervical spine minimal rotation B, sidebend B due to posterior cervical/scapular pain, flexion 25%, pain, extension 30%. PROM cervical rotation 40% B. B shoulder AROM flexion 115 deg., scaption 125 degrees, IR L4, all limited by B shoulder tightness and R shoulder pain. Strength: R wrist flexors, extensors, B triceps 4-/5, R biceps 3+/5, R shoulder pain limited, L biceps 4/5, B rhomboids, middle and lower trap 3+/5. Palpation: Painful, tight B LS, scaleni, pecs, UT, rhomboids. Mobility: Independent bed mobility, no log rolling prone to sitting. Sit to stand with steady immediate standing balance. ASSESSMENT: Rachel Huang presents with reduced ROM of both her cervical region and B shoulders, weakness affecting spinal extensor and scapular muscle pain, reduced class attendance tolerance. She had AROM cervical spine rotation R 40%, L 50% after manual therapy and stretching and slightly less pain. Short Term Goals 4 weeks: Rachel participates in all her previous [employer] classes with cervical pain 3-02/04. 6 weeks: Rachel participates in all her [employer] classes with cervical pain -12/07, carries 10-15 pound sacks of groceries from car to apartment. Patient's Goals Get rid of neck pain and attend all her [employer] classes without neck pain. PLAN: Patient to be seen for Manual Therapy Strengthening/condition Ice/Heat Range of Motion Spinal Stabilization Stretching Neuromuscular Re-ed Electrical Stim Posture/Body mechanics Home Exercise Program 2x/Week for 6 Weeks Thank you for this referral. If you have any questions, comments, or concerns about this report or plan, please contact me at . [facility]
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
--- NOTE | 2018-09-24 13:07 | PT PLAN OF CARE ---
Physician: Dr. Jose C Guerin Patient is being seen: 2x/week Therapist: Meron White, PT Medical Diagnosis: C5-6 Anterior Cervical Disc Fusion Treatment Diagnosis: Same, Cervical pain Date of Onset: 05/19/18 Date of Initial Evaluation: 07/02/18 Date patient was last seen: 09/24/18 Number of treatments: 16 Number of cancellations/No shows: 0 INTERVENTIONS: Manual Therapy/STM/MET Strengthening/condition Range of Motion Spinal Stabilization Stretching Electrical Stim Home Exercise Program GOALS: 4 weeks: Rachel participates in all her previous [facility] classes with cervical pain 3-4/10. met 6 weeks: Rachel participates in all her [facility] classes with cervical pain 1-2/10 (not met, 3-4/10), carries 10-15 pound sacks of groceries from car to apartment (met). PATIENT'S GOAL: Get rid of neck pain (not met)and attend all her [facility] classes without neck pain (not met). Patient Compliance: Excellent Prognosis: Good Reasons for discontinuing therapy: S: Rachel rates cervical pain 4-6/10, sometimes 2/10, with reading, house work. Neck Disability Index 36%. Posture: Protracted shoulders, forward head posture, increased thoracic kyphosis. ROM: AROM cervical spine WNL for fusion. B shoulder AROM flexion 130 degrees. Strength: UE's 4+ to 5/5. Palpation: Normal muscle tone about the cervical spine. Mobility: Independent bed mobility, log rolls. A/P: Rachel Huang has improved spinal and UE strength, spinal ROM to WNL. She is inconsistent with pain number rating but overall has improved ADL tolerance. I'll DC PT to supervised HEP (supervised by her ). Thank you. ANA
[2018-10-01] MEDS ORDERED: CAL25 PO (10:59)
[2018-10-01] MEDS ORDERED: CALC667T3 PO (10:59)
== END 2018-09-30 ==
LOC: PT 11:15
PROVIDERS: ATTEND Orthopaedic Surgery
DX: M54.2 Cervicalgia (principal); Z98.1 Arthrodesis status; I10 Essential (primary) hypertension; E78.00 Pure hypercholesterolemia, unspecified; G43.909 Migraine, unspecified, not intractable, without status migrainosus
CPT/HCPCS: 97010; 97110; 97140; 97162; G0283

== ENCOUNTER → 2018-09-30 | Outpatient (CLI) | payer MEDICARE, MEDICAID ==
[2018-05-20 09:30] VITALS: BMI 25.7
[~2018-09-30] MED LIST changes: +CAL25 PO; +CALC667T3 PO
[2018-09-30 10:56] LABS: PLATELET COUNT, AUTOMATED 179 K/uL (150-450)
== END ==
LOC: LAB 10:32
PROVIDERS: ATTEND Internal Medicine Nephrology
DX: E55.9 Vitamin D deficiency, unspecified (principal); N18.4 Chronic kidney disease, stage 4 (severe); R80.1 Persistent proteinuria, unspecified; M1A.30X0 Chronic gout due to renal impairment, unspecified site, without tophus (tophi); I10 Essential (primary) hypertension
CPT/HCPCS: 36415; 82040; 82310; 82374; 82435; 82565; 82570; 82947; 83970; 84100; 84132; 84156; 84295; 84520; 84550; 85025

== ENCOUNTER 2018-10-08 17:46 | Emergency (ER) | payer MEDICARE, MEDICAID ==
[2018-05-20 09:30] VITALS: Wt 70.3 kg
[~2018-10-08 17:46] MED LIST changes: -LOSA25TA52 PO; +LOSA25TA57 PO; -LOSA50TA74 PO; +LOSA50TA80 PO
--- NOTE | 2018-10-08 18:01 | ER Report ---
History and Physical Time Seen By MD: 18:01 Hx. of Stated Complaint: DIZZY AND VOMITING SINCE 13:30 TODAY HPI/ROS CHIEF COMPLAINT: Nausea and vomiting 24 hours HISTORY OF PRESENT ILLNESS: 53-year-old female patient presents to emergency room with complaint of nausea, vomiting for the past 24 hours. Patient states that she's not felt well since last evening. She states she's not been able to eat or drink anything at all today and when she has she's vomited. She states that the vomiting has been persistent. She denies having any fevers or chills. She states she is not taking any medication for this. Patient states that she did try taking some hydrocodone with Tylenol was unable to keep that down. REVIEW OF SYSTEMS: Respiratory: No cough, no dyspnea. Cardiovascular: No chest pain, no palpitations. Gastrointestinal: As noted above Musculoskeletal: No back pain. Allergies: Coded Allergies: promethazine (Verified Allergy, Severe, RESTLESS LEGS, 09/11/18) sumatriptan (Verified Allergy, Intermediate, HIVES, SOB, 09/11/18) only with nose spray, she can take oral sumatriptan NSAIDS (Non-Steroidal Anti-Inflamma (Verified Allergy, Mild, NAUSEA, HEADACHES, 09/11/18) orphenadrine (Verified Allergy, Unknown, 09/11/18) keeps her awake oxycodone (Verified Allergy, Unknown, 09/11/18) aspirin (Verified Adverse Reaction, Mild, NAUSEA, 09/11/18) furosemide (Verified Adverse Reaction, Unknown, 09/11/18) too hard on kidneys Uncoded Allergies: COBAN (Allergy, Mild, rash, 04/03/13) Home Meds Active Scripts Sertraline Hcl (SERTRALINE HCL) 100 Mg Tablet, 1.5 TAB PO QDAY, #135 TAB 1 Refill Prov:BETSEY PIERSON MD 08/22/18 Cyclobenzaprine Hcl (CYCLOBENZAPRINE HCL) 10 Mg Tablet, 10 MG PO TID PRN for MUSCLE SPASMS, #21 TAB Prov:MABLE EL 08/19/18 Prednisone (PREDNISONE) 20 Mg Tablet, 20 MG PO BID, #14 TAB Prov:BETSEY PIERSON MD 08/13/18 Omeprazole (OMEPRAZOLE) 20 Mg Capsule.dr, 1 CAP PO QDAY, #30 CAP 2 Refills Prov:BETSEY PIERSON MD 08/11/18 Cyclobenzaprine Hcl (CYCLOBENZAPRINE HCL) 10 Mg Tablet, 0.5 TAB PO Q8H PRN for MUSCLE SPASMS, #20 TAB 0 Refills Prov:BETSEY PIERSON MD 06/25/18 Hydrocodone Bit/Acetaminophen (HYDROCODON-ACETAMINOPHEN 5-325) 1 Each Tablet, 1 EACH PO BID, #60 TAB Prov:BETSEY PIERSON MD 06/25/18 Levothyroxine Sodium (LEVOTHYROXINE SODIUM) 0.112 Mg Tab, 0.112 MG PO QDAY, #30 TAB 6 Refills Prov:BETSEY PIERSON MD 06/03/18 Ondansetron (ZOFRAN ODT) 4 Mg Tab.rapdis, 4 MG PO Q6H PRN for NAUSEA/VOMITING, #20 TAB.ALEJANDRINA Prov:RIA HASTINGS [employer] 05/20/18 Simvastatin (SIMVASTATIN) 10 Mg Tablet, 1 TAB PO QHS, #90 TAB 4 Refills Prov:BETSEY PIERSON MD 04/10/18 Losartan Potassium (LOSARTAN POTASSIUM) 50 Mg Tablet, 50 MG PO QDAY, #90 TAB 1 Refill Prov:BETSEY PIERSON MD 03/21/18 Propranolol Hcl (INDERAL LA) 80 Mg Cap.sa.24h, 1 CAP PO QDAY, #90 CAP 4 Refills Prov:BETSEY PIERSON MD 02/05/18 Fluticasone Prop 50 Mcg Ns (FLONASE 50 MCG NS) 16 Gm Raymond.susp, 1 SPRAY NS QDAY, #1 BOT 0 Refills Prov:DADA SHERWOOD DNP, [employer]-BC 12/04/17 Topiramate (TOPIRAMATE) 100 Mg Tablet, 1 TAB PO QDAY, #30 TAB 6 Refills Prov:BETSEY PIERSON MD 10/09/17 Olanzapine (ZYPREXA) 5 Mg Tablet, 5 MG PO QDAY, #30 TAB 0 Refills Prov:EFREN URIOSTEGUI MD 10/14/16 Febuxostat (ULORIC) 40 Mg Tablet, 1 TAB PO QDAY, #90 TAB 1 Refill Prov:BETSEY PIERSON MD 07/27/16 Reported Medications Calcium Acetate (CALCIUM ACETATE) 667 Mg Tablet, 1 TAB PO TIDCF 10/01/18 Calcitriol (CALCITRIOL) 0.25 Mcg Cap, 1 CAP PO QDAY, CAP 10/01/18 Omeprazole Magnesium (PRILOSEC OTC) 20 Mg Tablet.dr, 1 TAB PO QDAY, TAB 08/10/18 Docusate Calcium (SURFAK) 240 Mg Capsule, 240 MG PO, CAPSULE 05/20/18 Mirabegron (MYRBETRIQ) 50 Mg Tab.er.24h, 50 MG PO QAM 05/19/18 Melatonin/Pyridoxine HCl (B6) (Melatonin 3 mg Tablet) 1 Each Tablet, 1 TAB QHS, TAB 10/23/17 Sodium Bicarbonate (SODIUM BICARBONATE) 650 Mg Tablet, 2 TAB PO BID 07/26/16 Risperidone (RISPERIDONE) 1 Mg Tablet, 1 MG PO DAILY 05/04/16 Imipramine Hcl (Tofranil) 25 Mg Tab, 1 TAB PO DAILY, 0 Refills 09/26/12 Discontinued Reported Medications Cholecalciferol (Vitamin D3) (Vitamin D) 50,000 Unit Capsule, 1 CAP PO Q30D 07/25/16 Past Medical/Surgical History Patient has a past medical history of migraines, heart murmur, angina, hypertension, hyperlipidemia, bronchitis, pneumonia, pulmonary embolism, frequent nausea, reflux, cholecystitis, urinary incontinence, patient has one kidney, gout, arthritis, back pain, hypothyroidism, alcohol use, depression, anxiety. Patient has surgical history of tonsillectomy, back surgery, neck surgery, right shoulder surgery 3, right elbow, right hand surgery, hysterectomy, cystoscopy, cholecystectomy, cardiac catheter. Patient has a family medical history of cancer, stroke. Reviewed Nurses Notes: Yes Hx Smoking: Yes (SMOKED AGE 16 TO UNTIL 2000, 10/29 PPD) Smoking Status: Former Smoker Exposure to Second Hand Smoke?: No Hx Substance Use Disorder: No Hx Alcohol Use: Yes Constitutional Vital Sign - Last 24 Hours 10/08/18 10/08/18 10/08/18 10/08/18 17:51 17:58 18:00 19:00 Temp 97.7 Pulse 84 79 Resp 20 B/P (MAP) 132/88 132/88 (103) 120/68 (85) 139/87 (104) Pulse Ox 96 99 O2 Delivery Room Air 10/08/18 10/08/18 10/08/18 19:30 20:00 20:30 Pulse 71 72 72 B/P (MAP) 144/91 (108) 144/91 (108) 156/98 (117) Pulse Ox 95 98 93 Physical Exam General Appearance: The patient is alert, has no immediate need for airway protection and no current signs of toxicity. Respiratory: Chest is non tender, lungs are clear to auscultation. Cardiac: regular rate and rhythm Gastrointestinal: Abdomen is soft and diffusely tender, no masses, bowel sounds are hypoactive. Musculoskeletal: Neck: Neck is supple and non tender. Extremities have full range of motion and are non tender. Skin: No rashes or lesions. DIFFERENTIAL DIAGNOSIS: After history and physical exam differential diagnosis was considered for nausea and vomiting including but not limited to gastroenteritis, gastritis, appendicitis, and medication side effect. Medical Decision Making Data Points Result Diagram: 10/08/18181610/08/181816 Laboratory Hematology Test 10/08/18 18:17 10/08/18 19:10 Red Blood Count 3.99 M/uL (4.17-5.56) Mean Corpuscular Volume 93.0 fL (80.0-96.0) Mean Corpuscular Hemoglobin 32.6 pg (26.0-33.0) Mean Corpuscular Hemoglobin Concent 35.0 g/dL (32.0-36.0) Red Cell Distribution Width 12.4 % (11.5-14.5) Mean Platelet Volume 7.1 fL (7.2-11.1) Neutrophils (%) (Auto) 54.1 % (39.4-72.5) Lymphocytes (%) (Auto) 28.9 % (17.6-49.6) Monocytes (%) (Auto) 9.7 % (4.1-12.4) Eosinophils (%) (Auto) 6.2 % (0.4-6.7) Basophils (%) (Auto) 1.1 % (0.3-1.4) Nucleated RBC Relative Count (auto) 0.1 /100WBC Neutrophils # (Auto) 2.9 K/uL (2.0-7.4) Lymphocytes # (Auto) 1.5 K/uL (1.3-3.6) Monocytes # (Auto) 0.5 K/uL (0.3-1.0) Eosinophils # (Auto) 0.3 K/uL (0.0-0.5) Basophils # (Auto) 0.1 K/uL (0.0-0.1) Nucleated RBC Absolute Count (auto) 0.00 K/uL Sodium Level 141 mmol/L (137-145) Potassium Level 3.6 mmol/L (3.5-5.0) Chloride Level 104 mmol/L (98-107) Carbon Dioxide Level 27 mmol/L (22-31) Blood Urea Nitrogen 28 mg/dl (7-18) Creatinine 3.70 mg/dl (0.52-1.04) Glomerular Filtration Rate Calc 12.8 Random Glucose 101 mg/dl (75-110) Calcium Level 9.8 mg/dl (8.4-10.2) Total Bilirubin 0.4 mg/dl (0.2-1.3) Aspartate Amino Transf (AST/SGOT) 12 U/L (0-35) Alanine Aminotransferase (ALT/SGPT) 16 U/L (0-56) Alkaline Phosphatase 49 U/L (0-126) Total Protein 7.3 g/dl (6.3-8.2) Albumin 4.0 g/dl (3.5-5.0) Amylase Level 99 U/L (0-110) Lipase 300 U/L (23-300) Urine Color Yellow Urine Clarity Clear Urine pH 7.0 pH (4.8-9.5) Urine Specific [place] 1.010 Urine Protein 30 mg/dL (NEGATIVE) Urine Glucose (UA) Negative mg/dL (NEGATIVE) Urine Ketones Negative mg/dL (NEGATIVE) Urine Blood Negative (NEGATIVE) Urine Nitrite Negative (NEGATIVE) Urine Bilirubin Negative (NEGATIVE) Urine Urobilinogen Negative mg/dL (0.2-1.9) Urine Leukocyte Esterase Negative (NEGATIVE) Urine RBC None /HPF (0-2/HPF) Urine WBC 1 /HPF (0-5/HPF) Urine Squamous Epithelial Cells Many /LPF (</=FEW) Urine Bacteria Negative /HPF (NONE-FEW) Urine Mucus None /HPF (NONE-FEW) Chemistry Test 10/08/18 18:17 10/08/18 19:10 White Blood Count 5.3 k/uL (4.5-11.0) Red Blood Count 3.99 M/uL (4.17-5.56) Hemoglobin 13.0 g/dL (12.0-16.0) Hematocrit 37.1 % (34.0-47.0) Mean Corpuscular Volume 93.0 fL (80.0-96.0) Mean Corpuscular Hemoglobin 32.6 pg (26.0-33.0) Mean Corpuscular Hemoglobin Concent 35.0 g/dL (32.0-36.0) Red Cell Distribution Width 12.4 % (11.5-14.5) Platelet Count 204 K/uL (150-450) Mean Platelet Volume 7.1 fL (7.2-11.1) Neutrophils (%) (Auto) 54.1 % (39.4-72.5) Lymphocytes (%) (Auto) 28.9 % (17.6-49.6) Monocytes (%) (Auto) 9.7 % (4.1-12.4) Eosinophils (%) (Auto) 6.2 % (0.4-6.7) Basophils (%) (Auto) 1.1 % (0.3-1.4) Nucleated RBC Relative Count (auto) 0.1 /100WBC Neutrophils # (Auto) 2.9 K/uL (2.0-7.4) Lymphocytes # (Auto) 1.5 K/uL (1.3-3.6) Monocytes # (Auto) 0.5 K/uL (0.3-1.0) Eosinophils # (Auto) 0.3 K/uL (0.0-0.5) Basophils # (Auto) 0.1 K/uL (0.0-0.1) Nucleated RBC Absolute Count (auto) 0.00 K/uL Glomerular Filtration Rate Calc 12.8 Calcium Level 9.8 mg/dl (8.4-10.2) Total Bilirubin 0.4 mg/dl (0.2-1.3) Aspartate Amino Transf (AST/SGOT) 12 U/L (0-35) Alanine Aminotransferase (ALT/SGPT) 16 U/L (0-56) Alkaline Phosphatase 49 U/L (0-126) Total Protein 7.3 g/dl (6.3-8.2) Albumin 4.0 g/dl (3.5-5.0) Amylase Level 99 U/L (0-110) Lipase 300 U/L (23-300) Urine Color Yellow Urine Clarity Clear Urine pH 7.0 pH (4.8-9.5) Urine Specific [place] 1.010 Urine Protein 30 mg/dL (NEGATIVE) Urine Glucose (UA) Negative mg/dL (NEGATIVE) Urine Ketones Negative mg/dL (NEGATIVE) Urine Blood Negative (NEGATIVE) Urine Nitrite Negative (NEGATIVE) Urine Bilirubin Negative (NEGATIVE) Urine Urobilinogen Negative mg/dL (0.2-1.9) Urine Leukocyte Esterase Negative (NEGATIVE) Urine RBC None /HPF (0-2/HPF) Urine WBC 1 /HPF (0-5/HPF) Urine Squamous Epithelial Cells Many /LPF (</=FEW) Urine Bacteria Negative /HPF (NONE-FEW) Urine Mucus None /HPF (NONE-FEW) Urinalysis Test 10/08/18 19:10 Urine Color Yellow Urine Clarity Clear Urine pH 7.0 pH (4.8-9.5) Urine Specific [place] 1.010 Urine Protein 30 mg/dL (NEGATIVE) Urine Glucose (UA) Negative mg/dL (NEGATIVE) Urine Ketones Negative mg/dL (NEGATIVE) Urine Blood Negative (NEGATIVE) Urine Nitrite Negative (NEGATIVE) Urine Bilirubin Negative (NEGATIVE) Urine Urobilinogen Negative mg/dL (0.2-1.9) Urine Leukocyte Esterase Negative (NEGATIVE) Urine RBC None /HPF (0-2/HPF) Urine WBC 1 /HPF (0-5/HPF) Urine Squamous Epithelial Cells Many /LPF (</=FEW) Urine Bacteria Negative /HPF (NONE-FEW) Urine Mucus None /HPF (NONE-FEW) EKG/Imaging Imaging Examination: ACUTE ABDOMEN SERIES 3 VIEW Comparison: 08/12/2018 and earlier. History: abdominal pain, vomiting Findings: Cardiac and hilar contour size is within normal limits. No new or enlarging consolidation, nodule, or evidence of acute peribronchial inflammation. No pneumothorax, edema, or effusion. Cholecystectomy. No pneumoperitoneum. Small bowel gas pattern is within normal limits. Moderate amount of stool in the colon. No evidence of mass effect or organomegaly. No soft tissue calcifications. Right shoulder, cervical spine, and lumbar spine postoperative change. IMPRESSION: 1. No evidence of acute cardiopulmonary disease. 2. Nonobstructive bowel gas pattern. Report Dictated By: Sherif Coreas MD at 10/08/2018 7:24 PM Report E-Signed By: Sherif Coreas MD at 10/08/2018 7:28 PM ED Course/Re-evaluation ED Course Patient was admitted to an exam room, history and physical were obtained. Differential diagnoses were considered. On examination lungs are clear, heart regular, abdomen is soft and diffusely tender with hypoactive bowel sounds. A CBC, CMP were done. An IV was started the patient received 1 L of normal saline. An acute abdominal series was done and results were unremarkable. Lab results were also unremarkable. Patient received a liter normal saline. We gave the patient 4 mg Zofran. She had slight improvement with her nausea with that. Patient was given some crackers which she was not able to keep down. Patient then was given a dose of 10 mg of Reglan. Patient was given some water and she is able to keep sips down. We will go ahead and discharge home with this time and I believe patient does have a gastroenteritis which will resolve spontaneously. She is to go on a clear liquid diet and follow-up with primary care provider in the next week. Patient may advance her diet as tolerated. Carol ent verbalized understanding and agreement with plan. Decision to Disposition Date: Oct 08, 2018 Decision to Disposition Time: 21:39 Depart Departure Latest Vital Signs Vital Signs Date Time Temp Pulse Resp B/P (MAP) Pulse Ox O2 Delivery O2 Flow Rate FiO2 10/08/18 20:30 72 156/98 (117) 93 10/08/18 17:51 97.7 20 Room Air Impression: Primary Impression: Gastroenteritis Condition: Improved Disposition: HOME OR SELF-CARE Referrals: BETSEY PIERSON MD (PCP) New Scripts Metoclopramide Hcl (REGLAN) 10 Mg Tablet 10 MG PO TID PRN for NAUSEA/VOMITING, #15 TAB Prov: MABLE EL 10/08/18 Ondansetron Hcl (ZOFRAN) 4 Mg Tablet 4 MG PO Q6H PRN for NAUSEA/VOMITING, #20 TAB Prov: MABLE EL 10/08/18 Patient Instructions: Gastroenteritis (ED) Additional Instructions: Increase fluid intake. Clear liquid diet for the next 24-48 hours. After that you may advance diet as tolerated starting with complex carbohydrates; rice, bread or pasta. Follow up with your primary care provider in the next week. Return to the ER if condition worsens. MABLE EL Oct 08, 2018 18:01
[2018-10-08] MEDS ORDERED: NS(*) 0.9% 1000 ML BAG 1,000 ML IV ONE (18:07)
[2018-10-08] MEDS ORDERED: ONDANSETRON 4 MG/2 ML VIAL IVP ONE (18:10)
[2018-10-08 18:30] LABS: PLATELET COUNT, AUTOMATED 204 K/uL (150-450)
--- NOTE | 2018-10-08 19:32 | RADIOLOGY IMAGING REPORT ---
FACILITY: [facility] PATIENT NAME: Rachel Huang : 1965 MR: [id number] V: [id number] EXAM DATE: ORDERING PHYSICIAN: MABLE EL TECHNOLOGIST: Location: [facility] [place] Patient: Rachel Huang : 1965 Visit/Account:[id number] Date of Sevice: 10/08/2018 Examination: ACUTE ABDOMEN SERIES 3 VIEW Comparison: 08/12/2018 and earlier. History: abdominal pain, vomiting Findings: Cardiac and hilar contour size is within normal limits. No new or enlarging consolidation, nodule, or evidence of acute peribronchial inflammation. No pneumothorax, edema, or effusion. Cholecystectomy. No pneumoperitoneum. Small bowel gas pattern is within normal limits. Moderate amoun t of stool in the colon. No evidence of mass effect or organomegaly. No soft tissue calcifications. Right shoulder, cervical spine, and lumbar spine postoperative change. IMPRESSION: 1. No evidence of acute cardiopulmonary disease. 2. Nonobstructive bowel gas pattern. Report Dictated By: Sherif Coreas MD at 10/08/2018 7:24 PM Report E-Signed By: Sherif Coreas MD at 10/08/2018 7:28 PM WSN:[id number]
[2018-10-08] MEDS ORDERED: METOCLOPRAMIDE 10 MG/2 ML SDV IVP ONE (20:20)
[2018-10-08 21:30] VITALS: BP 147/90
[2018-10-08] MEDS ORDERED: ONDA4TAB97 PO (21:42)
[2018-10-08] MEDS ORDERED: METO-734 PO (21:42)
[2018-10-08] MEDS ORDERED: ONDANSETRON 4 MG ODT TH SL ONE (21:45)
[2018-10-08] MEDS ORDERED: METOCLOPRAMIDE 10 MG TAB PO ONE (21:45)
== END 2018-10-08 21:58 | disposition home or self-care (01) ==
LOC: ER 18:03
DX: K52.9 Noninfective gastroenteritis and colitis, unspecified (principal)
CPT/HCPCS: 74022; 81001; 82150; 83690; 85025; 96361; 96374; 96375; 99284; J2405; J2765; J7030; J8597; Q0162; 82040; 82247; 82310; 82374; 82435; 82565; 82947; 84075; 84132; 84155; 84295; 84450; 84460; 84520; S0119

== ENCOUNTER 2018-10-31 08:40 | Emergency (ER) | payer MEDICARE, MEDICAID ==
[2018-05-20 09:30] VITALS: Wt 69.9 kg
[~2018-10-31 08:40] MED LIST changes: +AMLO2.5T76 PO; +ERGO500037 PO; +METO-734 PO
[2018-10-31] MEDS ORDERED: NS(*) 0.9% 500 ML BAG 500 ML IV ONE (09:20)
[2018-10-31] MEDS ORDERED: ONDANSETRON 4 MG/2 ML VIAL IVP ONE (09:20)
[2018-10-31 09:45] LABS: PLATELET COUNT, AUTOMATED 187 K/uL (150-450)
--- NOTE | 2018-10-31 10:36 | EKG ---
FACILITY: [facility] [place] PATIENT NAME: GREGORIO LINDSEY : [id number] MR: [id number] V: [id number] EXAM DATE: ORDERING PHYSICIAN: ESTEBAN BOATENG TECHNOLOGIST: EDU Test Reason : DIZZY Blood Pressure : / mmHG Vent. Rate : 076 BPM Atrial Rate : 076 BPM P-R Int : 158 ms QRS Dur : 098 ms QT Int : 378 ms P-R-T Axes : 049 024 -77 degrees QTc Int : 425 ms Normal sinus rhythm Incomplete right bundle branch block T wave abnormality, consider inferior ischemia T wave abnormality, consider anterolateral ischemia Abnormal ECG When compared with ECG of 19-OCT-2018 17:54, No significant change was found Confirmed by JACINTA RECIONS ([id number]) on 10/31/2018 10:36:04 PM Referred By: TASNEEM Confirmed By:JACINTA RECINOS
--- NOTE | 2018-10-31 11:26 | ER Report ---
History and Physical Time Seen By MD: 09:00 Hx. of Stated Complaint: dizzy, feels "dehydrated" HPI/ROS CHIEF COMPLAINT: dizzy, lightheaded, abdominal discomfort HISTORY OF PRESENT ILLNESS: Pt reports 2 d hx of gradual increase in lightheadedness, fatigue, feeling generally weak, and abdominal discomfort. Pt states sympotms have been constant, gradually progressive. She has decreased appetite and is mildly nauseous. She denies cp, sob. No vomiting. No uti sympotms. No new leg swelling. Cannot recall if she's had similar symptoms. No new med changes, though she was placed on calcitrol and phoslo just over 1 mo ago REVIEW OF SYSTEMS: Constitutional: No fever, no chills. Eyes: No discharge. ENT: No sore throat. Cardiovascular: No chest pain, no palpitations. Respiratory: No cough, no shortness of breath. Gastrointestinal: above Genitourinary: no dysuria Musculoskeletal: No back pain. Skin: No rashes. Neurological: mild neal Remainder of the 14 system rev: Yes Allergies: Coded Allergies: promethazine (Verified Allergy, Severe, RESTLESS LEGS, 10/19/18) sumatriptan (Verified Allergy, Intermediate, HIVES, SOB, 10/19/18) only with nose spray, she can take oral sumatriptan NSAIDS (Non-Steroidal Anti-Inflamma (Verified Allergy, Mild, NAUSEA, HE ADACHES, 10/19/18) orphenadrine (Verified Allergy, Unknown, 10/19/18) keeps her awake oxycodone (Verified Allergy, Unknown, 10/19/18) aspirin (Verified Adverse Reaction, Mild, NAUSEA, 10/19/18) furosemide (Verified Adverse Reaction, Unknown, 10/19/18) too hard on kidneys Uncoded Allergies: COBAN (Allergy, Mild, rash, 04/03/13) Home Meds Active Scripts Amlodipine Besylate (AMLODIPINE BESYLATE) 2.5 Mg Tablet, 2.5 MG PO QDAY, #30 Prov:JACINTA RECINOS MD 10/23/18 Metoclopramide Hcl (REGLAN) 10 Mg Tablet, 10 MG PO TID PRN for NAUSEA/VOMITING, #15 TAB Prov:MABLE LE 10/08/18 Sertraline Hcl (SERTRALINE HCL) 100 Mg Tablet, 1.5 TAB PO QDAY, #135 TAB 1 Refill Prov:BETSEY PIERSON MD 08/22/18 Omeprazole (OMEPRAZOLE) 20 Mg Capsule.dr, 1 CAP PO QDAY, #30 CAP 2 Refills Prov:BETSEY PIERSON MD 08/11/18 Hydrocodone Bit/Acetaminophen (HYDROCODON-ACETAMINOPHEN 5-325) 1 Each Tablet, 1 EACH PO BID, #60 TAB Prov:BETSEY PIERSON MD 06/25/18 Levothyroxine Sodium (LEVOTHYROXINE SODIUM) 0.112 Mg Tab, 0.112 MG PO QDAY, #30 TAB 6 Refills Prov:BETSEY PIERSON MD 06/03/18 Simvastatin (SIMVASTATIN) 10 Mg Tablet, 1 TAB PO QHS, #90 TAB 4 Refills Prov:BETSEY PIERSON MD 04/10/18 Propranolol Hcl (INDERAL LA) 80 Mg Cap.sa.24h, 1 CAP PO QDAY, #90 CAP 4 Refills Prov:BETSEY PIERSON MD 02/05/18 Topiramate (TOPIRAMATE) 100 Mg Tablet, 1 TAB PO QDAY, #30 TAB 6 Refills Prov:BETSEY PIERSON MD 10/09/17 Febuxostat (ULORIC) 40 Mg Tablet, 1 TAB PO QDAY, #90 TAB 1 Refill Prov:BETSEY PIERSON MD 07/27/16 Reported Medications Ergocalciferol (Vitamin D2) (VITAMIN D2) 50,000 Unit Capsule, 15708 UNIT PO Q4WK, CAPSULE 10/20/18 Calcium Acetate (CALCIUM ACETATE) 667 Mg Tablet, 1 TAB PO TIDCF 10/01/18 Calcitriol (CALCITRIOL) 0.25 Mcg Cap, 1 CAP PO QDAY, CAP 10/01/18 Docusate Calcium (SURFAK) 240 Mg Capsule, 240 MG PO, CAPSULE 05/20/18 Mirabegron (MYRBETRIQ) 50 Mg Tab.er.24h, 50 MG PO QAM 05/19/18 Melatonin/Pyridoxine HCl (B6) (Melatonin 3 mg Tablet) 1 Each Tablet, 1 TAB QHS, TAB 10/23/17 Sodium Bicarbonate (SODIUM BICARBONATE) 650 Mg Tablet, 2 TAB PO BID 07/26/16 Risperidone (RISPERIDONE) 1 Mg Tablet, 1 MG PO DAILY 05/04/16 Imipramine Hcl (Tofranil) 25 Mg Tab, 1 TAB PO DAILY, 0 Refills 09/26/12 Reviewed Nurses Notes: Yes Old Medical Records Reviewed: Yes Hx Smoking: Yes (SMOKED AGE 16 TO UNTIL 2000, 10/29 PPD) Smoking Status: Former Smoker Exposure to Second Hand Smoke?: No Hx Substance Use Disorder: No Hx Alcohol Use: Yes Constitutional Vital Sign - Last 24 Hours 10/31/18 10/31/18 10/31/18 10/31/18 08:40 08:46 08:47 09:00 Temp 98.0 Pulse ??? 75 Resp 14 B/P (MAP) 147/100 147/100 (116) 118/104 (109) Pulse Ox 95 O2 Delivery Room Air 10/31/18 10/31/18 10/31/18 10/31/18 09:10 09:35 10:00 10:05 Pulse 78 ??? B/P (MAP) 149/109 (122) 125/92 (103) Pulse Ox 94 10/31/18 10/31/18 10/31/18 10:30 11:00 11:30 B/P (MAP) 127/100 (109) 120/96 (104) 118/93 (101) Intake and Output 10/31/18 10/31/18 11/01/18 15:00 23:00 07:00 Intake Total 500 ml Balance 500 ml Physical Exam General Appearance: The patient is alert, has no immediate need for airway protection and no signs of toxicity. Eyes: Pupils equal and round no pallor or injection. ENT, Mouth: Mucous membranes are moist. Respiratory: There are no retractions, lungs are clear to auscultation. Cardiovascular: Regular rate and rhythm. Gastrointestinal: abdomen mild ttp throughout. nl BS. Neurological: alert, oriented x 3, mild confusion that is baseline per my prior interactions. No focal deficit. Skin: Warm and dry, no rashes. Musculoskeletal: Extremities are nontender, nonswollen, bilateral mild edema, and have full range of motion. DIFFERENTIAL DIAGNOSIS: After history and physical exam differential diagnosis was considered for dehydration, acs, infection/sepsis, electrolyte abnormality, or other emergent etiology. Medical Decision Making Data Points Result Diagram: 10/31/18 0940 10/31/18 0940 Laboratory Hematology Test 10/31/18 09:27 10/31/18 09:40 Urine Color Yellow Urine Clarity Slightly-cloudy Urine pH 7.0 pH (4.8-9.5) Urine Specific [place] 1.006 Urine Protein Negative mg/dL (NEGATIVE) Urine Glucose (UA) Negative mg/dL (NEGATIVE) Urine Ketones Negative mg/dL (NEGATIVE) Urine Blood Negative (NEGATIVE) Urine Nitrite Negative (NEGATIVE) Urine Bilirubin Negative (NEGATIVE) Urine Urobilinogen Negative mg/dL (0.2-1.9) Urine Leukocyte Esterase Negative (NEGATIVE) Urine RBC <1 /HPF (0-2/HPF) Urine WBC 2 /HPF (0-5/HPF) Urine Squamous Epithelial Cells Many /LPF (</=FEW) Urine Bacteria Negative /HPF (NONE-FEW) Urine Mucus None /HPF (NONE-FEW) Red Blood Count 3.92 M/uL (4.17-5.56) Mean Corpuscular Volume 93.5 fL (80.0-96.0) Mean Corpuscular Hemoglobin 32.9 pg (26.0-33.0) Mean Corpuscular Hemoglobin Concent 35.3 g/dL (32.0-36.0) Red Cell Distribution Width 12.6 % (11.5-14.5) Mean Platelet Volume 7.0 fL (7.2-11.1) Neutrophils (%) (Auto) 70.3 % (39.4-72.5) Lymphocytes (%) (Auto) 15.9 % (17.6-49.6) Monocytes (%) (Auto) 8.1 % (4.1-12.4) Eosinophils (%) (Auto) 4.8 % (0.4-6.7) Basophils (%) (Auto) 0.9 % (0.3-1.4) Nucleated RBC Relative Count (auto) 0.0 /100WBC Neutrophils # (Auto) 5.2 K/uL (2.0-7.4) Lymphocytes # (Auto) 1.2 K/uL (1.3-3.6) Monocytes # (Auto) 0.6 K/uL (0.3-1.0) Eosinophils # (Auto) 0.4 K/uL (0.0-0.5) Basophils # (Auto) 0.1 K/uL (0.0-0.1) Nucleated RBC Absolute Count (auto) 0.00 K/uL Sodium Level 139 mmol/L (137-145) Potassium Level 4.0 mmol/L (3.5-5.0) Chloride Level 102 mmol/L (98-107) Carbon Dioxide Level 24 mmol/L (22-31) Blood Urea Nitrogen 43 mg/dl (7-18) Creatinine 5.20 mg/dl (0.52-1.04) Glomerular Filtration Rate Calc 8.7 Random Glucose 97 mg/dl (75-110) Calcium Level 12.1 mg/dl (8.4-10.2) Total Bilirubin 0.4 mg/dl (0.2-1.3) Aspartate Amino Transf (AST/SGOT) 12 U/L (0-35) Alanine Aminotransferase (ALT/SGPT) 18 U/L (0-56) Alkaline Phosphatase 62 U/L (0-126) Total Protein 7.5 g/dl (6.3-8.2) Albumin 4.1 g/dl (3.5-5.0) Lipase 421 U/L (23-300) Chemistry Test 10/31/18 09:27 10/31/18 09:40 Urine Color Yellow Urine Clarity Slightly-cloudy Urine pH 7.0 pH (4.8-9.5) Urine Specific [place] 1.006 Urine Protein Negative mg/dL (NEGATIVE) Urine Glucose (UA) Negative mg/dL (NEGATIVE) Urine Ketones Negative mg/dL (NEGATIVE) Urine Blood Negative (NEGATIVE) Urine Nitrite Negative (NEGATIVE) Urine Bilirubin Negative (NEGATIVE) Urine Urobilinogen Negative mg/dL (0.2-1.9) Urine Leukocyte Esterase Negative (NEGATIVE) Urine RBC <1 /HPF (0-2/HPF) Urine WBC 2 /HPF (0-5/HPF) Urine Squamous Epithelial Cells Many /LPF (</=FEW) Urine Bacteria Negative /HPF (NONE-FEW) Urine Mucus None /HPF (NONE-FEW) White Blood Count 7.4 k/uL (4.5-11.0) Red Blood Count 3.92 M/uL (4.17-5.56) Hemoglobin 12.9 g/dL (12.0-16.0) Hematocrit 36.6 % (34.0-47.0) Mean Corpuscular Volume 93.5 fL (80.0-96.0) Mean Corpuscular Hemoglobin 32.9 pg (26.0-33.0) Mean Corpuscular Hemoglobin Concent 35.3 g/dL (32.0-36.0) Red Cell Distribution Width 12.6 % (11.5-14.5) Platelet Count 187 K/uL (150-450) Mean Platelet Volume 7.0 fL (7.2-11.1) Neutrophils (%) (Auto) 70.3 % (39.4-72.5) Lymphocytes (%) (Auto) 15.9 % (17.6-49.6) Monocytes (%) (Auto) 8.1 % (4.1-12.4) Eosinophils (%) (Auto) 4.8 % (0.4-6.7) Basophils (%) (Auto) 0.9 % (0.3-1.4) Nucleated RBC Relative Count (auto) 0.0 /100WBC Neutrophils # (Auto) 5.2 K/uL (2.0-7.4) Lymphocytes # (Auto) 1.2 K/uL (1.3-3.6) Monocytes # (Auto) 0.6 K/uL (0.3-1.0) Eosinophils # (Auto) 0.4 K/uL (0.0-0.5) Basophils # (Auto) 0.1 K/uL (0.0-0.1) Nucleated RBC Absolute Count (auto) 0.00 K/uL Glomerular Filtration Rate Calc 8.7 Calcium Level 12.1 mg/dl (8.4-10.2) Total Bilirubin 0.4 mg/dl (0.2-1.3) Aspartate Amino Transf (AST/SGOT) 12 U/L (0-35) Alanine Aminotransferase (ALT/SGPT) 18 U/L (0-56) Alkaline Phosphatase 62 U/L (0-126) Total Protein 7.5 g/dl (6.3-8.2) Albumin 4.1 g/dl (3.5-5.0) Lipase 421 U/L (23-300) Urinalysis Test 10/31/18 09:27 Urine Color Yellow Urine Clarity Slightly-cloudy Urine pH 7.0 pH (4.8-9.5) Urine Specific [place] 1.006 Urine Protein Negative mg/dL (NEGATIVE) Urine Glucose (UA) Negative mg/dL (NEGATIVE) Urine Ketones Negative mg/dL (NEGATIVE) Urine Blood Negative (NEGATIVE) Urine Nitrite Negative (NEGATIVE) Urine Bilirubin Negative (NEGATIVE) Urine Urobilinogen Negative mg/dL (0.2-1.9) Urine Leukocyte Esterase Negative (NEGATIVE) Urine RBC <1 /HPF (0-2/HPF) Urine WBC 2 /HPF (0-5/HPF) Urine Squamous Epithelial Cells Many /LPF (</=FEW) Urine Bacteria Negative /HPF (NONE-FEW) Urine Mucus None /HPF (NONE-FEW) EKG/Imaging EKG Interpretation 12 lead EKG: Rhythm: [normal sinus rhythm] [place]: left QRS: normal ST segments: borderline st dep throghout. flipped T in II, III, avF, not sig changed from prior. [ ] Monitor Interpretation: Normal Sinus Rhythm ED Course/Re-evaluation ED Course Ms. Huang has stage IV CKD, sees labor standards director at [facility], followed by renal transplant team in [place], was seen 1 mo ago for n/v/ hypercalcemia, started on calcitrol and phoslo; presents with similar symptoms x 1 d; no change in UO however cr worsening and ca > 12. Will consult labor standards director/ renal transplant team for treatment recommendations. Decision to Disposition Date: Oct 31, 2018 Decision to Disposition Time: 11:36 Depart Departure Latest Vital Signs Vital Signs Date Time Temp Pulse Resp B/P (MAP) Pulse Ox O2 Delivery O2 Flow Rate FiO2 10/31/18 11:30 118/93 (101) 10/31/18 10:05 ??? 10/31/18 09:10 94 10/31/18 08:46 98.0 14 Room Air Impression: Primary Impression: Hypercalcemia Additional Impression: Acute kidney injury Condition: Improved Disposition: HOME OR SELF-CARE Referrals: BETSEY PIERSON MD (PCP) 2 Days PÉREZ BELL MD 5 Days His office will call you to have labs redrawn next week; if you do not hear from him by Saturday call his office for follow up plan Additional Instructions: Continue fluid hydration. Your nephrology team recommends you STOP calcitrol AND phoscal for now. Your calcium and kidney function should improve over the next few days. IF you have worsening pain, confusion, vomiting, decreased urination or any concerns, return immediately for further evaluation Problem Qualifiers ESTEBAN BOATENG MD Oct 31, 2018 11:26
[2018-10-31 11:30] VITALS: BP 118/93
== END 2018-10-31 11:57 | disposition home or self-care (01) ==
LOC: ER 09:11
DX: E83.52 Hypercalcemia (principal); N18.4 Chronic kidney disease, stage 4 (severe)
CPT/HCPCS: 36415; 81001; 83690; 85025; 93005; 96361; 96374; 99284; J2405; J7040; 82040; 82247; 82310; 82374; 82435; 82565; 82947; 84075; 84132; 84155; 84295; 84450; 84460; 84520

== ENCOUNTER → 2018-11-03 | Outpatient (CLI) | payer MEDICARE, MEDICAID ==
[2018-05-20 09:30] VITALS: BMI 25.7
== END ==
LOC: LAB 15:53
PROVIDERS: ATTEND Internal Medicine Nephrology
DX: N18.4 Chronic kidney disease, stage 4 (severe) (principal); N25.81 Secondary hyperparathyroidism of renal origin; E83.52 Hypercalcemia
CPT/HCPCS: 36415; 82040; 82310; 82330; 82374; 82435; 82565; 82947; 84100; 84132; 84295; 84520

== ENCOUNTER → 2018-11-07 | Outpatient (CLI) | payer MEDICARE, MEDICAID ==
[2018-05-20 09:30] VITALS: BMI 25.7
[~2018-11-07] MED LIST changes: -AMLO2.5T76 PO; +AMLO2.5T78 PO; +RISP0.5T59 PO; +TOPI50TA92 PO
--- NOTE | 2018-11-10 10:23 | RADIOLOGY IMAGING REPORT ---
FACILITY: [facility] PATIENT NAME: GREGORIO LINDSEY : [id number] MR: [id number] V: [id number] EXAM DATE: ORDERING PHYSICIAN: BETSEY PIERSON TECHNOLOGIST: Jami Zamora RT(R)(CT) PROCEDURE:US RIGHT BREAST COMPARISON:Today's mammogram INDICATIONS:Further evaluation FINDINGS: In the 3 o'clock position of the Right breast 1cm from the nipple there is a small cyst measuring 2.5mm in diameter. In the 3 o'clock position of the Right breast 1cm from the nipple there is a small echogenic nodule with thin hypoechoic rim measuring 3mm in diameter likely a small lymph node. In the 6 o'clock position of the Right breast 5cm from the nipple there is an irregular hypoechoic region which appears to contain calcifications measuring 4.4 x 3.1 x 3.5mm. This may correspond to the irregular nodule seen on Today's mammogram. Ultrasound guided core biopsy recommended with post biopsy clip placement with follow-up mammogram to determine if the sonographic findings correlate with the mammographic findings. In the 6 o'clock position of the Right breast there is a 7 x 4 x 8mm lymph node with fatty hilum. DIAGNOSTIC CATEGORY 4--SUSPICIOUS FOR MALIGNANCY. RECOMMENDATIONS: ULTRASOUND-GUIDED CORE BIOPSY: RIGHT BREAST. IMPRESSION: BIRADS 4: Suspicious for malignancy. Ultrasound guided core biopsy of the irregular hypoechoic mass in the 6 o'clock position of the Right breast 5cm from the nipple with post biopsy clip placement and follow-up mammogram to determine whether the sonographic findings correlate with the mammographic findings. Dictated by: Laura Olson M.D. on 11/07/2018 at 13:48 Transcribed by: AMELIA on 11/07/2018 at 14:39 Approved by: Laura Olson M.D. on 11/10/2018 at 10:22 [facility]
--- NOTE | 2018-11-10 10:23 | RADIOLOGY IMAGING REPORT ---
FACILITY: [facility] PATIENT NAME: GREGORIO LINDSEY : [id number] MR: [id number] V: [id number] EXAM DATE: ORDERING PHYSICIAN: BETSEY PIERSON TECHNOLOGIST: Shahrzad Downing PROCEDURE:BILATERAL DIAGNOSTIC DIGITAL MAMMOGRAM WITH CAD ASSISTED INTERPRETATION & 3D TOMOSYNTHESIS COMPARISON:Prior mammograms 10/07/17, 05/30/16, 04/25/16. INDICATIONS:Follow-up prior microcalcifications & breast cysts FINDINGS: Heterogeneous fibroglandular tissue is seen throughout the breasts which can obscure small masses. In the upper outer quadrant of the Left breast there is a nodular density appears slightly increased in size when compared to the prior study. A 1.1cm cyst was demonstrated in this location previously. On the current examination the cyst is again demonstrated which has increased in size measuring 1.3cm in diameter which may account for this finding. The margins are slightly lobular. Due to the slightly lobular margins and interval increase in size Ultrasound guided cyst aspiration recommended for further evaluation. In the medial portion of the Right breast on the Right CC view there is a focal area of increased density with irregular margins that appears much more prominent when compared to the prior study. This is best seen on Tomographic slice 28. Today's Right breast Ultrasound demonstrated an irregularly marginated complex nodule with some calcifications in the 6 o'clock position of the Right breast. This may account for this finding. Ultrasound guided core biopsy of this mass recommended with clip placement and a follow-up mammogram to determine whether the sonographic findings correlate with mammographic findings. The scattered round calcifications in the upper outer quadrant of both breasts have remained stable. DIAGNOSTIC CATEGORY 4--SUSPICIOUS FOR MALIGNANCY. RECOMMENDATIONS: ULTRASOUND-GUIDED CORE BIOPSY: RIGHT BREAST. ULTRASOUND-GUIDED CYST ASPIRATION: LEFT BREAST. IMPRESSION: BIRADS 4: Suspicious for malignancy. Ultrasound guided core biopsy of the irregular hypoechoic nodule 6 o'clock position of the Right breast recommended for further evaluation and ultrasound guided cyst aspiration of the slightly irregular cyst in the 4 o'clock position of the Left breast recommended as described above. Please see Today's bilateral breast Ultrasound reports. Dictated by: Laura Olson M.D. on 11/07/2018 at 13:41 Transcribed by: AMELIA on 11/07/2018 at 14:17 Approved by: Laura Olson M.D. on 11/10/2018 at 10:22 [facility]
--- NOTE | 2018-11-10 10:23 | RADIOLOGY IMAGING REPORT ---
FACILITY: [facility] [place] PATIENT NAME: GREGORIO LINDSEY : [id number] MR: [id number] V: [id number] EXAM DATE: ORDERING PHYSICIAN: BETSEY PIERSON TECHNOLOGIST: Jami Zamora RT(R)(CT) PROCEDURE:US LEFT BREAST COMPARISON:Today's mammogram INDICATIONS:Mammogram results FINDINGS: In the 12 o'clock position of the Left breast 2cm from the nipple there is a mildly dilated duct measuring 2mm in diameter. No internal debris or mass is identified. In the 2 o'clock position of the Left breast 9cm from the nipple there is an ovoid echogenic nodule with a hypoechoic central region measuring 1.5 x 1.2 x 0.5cm likely a lymph node. In the 2 o'clock position of the Left breast 9cm from the nipple there is an additional echogenic nodule with a hypoechoic region measuring 1 x 1.5 x 0.9cm also likely a lymph node. In the 3 o'clock position of the Left breast 9cm from the nipple there is a 1.8 x 1.2 x 0.6cm ovoid echogenic nodule with a hypoechoic central region also likely representing a lymph node. In the 3 o'clock position of the Left breast 6cm from the nipple there is a small 3.8mm cyst. In the 4 o'clock position of the Left breast 6cm from the nipple there is a cyst with slightly irregular huffman measuring 1.3 x 1.3 x 1cm. This has increased in size when compared to the prior study. In light of the increased size and slightly lobular contour Ultrasound guided cyst aspiration recommended. In the 3:30 position of the Left breast 2cm from the nipple is course calcification as seen on Today's mammogram. DIAGNOSTIC CATEGORY 4--SUSPICIOUS FOR MALIGNANCY. RECOMMENDATIONS: ULTRASOUND-GUIDED CYST ASPIRATION: LEFT BREAST. IMPRESSION: BIRADS 4: Suspicious for malignancy. Ultrasound guided cyst aspiration of the slightly irregular cyst in the 4 o'clock position of the Left breast. Dictated by: Laura Olson M.D. on 11/07/2018 at 13:44 Transcribed by: AMELIA on 11/07/2018 at 14:30 Approved by: Laura Olson M.D. on 11/10/2018 at 10:22 [facility]
== END ==
LOC: MAMO 04:33
PROVIDERS: ATTEND Internal Medicine
DX: N60.02 Solitary cyst of left breast (principal); N60.01 Solitary cyst of right breast
CPT/HCPCS: 77062; 77066

== ENCOUNTER → 2018-11-12 | Outpatient (CLI) | payer MEDICARE, MEDICAID ==
[2018-05-20 09:30] VITALS: BMI 25.7
== END ==
LOC: LAB 11:29
PROVIDERS: ATTEND Internal Medicine
DX: E03.9 Hypothyroidism, unspecified (principal)
CPT/HCPCS: 36415; 84439; 84443

== ENCOUNTER → 2018-11-12 | Outpatient (CLI) | payer MEDICARE, MEDICAID ==
[2018-05-20 09:30] VITALS: BMI 25.7
== END ==
LOC: LAB 11:25
PROVIDERS: ATTEND Internal Medicine Nephrology
DX: N18.4 Chronic kidney disease, stage 4 (severe) (principal); N25.81 Secondary hyperparathyroidism of renal origin; E83.52 Hypercalcemia
CPT/HCPCS: 36415; 82040; 82310; 82330; 82374; 82435; 82565; 82947; 84100; 84132; 84295; 84520

== ENCOUNTER 2018-11-16 13:39 | Emergency (ER) | payer MEDICARE, MEDICAID ==
[2018-05-20 09:30] VITALS: Wt 68.0 kg
--- NOTE | 2018-11-16 13:57 | ER Report ---
History and Physical Time Seen By MD: 13:50 Hx. of Stated Complaint: lower right sided back pain for about a week HPI/ROS CHIEF COMPLAINT: Back pain HISTORY OF PRESENT ILLNESS: 53-year-old female patient presents to emergency room with complaint of back pain. Patient states that she has been having back pain for the past 5 days. Patient is concerned that she may have a bulging disc. Patient does have a history of bulging disc secondary to coughing. Patient states the pain has been constant. She states that she's been taking hydrocodone for it with very minimal relief. Patient denies any fevers, chills, nausea, vomiting or diarrhea. Patient has no injury to her back, no fall. She denies any loss of bowel or bladder control, she denies any saddle paresthesia. REVIEW OF SYSTEMS: Respiratory: No cough, no dyspnea. Cardiovascular: No chest pain, no palpitations. Gastrointestinal: No vomiting, no abdominal pain. Musculoskeletal: As noted above Allergies: Coded Allergies: promethazine (Verified Allergy, Severe, RESTLESS LEGS, 10/19/18) sumatriptan (Verified Allergy, Intermediate, HIVES, SOB, 10/19/18) only with nose spray, she can take oral sumatriptan NSAIDS (Non-Steroidal Anti-Inflamma (Verified Allergy, Mild, NAUSEA, HEADACHES, 10/19/18) orphenadrine (Verified Allergy, Unknown, 10/19/18) keeps her awake oxycodone (Verified Allergy, Unknown, 10/19/18) aspirin (Verified Adverse Reaction, Mild, NAUSEA, 10/19/18) furosemide (Verified Adverse Reaction, Unknown, 10/19/18) too hard on kidneys Uncoded Allergies: COBAN (Allergy, Mild, rash, 04/03/13) Home Meds Active Scripts Prednisone (PREDNISONE) 20 Mg Tablet, 40 MG PO DAILY, #10 TAB Prov:MABLE EL 11/16/18 Methocarbamol (ROBAXIN-750) 750 Mg Tablet, 1500 MG PO TID PRN for MUSCLE SPASMS, #30 TAB Prov:MABLE EL 11/16/18 Omeprazole (OMEPRAZOLE) 20 Mg Capsule.dr, 1 CAP PO QODAY, #30 CAP 6 Refills Prov:BETSEY PIERSON MD 11/14/18 Amlodipine Besylate (AMLODIPINE BESYLATE) 2.5 Mg Tablet, 2.5 MG PO QDAY, #90 TAB Prov:BETSEY PIERSON MD 11/12/18 Topiramate (TOPIRAMATE) 50 Mg Tablet, 50 MG PO QDAY, #30 TAB 4 Refills Prov:BETSEY PIERSON MD 11/05/18 Risperidone (RISPERIDONE) 0.5 Mg Tablet, 0.5 MG PO QHS, #30 TAB 4 Refills Prov:BETSEY PIERSON MD 11/05/18 Sertraline Hcl (SERTRALINE HCL) 100 Mg Tablet, 1.5 TAB PO QDAY, #135 TAB 1 Refill Prov:BETSEY PIERSON MD 08/22/18 Hydrocodone Bit/Acetaminophen (HYDROCODON-ACETAMINOPHEN 5-325) 1 Each Tablet, 1 EACH PO BID, #60 TAB Prov:BETSEY PIERSON MD 06/25/18 Levothyroxine Sodium (LEVOTHYROXINE SODIUM) 0.112 Mg Tab, 0.112 MG PO QDAY, #30 TAB 6 Refills Prov:BETSEY PIERSON MD 06/03/18 Simvastatin (SIMVASTATIN) 10 Mg Tablet, 1 TAB PO QHS, #90 TAB 4 Refills Prov:BETSEY PIERSON MD 04/10/18 Propranolol Hcl (INDERAL LA) 80 Mg Cap.sa.24h, 1 CAP PO QDAY, #90 CAP 4 Refills Prov:BETSEY PIERSON MD 02/05/18 Febuxostat (ULORIC) 40 Mg Tablet, 1 TAB PO QDAY, #90 TAB 1 Refill Prov:BETSEY PIERSON MD 07/27/16 Reported Medications Docusate Calcium (SURFAK) 240 Mg Capsule, 240 MG PO PRN for constipation, CAPSULE 05/20/18 Melatonin/Pyridoxine HCl (B6) (Melatonin 3 mg Tablet) 1 Each Tablet, 1 TAB QHS, TAB 10/23/17 Sodium Bicarbonate (SODIUM BICARBONATE) 650 Mg Tablet, 2 TAB PO BID 07/26/16 Imipramine Hcl (Tofranil) 25 Mg Tab, 1 TAB PO DAILY, 0 Refills 09/26/12 Past Medical/Surgical History Patient has a past medical history of migraines, heart murmur, angina, hypertension, hyperlipidemia, bronchitis, pneumonia, abdominal pain, reflux, incontinence, frequent urinary tract infections, gout, back pain, hypothyroidism, alcohol use, depression and anxiety, suicide attempt. Patient has a surgical history of tonsillectomy, back surgery, right shoulder surgery, right elbow surgery, right hand surgery, hysterectomy, cystoscopy, dilations, cholecystectomy, breast reduction, biopsies, cardiac catheterization. Patient has a family medical history of cancer, stroke. Reviewed Nurses Notes: Yes Hx Smoking: Yes (SMOKED AGE 16 TO UNTIL 2000, 1/ PPD) Smoking Status: Former Smoker Exposure to Second Hand Smoke?: No Hx Substance Use Disorder: No Hx Alcohol Use: Yes Constitutional Vital Sign - Last 24 Hours 11/16/18 11/16/18 11/16/18 11/16/18 13:48 13:49 14:00 14:09 Temp 98.7 Pulse 83 74 Resp 16 B/P (MAP) 146/95 146/95 (112) 124/84 (97) Pulse Ox 95 O2 Delivery Room Air 11/16/18 11/16/18 11/16/18 14:30 14:39 15:00 Pulse 78 B/P (MAP) 115/89 (98) 119/74 (89) Physical Exam General Appearance: The patient is alert, has no immediate need for airway protection and no current signs of toxicity. Respiratory: Chest is non tender, lungs are clear to auscultation. Cardiac: regular rate and rhythm Gastrointestinal: Abdomen is soft and non tender, no masses, bowel sounds normal. Musculoskeletal: Neck: Neck is supple and non tender. Back: Patient does have some tenderness to the lumbar spine, pain in the paraspinal muscles bilaterally. Extremities have full range of motion and are non tender. Skin: No rashes or lesions. DIFFERENTIAL DIAGNOSIS: After history and physical exam differential diagnosis was considered for back pain including but not limited to muscular pain, herniated disc, spine fracture, intra-abdominal causes and urinary tract infection. Medical Decision Making EKG/Imaging Imaging L-SPINE >4 VIEWS INDICATION: Back pain for one week. COMPARISON: 07/31/2015. FINDINGS: 4 views of the lumbar spine. There are 5 nonrib-bearing lumbar vertebral bodies. Previous effusion of L4-5 with removal of the hardware, except for the disc spacer remains in place and unchanged. The vertebral bodies are aligned. No compression fractures, bony lesions or spondylolysis. There is moderate diffuse facet arthropathy with minimal other degenerative changes seen in the lumbar spine. More moderate diffuse degenerative change seen in the lower thoracic spine including displacement, osteophytes and facet changes. The degenerative changes to the thoracic and lumbar spine described have mildly progressed from the previous exam. The endplates are maintained. The pedicles are well seen. Soft tissues are unremarkable surgical clips in the right abdomen. IMPRESSION: 1. No acute abnormality. 2. Previous fusion changes L4-5 without sequelae. 3. Degenerative changes, which appear to be mildly progressed. Report Dictated By: Ac Mckeon at 11/16/2018 2:19 PM Report E-Signed By: Ac Mckeon at 11/16/2018 2:23 PM ED Course/Re-evaluation ED Course Patient was admitted to an exam room, history and physical were obtained. Differential diagnoses were considered. On examination lungs are clear, heart is regular, abdomen soft and mildly tender. Patient did have some tenderness to the lumbar spine as well as paraspinal muscles. An x-ray was done of the lumbar spine which was negative. I discussed the findings with the patient and her . With the patient already having hydrocodone we will go ahead and treat her with a muscle relaxer, Robaxin and prednisone. We will have her follow-up with Dr. Guerin. It is quite possible she may have a bulging disc as result of coughing, however I believe is more likely that she strained a muscle. She is to limit activity by pain. She is to take the medication as directed. She is to return to emergency room if condition worsens. Patient verbalized understanding and agreement with plan. Decision to Disposition Date: Nov 16, 2018 Decision to Disposition Time: 14:54 Depart Departure Latest Vital Signs Vital Signs Date Time Temp Pulse Resp B/P (MAP) Pulse Ox O2 Delivery O2 Flow Rate FiO2 11/16/18 15:00 119/74 (89) 11/16/18 14:39 78 11/16/18 13:48 98.7 16 95 Room Air Impression: Primary Impression: Acute back pain Condition: Improved Disposition: HOME OR SELF-CARE Referrals: BETSEY PIERSON MD (PCP) ALANA GUERIN MD New Scripts Prednisone (PREDNISONE) 20 Mg Tablet 40 MG PO DAILY, #10 TAB Prov: MABLE EL 11/16/18 Methocarbamol (ROBAXIN-750) 750 Mg Tablet 1500 MG PO TID PRN for MUSCLE SPASMS, #30 TAB Prov: MABLE EL 11/16/18 Patient Instructions: Acute Low Back Pain (ED) Additional Instructions: Limit activity by pain. Increase fluid intake. No heavy lifting. Return to the ER if condition worsens. Take the medication as prescribed. Continue taking the Hydrocodone/acetaminophen as needed for pain. Follow up with Dr. Guerin for further evaluation, call on Saturday to make an appointment. Problem Qualifiers Primary Impression: Acute back pain Back pain location: low back pain Back pain laterality: bilateral Sciatica presence: without sciatica Qualified Codes: M54.5 - Low back pain MABLE EL Nov 16, 2018 13:57
--- NOTE | 2018-11-16 14:26 | RADIOLOGY IMAGING REPORT ---
FACILITY: [facility] - [place], [place] PATIENT NAME: Rachel Huang : 1965 MR: [id number] V: [id number] EXAM DATE: ORDERING PHYSICIAN: MABLE EL TECHNOLOGIST: Location: [facility] - [place] Patient: Rachel Huang : 1965 Visit/Account:[id number] Date of Sevice: 11/16/2018 L-SPINE >4 VIEWS INDICATION: Back pain for one week. COMPARISON: 07/31/2015. FINDINGS: 4 views of the lumbar spine. There are 5 nonrib-bearing lumbar vertebral bodies. Previous effusion of L4-5 with removal of the hardware, except for the disc spacer remains in place and uncha nged. The vertebral bodies are aligned. No compression fractures, bony lesions or spondylolysis. Ther e is moderate diffuse facet arthropathy with minimal other degenerative changes seen in the lumbar sp ine. More moderate diffuse degenerative change seen in the lower thoracic spine including displacemen t, osteophytes and facet changes. The degenerative changes to the thoracic and lumbar spine described have mildly progressed from the previous exam. The endplates are maintained. The pedicles are well s een. Soft tissues are unremarkable surgical clips in the right abdomen. IMPRESSION: 1. No acute abnormality. 2. Previous fusion changes L4-5 without sequelae. 3. Degenerative changes, which appear to be mildly progressed. Report Dictated By: Ac Mckeon at 11/16/2018 2:19 PM Report E-Signed By: Ac Mckeon at 11/16/2018 2:23 PM WSN:[id number]
[2018-11-16] MEDS ORDERED: METH-543 PO (14:53)
[2018-11-16] MEDS ORDERED: PRED20TA6 PO (14:53)
[2018-11-16 15:00] VITALS: BP 119/74
== END 2018-11-16 15:02 | disposition home or self-care (01) ==
LOC: ER 14:05
DX: M54.5 Low back pain (principal)
CPT/HCPCS: 72120; 99283

== ENCOUNTER → 2018-11-22 | Outpatient (CLI) | payer MEDICARE, MEDICAID ==
[2018-05-20 09:30] VITALS: BMI 25.7
[2018-11-22 13:40] LABS: INR 0.94
== END ==
LOC: LAB 12:21
PROVIDERS: ATTEND Surgery
DX: Z01.812 Encounter for preprocedural laboratory examination (principal)
CPT/HCPCS: 36415; 85610

== ENCOUNTER → 2018-11-24 | Outpatient (CLI) | payer MEDICARE, MEDICAID ==
[2018-05-20 09:30] VITALS: BMI 25.7
--- NOTE | 2018-11-25 11:16 | RADIOLOGY IMAGING REPORT ---
[place] [facility] [place] GREGORIO LINDSEY : [id number] MR: [id number] V: [id number] EXAM DATE: ORDERING PHYSICIAN: MIRNA SIEGEL TECHNOLOGIST: Kentrell Mcfarlane RDMS, MJ PROCEDURE: CYST ASPIRATION LEFT BREAST COMPARISON: None. INDICATIONS: Aspiration FINDINGS: Informed consent was obtained. The patient's Left breast was prepped and draped in the usual sterile fashion. Local anesthesia was accomplished with 1% lidocaine. Utilizing sonographic guidance an 18 Gauge needle was advanced percutaneously into the irregular cyst in the 4 o'clock position of the Left breast. The fluid was aspirated from the cyst and sent to the laboratory for cytology. The procedure was accomplished without apparent complication. CONCLUSION: Successful sonographically guided Left breast cyst aspiration. Dictated by: Laura Olson M.D. on 11/24/2018 at 17:40 Transcribed by: AMELIA on 11/25/2018 at 8:29 Approved by: Laura Olson M.D. on 11/25/2018 at 11:15 [facility]
--- NOTE | 2018-11-25 11:17 | RADIOLOGY IMAGING REPORT ---
FACILITY: [facility] PATIENT NAME: GREGORIO LINDSEY : [id number] MR: [id number] V: [id number] EXAM DATE: [id number] ORDERING PHYSICIAN: MIRNA SIEGEL TECHNOLOGIST: Lizzette Aguilar PROCEDURE: BIOPSY RIGHT BREAST COMPARISON: None. INDICATIONS: Right breast nodule approximate 6 o'clock position. FINDINGS: Informed consent was obtained. The patient's Right breast was prepped and draped in the usual sterile fashion. Local anesthesia was accomplished with 1% lidocaine. Under sonographic guidance (3) 14 Gauge core biopsies were obtained through the irregular hypoechoic mass in the 6 o'clock position of the Right breast. The samples were placed in formalin shown to the patient and sent to the laboratory for evaluation. A biopsy clip was placed. The post biopsy mammogram did not demonstrate the clip to be in the same location as the irregular nodules seen on the diagnostic mammogram of 11/07/18. Today's post clip mammogram however was performed with Tomography and the area of concern no longer appeared irregular and appeared similar to prior mammograms therefore the prior mammography findings are of doubtful clinical significant. IMPRESSION: 1. Successful sonographically guided biopsy of the irregular nodule in the 6 o'clock position of the Right breast. Dictated by: Laura Olson M.D. on 11/24/2018 at 17:45 Transcribed by: AMELIA on 11/25/2018 at 8:40 Approved by: Laura Olson M.D. on 11/25/2018 at 11:15 [facility]
== END ==
LOC: MAMO 00:50
PROVIDERS: ATTEND Surgery
DX: N60.02 Solitary cyst of left breast (principal); N63.13 Unspecified lump in the right breast, lower outer quadrant
CPT/HCPCS: 19083; 76942; 88104; 88305; 88344

== ENCOUNTER 2018-12-06 13:39 | Emergency (ER) | payer MEDICARE, MEDICAID ==
[2018-05-20 09:30] VITALS: Wt 70.3 kg
--- NOTE | 2018-12-06 13:48 | ER Report ---
History and Physical Time Seen By MD: 13:48 HPI/ROS CHIEF COMPLAINT: Abdominal pain, right flank pain HISTORY OF PRESENT ILLNESS: Patient is a 53-year-old female here with complaints of acute onset of right flank pain, mid epigastric gnawing abdominal pain. Patient does report urinary symptoms. Patient has had a history of ureterolithiasis. Patient is afebrile, hemodynamically stable. Patient is tolerating oral intake REVIEW OF SYSTEMS: Constitutional: No fever, no chills. Eyes: No discharge. ENT: No sore throat. Cardiovascular: No chest pain, no palpitations. Respiratory: No cough, no shortness of breath. Gastrointestinal: + Epigastric abdominal pain, no vomiting. Genitourinary: No hematuria. Musculoskeletal: No back pain.+ Right flank tenderness Skin: No rashes. Neurological: No headache. Allergies: Coded Allergies: promethazine (Verified Allergy, Severe, RESTLESS LEGS, 12/06/18) sumatriptan (Verified Allergy, Intermediate, HIVES, SOB, 12/06/18) only with nose spray, she can take oral sumatriptan NSAIDS (Non-Steroidal Anti-Inflamma (Verified Allergy, Mild, NAUSEA, HEADACHES, 12/06/18) orphenadrine (Verified Allergy, Unknown, 12/06/18) keeps her awake oxycodone (Verified Allergy, Unknown, 12/06/18) aspirin (Verified Adverse Reaction, Mild, NAUSEA, 12/06/18) furosemide (Verified Adverse Reaction, Unknown, 12/06/18) too hard on kidneys Uncoded Allergies: COBAN (Allergy, Mild, rash, 04/03/13) Home Meds Active Scripts Oxycodone Hcl/Acetaminophen (PERCOCET 5-325 MG TABLET) 1 Each Tablet, 1 EACH PO Q4H PRN for PAIN, #12 TAB 0 Refills Prov:PANKAJ RODRIGUEZ DO 12/06/18 Ondansetron 4 Mg Odt (ONDANSETRON 4 MG ODT) 4 Mg Tab.rapdis, 4 MG PO ONCE, #30 TAB Prov:PANKAJ RODRIGUEZ DO 12/06/18 Prednisone (PREDNISONE) 20 Mg Tablet, 40 MG PO DAILY, #10 TAB Prov:MABLE EL 11/16/18 Methocarbamol (ROBAXIN-750) 750 Mg Tablet, 1500 MG PO TID PRN for MUSCLE SPASMS, #30 TAB Prov:SIENNAMABLE CUFF MATCHER 11/16/18 Omeprazole (OMEPRAZOLE) 20 Mg Capsule.dr, 1 CAP PO QODAY, #30 CAP 6 Refills Prov:BETSEY PIERSON MD 11/14/18 Amlodipine Besylate (AMLODIPINE BESYLATE) 2.5 Mg Tablet, 2.5 MG PO QDAY, #90 TAB Prov:BETSEY PIERSON MD 11/12/18 Topiramate (TOPIRAMATE) 50 Mg Tablet, 50 MG PO QDAY, #30 TAB 4 Refills Prov:BETSEY PIERSON MD 11/05/18 Risperidone (RISPERIDONE) 0.5 Mg Tablet, 0.5 MG PO QHS, #30 TAB 4 Refills Prov:BETSEY PIERSON MD 11/05/18 Sertraline Hcl (SERTRALINE HCL) 100 Mg Tablet, 1.5 TAB PO QDAY, #135 TAB 1 Refill Prov:BETSEY PIERSON MD 08/22/18 Hydrocodone Bit/Acetaminophen (HYDROCODON-ACETAMINOPHEN 5-325) 1 Each Tablet, 1 EACH PO BID, #60 TAB Prov:BETSEY PIERSON MD 06/25/18 Levothyroxine Sodium (LEVOTHYROXINE SODIUM) 0.112 Mg Tab, 0.112 MG PO QDAY, #30 TAB 6 Refills Prov:BETSEY PIERSON MD 06/03/18 Simvastatin (SIMVASTATIN) 10 Mg Tablet, 1 TAB PO QHS, #90 TAB 4 Refills Prov:BETSEY PIERSON MD 04/10/18 Propranolol Hcl (INDERAL LA) 80 Mg Cap.sa.24h, 1 CAP PO QDAY, #90 CAP 4 Refills Prov:BETSEY PIERSON MD 02/05/18 Febuxostat (ULORIC) 40 Mg Tablet, 1 TAB PO QDAY, #90 TAB 1 Refill Prov:BETSEY PIERSON MD 07/27/16 Reported Medications Docusate Calcium (SURFAK) 240 Mg Capsule, 240 MG PO PRN for constipation, CAPSULE 05/20/18 Melatonin/Pyridoxine HCl (B6) (Melatonin 3 mg Tablet) 1 Each Tablet, 1 TAB QHS, TAB 10/23/17 Sodium Bicarbonate (SODIUM BICARBONATE) 650 Mg Tablet, 2 TAB PO BID 07/26/16 Imipramine Hcl (Tofranil) 25 Mg Tab, 1 TAB PO DAILY, 0 Refills 09/26/12 Hx Smoking: Yes (SMOKED AGE 16 TO UNTIL 2000, 10/29 PPD) Smoking Status: Former Smoker Exposure to Second Hand Smoke?: No Hx Substance Use Disorder: No Hx Alcohol Use: Yes Constitutional Vital Sign - Last 24 Hours 12/06/18 12/06/18 12/06/18 12/06/18 13:39 13:53 13:55 14:00 Temp 98.1 Pulse 99 92 Resp 16 B/P (MAP) 129/82 (98) 129/82 130/84 (99) Pulse Ox 93 96 O2 Delivery Room Air Room Air 12/06/18 12/06/18 12/06/18 12/06/18 14:09 14:30 14:39 15:00 Pulse 89 88 B/P (MAP) 110/75 (87) 128/84 (99) Pulse Ox 94 94 O2 Delivery Room Air Room Air 12/06/18 12/06/18 12/06/18 15:05 15:30 15:35 Pulse 85 78 B/P (MAP) 116/78 (91) Pulse Ox 96 97 O2 Delivery Room Air Room Air Physical Exam General Appearance: The patient is alert, has no immediate need for airway protection and no signs of toxicity. No acute distress Eyes: Pupils equal and round no pallor or injection. ENT, Mouth: Mucous membranes are moist. Respiratory: There are no retractions, lungs are clear to auscultation. Cardiovascular: Regular rate and rhythm. Gastrointestinal: Abdomen is soft and + tenderness on palpation of the midepigastrium, no masses, bowel sounds normal.+ Right flank tenderness on palpation Neurological: No focal neurological deficits Skin: Warm and dry, no rashes. Musculoskeletal: Neck is supple non tender. Extremities are nontender, nonswollen and have full range of motion. DIFFERENTIAL DIAGNOSIS: After history and physical exam differential diagnosis was considered for abdominal pain including but not limited to appendicitis, cholecystitis, gastritis and urinary tract infection. Medical Decision Making Data Points Result Diagram: 12/06/18 1419 12/06/18 1419 Laboratory Hematology Test 12/06/18 14:19 12/06/18 16:05 Red Blood Count 3.63 M/uL (4.17-5.56) Mean Corpuscular Volume 94.5 fL (80.0-96.0) Mean Corpuscular Hemoglobin 32.2 pg (26.0-33.0) Mean Corpuscular Hemoglobin Concent 34.1 g/dL (32.0-36.0) Red Cell Distribution Width 13.4 % (11.5-14.5) Mean Platelet Volume 6.6 fL (7.2-11.1) Neutrophils (%) (Auto) 64.9 % (39.4-72.5) Lymphocytes (%) (Auto) 20.6 % (17.6-49.6) Monocytes (%) (Auto) 9.8 % (4.1-12.4) Eosinophils (%) (Auto) 4.0 % (0.4-6.7) Basophils (%) (Auto) 0.7 % (0.3-1.4) Nucleated RBC Relative Count (auto) 0.1 /100WBC Neutrophils # (Auto) 4.2 K/uL (2.0-7.4) Lymphocytes # (Auto) 1.3 K/uL (1.3-3.6) Monocytes # (Auto) 0.6 K/uL (0.3-1.0) Eosinophils # (Auto) 0.3 K/uL (0.0-0.5) Basophils # (Auto) 0.0 K/uL (0.0-0.1) Nucleated RBC Absolute Count (auto) 0.01 K/uL Sodium Level 139 mmol/L (137-145) Potassium Level 4.2 mmol/L (3.5-5.0) Chloride Level 108 mmol/L (98-107) Carbon Dioxide Level 24 mmol/L (22-31) Blood Urea Nitrogen 29 mg/dl (7-18) Creatinine 3.90 mg/dl (0.52-1.04) Glomerular Filtration Rate Calc 12.1 Random Glucose 81 mg/dl (75-110) Lactate 1.0 mmol/L (0.7-2.1) Calcium Level 9.2 mg/dl (8.4-10.2) Total Bilirubin 0.4 mg/dl (0.2-1.3) Aspartate Amino Transf (AST/SGOT) 13 U/L (0-35) Alanine Aminotransferase (ALT/SGPT) 20 U/L (0-56) Alkaline Phosphatase 57 U/L (0-126) Total Protein 7.1 g/dl (6.3-8.2) Albumin 4.1 g/dl (3.5-5.0) Lipase 502 U/L (23-300) Urine Color Straw Urine Clarity Clear Urine pH 7.0 pH (4.8-9.5) Urine Specific [place] 1.009 Urine Protein Negative mg/dL (NEGATIVE) Urine Glucose (UA) Negative mg/dL (NEGATIVE) Urine Ketones Negative mg/dL (NEGATIVE) Urine Blood Negative (NEGATIVE) Urine Nitrite Negative (NEGATIVE) Urine Bilirubin Negative (NEGATIVE) Urine Urobilinogen Negative mg/dL (0.2-1.9) Urine Leukocyte Esterase Negative (NEGATIVE) Urine RBC None /HPF (0-2/HPF) Urine WBC 1 /HPF (0-5/HPF) Urine Squamous Epithelial Cells Many /LPF (</=FEW) Urine Bacteria Negative /HPF (NONE-FEW) Urine Mucus None /HPF (NONE-FEW) Chemistry Test 12/06/18 14:19 12/06/18 16:05 White Blood Count 6.5 k/uL (4.5-11.0) Red Blood Count 3.63 M/uL (4.17-5.56) Hemoglobin 11.7 g/dL (12.0-16.0) Hematocrit 34.3 % (34.0-47.0) Mean Corpuscular Volume 94.5 fL (80.0-96.0) Mean Corpuscular Hemoglobin 32.2 pg (26.0-33.0) Mean Corpuscular Hemoglobin Concent 34.1 g/dL (32.0-36.0) Red Cell Distribution Width 13.4 % (11.5-14.5) Platelet Count 183 K/uL (150-450) Mean Platelet Volume 6.6 fL (7.2-11.1) Neutrophils (%) (Auto) 64.9 % (39.4-72.5) Lymphocytes (%) (Auto) 20.6 % (17.6-49.6) Monocytes (%) (Auto) 9.8 % (4.1-12.4) Eosinophils (%) (Auto) 4.0 % (0.4-6.7) Basophils (%) (Auto) 0.7 % (0.3-1.4) Nucleated RBC Relative Count (auto) 0.1 /100WBC Neutrophils # (Auto) 4.2 K/uL (2.0-7.4) Lymphocytes # (Auto) 1.3 K/uL (1.3-3.6) Monocytes # (Auto) 0.6 K/uL (0.3-1.0) Eosinophils # (Auto) 0.3 K/uL (0.0-0.5) Basophils # (Auto) 0.0 K/uL (0.0-0.1) Nucleated RBC Absolute Count (auto) 0.01 K/uL Glomerular Filtration Rate Calc 12.1 Lactate 1.0 mmol/L (0.7-2.1) Calcium Level 9.2 mg/dl (8.4-10.2) Total Bilirubin 0.4 mg/dl (0.2-1.3) Aspartate Amino Transf (AST/SGOT) 13 U/L (0-35) Alanine Aminotransferase (ALT/SGPT) 20 U/L (0-56) Alkaline Phosphatase 57 U/L (0-126) Total Protein 7.1 g/dl (6.3-8.2) Albumin 4.1 g/dl (3.5-5.0) Lipase 502 U/L (23-300) Urine Color Straw Urine Clarity Clear Urine pH 7.0 pH (4.8-9.5) Urine Specific [place] 1.009 Urine Protein Negative mg/dL (NEGATIVE) Urine Glucose (UA) Negative mg/dL (NEGATIVE) Urine Ketones Negative mg/dL (NEGATIVE) Urine Blood Negative (NEGATIVE) Urine Nitrite Negative (NEGATIVE) Urine Bilirubin Negative (NEGATIVE) Urine Urobilinogen Negative mg/dL (0.2-1.9) Urine Leukocyte Esterase Negative (NEGATIVE) Urine RBC None /HPF (0-2/HPF) Urine WBC 1 /HPF (0-5/HPF) Urine Squamous Epithelial Cells Many /LPF (</=FEW) Urine Bacteria Negative /HPF (NONE-FEW) Urine Mucus None /HPF (NONE-FEW) Urinalysis Test 12/06/18 16:05 Urine Color Straw Urine Clarity Clear Urine pH 7.0 pH (4.8-9.5) Urine Specific [place] 1.009 Urine Protein Negative mg/dL (NEGATIVE) Urine Glucose (UA) Negative mg/dL (NEGATIVE) Urine Ketones Negative mg/dL (NEGATIVE) Urine Blood Negative (NEGATIVE) Urine Nitrite Negative (NEGATIVE) Urine Bilirubin Negative (NEGATIVE) Urine Urobilinogen Negative mg/dL (0.2-1.9) Urine Leukocyte Esterase Negative (NEGATIVE) Urine RBC None /HPF (0-2/HPF) Urine WBC 1 /HPF (0-5/HPF) Urine Squamous Epithelial Cells Many /LPF (</=FEW) Urine Bacteria Negative /HPF (NONE-FEW) Urine Mucus None /HPF (NONE-FEW) EKG/Imaging Imaging PATIENT NAME: Rachel Huang : 1965 MR: [id number] V: [id number] EXAM DATE: ORDERING PHYSICIAN: PANKAJ RODRIGUEZ TECHNOLOGIST: Location: [facility] - [place] Patient: Rachel Huang : 1965 Visit/Account:[id number] Date of Sevice: 12/06/2018 CT ABDOMEN PELVIS W/O CON HISTORY: right flank pain TECHNIQUE: Axial images were obtained through the abdomen and pelvis without intravenous contrast . One of the following dose optimization techniques was u tilized in the performance of this exam: automated exposure control; adjustment of the mA and/or kv according to patient size; or use of iterative reconstruction technique. Specific details can be referenced in the facility's radiology CT exam operational policy. CONTRAST: None COMPARISON: CT abdomen/pelvis 10/19/2018 FINDINGS: Visualized lung bases: Negative. Hepatobiliary: Cholecystectomy without biliary ductal dilatation.. Spleen: Negative. Adrenals: Negative Pancreas: Negative. Kidneys/ureters/bladder: Stable severe right renal atrophy. Tiny nonobstructing left lower pole renal calculi. No left ureteral calculus. No hydronephrosis. No bladder calculus. Bowel/peritoneum/mesentery: Stable mild thickening of the distal esophagus. Vessels: Negative. Lymph nodes: Negative. Pelvic genitourinary: Negative. Bones/body wall: L4-L5 PLIF Other findings: None significant IMPRESSION: 1. Tiny nonobstructing left lower pole renal calculi. No ureteral calculus or hydronephrosis. 2. Stable mild segmental thickening of the distal esophagus. 3. Otherwise no acute inflammatory process identified. ED Course/Re-evaluation ED Course Patient is a 53-year-old female here with complaints of epigastric abdominal pain, right flank pain acute onset. CT imaging showed no acute findings. Patient was given Zofran and fentanyl for symptom management. Labs were remarkable for elevated lipase. Patient was tolerating oral intake and was given analgesics and antiemetics for outpatient treatment. Close follow-up with PCP recommended. Return precautions provided. Decision to Disposition Date: Dec 06, 2018 Decision to Disposition Time: 16:59 Depart Departure Latest Vital Signs Vital Signs Date Time Temp Pulse Resp B/P (MAP) Pulse Ox O2 Delivery O2 Flow Rate FiO2 12/06/18 15:35 78 97 Room Air 12/06/18 15:30 116/78 (91) 12/06/18 13:55 98.1 16 Impression: Primary Impression: Pancreatitis Condition: Improved Disposition: HOME OR SELF-CARE Referrals: BETSEY PIERSON MD (PCP) New Scripts Oxycodone Hcl/Acetaminophen (PERCOCET 5-325 MG TABLET) 1 Each Tablet 1 EACH PO Q4H PRN for PAIN, #12 TAB 0 Refills Prov: PANKAJ RODRIGUEZ DO 12/06/18 Ondansetron 4 Mg Odt (ONDANSETRON 4 MG ODT) 4 Mg Tab.rapdis 4 MG PO ONCE, #30 TAB Prov: PANKAJ RODRIGUEZ DO 12/06/18 Patient Instructions: Pancreatitis (ED) Additional Instructions: Please drink plenty of water. Please take Zofran every 4-6 hours as needed. You may take Percocet one tablet every 4-6 hours as needed for pain control. Please follow-up with your family doctor in the next 24-48 hours. Please return promptly if you develop fevers, worsening abdominal pain, inability to keep down food or fluids. PANKAJ RODRIGUEZ DO Dec 06, 2018 13:48
[2018-12-06] MEDS ORDERED: ONDANSETRON 4 MG/2 ML VIAL IVP ONE (14:05)
[2018-12-06] MEDS ORDERED: fentaNYL CITR 100 MCG/2 ML AMP IVP ONE (14:05)
[2018-12-06 14:26] LABS: PLATELET COUNT, AUTOMATED 183 K/uL (150-450)
--- NOTE | 2018-12-06 15:17 | RADIOLOGY IMAGING REPORT ---
FACILITY: [facility] [place] PATIENT NAME: Rachel Huang : 1965 MR: [id number] V: [id number] EXAM DATE: ORDERING PHYSICIAN: PANKAJ RODRIGUEZ TECHNOLOGIST: Location: [facility] - [place] Patient: Rachel Huang : 1965 Visit/Account:[id number] Date of Sevice: 12/06/2018 CT ABDOMEN PELVIS W/O CON HISTORY: right flank pain TECHNIQUE: Axial images were obtained through the abdomen and pelvis without intravenous contrast . One of the following dose optimization techniques was utilized in the performance of this exam: autom ated exposure control; adjustment of the mA and/or kv according to patient size; or use of iterative reconstruction technique. Specific details can be referenced in the facility's radiology CT exam oper ational policy. CONTRAST: None COMPARISON: CT abdomen/pelvis 10/19/2018 FINDINGS: Visualized lung bases: Negative. Hepatobiliary: Cholecystectomy without biliary ductal dilatation.. Spleen: Negative. Adrenals: Negative Pancreas: Negative. Kidneys/ureters/bladder: Stable severe right renal atrophy. Tiny nonobstructing left lower pole kev l calculi. No left ureteral calculus. No hydronephrosis. No bladder calculus. Bowel/peritoneum/mesentery: Stable mild thickening of the distal esophagus. Vessels: Negative. Lymph nodes: Negative. Pelvic genitourinary: Negative. Bones/body wall: L4-L5 PLIF Other findings: None significant IMPRESSION: 1. Tiny nonobstructing left lower pole renal calculi. No ureteral calculus or hydronephrosis. 2. Stable mild segmental thickening of the distal esophagus. 3. Otherwise no acute inflammatory process identified. Report Dictated By: Jaleel Escalera MD at 12/06/2018 3:05 PM Report E-Signed By: Jaleel Escalera MD at 12/06/2018 3:13 PM WSN:[id number]
[2018-12-06 15:30] VITALS: BP 116/78
[2018-12-06] MEDS ORDERED: OXYC-865 PO (17:04)
[2018-12-06] MEDS ORDERED: ONDA4TAB9 PO (17:04)
== END 2018-12-06 17:13 | disposition home or self-care (01) ==
LOC: ER 13:49
DX: K85.90 Acute pancreatitis without necrosis or infection, unspecified (principal)
CPT/HCPCS: 74176; 81001; 83605; 83690; 85025; 96374; 96375; 99284; J2405; J3010; 82040; 82247; 82310; 82374; 82435; 82565; 82947; 84075; 84132; 84155; 84295; 84450; 84460; 84520

== ENCOUNTER → 2018-12-11 | Outpatient (CLI) | payer MEDICARE, MEDICAID ==
[2018-05-20 09:30] VITALS: BMI 25.7
[2018-12-11 16:46] LABS: PLATELET COUNT, AUTOMATED 185 K/uL (150-450)
== END ==
LOC: LAB 16:16
PROVIDERS: ATTEND Internal Medicine
DX: N18.4 Chronic kidney disease, stage 4 (severe) (principal); R10.11 Right upper quadrant pain; R74.8 Abnormal levels of other serum enzymes; E83.52 Hypercalcemia
CPT/HCPCS: 36415; 81001; 82040; 82150; 82247; 82310; 82374; 82435; 82565; 82947; 83690; 84075; 84132; 84155; 84295; 84443; 84450; 84460; 84520; 85025

== ENCOUNTER → 2018-12-17 | Outpatient (CLI) | payer MEDICARE, MEDICAID ==
[2018-05-20 09:30] VITALS: BMI 25.7
== END ==
LOC: LAB 08:05
PROVIDERS: ATTEND Internal Medicine
DX: N18.4 Chronic kidney disease, stage 4 (severe) (principal)
CPT/HCPCS: 36415; 82310; 82374; 82435; 82565; 82947; 84132; 84295; 84520

== ENCOUNTER → 2018-12-24 | Outpatient (CLI) | payer MEDICARE, MEDICAID ==
[2018-05-20 09:30] VITALS: BMI 25.7
[2018-12-24 11:54] LABS: PLATELET COUNT, AUTOMATED 196 K/uL (150-450)
== END ==
LOC: LAB 11:30
PROVIDERS: ATTEND Internal Medicine
DX: N18.4 Chronic kidney disease, stage 4 (severe) (principal); R10.9 Unspecified abdominal pain; E83.52 Hypercalcemia; E03.9 Hypothyroidism, unspecified; I15.1 Hypertension secondary to other renal disorders
CPT/HCPCS: 36415; 82040; 82247; 82310; 82374; 82435; 82565; 82947; 84075; 84132; 84155; 84295; 84450; 84460; 84520; 84550; 85025

== ENCOUNTER 2018-12-25 09:23 | Emergency (ER) | payer MEDICARE, MEDICAID ==
[2018-05-20 09:30] VITALS: Wt 72.6 kg
[2018-12-25 09:46] VITALS: BP 151/88
[2018-12-25 10:09] LABS: PLATELET COUNT, AUTOMATED 192 K/uL (150-450)
[2018-12-25] MEDS ORDERED: NS(*) 0.9% 500 ML BAG 500 ML IV ONE (10:25)
--- NOTE | 2018-12-25 11:47 | RADIOLOGY IMAGING REPORT ---
FACILITY: [facility] - [place] PATIENT NAME: Rachel Huang : 1965 MR: [id number] V: [id number] EXAM DATE: ORDERING PHYSICIAN: ESTEBAN ALDANA TECHNOLOGIST: Location: [facility] - [place] Patient: Rachel Huang : 1965 Visit/Account:[id number] Date of Sevice: 12/25/2018 CT ABDOMEN PELVIS W/O CON HISTORY: Left-sided flank pain since last night, on transplant list for kidneys TECHNIQUE: Axial images acquired through the abdomen/pelvis. Coronal and sagittal reformatting also performed. No IV contrast administered.Dose Lowering Technique One of the following dose optimization techniques was utilized in the performance of this exam: Autom ated exposure control; adjustment of the mA and/or kV according to the patient's size; or use of an i terative reconstruction technique. Specific details can be referenced in the facility's radiology C T exam operational policy. COMPARISON: December 06, 2018 FINDINGS: Visualized lung bases: Negative. Hepatobiliary: Cholecystectomy Spleen: Negative. Adrenals: Negative. Pancreas: Negative. Kidneys ureters and bladder: Right kidney is severely atrophic appearing similar to the prior study. There is a 2 mm nonobstructing calculus mid to upper pole calyx of the left kidney in addition to a p unctate 1 mm calculus lower pole calyx. There is a marked lobular contour to the left kidney that ap pears similar to the prior study Genitalia: Hysterectomy GI: There is thickening of the distal esophagus similar to the prior study Vessels/spaces/nodes: Negative. Bones/soft tissues: Postsurgical changes at L4-5 appear similar to the prior study. There are spond ylotic changes in the visualized thoracolumbar spine Additional findings: None pertinent. IMPRESSION: There is a 2 mm nonobstructing calculus mid to upper pole calyx of the left kidney in addition to a p unctate 1 mm nonobstructing calculus lower pole calyx on the left. No evidence of hydronephrosis or hydroureter. There is a lobular contour to the left kidney that appears similar to the prior study Severe atrophy of the right kidney appears similar to the prior study Thickening of the distal esophagus appears similar to the prior study Additional chronic findings as described Report Dictated By: Laura Olson MD at 12/25/2018 11:35 AM Report E-Signed By: Laura Olson MD at 12/25/2018 11:43 AM SINN:SELINA
--- NOTE | 2018-12-25 11:57 | ER Report ---
History and Physical Time Seen By MD: 09:52 Hx. of Stated Complaint: Pt. having left flank pain. Thinks she may have a kidney stone. Burning with urination. Also, she fell this morning and landed on her left side in the same area of the pain. Pain 8/10. HPI/ROS CHIEF COMPLAINT: "Possible kidney stone" HISTORY OF PRESENT ILLNESS: Patient is a 53 female with multiple medical problems including chronic renal failure. She was recently seen for slightly elevated creatinine above baseline to 4.9. He was felt that this might be due to recent medications which have now been stopped. Patient is having some generalized bilateral flank and abdominal pain. Also noted decreased urinary output. Denies fevers or chills. Does report generalized malaise. Denies chest pain or shortness of breath. REVIEW OF SYSTEMS: Respiratory: No cough, no dyspnea. Cardiovascular: No chest pain, no palpitations. Gastrointestinal: Generalized abdominal pain, flank pain Musculoskeletal: No back pain. Allergies: Coded Allergies: promethazine (Verified Allergy, Severe, RESTLESS LEGS, 12/25/18) sumatriptan (Verified Allergy, Intermediate, HIVES, SOB, 12/25/18) only with nose spray, she can take oral sumatriptan NSAIDS (Non-Steroidal Anti-Inflamma (Verified Allergy, Mild, NAUSEA, HEADACHES, 12/25/18) orphenadrine (Verified Allergy, Unknown, 12/25/18) keeps her awake oxycodone (Verified Allergy, Unknown, 12/25/18) aspirin (Verified Adverse Reaction, Mild, NAUSEA, 12/25/18) furosemide (Verified Adverse Reaction, Unknown, 12/25/18) too hard on kidneys Uncoded Allergies: COBAN (Allergy, Mild, rash, 04/03/13) Home Meds Active Scripts Hydrocodone Bit/Acetaminophen (HYDROCODON-ACETAMINOPHEN 5-325) 1 Each Tablet, 1 EACH PO BID PRN for pain, #60 TAB Prov:BETSEY PIERSON MD 12/17/18 Ondansetron 4 Mg Odt (ONDANSETRON 4 MG ODT) 4 Mg Tab.rapdis, 4 MG PO ONCE, #30 TAB Prov:PANKAJ RODRIGUEZ DO 12/06/18 Omeprazole (OMEPRAZOLE) 20 Mg Capsule.dr, 1 CAP PO QODAY, #30 CAP 6 Refills Prov:BETSEY PIERSON MD 11/14/18 Amlodipine Besylate (AMLODIPINE BESYLATE) 2.5 Mg Tablet, 2.5 MG PO QDAY, #90 TAB Prov:BETSEY PIERSON MD 11/12/18 Topiramate (TOPIRAMATE) 50 Mg Tablet, 50 MG PO QDAY, #30 TAB 4 Refills Prov:BETSEY PIERSON MD 11/05/18 Risperidone (RISPERIDONE) 0.5 Mg Tablet, 0.5 MG PO QHS, #30 TAB 4 Refills Prov:BETSEY PIERSON MD 11/05/18 Sertraline Hcl (SERTRALINE HCL) 100 Mg Tablet, 1.5 TAB PO QDAY, #135 TAB 1 Refill Prov:BETSEY PIERSON MD 08/22/18 Levothyroxine Sodium (LEVOTHYROXINE SODIUM) 0.112 Mg Tab, 0.112 MG PO QDAY, #30 TAB 6 Refills Prov:BETSEY PIERSON MD 06/03/18 Simvastatin (SIMVASTATIN) 10 Mg Tablet, 1 TAB PO QHS, #90 TAB 4 Refills Prov:BETSEY PIERSON MD 04/10/18 Propranolol Hcl (INDERAL LA) 80 Mg Cap.sa.24h, 1 CAP PO QDAY, #90 CAP 4 Refills Prov:BETSEY PIERSON MD 02/05/18 Febuxostat (ULORIC) 40 Mg Tablet, 1 TAB PO QDAY, #90 TAB 1 Refill Prov:BETSEY PIERSON MD 07/27/16 Reported Medications Docusate Calcium (SURFAK) 240 Mg Capsule, 240 MG PO PRN for constipation, CAPSULE 05/20/18 Melatonin/Pyridoxine HCl (B6) (Melatonin 3 mg Tablet) 1 Each Tablet, 1 TAB QHS, TAB 10/23/17 Sodium Bicarbonate (SODIUM BICARBONATE) 650 Mg Tablet, 2 TAB PO BID 07/26/16 Imipramine Hcl (Tofranil) 25 Mg Tab, 1 TAB PO DAILY, 0 Refills 09/26/12 Past Medical/Surgical History Patient has a past medical history of migraines, heart murmur, angina, hypertension, hyperlipidemia, bronchitis, pneumonia, abdominal pain, reflux, incontinence, frequent urinary tract infections, gout, back pain, hy pothyroidism, alcohol use, depression and anxiety, suicide attempt. Patient has a surgical history of tonsillectomy, back surgery, right shoulder surgery, right elbow surgery, right hand surgery, hysterectomy, cystoscopy, dilations, cholecystectomy, breast reduction, biopsies, cardiac catheterization. Patient has a family medical history of cancer, stroke. Hx Smoking: Yes (SMOKED AGE 16 TO UNTIL 2000, 10/29 PPD) Smoking Status: Former Smoker Exposure to Second Hand Smoke?: No Hx Substance Use Disorder: No Hx Alcohol Use: Yes Constitutional Vital Sign - Last 24 Hours 12/25/18 12/25/18 12/25/18 12/25/18 09:38 09:46 09:53 10:23 Temp 98.5 Pulse 75 74 B/P (MAP) 151/88 (109) 151/88 Pulse Ox 98 100 98 O2 Delivery Room Air 12/25/18 12/25/18 12/25/18 12/25/18 10:53 10:58 11:28 11:58 Pulse 72 71 77 77 Pulse Ox 94 94 98 96 Physical Exam General Appearance: The patient is alert, has no immediate need for airway protection and no current signs of toxicity. Eyes: Pupils equal and round no injection. Respiratory: Chest is non tender, lungs are clear to auscultation. Cardiac: regular rate and rhythm Gastrointestinal: Abdomen is soft and non tender, no masses, bowel sounds normal. Musculoskeletal: Neck: Neck is supple and non tender. Extremities have full range of motion and are non tender. Skin: No rashes or lesions. Medical Decision Making Data Points Result Diagram: 12/25/1891912/25/1820 Laboratory Hematology Test 12/25/18 09:20 12/25/18 11:45 Red Blood Count 3.49 M/uL (4.17-5.56) Mean Corpuscular Volume 93.7 fL (80.0-96.0) Mean Corpuscular Hemoglobin 33.0 pg (26.0-33.0) Mean Corpuscular Hemoglobin Concent 35.2 g/dL (32.0-36.0) Red Cell Distribution Width 13.2 % (11.5-14.5) Mean Platelet Volume 6.3 fL (7.2-11.1) Neutrophils (%) (Auto) 62.1 % (39.4-72.5) Lymphocytes (%) (Auto) 22.7 % (17.6-49.6) Monocytes (%) (Auto) 9.6 % (4.1-12.4) Eosinophils (%) (Auto) 4.4 % (0.4-6.7) Basophils (%) (Auto) 1.2 % (0.3-1.4) Nucleated RBC Relative Count (auto) 0.1 /100WBC Neutrophils # (Auto) 3.3 K/uL (2.0-7.4) Lymphocytes # (Auto) 1.2 K/uL (1.3-3.6) Monocytes # (Auto) 0.5 K/uL (0.3-1.0) Eosinophils # (Auto) 0.2 K/uL (0.0-0.5) Basophils # (Auto) 0.1 K/uL (0.0-0.1) Nucleated RBC Absolute Count (auto) 0.00 K/uL Sodium Level 142 mmol/L (137-145) Potassium Level 3.7 mmol/L (3.5-5.0) Chloride Level 103 mmol/L (98-107) Carbon Dioxide Level 27 mmol/L (22-31) Blood Urea Nitrogen 31 mg/dl (7-18) Creatinine 4.80 mg/dl (0.52-1.04) Glomerular Filtration Rate Calc 9.5 Random Glucose 85 mg/dl (75-110) Calcium Level 9.7 mg/dl (8.4-10.2) Total Bilirubin 0.3 mg/dl (0.2-1.3) Aspartate Amino Transf (AST/SGOT) 17 U/L (0-35) Alanine Aminotransferase (ALT/SGPT) 21 U/L (0-56) Alkaline Phosphatase 51 U/L (0-126) Total Protein 7.4 g/dl (6.3-8.2) Albumin 4.2 g/dl (3.5-5.0) Lipase 356 U/L (23-300) Human Chorionic Gonadotropin, Qual Negative (NEGATIVE) Helicobacter pylori IgG Antibody Negative (NEGATIVE) Urine Color Colorless Urine Clarity Clear Urine pH 8.0 pH (4.8-9.5) Urine Specific [place] 1.004 Urine Protein Negative mg/dL (NEGATIVE) Urine Glucose (UA) Negative mg/dL (NEGATIVE) Urine Ketones Negative mg/dL (NEGATIVE) Urine Blood Negative (NEGATIVE) Urine Nitrite Negative (NEGATIVE) Urine Bilirubin Negative (NEGATIVE) Urine Urobilinogen Negative mg/dL (0.2-1.9) Urine Leukocyte Esterase Negative (NEGATIVE) Urine RBC <1 /HPF (0-2/HPF) Urine WBC <1 /HPF (0-5/HPF) Urine Squamous Epithelial Cells Few /LPF (NONE-FEW) Urine Bacteria Negative /HPF (NONE-FEW) Urine Mucus None /HPF (NONE-FEW) Chemistry Test 12/25/18 09:20 12/25/18 11:45 White Blood Count 5.4 k/uL (4.5-11.0) Red Blood Count 3.49 M/uL (4.17-5.56) Hemoglobin 11.5 g/dL (12.0-16.0) Hematocrit 32.7 % (34.0-47.0) Mean Corpuscular Volume 93.7 fL (80.0-96.0) Mean Corpuscular Hemoglobin 33.0 pg (26.0-33.0) Mean Corpuscular Hemoglobin Concent 35.2 g/dL (32.0-36.0) Red Cell Distribution Width 13.2 % (11.5-14.5) Platelet Count 192 K/uL (150-450) Mean Platelet Volume 6.3 fL (7.2-11.1) Neutrophils (%) (Auto) 62.1 % (39.4-72.5) Lymphocytes (%) (Auto) 22.7 % (17.6-49.6) Monocytes (%) (Auto) 9.6 % (4.1-12.4) Eosinophils (%) (Auto) 4.4 % (0.4-6.7) Basophils (%) (Auto) 1.2 % (0.3-1.4) Nucleated RBC Relative Count (auto) 0.1 /100WBC Neutrophils # (Auto) 3.3 K/uL (2.0-7.4) Lymphocytes # (Auto) 1.2 K/uL (1.3-3.6) Monocytes # (Auto) 0.5 K/uL (0.3-1.0) Eosinophils # (Auto) 0.2 K/uL (0.0-0.5) Basophils # (Auto) 0.1 K/uL (0.0-0.1) Nucleated RBC Absolute Count (auto) 0.00 K/uL Glomerular Filtration Rate Calc 9.5 Calcium Level 9.7 mg/dl (8.4-10.2) Total Bilirubin 0.3 mg/dl (0.2-1.3) Aspartate Amino Transf (AST/SGOT) 17 U/L (0-35) Alanine Aminotransferase (ALT/SGPT) 21 U/L (0-56) Alkaline Phosphatase 51 U/L (0-126) Total Protein 7.4 g/dl (6.3-8.2) Albumin 4.2 g/dl (3.5-5.0) Lipase 356 U/L (23-300) Human Chorionic Gonadotropin, Qual Negative (NEGATIVE) Helicobacter pylori IgG Antibody Negative (NEGATIVE) Urine Color Colorless Urine Clarity Clear Urine pH 8.0 pH (4.8-9.5) Urine Specific [place] 1.004 Urine Protein Negative mg/dL (NEGATIVE) Urine Glucose (UA) Negative mg/dL (NEGATIVE) Urine Ketones Negative mg/dL (NEGATIVE) Urine Blood Negative (NEGATIVE) Urine Nitrite Negative (NEGATIVE) Urine Bilirubin Negative (NEGATIVE) Urine Urobilinogen Negative mg/dL (0.2-1.9) Urine Leukocyte Esterase Negative (NEGATIVE) Urine RBC <1 /HPF (0-2/HPF) Urine WBC <1 /HPF (0-5/HPF) Urine Squamous Epithelial Cells Few /LPF (NONE-FEW) Urine Bacteria Negative /HPF (NONE-FEW) Urine Mucus None /HPF (NONE-FEW) Urinalysis Test 12/25/18 11:45 Urine Color Colorless Urine Clarity Clear Urine pH 8.0 pH (4.8-9.5) Urine Specific [place] 1.004 Urine Protein Negative mg/dL (NEGATIVE) Urine Glucose (UA) Negative mg/dL (NEGATIVE) Urine Ketones Negative mg/dL (NEGATIVE) Urine Blood Negative (NEGATIVE) Urine Nitrite Negative (NEGATIVE) Urine Bilirubin Negative (NEGATIVE) Urine Urobilinogen Negative mg/dL (0.2-1.9) Urine Leukocyte Esterase Negative (NEGATIVE) Urine RBC <1 /HPF (0-2/HPF) Urine WBC <1 /HPF (0-5/HPF) Urine Squamous Epithelial Cells Few /LPF (NONE-FEW) Urine Bacteria Negative /HPF (NONE-FEW) Urine Mucus None /HPF (NONE-FEW) EKG/Imaging Imaging [place]AC[place] [facility] [place]IENT NAME: Rachel TERRY: 1965 MR: [id number] V: [id number] EXAM DATE: ORDERING PHYSICIAN: ESTEBAN ALDANA TECHNOLOGIST: [place] [facility] [place]: Rachel Huang : 1965 Visit/Account:[id number] Date of Sevice: 12/25/2018 CT ABDOMEN PELVIS W/O CON HISTORY: Left-sided flank pain since last night, on transplant list for kidneys TECHNIQUE: Axial images acquired through the abdomen/pelvis. Coronal and sagittal reformatting also performed. No IV contrast administered.Dose Lowering Technique One of the following dose optimization techniques was utilized in the performance of this exam: Automated exposure control; adjustment of the mA and/or kV according to the patient's size; or use of an iterative reconstruction technique. Specific details can be referenced in the facility's radiology CT exam operational policy. COMPARISON: December 06, 2018 FINDINGS: Visualized lung bases: Negative. Hepatobiliary: Cholecystectomy Spleen: Negative. Adrenals: Negative. Pancreas: Negative. Kidneys ureters and bladder: Right kidney is severely atrophic appearing similar to the prior study. There is a 2 mm nonobstructing calculus mid to upper pole calyx of the left kidney in addition to a punctate 1 mm calculus lower pole calyx. There is a marked lobular contour to the left kidney that appears similar to the prior study Genitalia: Hysterectomy GI: There is thickening of the distal esophagus similar to the prior study Vessels/spaces/nodes: Negative. Bones/soft tissues: Postsurgical changes at L4-5 appear similar to the prior study. There are spondylotic changes in the visualized thoracolumbar spine Additional findings: None pertinent. IMPRESSION: There is a 2 mm nonobstructing calculus mid to upper pole calyx of the left kidney in addition to a punctate 1 mm nonobstructing calculus lower pole calyx on the left. No evidence of hydronephrosis or hydroureter. There is a lobular contour to the left kidney that appears similar to the prior study Severe atrophy of the right kidney appears similar to the prior study Thickening of the distal esophagus appears similar to the prior study Additional chronic findings as described Report Dictated By: Laura Olson MD at 12/25/2018 11:35 AM Report E-Signed By: Laura Olson MD at 12/25/2018 11:43 AM SINN:FLORIDALMAVMikaela ED Course/Re-evaluation ED Course CT scan shows no obstructive renal disease. Creatinine 4.8 which is slightly elevated than usual but not trending upward. Pain is controlled. We'll discharge home with encouragement for pushing hydration and fluids. Decision to Disposition Date: Dec 25, 2018 Decision to Disposition Time: 12:03 Depart Departure Latest Vital Signs Vital Signs Date Time Temp Pulse Resp B/P (MAP) Pulse Ox O2 Delivery O2 Flow Rate FiO2 12/25/18 11:58 77 96 12/25/18 09:46 98.5 151/88 Room Air Impression: Primary Impression: Chronic renal failure, stage 4 (severe) Condition: Improved Disposition: HOME OR SELF-CARE Referrals: BETSEY PIERSON MD (PCP) Patient Instructions: Renal Failure Diet (GEN) SETEBAN ALDAAN MD Dec 25, 2018 11:57
== END 2018-12-25 12:33 | disposition home or self-care (01) ==
LOC: ER 09:37
DX: N18.4 Chronic kidney disease, stage 4 (severe) (principal)
CPT/HCPCS: 74176; 81001; 83690; 84703; 85025; 86677; 96360; 96361; 99284; J7040; 82040; 82247; 82310; 82374; 82435; 82565; 82947; 84075; 84132; 84155; 84295; 84450; 84460; 84520

== ENCOUNTER → 2018-12-31 | Outpatient (CLI) | payer MEDICARE, MEDICAID ==
[2018-05-20 09:30] VITALS: BMI 25.7
--- NOTE | 2018-12-31 12:17 | RADIOLOGY IMAGING REPORT ---
FACILITY: PATIENT NAME: Rachel Huang : 1965 MR: [id number] V: [id number] EXAM DATE: ORDERING PHYSICIAN: PÉREZ RAMSEY TECHNOLOGIST: Location: [facility] Patient: Rachel Huang : 1965 Visit/Account:[id number] Date of Sevice: 12/31/2018 US ABD LIMITED ULTRASOUND HISTORY: Incomplete bladder emptying COMPARISON: June 19, 2017 FINDINGS: Multiple sonographic images of the bladder were submitted. Bilateral ureteral jets are present. The bladder prevoid volume was 54 mL. The post void residual 4.6 mL. IMPRESSION: Bilateral ureteral jets are present Bladder prevoid volume 54 mL and postvoid residual 4.6 mL. Report Dictated By: Laura Olson MD at 12/31/2018 12:10 PM Report E-Signed By: Laura Olson MD at 12/31/2018 12:12 PM WSN:[email or web address]
== END ==
LOC: US 10:00
DX: R39.14 Feeling of incomplete bladder emptying (principal)
CPT/HCPCS: 76705

== ENCOUNTER → 2019-01-06 | Outpatient (CLI) | payer MEDICARE, MEDICAID ==
[2018-05-20 09:30] VITALS: BMI 25.7
[~2019-01-06] MED LIST changes: +CEPH250C37 PO
[2019-01-06 14:22] LABS: PLATELET COUNT, AUTOMATED 218 K/uL (150-450)
--- NOTE | 2019-01-06 16:13 | EKG ---
FACILITY: [facility] PATIENT NAME: GREGORIO LINDSEY : [id number] MR: [id number] V: [id number] EXAM DATE: ORDERING PHYSICIAN: BETSEY PIERSON TECHNOLOGIST: IVAN Test Reason : PRE-OP Blood Pressure : / mmHG Vent. Rate : 066 BPM Atrial Rate : 066 BPM P-R Int : 148 ms QRS Dur : 096 ms QT Int : 404 ms P-R-T Axes : 048 029 -10 degrees QTc Int : 423 ms Normal sinus rhythm T inversion consistent with inferior ischemia vs normal variant When compared with ECG of 31-OCT-2018 09:35, Relatively unchanged Confirmed by JACINTA RECINOS ([id number]) on 01/06/2019 10:10:06 PM Referred By: QUINTON Confirmed By:JACINTA RECINOS
== END ==
LOC: LAB 13:34
PROVIDERS: ATTEND Internal Medicine
DX: N18.4 Chronic kidney disease, stage 4 (severe) (principal); R10.9 Unspecified abdominal pain
CPT/HCPCS: 36415; 82040; 82247; 82310; 82374; 82435; 82565; 82947; 84075; 84132; 84155; 84295; 84450; 84460; 84520; 85025

== ENCOUNTER 2019-01-08 00:27 | Day surgery (SDC) | payer MEDICARE, MEDICAID ==
[2018-05-20 09:30] VITALS: Ht 144.8 cm; Wt 68.6 kg
[2019-01-08] VITALS (8 sets, daily range): BP systolic 95–155; BP diastolic 70–90
[~2019-01-08] VITALS: Ht 144.8 cm; Wt 68.6 kg
[~2019-01-08 00:27] MED LIST changes: -CEPH250C37 PO
[2019-01-08] MEDS ORDERED: MIDAZOLAM 2 MG/2 ML VIAL IVP PRN (09:35)
[2019-01-08] MEDS ORDERED: cefTRIAXone(*) 1 GM VIAL 1 GM in NS(*) 0.9% 100 ML ADDVANT BAG 100 ML IVPB ONE (09:35)
[2019-01-08] MEDS ORDERED: NORMOSOL R SOLN(*) 1000 ML BAG 1,000 ML IV PRN (09:35)
[2019-01-08] MEDS ORDERED: LIDOCAINE/SOD BICARB 8.4% SYR ID ONE (09:35)
[2019-01-08] MEDS ORDERED: NS(*) 0.9% 500 ML BAG 500 ML IV PRN (10:40)
[2019-01-08] MEDS ORDERED: FAMOTIDINE 20 MG TAB PO ONE (10:40)
[2019-01-08] MEDS ORDERED: PROPRANOLOL HCL LA 80 MG CAPCR PO ONE (11:10)
[2019-01-08] MEDS ORDERED: fentaNYL CITR 100 MCG/2 ML AMP ONE ×2 (12:48→13:59)
[2019-01-08] MEDS ORDERED: HYDROCORTISONE 1% CR 28.35 GM TP ONE (12:54)
[2019-01-08] MEDS ORDERED: PROPOFOL EMUL(*) 10MG/ML 20 ML 20 ML ONE (13:13)
[2019-01-08] MEDS ORDERED: PHENYLEPHRINE 10 MG/1 ML VIAL ONE (13:13)
[2019-01-08] MEDS ORDERED: PHEN200T32 PO (14:11)
[2019-01-08] MEDS ORDERED: CEPH250C37 PO (14:12)
--- NOTE | 2019-01-08 14:21 | OPERATIVE REPORT 1 ---
EVENT DATE: January 08, 2019 SURGEON: Artemio Neumann MD ANESTHESIOLOGIST: Artemio Gong MD ANESTHESIA: General. PREOPERATIVE DIAGNOSIS 1. Probable irritable bladder syndrome. 2. Chronic urgency and frequency of urination. 3. Severe tenesmus. 4. Urinary incontinence, chronic. POSTOPERATIVE DIAGNOSIS 1. Probable irritable bladder syndrome. 2. Chronic urgency and frequency of urination. 3. Severe tenesmus. 4. Urinary incontinence, chronic. PROCEDURE PERFORMED 1. Cystourethroscopy. 2. Hydrodistention of the bladder. DESCRIPTION OF PROCEDURE Under general anesthetic, the patient was prepped and draped in the extended lithotomy position. The urethra calibrated approximately 32-Hungarian. The 21-Panendoscope admitted through the urethra into the bladder. The bladder showed 3 to 4+ trabeculation. The trigone ureteral orifices were normal. No other demonstrable lesions. Patient had no evidence of acute or chronic cystitis. Urine was obtained at the beginning of the procedure after introduction of the scope for urinalysis and culture and sensitivity. The bladder was filled under gravity flow and was measured to a total of 700 cc. At that amount of filling, the patient had leakage around the 21-Panendoscope. The #24 James was placed. The bladder was refilled under gravity flow and then was dilated to approximately a total of 800 cc as measured. On drainage of the bladder, on the initial drainage, there was a small amount of gross hematuria. After hydrodistention of the bladder, there was marked gross hematuria. On reinspection of the bladder, there were no demonstrable tears. She had diffuse glomerulation, mostly localized to the dome of the bladder. Bladder was drained. Hydrocortisone was placed per urethra. The urethral James was left in place to be removed in the recovery room. Patient tolerated the procedure satisfactorily and returned to the recovery room in satisfactory condition. This is a 53-year old white female complaining of episodic severe tenesmus and lower abdominal pain. Patient is known to have chronic irritable bladder syndrome. She had recent bladder scan. She was able to drain her bladder completely. Patient stated she was having episodes where she felt a strong need to urinate but was unable to void. Following that, drinking of fluids would build up urine in her bladder and she could void urine. Options were discussed with the patient pre-treatment and she was agreeable to evaluation and treatment. Please see operative note for details. Patient will be discharged home on flex 250 mg b.i.d. #30. Plan followup in the office in approximately two weeks. She is to call for an appointment. Patient is to continue her usual medications. ANA
--- NOTE | 2019-01-08 14:45 | NUR ---
1445- SBAR REPORT FROM Brian CRESPO RN, PT IN SF POSITION, TOLERATING CHEESE AND CRACKERS, VSS, PT ON 1LPM VIA NC 1510- PT PLACED ON RA
[2019-01-08] MEDS ORDERED: PHENAZOPYRIDINE 100 MG TAB PO ONE (15:15)
--- NOTE | 2019-01-08 15:26 | NUR ---
1526- PYRIDIUM GIVEN PO FOR URETERAL DISCOMFORT, SEE EMAR FOR DETAILS
--- NOTE | 2019-01-08 15:35 | NUR ---
1535- REVIEWED D/C INSTRUCTIONS WITH PT AND , NO QUESTIONS OR CONCERNS
--- NOTE | 2019-01-08 16:30 | NUR ---
1557- SL IV 1558- ORTHOSTATIC VSS 1600- PT AMBULATORY TO RESTROOM, PT HAS STEADY BUT SLOW GAIT 1604- PT BACK FROM RESTROOM, REPORTS BURNING WITH URINATION AND SCANT BLOOD NOTED DURING VOID, VOID X 1 WITHOUT ISSUE 1607- PT DRESSED 1612- D/C IV WITH CATH INTACT, PRESSURE DRESSING APPLIED WITH GAUZE AND COBAND 1615- PT WHEEL CHAIRED TO ER ENTRANCE, PT INTO VEHICLE WITH OUT ISSUES, ACCOMPANIED BY CLARIBEL AND LIZBETH CM
== END 2019-01-08 14:45 | disposition home or self-care (01) ==
LOC: OR 00:27
DX: R39.15 Urgency of urination (principal); R35.0 Frequency of micturition; R19.8 Other specified symptoms and signs involving the digestive system and abdomen; R32 Unspecified urinary incontinence
CPT/HCPCS: 52000; 81001; 87088; A4338; A9270; C1758; J0696; J2370; J2704; J3010; J7050

== ENCOUNTER 2019-01-10 08:54 | Emergency (ER) | payer MEDICARE, MEDICAID ==
[2018-05-20 09:30] VITALS: Wt 68.9 kg
[~2019-01-10 08:54] MED LIST changes: +CEPH250C37 PO
--- NOTE | 2019-01-10 08:56 | ER Report ---
History and Physical Time Seen By MD: 08:56 HPI/ROS CHIEF COMPLAINT: Abdominal and back pain HISTORY OF PRESENT ILLNESS: Patient is a 53-year-old female here with complaints of worsening postoperative abdominal pain, now with radiation to the back. Patient complains of burning with urination, chills, nausea. Patient is afebrile, hemodynamically stable at time of evaluation. Patient reportedly had a urologic procedure with Dr. Neumann on the . Patient is chronically treated with Keflex REVIEW OF SYSTEMS: Constitutional: No fever, + chills. Eyes: No discharge. ENT: No sore throat. Cardiovascular: No chest pain, no palpitations. Respiratory: No cough, no shortness of breath. Gastrointestinal: + cramping abdominal pain, no vomiting, + nausea. Genitourinary: + burning with urination Musculoskeletal: + lower back pain. Skin: No rashes. Neurological: No headache. Allergies: Coded Allergies: promethazine (Verified Allergy, Severe, RESTLESS LEGS, 01/10/19) sumatriptan (Verified Allergy, Intermediate, HIVES, SOB, 01/10/19) only with nose spray, she can take oral sumatriptan NSAIDS (Non-Steroidal Anti-Inflamma (Verified Allergy, Mild, NAUSEA, HEADACHES, 01/10/19) orphenadrine (Verified Allergy, Unknown, 01/10/19) keeps her awake oxycodone (Verified Allergy, Unknown, 01/10/19) aspirin (Verified Adverse Reaction, Mild, NAUSEA, 01/10/19) furosemide (Verified Adverse Reaction, Unknown, 01/10/19) too hard on kidneys Uncoded Allergies: COBAN (Allergy, Mild, rash, 04/03/13) Home Meds Active Scripts Levothyroxine Sodium (LEVOTHYROXINE SODIUM) 0.112 Mg Tab, 0.112 MG PO QDAY for 90 Days, #30 TAB 4 Refills Prov:BETSEY PIERSON MD 01/01/19 Hydrocodone Bit/Acetaminophen (HYDROCODON-ACETAMINOPHEN 5-325) 1 Each Tablet, 1 EACH PO BID PRN for pain, #60 TAB Prov:BETSEY PIERSON MD 12/17/18 Ondansetron 4 Mg Odt (ONDANSETRON 4 MG ODT) 4 Mg Tab.rapdis, 4 MG PO ONCE, #30 TAB Prov:PANKAJ RODRIGUEZ DO 12/06/18 Omeprazole (OMEPRAZOLE) 20 Mg Capsule.dr, 1 CAP PO QODAY, #30 CAP 6 Refills Prov:BETSEY PIERSON MD 11/14/18 Amlodipine Besylate (AMLODIPINE BESYLATE) 2.5 Mg Tablet, 2.5 MG PO QDAY, #90 TAB Prov:BETSEY PIERSON MD 11/12/18 Topiramate (TOPIRAMATE) 50 Mg Tablet, 50 MG PO QDAY, #30 TAB 4 Refills Prov:BETSEY PIERSON MD 11/05/18 Risperidone (RISPERIDONE) 0.5 Mg Tablet, 0.5 MG PO QHS, #30 TAB 4 Refills Prov:BETSEY PIERSON MD 11/05/18 Sertraline Hcl (SERTRALINE HCL) 100 Mg Tablet, 1.5 TAB PO QDAY, #135 TAB 1 Refill Prov:BETSEY PIERSON MD 08/22/18 Simvastatin (SIMVASTATIN) 10 Mg Tablet, 1 TAB PO QHS, #90 TAB 4 Refills Prov:BETSEY PIERSON MD 04/10/18 Propranolol Hcl (INDERAL LA) 80 Mg Cap.sa.24h, 1 CAP PO QDAY, #90 CAP 4 Refills Prov:BETSEY PIERSON MD 02/05/18 Febuxostat (ULORIC) 40 Mg Tablet, 1 TAB PO QDAY, #90 TAB 1 Refill Prov:BETSEY PIERSON MD 07/27/16 Reported Medications Cephalexin (KEFLEX) 250 Mg Capsule, 250 MG PO BID, #30 CAP 01/08/19 Phenazopyridine Hcl (PHENAZOPYRIDINE HCL) 200 Mg Tablet, 200 MG PO TID, #10 TAB 01/08/19 Docusate Calcium (SURFAK) 240 Mg Capsule, 240 MG PO PRN for constipation, CAPSULE 05/20/18 Melatonin/Pyridoxine HCl (B6) (Melatonin 3 mg Tablet) 1 Each Tablet, 1 TAB QHS, TAB 10/23/17 Sodium Bicarbonate (SODIUM BICARBONATE) 650 Mg Tablet, 2 TAB PO BID 07/26/16 Imipramine Hcl (Tofranil) 25 Mg Tab, 1 TAB PO DAILY, 0 Refills 09/26/12 Hx Smoking: Yes (SMOKED AGE 16 TO UNTIL 2000, 1/2 PPD) Smoking Status: Former Smoker Exposure to Second Hand Smoke?: No Hx Substance Use Disorder: No Hx Alcohol Use: Yes Constitutional Vital Sign - Last 24 Hours 01/10/19 01/10/19 01/10/19 01/10/19 09:01 09:02 10:09 10:30 Temp 97.8 Pulse 87 84 Resp 20 B/P (MAP) 152/94 152/94 (113) 128/79 (95) 131/86 (101) Pulse Ox 96 93 O2 Delivery Room Air Physical Exam General Appearance: The patient is alert, has no immediate need for airway protection and no signs of toxicity. NAD Eyes: Pupils equal and round no pallor or injection. ENT, Mouth: Mucous membranes are moist. Respiratory: There are no retractions, lungs are clear to auscultation. Cardiovascular: Regular rate and rhythm. Gastrointestinal: + mild tenderness on palpation of lower abdomen, nondistended, no guarding Neurological: No focal neurological deficits Skin: Warm and dry, no rashes. Musculoskeletal: Neck is supple non tender. Extremities are nontender, nonswollen and have full range of motion. DIFFERENTIAL DIAGNOSIS: After history and physical exam differential diagnosis was considered for abdominal pain including but not limited to appendicitis, cholecystitis, gastritis and urinary tract infection. Medical Decision Making Data Points Result Diagram: 01/10/1918 01/10/1918 Laboratory Hematology Test 01/10/19 08:57 01/10/19 09:18 Urine Color Yellow Urine Clarity Clear Urine pH 8.0 pH (4.8-9.5) Urine Specific Blair 1.010 Urine Protein Negative mg/dL (NEGATIVE) Urine Glucose (UA) Negative mg/dL (NEGATIVE) Urine Ketones Negative mg/dL (NEGATIVE) Urine Blood Small (NEGATIVE) Urine Nitrite Negative (NEGATIVE) Urine Bilirubin Negative (NEGATIVE) Urine Urobilinogen Negative mg/dL (0.2-1.9) Urine Leukocyte Esterase Negative (NEGATIVE) Urine RBC 14 /HPF (0-2/HPF) Urine WBC 2 /HPF (0-5/HPF) Urine Squamous Epithelial Cells Many /LPF (</=FEW) Urine Bacteria Few /HPF (NONE-FEW) Urine Mucus None /HPF (NONE-FEW) Red Blood Count 3.67 M/uL (4.17-5.56) Mean Corpuscular Volume 93.6 fL (80.0-96.0) Mean Corpuscular Hemoglobin 32.4 pg (26.0-33.0) Mean Corpuscular Hemoglobin Concent 34.6 g/dL (32.0-36.0) Red Cell Distribution Width 13.1 % (11.5-14.5) Mean Platelet Volume 6.6 fL (7.2-11.1) Neutrophils (%) (Auto) 63.2 % (39.4-72.5) Lymphocytes (%) (Auto) 21.8 % (17.6-49.6) Monocytes (%) (Auto) 8.7 % (4.1-12.4) Eosinophils (%) (Auto) 5.4 % (0.4-6.7) Basophils (%) (Auto) 0.9 % (0.3-1.4) Nucleated RBC Relative Count (auto) 0.0 /100WBC Neutrophils # (Auto) 3.2 K/uL (2.0-7.4) Lymphocytes # (Auto) 1.1 K/uL (1.3-3.6) Monocytes # (Auto) 0.4 K/uL (0.3-1.0) Eosinophils # (Auto) 0.3 K/uL (0.0-0.5) Basophils # (Auto) 0.0 K/uL (0.0-0.1) Nucleated RBC Absolute Count (auto) 0.00 K/uL Sodium Level 140 mmol/L (137-145) Potassium Level 4.2 mmol/L (3.5-5.0) Chloride Level 107 mmol/L (98-107) Carbon Dioxide Level 26 mmol/L (22-31) Blood Urea Nitrogen 30 mg/dl (7-18) Creatinine 4.40 mg/dl (0.52-1.04) Glomerular Filtration Rate Calc 10.5 Random Glucose 93 mg/dl (75-110) Lactate 1.4 mmol/L (0.7-2.1) Calcium Level 9.9 mg/dl (8.4-10.2) Total Bilirubin 0.4 mg/dl (0.2-1.3) Aspartate Amino Transf (AST/SGOT) 13 U/L (0-35) Alanine Aminotransferase (ALT/SGPT) 24 U/L (0-56) Alkaline Phosphatase 50 U/L (0-126) Total Protein 6.9 g/dl (6.3-8.2) Albumin 4.2 g/dl (3.5-5.0) Lipase 441 U/L (23-300) Chemistry Test 01/10/19 08:57 01/10/19 09:18 Urine Color Yellow Urine Clarity Clear Urine pH 8.0 pH (4.8-9.5) Urine Specific Blair 1.010 Urine Protein Negative mg/dL (NEGATIVE) Urine Glucose (UA) Negative mg/dL (NEGATIVE) Urine Ketones Negative mg/dL (NEGATIVE) Urine Blood Small (NEGATIVE) Urine Nitrite Negative (NEGATIVE) Urine Bilirubin Negative (NEGATIVE) Urine Urobilinogen Negative mg/dL (0.2-1.9) Urine Leukocyte Esterase Negative (NEGATIVE) Urine RBC 14 /HPF (0-2/HPF) Urine WBC 2 /HPF (0-5/HPF) Urine Squamous Epithelial Cells Many /LPF (</=FEW) Urine Bacteria Few /HPF (NONE-FEW) Urine Mucus None /HPF (NONE-FEW) White Blood Count 5.1 k/uL (4.5-11.0) Red Blood Count 3.67 M/uL (4.17-5.56) Hemoglobin 11.9 g/dL (12.0-16.0) Hematocrit 34.4 % (34.0-47.0) Mean Corpuscular Volume 93.6 fL (80.0-96.0) Mean Corpuscular Hemoglobin 32.4 pg (26.0-33.0) Mean Corpuscular Hemoglobin Concent 34.6 g/dL (32.0-36.0) Red Cell Distribution Width 13.1 % (11.5-14.5) Platelet Count 208 K/uL (150-450) Mean Platelet Volume 6.6 fL (7.2-11.1) Neutrophils (%) (Auto) 63.2 % (39.4-72.5) Lymphocytes (%) (Auto) 21.8 % (17.6-49.6) Monocytes (%) (Auto) 8.7 % (4.1-12.4) Eosinophils (%) (Auto) 5.4 % (0.4-6.7) Basophils (%) (Auto) 0.9 % (0.3-1.4) Nucleated RBC Relative Count (auto) 0.0 /100WBC Neutrophils # (Auto) 3.2 K/uL (2.0-7.4) Lymphocytes # (Auto) 1.1 K/uL (1.3-3.6) Monocytes # (Auto) 0.4 K/uL (0.3-1.0) Eosinophils # (Auto) 0.3 K/uL (0.0-0.5) Basophils # (Auto) 0.0 K/uL (0.0-0.1) Nucleated RBC Absolute Count (auto) 0.00 K/uL Glomerular Filtration Rate Calc 10.5 Lactate 1.4 mmol/L (0.7-2.1) Calcium Level 9.9 mg/dl (8.4-10.2) Total Bilirubin 0.4 mg/dl (0.2-1.3) Aspartate Amino Transf (AST/SGOT) 13 U/L (0-35) Alanine Aminotransferase (ALT/SGPT) 24 U/L (0-56) Alkaline Phosphatase 50 U/L (0-126) Total Protein 6.9 g/dl (6.3-8.2) Albumin 4.2 g/dl (3.5-5.0) Lipase 441 U/L (23-300) Urinalysis Test 01/10/19 08:57 Urine Color Yellow Urine Clarity Clear Urine pH 8.0 pH (4.8-9.5) Urine Specific Blair 1.010 Urine Protein Negative mg/dL (NEGATIVE) Urine Glucose (UA) Negative mg/dL (NEGATIVE) Urine Ketones Negative mg/dL (NEGATIVE) Urine Blood Small (NEGATIVE) Urine Nitrite Negative (NEGATIVE) Urine Bilirubin Negative (NEGATIVE) Urine Urobilinogen Negative mg/dL (0.2-1.9) Urine Leukocyte Esterase Negative (NEGATIVE) Urine RBC 14 /HPF (0-2/HPF) Urine WBC 2 /HPF (0-5/HPF) Urine Squamous Epithelial Cells Many /LPF (</=FEW) Urine Bacteria Few /HPF (NONE-FEW) Urine Mucus None /HPF (NONE-FEW) EKG/Imaging Imaging PATIENT NAME: Rachel Huang : 1965 MR: [id number] V: [id number] EXAM DATE: ORDERING PHYSICIAN: PANKAJ RODRIGUEZ TECHNOLOGIST: Location: [facility] Patient: Rachel Huang : 1965 Visit/Account:[id number] Date of Jeffrey: 01/10/2019 EXAMINATION: CT Abdomen and Pelvis Without Contrast 01/10/2019 9:02 AM HISTORY: abd pain post op TECHNIQUE: Spiral scan was through the abdomen and pelvis without contrast. One of the following dose optimization techniques was utilized in the performance of this exam: Automated exposure control; adjustment of the mA and/or kV according to the patient's size; or use of an iterative reconstruction technique. Specific details can be referenced in the facility's radiology CT exam operational policy. COMPARISON STUDIES: none. FINDINGS: Liver / biliary: Previous cholecystectomy. No acute finding. Pancreas: negative Spleen: negative Adrenal glands: negative Kidneys / retroperitoneum: Right kidney is markedly atrophic. Lobulated contours of the left kidney, unchanged. Punctate calcifications in the left kidney suggesting small stones again shown. No ureteral stone or dilatation.. Bubble of gas in the bladder. There is some haziness around the serosal margins of the bladder which is incompletely distended. No significant extraluminal fluid collection to indicate bladder leakage or rupture. Pelvic structures: Previous hysterectomy. Bowel / peritoneum / mesenteries: Hiatal hernia with potential thickening of the distal esophagus again shown. Vessels: Minimal atherosclerosis. Musculoskeletal / Body wall: No acute finding. Small fatty hernia along the umbilicus. Degenerative changes in the spine with subtle stable anterolisthesis at the fused L4-5 level. Lymph node assessment: negative Lower chest: negative IMPRESSION: 1. There is minimal haziness around the bladder and a small bubble of gas within the lumen which may all be postoperative change. No significant extraluminal gas or fluid collection indicate leakage or rupture. 2. No significant acute finding otherwise. Potential thickening of the distal esophagus associated with hiatal hernia. Is endoscopy clinically indicated? ED Course/Re-evaluation ED Course Patient is a 53-year-old female here status post bladder dilatation 3 days ago now with abdominal pain, back pain, mild nausea. Patient is hemodynamically stable at time of evaluation, afebrile. CT imaging of the abdomen and pelvis showed no acute intra-abdominal pathology. Labs were stable compared to recent prior labs. Kidney function remains diminished but is stable compared to prior. There was no leukocytosis, lactate was negative. Patient was given fluids, fentanyl. Return precautions provided. Close PCP follow-up recommended. Decision to Disposition Date: Jan 10, 2019 Decision to Disposition Time: 10:37 Depart Departure Latest Vital Signs Vital Signs Date Time Temp Pulse Resp B/P (MAP) Pulse Ox O2 Delivery O2 Flow Rate FiO2 01/10/19 10:30 84 131/86 (101) 93 01/10/19 09:01 97.8 20 Room Air Impression: Primary Impression: Abdominal pain Condition: Improved Disposition: HOME OR SELF-CARE Referrals: BETSEY PIERSON MD (PCP) Patient Instructions: Abdominal Pain (ED) Additional Instructions: Please drink plenty of water. Please follow-up with your family doctor in the next 24-48 hours. Please return immediately if you develop worsening pain, fevers, inability to keep down food or fluids. Please take your medications as prescribed. PANKAJ RODRIGUEZ DO Jan 10, 2019 08:56
[2019-01-10] MEDS ORDERED: NS(*) 0.9% 1000 ML BAG 1,000 ML IV ONE (09:02)
[2019-01-10] MEDS ORDERED: ONDANSETRON 4 MG/2 ML VIAL IVP ONE (09:05)
[2019-01-10] MEDS ORDERED: fentaNYL CITR 100 MCG/2 ML AMP IVP ONE (09:05)
[2019-01-10 09:36] LABS: PLATELET COUNT, AUTOMATED 208 K/uL (150-450)
--- NOTE | 2019-01-10 10:04 | RADIOLOGY IMAGING REPORT ---
[place] [facility] [place] : 1965 MR: [id number] V: [id number] EXAM DATE: ORDERING PHYSICIAN: APNKAJ RODRIGUEZ TECHNOLOGIST: Location: [facility] [place] Patient: Rachel Huang : 1965 Visit/Account:[id number] Date of Sevice: 01/10/2019 EXAMINATION: CT Abdomen and Pelvis Without Contrast 01/10/2019 9:02 AM HISTORY: abd pain post op TECHNIQUE: Spiral scan was through the abdomen and pelvis without contrast. One of the following dose optimization techniques was utilized in the performance of this exam: Autom ated exposure control; adjustment of the mA and/or kV according to the patient's size; or use of an i terative reconstruction technique. Specific details can be referenced in the facility's radiology C T exam operational policy. COMPARISON STUDIES: none. FINDINGS: Liver / biliary: Previous cholecystectomy. No acute finding. Pancreas: negative Spleen: negative Adrenal glands: negative Kidneys / retroperitoneum: Right kidney is markedly atrophic. Lobulated contours of the left kidney, unchanged. Punctate calcifications in the left kidney suggesting small stones again shown. No uretera l stone or dilatation.. Bubble of gas in the bladder. There is some haziness around the serosal ry ns of the bladder which is incompletely distended. No significant extraluminal fluid collection to in dicate bladder leakage or rupture. Pelvic structures: Previous hysterectomy. Bowel / peritoneum / mesenteries: Hiatal hernia with potential thickening of the distal esophagus aga in shown. Vessels: Minimal atherosclerosis. Musculoskeletal / Body wall: No acute finding. Small fatty hernia along the umbilicus. Degenerative c hanges in the spine with subtle stable anterolisthesis at the fused L4-5 level. Lymph node assessment: negative Lower chest: negative IMPRESSION: 1. There is minimal haziness around the bladder and a small bubble of gas within the lumen which may all be postoperative change. No significant extraluminal gas or fluid collection indicate leakage or rupture. 2. No significant acute finding otherwise. Potential thickening of the distal esophagus associated wi th hiatal hernia. Is endoscopy clinically indicated? Report Dictated By: Simeon Bauman MD at 01/10/2019 9:51 AM Report E-Signed By: Simeon Bauman MD at 01/10/2019 10:01 AM WSN:[id number]
[2019-01-10 10:30] VITALS: BP 131/86
== END 2019-01-10 10:40 | disposition home or self-care (01) ==
LOC: ER 08:57
DX: R10.30 Lower abdominal pain, unspecified (principal)
CPT/HCPCS: 74176; 81001; 83605; 83690; 85025; 87088; 96361; 96374; 96375; 99284; J2405; J3010; J7030; 82040; 82247; 82310; 82374; 82435; 82565; 82947; 84075; 84132; 84155; 84295; 84450; 84460; 84520

== ENCOUNTER 2019-01-13 02:51 | Emergency (ER) | payer MEDICARE, MEDICAID ==
[2018-05-20 09:30] VITALS: Wt 68.0 kg
[2019-01-13] MEDS ORDERED: ONDANSETRON 4 MG/2 ML VIAL IVP ONE (03:10)
[2019-01-13] MEDS ORDERED: NS(*) 0.9% 500 ML BAG 500 ML IV ONE (03:10)
[2019-01-13 03:45] LABS: PLATELET COUNT, AUTOMATED 222 K/uL (150-450)
--- NOTE | 2019-01-13 03:45 | ER Report ---
History and Physical Time Seen By MD: 03:00 Hx. of Stated Complaint: PATIENT HAVING VOMITING SINCE LAST NIGHT, AND THEN STARTED BACK UP THIS MORNING. PATIENT HAVING PAIN SINCE HER BLADDER SURGERY ON SATURDAY. PATIENT STATES SHARP PAIN IN LEFT LOWER QUADRANT WITH RADIATION TO LEFT BACK AND THEN ACROSS ABDOMEN. HPI/ROS CHIEF COMPLAINT: Vomiting HISTORY OF PRESENT ILLNESS: 53-year-old female is one week status post bladder dilation. She has had this in the past and requires it yearly. She states she has had ongoing abdominal pain since the dilation. She was seen here earlier this week and had a CT which was unremarkable. She has had nausea and now vomiting 2 days intermittently. Vomiting is primarily food contents and is not bilious or bloody. Patient is continuously nauseous. She is had loose stools but no diarrhea. She has had decreased urination and finds it difficulty to urinate. She has no new chest pain or shortness of breath. Her abdominal pain is not worse since her previous CT. It is left side and radiates left lateral as well as across the right side. REVIEW OF SYSTEMS: Constitutional: Pt had chills yesterday. Eyes: No discharge. ENT: No sore throat. Cardiovascular: No chest pain, no palpitations. Respiratory: No cough, no shortness of breath. Gastrointestinal: above Genitourinary: above Musculoskeletal: No back pain. Skin: No rashes. Neurological: No headache. Remainder of the 14 system rev: Yes Allergies: Coded Allergies: promethazine (Verified Allergy, Severe, RESTLESS LEGS, 01/13/19) sumatriptan (Verified Allergy, Intermediate, HIVES, SOB, 01/13/19) only with nose spray, she can take oral sumatriptan NSAIDS (Non-Steroidal Anti-Inflamma (Verified Allergy, Mild, NAUSEA, HEADACHES, 01/13/19) orphenadrine (Verified Allergy, Unknown, 01/13/19) keeps her awake oxycodone (Verified Allergy, Unknown, 01/13/19) aspirin (Verified Adverse Reaction, Mild, NAUSEA, 01/13/19) furosemide (Verified Adverse Reaction, Unknown, 01/13/19) too hard on kidneys Uncoded Allergies: COBAN (Allergy, Mild, rash, 04/03/13) Home Meds Active Scripts Levothyroxine Sodium (LEVOTHYROXINE SODIUM) 0.112 Mg Tab, 0.112 MG PO QDAY for 90 Days, #30 TAB 4 Refills Prov:BETSEY PIERSON MD 01/01/19 Hydrocodone Bit/Acetaminophen (HYDROCODON-ACETAMINOPHEN 5-325) 1 Each Tablet, 1 EACH PO BID PRN for pain, #60 TAB Prov:BETSEY PIERSON MD 12/17/18 Ondansetron 4 Mg Odt (ONDANSETRON 4 MG ODT) 4 Mg Tab.rapdis, 4 MG PO ONCE, #30 TAB Prov:PANKAJ RODRIGUEZ DO 12/06/18 Omeprazole (OMEPRAZOLE) 20 Mg Capsule.dr, 1 CAP PO QODAY, #30 CAP 6 Refills Prov:BETSEY PIERSON MD 11/14/18 Amlodipine Besylate (AMLODIPINE BESYLATE) 2.5 Mg Tablet, 2.5 MG PO QDAY, #90 TAB Prov:BETSEY PIERSON MD 11/12/18 Topiramate (TOPIRAMATE) 50 Mg Tablet, 50 MG PO QDAY, #30 TAB 4 Refills Prov:BETSEY PIERSON MD 11/05/18 Risperidone (RISPERIDONE) 0.5 Mg Tablet, 0.5 MG PO QHS, #30 TAB 4 Refills Prov:BETSEY PIERSON MD 11/05/18 Sertraline Hcl (SERTRALINE HCL) 100 Mg Tablet, 1.5 TAB PO QDAY, #135 TAB 1 Refill Prov:BETSEY PIERSON MD 08/22/18 Simvastatin (SIMVASTATIN) 10 Mg Tablet, 1 TAB PO QHS, #90 TAB 4 Refills Prov:BETSEY PIERSON MD 04/10/18 Propranolol Hcl (INDERAL LA) 80 Mg Cap.sa.24h, 1 CAP PO QDAY, #90 CAP 4 Refills Prov:BETSEY PIERSON MD 02/05/18 Febuxostat (ULORIC) 40 Mg Tablet, 1 TAB PO QDAY, #90 TAB 1 Refill Prov:BETSEY PIERSON MD 07/27/16 Reported Medications Cephalexin (KEFLEX) 250 Mg Capsule, 250 MG PO BID, #30 CAP 01/08/19 Phenazopyridine Hcl (PHENAZOPYRIDINE HCL) 200 Mg Tablet, 200 MG PO TID, #10 TAB 01/08/19 Docusate Calcium (SURFAK) 240 Mg Capsule, 240 MG PO PRN for constipation, CAPSULE 05/20/18 Melatonin/Pyridoxine HCl (B6) (Melatonin 3 mg Tablet) 1 Each Tablet, 1 TAB QHS, TAB 10/23/17 Sodium Bicarbonate (SODIUM BICARBONATE) 650 Mg Tablet, 2 TAB PO BID 07/26/16 Imipramine Hcl (Tofranil) 25 Mg Tab, 1 TAB PO DAILY, 0 Refills 09/26/12 Reviewed Nurses Notes: Yes Old Medical Records Reviewed: Yes Hx Smoking: Yes (SMOKED AGE 16 TO UNTIL 2000, 1/2 PPD) Smoking Status: Former Smoker Exposure to Second Hand Smoke?: No Hx Substance Use Disorder: No Hx Alcohol Use: Yes Constitutional Vital Sign - Last 24 Hours 01/13/19 01/13/19 01/13/19 01/13/19 02:55 02:57 03:00 03:06 Temp 97.8 Pulse 83 82 Resp 20 B/P (MAP) 151/103 151/103 (119) 137/82 (100) Pulse Ox 95 95 O2 Delivery Room Air 01/13/19 01/13/19 01/13/19 01/13/19 03:30 03:36 03:42 03:47 Pulse 77 77 77 B/P (MAP) 142/92 (109) Pulse Ox 92 91 01/13/19 01/13/19 01/13/19 01/13/19 04:00 04:02 04:22 04:30 Pulse 74 B/P (MAP) 133/85 (101) 150/111 (124) 141/88 (105) Pulse Ox 92 01/13/19 01/13/19 01/13/19 01/13/19 04:32 04:52 05:00 05:07 Pulse 78 82 78 B/P (MAP) 147/94 (111) Pulse Ox 93 90 Intake and Output 01/12/19 01/12/19 01/13/19 15:00 23:00 07:00 Intake Total 500 ml Balance 500 ml Physical Exam General Appearance: The patient is alert, has no immediate need for airway protection and no signs of toxicity. Eyes: Pupils equal and round no pallor or injection. ENT, Mouth: Mucous membranes are moist. Respiratory: There are no retractions, lungs are clear to auscultation. Cardiovascular: Regular rate and rhythm. Gastrointestinal: abdomen is ttp left lower quadrant and left lateral. No rebound, mild guarding. Nl bowel sounds. Neurological: alert, oriented Skin: Warm and dry, no rashes. MSK Extremities are nontender, nonswollen and have full range of motion. DIFFERENTIAL DIAGNOSIS: After history and physical exam differential diagnosis was considered for post op complication including hemorrhage, abscess, uti, dehydration, obstruction, or other emergent etiology Medical Decision Making Data Points Result Diagram: 01/13/19 0328 01/13/19 0328 Laboratory Hematology Test 01/13/19 03:18 01/13/19 03:28 Urine Color Yellow Urine Clarity Clear Urine pH 8.0 pH (4.8-9.5) Urine Specific [place] 1.011 Urine Protein 30 mg/dL (NEGATIVE) Urine Glucose (UA) Negative mg/dL (NEGATIVE) Urine Ketones Negative mg/dL (NEGATIVE) Urine Blood Negative (NEGATIVE) Urine Nitrite Negative (NEGATIVE) Urine Bilirubin Negative (NEGATIVE) Urine Urobilinogen Negative mg/dL (0.2-1.9) Urine Leukocyte Esterase Negative (NEGATIVE) Urine RBC 1 /HPF (0-2/HPF) Urine WBC <1 /HPF (0-5/HPF) Urine Squamous Epithelial Cells Many /LPF (</=FEW) Urine Bacteria Negative /HPF (NONE-FEW) Urine Mucus None /HPF (NONE-FEW) Red Blood Count 3.70 M/uL (4.17-5.56) Mean Corpuscular Volume 92.5 fL (80.0-96.0) Mean Corpuscular Hemoglobin 33.2 pg (26.0-33.0) Mean Corpuscular Hemoglobin Concent 35.9 g/dL (32.0-36.0) Red Cell Distribution Width 13.7 % (11.5-14.5) Mean Platelet Volume 6.7 fL (7.2-11.1) Neutrophils (%) (Auto) 56.6 % (39.4-72.5) Lymphocytes (%) (Auto) 25.8 % (17.6-49.6) Monocytes (%) (Auto) 9.2 % (4.1-12.4) Eosinophils (%) (Auto) 7.5 % (0.4-6.7) Basophils (%) (Auto) 0.9 % (0.3-1.4) Nucleated RBC Relative Count (auto) 0.1 /100WBC Neutrophils # (Auto) 3.6 K/uL (2.0-7.4) Lymphocytes # (Auto) 1.6 K/uL (1.3-3.6) Monocytes # (Auto) 0.6 K/uL (0.3-1.0) Eosinophils # (Auto) 0.5 K/uL (0.0-0.5) Basophils # (Auto) 0.1 K/uL (0.0-0.1) Nucleated RBC Absolute Count (auto) 0.00 K/uL Sodium Level 138 mmol/L (137-145) Potassium Level 3.7 mmol/L (3.5-5.0) Chloride Level 105 mmol/L (98-107) Carbon Dioxide Level 24 mmol/L (22-31) Blood Urea Nitrogen 28 mg/dl (7-18) Creatinine 4.10 mg/dl (0.52-1.04) Glomerular Filtration Rate Calc 11.4 Random Glucose 114 mg/dl (75-110) Calcium Level 10.2 mg/dl (8.4-10.2) Total Bilirubin 0.4 mg/dl (0.2-1.3) Aspartate Amino Transf (AST/SGOT) 15 U/L (0-35) Alanine Aminotransferase (ALT/SGPT) 21 U/L (0-56) Alkaline Phosphatase 58 U/L (0-126) Total Protein 7.7 g/dl (6.3-8.2) Albumin 4.6 g/dl (3.5-5.0) Chemistry Test 01/13/19 03:18 01/13/19 03:28 Urine Color Yellow Urine Clarity Clear Urine pH 8.0 pH (4.8-9.5) Urine Specific [place] 1.011 Urine Protein 30 mg/dL (NEGATIVE) Urine Glucose (UA) Negative mg/dL (NEGATIVE) Urine Ketones Negative mg/dL (NEGATIVE) Urine Blood Negative (NEGATIVE) Urine Nitrite Negative (NEGATIVE) Urine Bilirubin Negative (NEGATIVE) Urine Urobilinogen Negative mg/dL (0.2-1.9) Urine Leukocyte Esterase Negative (NEGATIVE) Urine RBC 1 /HPF (0-2/HPF) Urine WBC <1 /HPF (0-5/HPF) Urine Squamous Epithelial Cells Many /LPF (</=FEW) Urine Bacteria Negative /HPF (NONE-FEW) Urine Mucus None /HPF (NONE-FEW) White Blood Count 6.3 k/uL (4.5-11.0) Red Blood Count 3.70 M/uL (4.17-5.56) Hemoglobin 12.3 g/dL (12.0-16.0) Hematocrit 34.2 % (34.0-47.0) Mean Corpuscular Volume 92.5 fL (80.0-96.0) Mean Corpuscular Hemoglobin 33.2 pg (26.0-33.0) Mean Corpuscular Hemoglobin Concent 35.9 g/dL (32.0-36.0) Red Cell Distribution Width 13.7 % (11.5-14.5) Platelet Count 222 K/uL (150-450) Mean Platelet Volume 6.7 fL (7.2-11.1) Neutrophils (%) (Auto) 56.6 % (39.4-72.5) Lymphocytes (%) (Auto) 25.8 % (17.6-49.6) Monocytes (%) (Auto) 9.2 % (4.1-12.4) Eosinophils (%) (Auto) 7.5 % (0.4-6.7) Basophils (%) (Auto) 0.9 % (0.3-1.4) Nucleated RBC Relative Count (auto) 0.1 /100WBC Neutrophils # (Auto) 3.6 K/uL (2.0-7.4) Lymphocytes # (Auto) 1.6 K/uL (1.3-3.6) Monocytes # (Auto) 0.6 K/uL (0.3-1.0) Eosinophils # (Auto) 0.5 K/uL (0.0-0.5) Basophils # (Auto) 0.1 K/uL (0.0-0.1) Nucleated RBC Absolute Count (auto) 0.00 K/uL Glomerular Filtration Rate Calc 11.4 Calcium Level 10.2 mg/dl (8.4-10.2) Total Bilirubin 0.4 mg/dl (0.2-1.3) Aspartate Amino Transf (AST/SGOT) 15 U/L (0-35) Alanine Aminotransferase (ALT/SGPT) 21 U/L (0-56) Alkaline Phosphatase 58 U/L (0-126) Total Protein 7.7 g/dl (6.3-8.2) Albumin 4.6 g/dl (3.5-5.0) Urinalysis Test 01/13/19 03:18 Urine Color Yellow Urine Clarity Clear Urine pH 8.0 pH (4.8-9.5) Urine Specific [place] 1.011 Urine Protein 30 mg/dL (NEGATIVE) Urine Glucose (UA) Negative mg/dL (NEGATIVE) Urine Ketones Negative mg/dL (NEGATIVE) Urine Blood Negative (NEGATIVE) Urine Nitrite Negative (NEGATIVE) Urine Bilirubin Negative (NEGATIVE) Urine Urobilinogen Negative mg/dL (0.2-1.9) Urine Leukocyte Esterase Negative (NEGATIVE) Urine RBC 1 /HPF (0-2/HPF) Urine WBC <1 /HPF (0-5/HPF) Urine Squamous Epithelial Cells Many /LPF (</=FEW) Urine Bacteria Negative /HPF (NONE-FEW) Urine Mucus None /HPF (NONE-FEW) ED Course/Re-evaluation ED Course 53-year-old female presents with pain that has been ongoing since her recent bladder dilation procedure, and vomiting that been going on 2 days. Pain is left abdomen and radiates to left side. After initial evaluation, patient is minimally improved. I reviewed recent CT which showed 2 potential causes, one being bladder haziness and air in the bladder that I am concerned could be an early infection or complication of the procedure, and the other being apparent inflammation of the distal esophagus and hiatal hernia which, if worse and can be causing worsening vomiting. Therefore, despite the fact the patient has had multiple CTs in the past and I am concerned about radiation exposure, I CT'd to make sure that there are not other complicating factors. Today CT is remarkable only for a possible kidney stone in the left distal ureter. This would explain patient's symptoms and findings on exam, however she does not have blood in urine. Cannot definitively state that this is why she has some her symptoms tonight, however will continue to manage supportively. Patient does have follow- up urologist today and can further discuss findings and reevaluate. She understands strict return precautions. Decision to Disposition Date: Jan 13, 2019 Decision to Disposition Time: 05:12 Depart Departure Latest Vital Signs Vital Signs Date Time Temp Pulse Resp B/P (MAP) Pulse Ox O2 Delivery O2 Flow Rate FiO2 01/13/19 05:07 78 01/13/19 05:00 147/94 (111) 01/13/19 04:52 90 01/13/19 02:55 97.8 20 Room Air Impression: Primary Impression: Abdominal pain Additional Impressions: Vomiting Ureterolithiasis Condition: Improved Disposition: HOME OR SELF-CARE Referrals: BETSEY PIERSON MD (PCP) 1 Day Patient Instructions: Abdominal Pain (ED), Acute Nausea and Vomiting (ED), Kidney Stones (ED) Additional Instructions: As we discussed, a small kidney stone may be that source of year symptoms, as I do not see any other clear cause on the CT. However, it is possible that and other processes developing. Please don't hesitate to return if you have any concerns. Please follow-up with your urologist as scheduled today. Problem Qualifiers Primary Impression: Abdominal pain Abdominal location: left lower quadrant Qualified Codes: R10.32 - Left lower quadrant pain Additional Impressions: Vomiting Vomiting type: unspecified Vomiting Intractability: non-intractable Nausea presence: with nausea Qualified Codes: R11.2 - Nausea with vomiting, unspecified ESTEBAN BOATENG MD Jan 13, 2019 03:45
[2019-01-13] MEDS ORDERED: MORPHINE 4 MG/ML SDV IVP ONE (03:55)
[2019-01-13 05:00] VITALS: BP 147/94
--- NOTE | 2019-01-13 05:04 | RADIOLOGY IMAGING REPORT ---
FACILITY: [facility] - [place] PATIENT NAME: Rachel Huang : 1965 MR: [id number] V: [id number] EXAM DATE: [id number] ORDERING PHYSICIAN: ESTEBAN BOATENG TECHNOLOGIST: [place] [facility] [place] : 1965 Visit/Account:[id number] Date of Sevice: 01/13/2019 CT of the abdomen and pelvis without contrast: Indication: Left-sided abdominal pain. History of bladder dilatation. Technique: Helical CT was performed through the abdomen and pelvis without contrast. Multiplanar rec onstructions are reviewed. One of the following dose optimization techniques was utilized in the performance of this exam: Autom ated exposure control; adjustment of the mA and/or kV according to the patient's size; or use of an i terative reconstruction technique. Specific details can be referenced in the facility's radiology CT exam operational policy. Comparison: 01/10/2019 Lower lung reina: No parenchymal or pleural abnormality is identified. Liver: Normal in size, shape, and density. Gallbladder/biliary tree: There are surgical clips related to prior cholecystectomy. The bile ducts a re not dilated. Pancreas: Normal in size, shape, and density. Spleen: Normal in size, shape, and density. Adrenal glands: Within normal limits. Kidneys/urinary bladder: There is chronic marked atrophy of the right kidney. The left kidney appears unchanged. There appear to be multiple areas of parenchymal scarring. Tiny in trarenal calcifications appear unchanged. There may be a tiny nonobstructing calculus in the distal left ureter. The bladder is not distended. The bladder lumen appears homogeneous and unremarkable. Intestinal structures: Unremarkable, as visualized. There are no signs of obstruction or focal inflam matory changes. Pelvis: The uterus is absent. There are no signs of soft tissue mass or fluid in the pelvis. Aorta and vascular structures: Within normal limits. Ascites or fluid collections: None seen. Skeletal structures: There are chronic degenerative changes in the spine. No acute skeletal is identi fied. Impression: There may be a tiny nonobstructing calculus in the distal left ureter. The bladder appear s unremarkable. Report Dictated By: Theo Watts MD at 01/13/2019 4:37 AM Report E-Signed By: Theo Watts MD at 01/13/2019 5:01 AM WSN:[id number]
[2019-01-13] MEDS ORDERED: ONDANSETRON 4 MG ODT TH SL ONE (05:15)
== END 2019-01-13 05:23 | disposition home or self-care (01) ==
LOC: ER 03:09
DX: N20.1 Calculus of ureter (principal); R10.32 Left lower quadrant pain; R11.2 Nausea with vomiting, unspecified
CPT/HCPCS: 74176; 81001; 85025; 96361; 96374; 96375; 99284; J2270; J2405; J7040; Q0162; 82040; 82247; 82310; 82374; 82435; 82565; 82947; 84075; 84132; 84155; 84295; 84450; 84460; 84520; S0119

== ENCOUNTER → 2019-01-16 | Outpatient (CLI) | payer MEDICARE, MEDICAID ==
[2018-05-20 09:30] VITALS: BMI 25.7
[2019-01-16 13:01] LABS: PLATELET COUNT, AUTOMATED 203 K/uL (150-450)
== END ==
LOC: LAB 12:43
PROVIDERS: ATTEND Internal Medicine Nephrology
DX: I12.9 Hypertensive chronic kidney disease with stage 1 through stage 4 chronic kidney disease, or unspecified chronic kidney disease (principal); N18.4 Chronic kidney disease, stage 4 (severe); R80.1 Persistent proteinuria, unspecified; N25.81 Secondary hyperparathyroidism of renal origin
CPT/HCPCS: 36415; 82040; 82310; 82374; 82435; 82565; 82570; 82728; 82947; 83540; 83550; 84100; 84132; 84156; 84295; 84520; 85025

== ENCOUNTER 2019-01-27 23:21 | Emergency (ER) | payer MEDICARE, MEDICAID ==
[2018-05-20 09:30] VITALS: Wt 68.1 kg
[2019-01-28] MEDS ORDERED: LIDOCAINE 2% VISC SLN 15ML UDC PO ONE (00:15)
[2019-01-28] MEDS ORDERED: ONDANSETRON 4 MG/2 ML VIAL IVP ONE ×2 (00:15→01:00)
[2019-01-28] MEDS ORDERED: MAG HYD/AL HYD/SIMETH 30ML UDC PO ONE (00:15)
--- NOTE | 2019-01-28 00:19 | ER Report ---
History and Physical Time Seen By MD: 00:05 Hx. of Stated Complaint: PATIENT STATE STARTED HAVING EPIGASTRIC PAIN LEVY SHE WAS GOING TO BED, AROUND 2320. FEELS LIKE SHARP PAIN. PATIENT TOOK ZOFRNA AT HOME. HPI/ROS CHIEF COMPLAINT: Chest pain, shortness breath, stomach pain, nausea HISTORY OF PRESENT ILLNESS: 53-year-old female presents after developing above pain and shortness of breath at about 9:30. Patient states she was taken medications and getting ready for bed when she noted the development of the constellation of symptoms. Shortness of breath is moderate, continuous, unchanged by exertion, recumbency, sitting up. She has had cold-like symptoms per her with nonproductive cough for the past 2 days. Chest pain is central chest, radiates from epigastrium, sharp like stabbing, constant 2-1/2 hours, worse with palpation. Patient has not had this previously. Patient also complains of stomach pain that is epigastric, does not radiate, associated with nausea, not improved with Zofran at home. Patient has not had exertional symptoms. Patient has not had change in urine or stool. REVIEW OF SYSTEMS: Constitutional: No fever, no chills. Eyes: No discharge. ENT: No sore throat. Cardiovascular: above Respiratory: above Gastrointestinal: above Genitourinary: No hematuria. Musculoskeletal: No back pain. Skin: No rashes. Neurological: No headache. Remainder of the 14 system rev: Yes Allergies: Coded Allergies: promethazine (Verified Allergy, Severe, RESTLESS LEGS, 01/27/19) sumatriptan (Verified Allergy, Intermediate, HIVES, SOB, 01/27/19) only with nose spray, she can take oral sumatriptan NSAIDS (Non-Steroidal Anti-Inflamma (Verified Allergy, Mild, NAUSEA, HEADACHES, 01/27/19) orphenadrine (Verified Allergy, Unknown, 01/27/19) keeps her awake oxycodone (Verified Allergy, Unknown, 01/27/19) aspirin (Verified Adverse Reaction, Mild, NAUSEA, 01/27/19) furosemide (Verified Adverse Reaction, Unknown, 01/27/19) too hard on kidneys Uncoded Allergies: COBAN (Allergy, Mild, rash, 04/03/13) Home Meds Active Scripts Levothyroxine Sodium (LEVOTHYROXINE SODIUM) 0.112 Mg Tab, 0.112 MG PO QDAY for 90 Days, #30 TAB 4 Refills Prov:BETSEY PIERSON MD 01/01/19 Hydrocodone Bit/Acetaminophen (HYDROCODON-ACETAMINOPHEN 5-325) 1 Each Tablet, 1 EACH PO BID PRN for pain, #60 TAB Prov:BETSEY PIERSON MD 12/17/18 Ondansetron 4 Mg Odt (ONDANSETRON 4 MG ODT) 4 Mg Tab.rapdis, 4 MG PO ONCE, #30 TAB Prov:PANKAJ RODRIGUEZ DO 12/06/18 Omeprazole (OMEPRAZOLE) 20 Mg Capsule.dr, 1 CAP PO QODAY, #30 CAP 6 Refills Prov:BETSEY PIERSON MD 11/14/18 Amlodipine Besylate (AMLODIPINE BESYLATE) 2.5 Mg Tablet, 2.5 MG PO QDAY, #90 TAB Prov:BETSEY PIERSON MD 11/12/18 Topiramate (TOPIRAMATE) 50 Mg Tablet, 50 MG PO QDAY, #30 TAB 4 Refills Prov:BETSEY PIERSON MD 11/05/18 Risperidone (RISPERIDONE) 0.5 Mg Tablet, 0.5 MG PO QHS, #30 TAB 4 Refills Prov:BETSEY PIERSON MD 11/05/18 Sertraline Hcl (SERTRALINE HCL) 100 Mg Tablet, 1.5 TAB PO QDAY, #135 TAB 1 Refill Prov:BETSEY PIERSON MD 08/22/18 Simvastatin (SIMVASTATIN) 10 Mg Tablet, 1 TAB PO QHS, #90 TAB 4 Refills Prov:BETSEY PIERSON MD 04/10/18 Propranolol Hcl (INDERAL LA) 80 Mg Cap.sa.24h, 1 CAP PO QDAY, #90 CAP 4 Refills Prov:BETSEY PIERSON MD 02/05/18 Febuxostat (ULORIC) 40 Mg Tablet, 1 TAB PO QDAY, #90 TAB 1 Refill Prov:BETSEY PIERSON MD 07/27/16 Reported Medications Cephalexin (KEFLEX) 250 Mg Capsule, 250 MG PO BID, #30 CAP 01/08/19 Phenazopyridine Hcl (PHENAZOPYRIDINE HCL) 200 Mg Tablet, 200 MG PO TID, #10 TAB 01/08/19 Docusate Calcium (SURFAK) 240 Mg Capsule, 240 MG PO PRN for constipation, CAPSULE 05/20/18 Melatonin/Pyridoxine HCl (B6) (Melatonin 3 mg Tablet) 1 Each Tablet, 1 TAB QHS, TAB 10/23/17 Sodium Bicarbonate (SODIUM BICARBONATE) 650 Mg Tablet, 2 TAB PO BID 07/26/16 Imipramine Hcl (Tofranil) 25 Mg Tab, 1 TAB PO DAILY, 0 Refills 09/26/12 Reviewed Nurses Notes: Yes Old Medical Records Reviewed: Yes Hx Smoking: Yes (SMOKED AGE 16 TO UNTIL 2000, 10/29 PPD) Smoking Status: Former Smoker Exposure to Second Hand Smoke?: No Hx Substance Use Disorder: No Hx Alcohol Use: Yes Constitutional Vital Sign - Last 24 Hours 01/27/19 01/27/19 01/27/19 01/28/19 23:29 23:36 23:51 00:00 Temp 98.1 Pulse 82 81 79 Resp 16 12 25 B/P (MAP) 145/92 139/90 (106) Pulse Ox 93 95 93 O2 Delivery Room Air 01/28/19 01/28/19 01/28/19 01/28/19 00:06 00:31 00:36 00:51 Pulse 80 75 94 Resp 12 12 17 B/P (MAP) 137/82 (100) Pulse Ox 96 90 91 01/28/19 01/28/19 01/28/19 01:16 01:30 01:36 Pulse 71 B/P (MAP) 130/100 (110) 131/74 (93) Physical Exam General Appearance: The patient is alert, has no immediate need for airway protection and no signs of toxicity. Eyes: Pupils equal and round no pallor or injection. ENT, Mouth: Mucous membranes are moist. Respiratory: There are no retractions, lungs are clear to auscultation. Cardiovascular: Regular rate and rhythm. no m/r/g. Mid sternal ttp completely reproduces symptoms. Gastrointestinal: abdomen slightly distended, epigastric ttp, nl bowel sounds. Neurological: alert, moves all ext Skin: Warm and dry, no rashes. Musculoskeletal: Extremities are nontender, nonswollen and have full range of motion. DIFFERENTIAL DIAGNOSIS: After history and physical exam differential diagnosis was considered for chest pain including but not limited to myocardial ischemia, pericarditis pulmonary embolus, chest wall pain, pleural inflammation and pulmonary infectious causes.shortness of breath including but not limited to pulmonary infectious process, COPD, asthma, pulmonary embolus and congestive heart failure.abdominal pain including but not limited to appendicitis, cholecystitis, gastritis and urinary tract infection. Medical Decision Making Data Points Result Diagram: 01/28/19 0040 01/28/19 0040 Laboratory Hematology Test 01/28/19 00:40 01/28/19 01:06 Red Blood Count 3.33 M/uL (4.17-5.56) Mean Corpuscular Volume 94.3 fL (80.0-96.0) Mean Corpuscular Hemoglobin 33.1 pg (26.0-33.0) Mean Corpuscular Hemoglobin Concent 35.1 g/dL (32.0-36.0) Red Cell Distribution Width 13.4 % (11.5-14.5) Mean Platelet Volume 6.7 fL (7.2-11.1) Neutrophils (%) (Auto) 53.3 % (39.4-72.5) Lymphocytes (%) (Auto) 30.9 % (17.6-49.6) Monocytes (%) (Auto) 10.0 % (4.1-12.4) Eosinophils (%) (Auto) 5.0 % (0.4-6.7) Basophils (%) (Auto) 0.8 % (0.3-1.4) Nucleated RBC Relative Count (auto) 0.4 /100WBC Neutrophils # (Auto) 4.0 K/uL (2.0-7.4) Lymphocytes # (Auto) 2.3 K/uL (1.3-3.6) Monocytes # (Auto) 0.8 K/uL (0.3-1.0) Eosinophils # (Auto) 0.4 K/uL (0.0-0.5) Basophils # (Auto) 0.1 K/uL (0.0-0.1) Nucleated RBC Absolute Count (auto) 0.03 K/uL Sodium Level 139 mmol/L (137-145) Potassium Level 3.8 mmol/L (3.5-5.0) Chloride Level 104 mmol/L (98-107) Carbon Dioxide Level 25 mmol/L (22-31) Blood Urea Nitrogen 34 mg/dl (7-18) Creatinine 4.20 mg/dl (0.52-1.04) Glomerular Filtration Rate Calc 11.1 Random Glucose 98 mg/dl (75-110) Calcium Level 9.5 mg/dl (8.4-10.2) Total Bilirubin 0.2 mg/dl (0.2-1.3) Aspartate Amino Transf (AST/SGOT) 13 U/L (0-35) Alanine Aminotransferase (ALT/SGPT) 22 U/L (0-56) Alkaline Phosphatase 74 U/L (0-126) Troponin I < 0.012 ng/ml Total Protein 6.9 g/dl (6.3-8.2) Albumin 4.1 g/dl (3.5-5.0) Lipase 672 U/L (23-300) Urine Color Colorless Urine Clarity Clear Urine pH 8.0 pH (4.8-9.5) Urine Specific [place] 1.005 Urine Protein Negative mg/dL (NEGATIVE) Urine Glucose (UA) Negative mg/dL (NEGATIVE) Urine Ketones Negative mg/dL (NEGATIVE) Urine Blood Negative (NEGATIVE) Urine Nitrite Negative (NEGATIVE) Urine Bilirubin Negative (NEGATIVE) Urine Urobilinogen Negative mg/dL (0.2-1.9) Urine Leukocyte Esterase Negative (NEGATIVE) Urine RBC <1 /HPF (0-2/HPF) Urine WBC <1 /HPF (0-5/HPF) Urine Squamous Epithelial Cells Few /LPF (</=FEW) Urine Bacteria Negative /HPF (NONE-FEW) Urine Mucus None /HPF (NONE-FEW) Chemistry Test 01/28/19 00:40 01/28/19 01:06 White Blood Count 7.6 k/uL (4.5-11.0) Red Blood Count 3.33 M/uL (4.17-5.56) Hemoglobin 11.0 g/dL (12.0-16.0) Hematocrit 31.4 % (34.0-47.0) Mean Corpuscular Volume 94.3 fL (80.0-96.0) Mean Corpuscular Hemoglobin 33.1 pg (26.0-33.0) Mean Corpuscular Hemoglobin Concent 35.1 g/dL (32.0-36.0) Red Cell Distribution Width 13.4 % (11.5-14.5) Platelet Count 225 K/uL (150-450) Mean Platelet Volume 6.7 fL (7.2-11.1) Neutrophils (%) (Auto) 53.3 % (39.4-72.5) Lymphocytes (%) (Auto) 30.9 % (17.6-49.6) Monocytes (%) (Auto) 10.0 % (4.1-12.4) Eosinophils (%) (Auto) 5.0 % (0.4-6.7) Basophils (%) (Auto) 0.8 % (0.3-1.4) Nucleated RBC Relative Count (auto) 0.4 /100WBC Neutrophils # (Auto) 4.0 K/uL (2.0-7.4) Lymphocytes # (Auto) 2.3 K/uL (1.3-3.6) Monocytes # (Auto) 0.8 K/uL (0.3-1.0) Eosinophils # (Auto) 0.4 K/uL (0.0-0.5) Basophils # (Auto) 0.1 K/uL (0.0-0.1) Nucleated RBC Absolute Count (auto) 0.03 K/uL Glomerular Filtration Rate Calc 11.1 Calcium Level 9.5 mg/dl (8.4-10.2) Total Bilirubin 0.2 mg/dl (0.2-1.3) Aspartate Amino Transf (AST/SGOT) 13 U/L (0-35) Alanine Aminotransferase (ALT/SGPT) 22 U/L (0-56) Alkaline Phosphatase 74 U/L (0-126) Troponin I < 0.012 ng/ml Total Protein 6.9 g/dl (6.3-8.2) Albumin 4.1 g/dl (3.5-5.0) Lipase 672 U/L (23-300) Urine Color Colorless Urine Clarity Clear Urine pH 8.0 pH (4.8-9.5) Urine Specific [place] 1.005 Urine Protein Negative mg/dL (NEGATIVE) Urine Glucose (UA) Negative mg/dL (NEGATIVE) Urine Ketones Negative mg/dL (NEGATIVE) Urine Blood Negative (NEGATIVE) Urine Nitrite Negative (NEGATIVE) Urine Bilirubin Negative (NEGATIVE) Urine Urobilinogen Negative mg/dL (0.2-1.9) Urine Leukocyte Esterase Negative (NEGATIVE) Urine RBC <1 /HPF (0-2/HPF) Urine WBC <1 /HPF (0-5/HPF) Urine Squamous Epithelial Cells Few /LPF (</=FEW) Urine Bacteria Negative /HPF (NONE-FEW) Urine Mucus None /HPF (NONE-FEW) Urinalysis Test 01/28/19 01:06 Urine Color Colorless Urine Clarity Clear Urine pH 8.0 pH (4.8-9.5) Urine Specific [place] 1.005 Urine Protein Negative mg/dL (NEGATIVE) Urine Glucose (UA) Negative mg/dL (NEGATIVE) Urine Ketones Negative mg/dL (NEGATIVE) Urine Blood Negative (NEGATIVE) Urine Nitrite Negative (NEGATIVE) Urine Bilirubin Negative (NEGATIVE) Urine Urobilinogen Negative mg/dL (0.2-1.9) Urine Leukocyte Esterase Negative (NEGATIVE) Urine RBC <1 /HPF (0-2/HPF) Urine WBC <1 /HPF (0-5/HPF) Urine Squamous Epithelial Cells Few /LPF (</=FEW) Urine Bacteria Negative /HPF (NONE-FEW) Urine Mucus None /HPF (NONE-FEW) EKG/Imaging EKG Interpretation 12 lead EKG: Rhythm: normal sinus rhythm [place]: normal QRS: borderline enlarged ST segments: flipped T ii, iii, avf, borderline st depression v4-6. Unchnaged from multiple prior [ ] Monitor Interpretation: Normal Sinus Rhythm ED Course/Re-evaluation ED Course 53 f well known to me presents with chest pain, nausea, cough, epigastric pain. While she does not have sgn of pna, and doubt acs, she does have lipase that has been gradually increasing. Pt, however, is comfortable going home and attempting outpt clear liquid diet. She will rtn if worse. Considered but doubt pe, acs, pneumothorax, pericarditis, or other emergent etiology. Decision to Disposition Date: Jan 28, 2019 Decision to Disposition Time: 01:45 Depart Departure Latest Vital Signs Vital Signs Date Time Temp Pulse Resp B/P (MAP) Pulse Ox O2 Delivery O2 Flow Rate FiO2 01/28/19 01:36 71 01/28/19 01:30 131/74 (93) 01/28/19 00:51 17 91 01/27/19 23:29 98.1 Room Air Impression: Primary Impression: Elevated lipase Additional Impression: Chest pain Condition: Improved Disposition: HOME OR SELF-CARE Referrals: BETSEY PIERSON MD (PCP) 2 Days Patient Instructions: Chest Pain (ED), Pancreatitis (ED) Additional Instructions: As we discussed, your lipase is elevated consistent with a mild pancreatitis. This and the vomiting may be contributing to your chest pain. You feel comfortable going home, which is reasonable, and will be on a clear liquid diet for the next 2 days. As you know, I would like you to return if any symptoms are worsening or if you have any other concerns. You have a follow-up tomorrow, with your kidney doctor, and I would also like to to follow up with your primary doctor in 2 days for reevaluation. You may take the pain medication and Zofran that you have at home for your symptoms. Problem Qualifiers Additional Impression: Chest pain Chest pain type: unspecified Qualified Codes: R07.9 - Chest pain, unspecif ied ESTEBAN BOATENG MD Jan 28, 2019 00:19
[2019-01-28 00:53] LABS: PLATELET COUNT, AUTOMATED 225 K/uL (150-450)
[2019-01-28] MEDS ORDERED: MORPHINE 4 MG/ML SDV IVP ONE (01:00)
--- NOTE | 2019-01-28 01:05 | RADIOLOGY IMAGING REPORT ---
FACILITY: PATIENT NAME: Rachel Huang : 1965 MR: [id number] V: [id number] EXAM DATE: ORDERING PHYSICIAN: ESTEBAN BOATENG TECHNOLOGIST: Location: [facility] Patient: Rachel Huang : 1965 Visit/Account:[id number] Date of Sevice: 01/28/2019 CHEST PA LAT COMPARISONS: None. ADDITIONAL PERTINENT HISTORY: Dyspnea FINDINGS: Cardiomediastinal silhouette: Negative. Pulmonary vasculature: Negative. Lung reina: Elevation of the left hemidiaphragm. Otherwise negative Pleural spaces: Negative. Osseous structures: Spondylitic change involving the thoracic spine. Postoperative changes involving the lower cervical spine. Surrounding soft tissues: Negative. IMPRESSION: No evidence of acute cardiopulmonary disease. Report Dictated By: Bossman Crowder MD at 01/28/2019 1:01 AM Report E-Signed By: Bossman Crowder MD at 01/28/2019 1:02 AM WSN:[id number]
--- NOTE | 2019-01-28 01:29 | EKG ---
FACILITY: [facility] [place] PATIENT NAME: GREGORIO LINDSEY : [id number] MR: [id number] V: [id number] EXAM DATE: ORDERING PHYSICIAN: ESTEBAN BOATENG TECHNOLOGIST: VIRGIE Test Reason : CARDIAC Blood Pressure : / mmHG Vent. Rate : 077 BPM Atrial Rate : 077 BPM P-R Int : 150 ms QRS Dur : 100 ms QT Int : 396 ms P-R-T Axes : 056 029 -42 degrees QTc Int : 448 ms Normal sinus rhythm T wave abnormality, consider inferior ischemia Abnormal ECG When compared with ECG of 06-JAN-2019 12:47, No significant change was found Confirmed by MIRNA RODRIGEZ ([id number]) on 01/28/2019 6:37:52 AM Referred By: Confirmed By:MIRNA RODRIGEZ
[2019-01-28 01:30] VITALS: BP 131/74
== END 2019-01-28 01:53 | disposition home or self-care (01) ==
LOC: ER 23:59
DX: R74.8 Abnormal levels of other serum enzymes (principal); R07.9 Chest pain, unspecified
CPT/HCPCS: 71046; 81001; 83690; 84484; 85025; 93005; 96374; 96375; 99284; A9270; J2270; J2405; 82040; 82247; 82310; 82374; 82435; 82565; 82947; 84075; 84132; 84155; 84295; 84450; 84460; 84520

== ENCOUNTER 2019-02-04 15:13 | Outpatient (RCR) | payer MEDICARE, MEDICAID ==
[2018-05-20 09:30] VITALS: BMI 25.7
--- NOTE | 2018-12-15 17:33 | PT INITIAL EVALUATION ---
MEDICAL DIAGNOSIS: Low Back Pain TREATMENT DIAGNOSIS: M54.5, B SI pain DATE OF ONSET: 12/03/18 SUBJECTIVE: Rachel Huang presents to PT for LBP after a fall on ice 12/03/18. She was getting out of her vehicle at [facility], slipped and landed on her R lateral hip and then her back. She's had lumbar surgeries and is cleared of injury there. Oswestry Disability Index 68% impairment. Rachel states she can stand about 10 min., sit 30 min. before LBP gets strong. Pain location is R TFL, L-S and described as ache, spasm. Pain scale is 5 on a ten point pain scale. Pain is worse with sitting >30 min., trying to sleep (4-5 hours of sleep/night), walking, standing >10 minutes and better with laying down. REHAB PROBLEM LIST: Increased Pain Decreased ROM Impaired Bed Mobility Decreased Strength Impaired Transfers Decreased Function Decreased Mobility Decreased Gait PREVIOUS MEDICAL HISTORY: Cervical fusion, one kidney, R shoulder surgery x3, R CTR, R elbow surgery, gout, cardiac cath (clear). OCCUPATION: Disabled, lives with her in a single level apartment, isn't attending all her [employer] classes or exercising at [employer] due to her LBP. OBJECTIVE: Posture: L anterior, R posterior ilium and L sacral torsion. ROM: AROM lumbar spine 25% flexion, LBP, 50% extension, LBP. Strength: Hip flexors, quads 4/5, ankle DF 5-/5 L, 5/5 R, peroneals 4/5 L, 5/5 R, B hamstrings 5-/5. Palpation: Tender L-S junction, R TFL, B SI posterior joint line. Special Tests: Negative SLR. Positive SI tests for symptom reproduction. Mobility: LBP supine/sit. Bed mobility with LBP with bridging. Gait: Apparent long L LE gait. ASSESSMENT: Rachel Huang presents with SI and LBP from a fall, twisting her pelvis. She had almost neutral alignment after sacral mobilization and self- mobilization exercises, less LBP and almost even LE's in gait. Short Term Goals 4 weeks: Rachel attends all her [employer] classes and stands 30 min. with LBP -12/07. 6 weeks: Rachel works out at [employer] 30 to 45 min. with LBP -2/10. Patient's Goals Go to [employer] classes and work out at [employer] again. PLAN: Patient to be seen for Manual Therapy, Strengthening/condition, Range of Motion, Spinal Stabilization, Stretching, Gait Trg/Balance Trg, Home Exercise Program 2x/Week for 6 Weeks Thank you for this referral. If you have any questions, comments, or concerns about this report or plan, please contact me at . PATRICIAD
--- NOTE | 2019-01-26 18:00 | PT PLAN OF CARE ---
Physician: Dr. Jose C Guerin Patient is being seen: 2x/week Therapist: Meron White, PT Medical Diagnosis: Low Back Pain Treatment Diagnosis: M54.5, B SI pain Date of Onset: 12/03/18 Date of Initial Evaluation: 12/15/18 Date patient was last seen: 01/26/19 Number of treatments: 10 Number of cancellations/No shows: 0 INTERVENTIONS: Strengthening/condition, Spinal Stabilization, Stretching, Home Exercise Program GOALS: 4 weeks: Rachel attends all her [employer] classes and stands 30 min. with LBP 1- 2/10. both met 6 weeks: Rachel works out at [employer] 30 to 45 min. with LBP 1-2/10. not met PATIENT'S GOAL: Go to [employer] classes (met) and work out at [employer] again (not met). Patient Compliance: Excellent Prognosis: Excellent Reasons for continuing therapy: S: Rachel reports LBP is 6/10 (her go to [employer]) and her relates she told him this morning it was 2/10. JOSEMANUEL 23%. She's going to [employer] class but hasn't been to [employer] yet. She's cooking, shopping long distances. Posture: Even PSIS. ROM: AROM lumbar spine WNL flexion, 75% extension. Strength: Core strength 3/5. Gait: Gait speed has improved to 2.6 feet/speed, 1/2 mile today. Special Tests: Negative SLR. Negative SI tests for symptom reproduction. Mobility: Independent. A/P: Rachel Huang is improving LBP level, function. She's going to [employer] this week and we'll build a gym program. If you agree, we'll continue at 2x/week through next week and DC PT then to gym program. Thank you. ANA
--- NOTE | 2019-02-04 17:19 | PT PLAN OF CARE ---
Physician: Dr. Jose C Guerin Patient is being seen: 2x/week Therapist: Meron White, PT Medical Diagnosis: Low Back Pain Treatment Diagnosis: M54.5, B SI pain Date of Onset: 12/03/18 Date of Initial Evaluation: 12/15/18 Date patient was last seen: 02/04/19 Number of treatments: 12 Number of cancellations/No shows: 2 INTERVENTIONS: Strengthening/condition, Spinal Stabilization, Stretching, Home Exercise Program GOALS: 4 weeks: Rachel attends all her [employer] classes and stands 30 min. with LBP 1- 2/10. both met 6 weeks: Rachel works out at [employer] 30 - 45 min. with LBP 1-2/10. met PATIENT'S GOAL: Go to [employer] classes (met) and work out at [employer] again (met). Patient Compliance: Excellent Prognosis: Excellent Reasons for discontinuing therapy: S: Rachel continues to rate LBP 6/10 but then she states she has minimal LBP. Her , Rocael, relates she's not taking pain meds now and is back to prior function. She's working out at [employer] and attends [employer] classes. JOSEMANUEL 16%. Posture: Even PSIS, iliac crests. ROM: AROM lumbar spine full flexion, 75% extension, all pain free. Strength: Core strength 3+/5. Palpation: Unremarkable. Special Tests: Negative SI tests. Mobility: Independent, no c/o pain. A/P: Rachel Huang has improved ROM, reduced pain and is exercising in the community. I'll DC PT to the [employer] program I designed for her. Thank you. ANA
== END 2019-02-04 18:00 | disposition home or self-care (01) ==
LOC: PT 15:13
PROVIDERS: ATTEND Orthopaedic Surgery
DX: M54.5 Low back pain (principal); Z98.1 Arthrodesis status; W00.0XXA Fall on same level due to ice and snow, initial encounter; Y92.481 Parking lot as the place of occurrence of the external cause
CPT/HCPCS: 97162

== ENCOUNTER 2019-02-13 13:11 | Emergency (ER) | payer MEDICARE, MEDICAID ==
[2018-05-20 09:30] VITALS: Wt 77.1 kg
[2019-02-13] MEDS ORDERED: NS(*) 0.9% 1000 ML BAG 1,000 ML IV ONE (13:23)
[2019-02-13] MEDS ORDERED: ONDANSETRON 4 MG/2 ML VIAL IVP ONE (13:25)
--- NOTE | 2019-02-13 13:27 | ER Report ---
History and Physical Time Seen By MD: 13:24 Hx. of Stated Complaint: PATIENT REPORTS THROWING UP ALL DAY AND FEELING DIZZY HPI/ROS CHIEF COMPLAINT: Just doesn't feel well HISTORY OF PRESENT ILLNESS: 53-year-old female frequent visitor to the emergency department for various complaints returns emergency department today saying she just doesn't feel well feeling nauseated lack of energy she states that she is in renal failure and about to start dialysis in about a month and for the last couple days since this has been feeling well. This is her 8th visit in the last 4 months all for various nonemergent complaints. Patient is currently care plan. Patient states that she's had vague nonspecific nonlocalized generalized abdominal discomfort nausea with one episode of emesis nonbloody nonbilious no diarrhea no chest pain or fever chills or sweats additional complaints and just doesn't feel well. REVIEW OF SYSTEMS: Respiratory: No cough, no dyspnea. Cardiovascular: No chest pain, no palpitations. Gastrointestinal: Episode nauseated Musculoskeletal: No back pain. Remainder of the 14 system rev: Yes Allergies: Coded Allergies: promethazine (Verified Allergy, Severe, RESTLESS LEGS, 01/27/19) sumatriptan (Verified Allergy, Intermediate, HIVES, SOB, 01/27/19) only with nose spray, she can take oral sumatriptan NSAIDS (Non-Steroidal Anti-Inflamma (Verified Allergy, Mild, NAUSEA, HEADACHES, 01/27/19) orphenadrine (Verified Allergy, Unknown, 01/27/19) keeps her awake oxycodone (Verified Allergy, Unknown, 01/27/19) aspirin (Verified Adverse Reaction, Mild, NAUSEA, 01/27/19) furosemide (Verified Adverse Reaction, Unknown, 01/27/19) too hard on kidneys Uncoded Allergies: COBAN (Allergy, Mild, rash, 04/03/13) Home Meds Active Scripts Amlodipine Besylate (AMLODIPINE BESYLATE) 2.5 Mg Tablet, 2.5 MG PO QDAY, #90 TAB 3 Refills Prov:BETSEY PIERSON MD 02/11/19 Levothyroxine Sodium (LEVOTHYROXINE SODIUM) 0.112 Mg Tab, 0.112 MG PO QDAY for 90 Days, #30 TAB 4 Refills Prov:BETSEY PIERSON MD 01/01/19 Hydrocodone Bit/Acetaminophen (HYDROCODON-ACETAMINOPHEN 5-325) 1 Each Tablet, 1 EACH PO BID PRN for pain, #60 TAB Prov:BETSEY PIERSON MD 12/17/18 Ondansetron 4 Mg Odt (ONDANSETRON 4 MG ODT) 4 Mg Tab.rapdis, 4 MG PO ONCE, #30 TAB Prov:PANKAJ RODRIGUEZ DO 12/06/18 Omeprazole (OMEPRAZOLE) 20 Mg Capsule.dr, 1 CAP PO QODAY, #30 CAP 6 Refills Prov:BETSEY PIERSON MD 11/14/18 Topiramate (TOPIRAMATE) 50 Mg Tablet, 50 MG PO QDAY, #30 TAB 4 Refills Prov:BETSEY PIERSON MD 11/05/18 Risperidone (RISPERIDONE) 0.5 Mg Tablet, 0.5 MG PO QHS, #30 TAB 4 Refills Prov:BETSEY PIERSON MD 11/05/18 Sertraline Hcl (SERTRALINE HCL) 100 Mg Tablet, 1.5 TAB PO QDAY, #135 TAB 1 Refill Prov:BETSEY PIERSON MD 08/22/18 Simvastatin (SIMVASTATIN) 10 Mg Tablet, 1 TAB PO QHS, #90 TAB 4 Refills Prov:BETSEY PIERSON MD 04/10/18 Propranolol Hcl (INDERAL LA) 80 Mg Cap.sa.24h, 1 CAP PO QDAY, #90 CAP 4 Refills Prov:BETSEY PIERSON MD 02/05/18 Febuxostat (ULORIC) 40 Mg Tablet, 1 TAB PO QDAY, #90 TAB 1 Refill Prov:BETSEY PIERSON MD 07/27/16 Reported Medications Cephalexin (KEFLEX) 250 Mg Capsule, 250 MG PO BID, #30 CAP 01/08/19 Phenazopyridine Hcl (PHENAZOPYRIDINE HCL) 200 Mg Tablet, 200 MG PO TID, #10 TAB 01/08/19 Docusate Calcium (SURFAK) 240 Mg Capsule, 240 MG PO PRN for constipation, CAPSULE 05/20/18 Melatonin/Pyridoxine HCl (B6) (Melatonin 3 mg Tablet) 1 Each Tablet, 1 TAB QHS, TAB 10/23/17 Sodium Bicarbonate (SODIUM BICARBONATE) 650 Mg Tablet, 2 TAB PO BID 07/26/16 Imipramine Hcl (Tofranil) 25 Mg Tab, 1 TAB PO DAILY, 0 Refills 09/26/12 Reviewed Nurses Notes: Yes Old Medical Records Reviewed: Yes Hx Smoking: Yes (SMOKED AGE 16 TO UNTIL 2000, 1/ PPD) Smoking Status: Former Smoker Exposure to Second Hand Smoke?: No Hx Substance Use Disorder: No Hx Alcohol Use: Yes Constitutional Vital Sign - Last 24 Hours 02/13/19 13:16 Temp 98.4 Pulse 87 Resp 16 B/P (MAP) 168/90 Pulse Ox 94 O2 Delivery Room Air Physical Exam General Appearance: [The patient is alert, has no immediate need for airway protection and no current signs of toxicity.] [ ] Eyes: Pupils equal and round no injection. Respiratory: Chest is non tender, lungs are clear to auscultation. Cardiac: regular rate and rhythm [ ] Gastrointestinal: Abdomen is soft and non tender, no masses, bowel sounds normal. Musculoskeletal: Neck: Neck is supple and non tender. Extremities have full range of motion and are non tender. Skin: No rashes or lesions. [ ] DIFFERENTIAL DIAGNOSIS: After history and physical exam differential diagnosis was considered for renal insufficiency fatigue urinary tract infection Medical Decision Making Data Points Result Diagram: 02/13/19 1331 02/13/19 1331 Laboratory Hematology Test 02/13/19 13:31 Red Blood Count 3.39 M/uL (4.17-5.56) Mean Corpuscular Volume 94.8 fL (80.0-96.0) Mean Corpuscular Hemoglobin 32.7 pg (26.0-33.0) Mean Corpuscular Hemoglobin Concent 34.5 g/dL (32.0-36.0) Red Cell Distribution Width 13.3 % (11.5-14.5) Mean Platelet Volume 6.4 fL (7.2-11.1) Neutrophils (%) (Auto) 64.8 % (39.4-72.5) Lymphocytes (%) (Auto) 21.5 % (17.6-49.6) Monocytes (%) (Auto) 8.2 % (4.1-12.4) Eosinophils (%) (Auto) 4.4 % (0.4-6.7) Basophils (%) (Auto) 1.1 % (0.3-1.4) Nucleated RBC Relative Count (auto) 0.0 /100WBC Neutrophils # (Auto) 3.7 K/uL (2.0-7.4) Lymphocytes # (Auto) 1.2 K/uL (1.3-3.6) Monocytes # (Auto) 0.5 K/uL (0.3-1.0) Eosinophils # (Auto) 0.3 K/uL (0.0-0.5) Basophils # (Auto) 0.1 K/uL (0.0-0.1) Nucleated RBC Absolute Count (auto) 0.00 K/uL Prothrombin Time 12.7 seconds (12.0-14.4) Prothromb Time International Ratio 0.95 Activated Partial Thromboplast Time 30 seconds (23-35) Sodium Level 141 mmol/L (137-145) Potassium Level 3.9 mmol/L (3.5-5.0) Chloride Level 109 mmol/L (98-107) Carbon Dioxide Level 22 mmol/L (22-31) Blood Urea Nitrogen 29 mg/dl (7-18) Creatinine 3.90 mg/dl (0.52-1.04) Glomerular Filtration Rate Calc 12.1 Random Glucose 99 mg/dl (75-110) Calcium Level 9.5 mg/dl (8.4-10.2) Total Bilirubin 0.2 mg/dl (0.2-1.3) Aspartate Amino Transf (AST/SGOT) 14 U/L (0-35) Alanine Aminotransferase (ALT/SGPT) 18 U/L (0-56) Alkaline Phosphatase 45 U/L (0-126) Total Protein 7.1 g/dl (6.3-8.2) Albumin 4.1 g/dl (3.5-5.0) Lipase 637 U/L (23-300) Serum Alcohol < 10 mg/dl Chemistry Test 02/13/19 13:31 White Blood Count 5.6 k/uL (4.5-11.0) Red Blood Count 3.39 M/uL (4.17-5.56) Hemoglobin 11.1 g/dL (12.0-16.0) Hematocrit 32.2 % (34.0-47.0) Mean Corpuscular Volume 94.8 fL (80.0-96.0) Mean Corpuscular Hemoglobin 32.7 pg (26.0-33.0) Mean Corpuscular Hemoglobin Concent 34.5 g/dL (32.0-36.0) Red Cell Distribution Width 13.3 % (11.5-14.5) Platelet Count 216 K/uL (150-450) Mean Platelet Volume 6.4 fL (7.2-11.1) Neutrophils (%) (Auto) 64.8 % (39.4-72.5) Lymphocytes (%) (Auto) 21.5 % (17.6-49.6) Monocytes (%) (Auto) 8.2 % (4.1-12.4) Eosinophils (%) (Auto) 4.4 % (0.4-6.7) Basophils (%) (Auto) 1.1 % (0.3-1.4) Nucleated RBC Relative Count (auto) 0.0 /100WBC Neutrophils # (Auto) 3.7 K/uL (2.0-7.4) Lymphocytes # (Auto) 1.2 K/uL (1.3-3.6) Monocytes # (Auto) 0.5 K/uL (0.3-1.0) Eosinophils # (Auto) 0.3 K/uL (0.0-0.5) Basophils # (Auto) 0.1 K/uL (0.0-0.1) Nucleated RBC Absolute Count (auto) 0.00 K/uL Prothrombin Time 12.7 seconds (12.0-14.4) Prothromb Time International Ratio 0.95 Activated Partial Thromboplast Time 30 seconds (23-35) Glomerular Filtration Rate Calc 12.1 Calcium Level 9.5 mg/dl (8.4-10.2) Total Bilirubin 0.2 mg/dl (0.2-1.3) Aspartate Amino Transf (AST/SGOT) 14 U/L (0-35) Alanine Aminotransferase (ALT/SGPT) 18 U/L (0-56) Alkaline Phosphatase 45 U/L (0-126) Total Protein 7.1 g/dl (6.3-8.2) Albumin 4.1 g/dl (3.5-5.0) Lipase 637 U/L (23-300) Serum Alcohol < 10 mg/dl Coagulation Test 02/13/19 13:31 Prothrombin Time 12.7 seconds Prothromb Time International Ratio 0.95 Activated Partial Thromboplast Time 30 seconds Toxicology Test 02/13/19 13:31 Serum Alcohol < 10 mg/dl ED Course/Re-evaluation ED Course 53-year-old female comes emergency Department thank nonspecific fatigue generalized abdominal discomfort she does have an elevated lipase of 67 however looking back in her medical record she's had elevated lipases in the 4 and 500 ranges for quite some time so sectors a chronic aspect of her pancreatitis also CT scan was done a couple weeks ago showed no obvious masses lesions or any issues with pancreatitis at this time I do believe she is safe for discharge she does have renal insufficiency of creatinine 3.9 diagnosis. Renal insufficiency and chronic pancreatitis Decision to Disposition Date: Feb 13, 2019 Decision to Disposition Time: 14:18 Depart Departure Latest Vital Signs Vital Signs Date Time Temp Pulse Resp B/P (MAP) Pulse Ox O2 Delivery O2 Flow Rate FiO2 02/13/19 13:16 98.4 87 16 168/90 94 Room Air Impression: Primary Impression: CKD (chronic kidney disease) Additional Impression: Pancreatitis Condition: Improved Disposition: HOME OR SELF-CARE Referrals: BETSEY PIERSON MD (PCP) 5 Days Patient Instructions: Chronic Kidney Disease (DC) Problem Qualifiers EFE TAYLOR MD Feb 13, 2019 13:27
[2019-02-13] MEDS ORDERED: ONDANSETRON 4 MG/2 ML VIAL ONE ×2 (13:31)
[2019-02-13] MEDS ORDERED: NS(*) 0.9% 1000 ML BAG 1,000 ML ONE ×2 (13:31)
[2019-02-13 13:42] LABS: PLATELET COUNT, AUTOMATED 216 K/uL (150-450)
[2019-02-13 13:46] LABS: INR 0.95
--- NOTE | 2019-02-13 14:10 | RADIOLOGY IMAGING REPORT ---
FACILITY: [facility] - [place] PATIENT NAME: Rachel Huang : 1965 MR: [id number] V: [id number] EXAM DATE: ORDERING PHYSICIAN: EFE TAYLOR TECHNOLOGIST: Location: [facility] - [place] Patient: Rachel Huang : 1965 Visit/Account:[id number] Date of Sevice: 02/13/2019 Exam type: CHEST PA LAT History: Not feeling well since this morning Comparison: February 07. Findings: The lungs are free of acute effusions, infiltrates or edema. There is no evidence of a pneumothorax or pneumomediastinum. The cardiac silhouette is normal in size. There is a gentle scoliosis of the thoracic spine with moderate spondylotic changes. There are postsurgical changes of the lower cervic al spine and right shoulder IMPRESSION: 1. No acute cardiopulmonary process is seen Report Dictated By: Laura Olson MD at 02/13/2019 2:04 PM Report E-Signed By: Laura Olson MD at 02/13/2019 2:06 PM WSN:[id number]
[2019-02-13 15:11] VITALS: BP 119/78
== END 2019-02-13 15:36 | disposition home or self-care (01) ==
LOC: ER 13:15
DX: N18.9 Chronic kidney disease, unspecified (principal); K85.90 Acute pancreatitis without necrosis or infection, unspecified
CPT/HCPCS: 71046; 81001; 83690; 85025; 85610; 85730; 96361; 96374; 99283; G0480; J2405; J7030; 80320; 82040; 82247; 82310; 82374; 82435; 82565; 82947; 84075; 84132; 84155; 84295; 84450; 84460; 84520

== ENCOUNTER 2019-03-14 11:48 | Emergency (ER) | payer MEDICARE, MEDICAID ==
[2018-05-20 09:30] VITALS: Wt 74.8 kg
--- NOTE | 2019-03-14 11:51 | ER Report ---
History and Physical Time Seen By MD: 11:51 HPI/ROS CHIEF COMPLAINT: Dizziness HISTORY OF PRESENT ILLNESS: Patient is a 53-year-old female who presents to emergency department with complaint of dizziness. Patient is a frequent visitor to the emergency Department with multiple complaints. She does have a history of chronic kidney disease with baseline creatinine of approximately 4 in the last few months. Patient is scheduled to start dialysis next month. She states today she was at home looking into a culvert and then stood up and became dizzy. The dizziness lasted for a few seconds and patient feels that she was near to passing out but did not actually pass out. She has a positive review of systems including subjective fever, chills, mild headache, chest pressure that occurred yesterday but is now resolved, abdominal pain, dysuria, musculoskeletal pain. REVIEW OF SYSTEMS: Constitutional: subjective fevers chills Eyes: No discharge. ENT: No sore throat. Cardiovascular: Chest pressure, no palpitations Respiratory: No cough, no shortness of breath. Gastrointestinal: Abdominal pain, dysuria Genitourinary: No hematuria. Musculoskeletal: Chronic back pain Skin: No rashes. Neurological: Awake Allergies: Coded Allergies: promethazine (Verified Allergy, Severe, RESTLESS LEGS, 03/14/19) sumatriptan (Verified Allergy, Intermediate, HIVES, SOB, 03/14/19) only with nose spray, she can take oral sumatriptan NSAIDS (Non-Steroidal Anti-Inflamma (Verified Allergy, Mild, NAUSEA, HEADACHES, 03/14/19) orphenadrine (Verified Allergy, Unknown, 03/14/19) keeps her awake oxycodone (Verified Allergy, Unknown, 03/14/19) aspirin (Verified Adverse Reaction, Mild, NAUSEA, 03/14/19) furosemide (Verified Adverse Reaction, Unknown, 03/14/19) too hard on kidneys Uncoded Allergies: COBAN (Allergy, Mild, rash, 04/03/13) Home Meds Active Scripts Meclizine Hcl (MECLIZINE HCL) 25 Mg Tablet, 25 MG PO Q8H for dizzness, #15 TAB 0 Refills Prov:ESTEBAN ALDANA MD 03/14/19 Sertraline Hcl (SERTRALINE HCL) 100 Mg Tablet, 1.5 TAB PO QDAY, #135 TAB 1 Refill Prov:BETSEY PIERSON MD 02/18/19 Amlodipine Besylate (AMLODIPINE BESYLATE) 2.5 Mg Tablet, 2.5 MG PO QDAY, #90 TAB 3 Refills Prov:BETSEY PIERSON MD 02/11/19 Levothyroxine Sodium (LEVOTHYROXINE SODIUM) 0.112 Mg Tab, 0.112 MG PO QDAY for 90 Days, #30 TAB 4 Refills Prov:BETSEY PIERSON MD 01/01/19 Hydrocodone Bit/Acetaminophen (HYDROCODON-ACETAMINOPHEN 5-325) 1 Each Tablet, 1 EACH PO BID PRN for pain, #60 TAB Prov:BETSEY PIERSON MD 12/17/18 Ondansetron 4 Mg Odt (ONDANSETRON 4 MG ODT) 4 Mg Tab.rapdis, 4 MG PO ONCE, #30 TAB Prov:PANKAJ RODRIGUEZ DO 12/06/18 Omeprazole (OMEPRAZOLE) 20 Mg Capsule.dr, 1 CAP PO QODAY, #30 CAP 6 Refills Prov:BETSEY PIERSON MD 11/14/18 Topiramate (TOPIRAMATE) 50 Mg Tablet, 50 MG PO QDAY, #30 TAB 4 Refills Prov:BETSEY PIERSON MD 11/05/18 Risperidone (RISPERIDONE) 0.5 Mg Tablet, 0.5 MG PO QHS, #30 TAB 4 Refills Prov:BETSEY PIERSON MD 11/05/18 Simvastatin (SIMVASTATIN) 10 Mg Tablet, 1 TAB PO QHS, #90 TAB 4 Refills Prov:BETSEY PIERSON MD 04/10/18 Propranolol Hcl (INDERAL LA) 80 Mg Cap.sa.24h, 1 CAP PO QDAY, #90 CAP 4 Refills Prov:BETSEY PIERSON MD 02/05/18 Febuxostat (ULORIC) 40 Mg Tablet, 1 TAB PO QDAY, #90 TAB 1 Refill Prov:BETSEY PIERSON MD 07/27/16 Reported Medications Phenazopyridine Hcl (PHENAZOPYRIDINE HCL) 200 Mg Tablet, 200 MG PO TID, #10 TAB 01/08/19 Docusate Calcium (SURFAK) 240 Mg Capsule, 240 MG PO PRN for constipation, CAPSULE 05/20/18 Melatonin/Pyridoxine HCl (B6) (Melatonin 3 mg Tablet) 1 Each Tablet, 1 TAB QHS, TAB 10/23/17 Sodium Bicarbonate (SODIUM BICARBONATE) 650 Mg Tablet, 2 TAB PO BID 07/26/16 Imipramine Hcl (Tofranil) 25 Mg Tab, 1 TAB PO DAILY, 0 Refills 09/26/12 Discontinued Reported Medications Cephalexin (KEFLEX) 250 Mg Capsule, 250 MG PO BID, #30 CAP 01/08/19 Past Medical/Surgical History Patient has a past medical history of migraines, heart murmur, angina, hypertension, hyperlipidemia, bronchitis, pneumonia, abdominal pain, reflux, incontinence, frequent urinary tract infections, gout, back pain, hy pothyroidism, alcohol use, depression and anxiety, suicide attempt. Patient has a surgical history of tonsillectomy, back surgery, right shoulder surgery, right elbow surgery, right hand surgery, hysterectomy, cystoscopy, dilations, cholecystectomy, breast reduction, biopsies, cardiac catheterization. Patient has a family medical history of cancer, stroke. Hx Smoking: Yes (SMOKED AGE 16 TO UNTIL 2000, 1/2 PPD) Smoking Status: Former Smoker Exposure to Second Hand Smoke?: No Hx Substance Use Disorder: No Hx Alcohol Use: Yes Constitutional Vital Sign - Last 24 Hours 03/14/19 11:56 Temp 98.4 Pulse 69 Resp 18 B/P (MAP) 153/92 Pulse Ox 96 O2 Delivery Room Air Physical Exam General Appearance: The patient is alert, has no immediate need for airway protection and no signs of toxicity. Eyes: Pupils equal and round no pallor or injection. No nystagmus ENT, Mouth: Mucous membranes are moist. Respiratory: There are no retractions, lungs are clear to auscultation. Cardiovascular: Regular rate and rhythm. Gastrointestinal: Abdomen is soft and non tender, no masses, bowel sounds normal. Neurological: Awake and alert GCS 15; normal gross motor and sensory exam Skin: Warm and dry, no rashes. Musculoskeletal: Neck is supple non tender. Extremities are nontender, nonswollen and have full range of motion. Medical Decision Making Data Points Result Diagram: 03/14/19 1201 03/14/19 1201 Laboratory Hematology Test 03/14/19 12:01 Red Blood Count 3.57 M/uL (4.17-5.56) Mean Corpuscular Volume 92.9 fL (80.0-96.0) Mean Corpuscular Hemoglobin 32.6 pg (26.0-33.0) Mean Corpuscular Hemoglobin Concent 35.1 g/dL (32.0-36.0) Red Cell Distribution Width 13.2 % (11.5-14.5) Mean Platelet Volume 6.8 fL (7.2-11.1) Neutrophils (%) (Auto) 56.9 % (39.4-72.5) Lymphocytes (%) (Auto) 27.8 % (17.6-49.6) Monocytes (%) (Auto) 9.3 % (4.1-12.4) Eosinophils (%) (Auto) 5.2 % (0.4-6.7) Basophils (%) (Auto) 0.8 % (0.3-1.4) Nucleated RBC Relative Count (auto) 0.1 /100WBC Neutrophils # (Auto) 2.8 K/uL (2.0-7.4) Lymphocytes # (Auto) 1.4 K/uL (1.3-3.6) Monocytes # (Auto) 0.5 K/uL (0.3-1.0) Eosinophils # (Auto) 0.3 K/uL (0.0-0.5) Basophils # (Auto) 0.0 K/uL (0.0-0.1) Nucleated RBC Absolute Count (auto) 0.01 K/uL Sodium Level 142 mmol/L (137-145) Potassium Level 3.6 mmol/L (3.5-5.0) Chloride Level 112 mmol/L (98-107) Carbon Dioxide Level 20 mmol/L (22-31) Blood Urea Nitrogen 29 mg/dl (7-18) Creatinine 3.80 mg/dl (0.52-1.04) Glomerular Filtration Rate Calc 12.4 Random Glucose 101 mg/dl (75-110) Calcium Level 9.7 mg/dl (8.4-10.2) Total Bilirubin 0.4 mg/dl (0.2-1.3) Aspartate Amino Transf (AST/SGOT) 16 U/L (0-35) Alanine Aminotransferase (ALT/SGPT) 11 U/L (0-56) Alkaline Phosphatase 49 U/L (0-126) Troponin I < 0.012 ng/ml Total Protein 7.2 g/dl (6.3-8.2) Albumin 4.1 g/dl (3.5-5.0) Chemistry Test 03/14/19 12:01 White Blood Count 5.0 k/uL (4.5-11.0) Red Blood Count 3.57 M/uL (4.17-5.56) Hemoglobin 11.6 g/dL (12.0-16.0) Hematocrit 33.2 % (34.0-47.0) Mean Corpuscular Volume 92.9 fL (80.0-96.0) Mean Corpuscular Hemoglobin 32.6 pg (26.0-33.0) Mean Corpuscular Hemoglobin Concent 35.1 g/dL (32.0-36.0) Red Cell Distribution Width 13.2 % (11.5-14.5) Platelet Count 195 K/uL (150-450) Mean Platelet Volume 6.8 fL (7.2-11.1) Neutrophils (%) (Auto) 56.9 % (39.4-72.5) Lymphocytes (%) (Auto) 27.8 % (17.6-49.6) Monocytes (%) (Auto) 9.3 % (4.1-12.4) Eosinophils (%) (Auto) 5.2 % (0.4-6.7) Basophils (%) (Auto) 0.8 % (0.3-1.4) Nucleated RBC Relative Count (auto) 0.1 /100WBC Neutrophils # (Auto) 2.8 K/uL (2.0-7.4) Lymphocytes # (Auto) 1.4 K/uL (1.3-3.6) Monocytes # (Auto) 0.5 K/uL (0.3-1.0) Eosinophils # (Auto) 0.3 K/uL (0.0-0.5) Basophils # (Auto) 0.0 K/uL (0.0-0.1) Nucleated RBC Absolute Count (auto) 0.01 K/uL Glomerular Filtration Rate Calc 12.4 Calcium Level 9.7 mg/dl (8.4-10.2) Total Bilirubin 0.4 mg/dl (0.2-1.3) Aspartate Amino Transf (AST/SGOT) 16 U/L (0-35) Alanine Aminotransferase (ALT/SGPT) 11 U/L (0-56) Alkaline Phosphatase 49 U/L (0-126) Troponin I < 0.012 ng/ml Total Protein 7.2 g/dl (6.3-8.2) Albumin 4.1 g/dl (3.5-5.0) EKG/Imaging EKG Interpretation EKG shows normal sinus rhythm with T-wave abnormality specifically T-wave inversions in leads 3 aVF and leads V4 through V6 this was compared to an EKG from January 2019 which again showed the T-wave inversion in the inferior leads however there does appear to be new T-wave inversions in the lateral precordial leads Monitor Interpretation: Normal Sinus Rhythm Imaging FACILITY: [facility] PATIENT NAME: Rachel Huang : 1965 MR: [id number] V: [id number] EXAM DATE: [id number] ORDERING PHYSICIAN: ESTEBAN ALDANA TECHNOLOGIST: Location: [facility] [place] Patient: Rachel Huang : 1965 Visit/Account:[id number] Date of Sevice: 03/14/[address] scan without contrast COMPARISONS: November 24, 2016 ADDITIONAL PERTINENT HISTORY: Fall with syncope TECHNIQUE: Multiple axial images were obtained from the skull base to the vertex without IV contrast. One of the following dose optimization techniques was utilized in the performance of this exam: Automated exposure control; adjustment of the mA and/or kV according to the patient's size; or use of an iterative reconstruction technique. Specific details can be referenced in the facility's radiology CT exam operational policy. FINDINGS: Midline shift: Negative Ventricles: Enlargement of the lateral ventricles particularly the occipital horns of both lateral ventricles compatible with colpocephaly. There is a parallel appearance of both lateral ventricles. Brain parenchyma: Agenesis of the corpus callosum. Patchy hypoattenuation within the periventricular and subcortical white matter, nonspecific but likely representing small vessel ischemic change on a chronic basis. No intraparenchymal hemorrhage or mass effect. Extra-axial spaces: Mild cerebral atrophy. Intracranial vasculature: Negative Osseous structures: Negative Paranasal sinuses and mastoid air cells: Negative Surrounding soft tissues and orbits: Negative IMPRESSION: 1. Agenesis of the corpus callosum. 2. Mild age-related changes as described above. 3. No acute intracranial pathology. Report Dictated By: Bossman Crowder MD at 03/14/2019 12:44 PM Report E-Signed By: Bossman Crowder MD at 03/14/2019 12:51 PM WSN:[id number] ED Course/Re-evaluation ED Course Plan at this time will be cardiac workup CT of the head. Patient with multiple medical problems nonspecific complaint of dizziness which sounds positional. We will treat with meclizine and perform a workup with a single troponin is chest pain occurred yesterday. She is currently chest pain-free. Also check urinalysis electrolytes and compared to baseline creatinine. Decision to Disposition Date: March 14, 2019 Decision to Disposition Time: 13:07 Depart Departure Latest Vital Signs Vital Signs Date Time Temp Pulse Resp B/P (MAP) Pulse Ox O2 Delivery O2 Flow Rate FiO2 03/14/19 11:56 98.4 69 18 153/92 96 Room Air Impression: Primary Impression: Dizziness Condition: Improved Disposition: HOME OR SELF-CARE Referrals: BETSEY PIERSON MD (PCP) New Scripts Meclizine Hcl (MECLIZINE HCL) 25 Mg Tablet 25 MG PO Q8H for dizzness, #15 TAB 0 Refills Prov: ESTEBAN ALDANA MD 03/14/19 Patient Instructions: Dizziness (ED) ESTEBAN ALDANA MD March 14, 2019 11:51
[2019-03-14] MEDS ORDERED: MECLIZINE HCL 25 MG TAB PO ONE (12:10)
[2019-03-14 12:20] LABS: PLATELET COUNT, AUTOMATED 195 K/uL (150-450)
--- NOTE | 2019-03-14 12:26 | EKG ---
FACILITY: [facility] PATIENT NAME: GREGORIO LINDSEY : [id number] MR: [id number] V: [id number] EXAM DATE: ORDERING PHYSICIAN: ESTEBAN ALDANA TECHNOLOGIST: SRINI Test Reason : dizziness Blood Pressure : / mmHG Vent. Rate : 061 BPM Atrial Rate : 061 BPM P-R Int : 158 ms QRS Dur : 092 ms QT Int : 428 ms P-R-T Axes : 045 020 -29 degrees QTc Int : 430 ms Normal sinus rhythm T wave abnormality, consider inferolateral ischemia Abnormal ECG When compared with ECG of 28-JAN-2019 00:17, No significant change was found Confirmed by Milton Kincaid ([id number]) on 03/14/2019 1:08:31 PM Referred By: Confirmed By:Milton Self
--- NOTE | 2019-03-14 12:54 | RADIOLOGY IMAGING REPORT ---
[facility] PATIENT NAME: Rachel Huang : 1965 MR: [id number] V: [id number] EXAM DATE: ORDERING PHYSICIAN: ESTEBAN ALDANA TECHNOLOGIST: Location: [facility] - [place] Patient: Rachel Huang : 1965 Visit/Account:[id number] Date of Sevice: 03/14/[address] scan without contrast COMPARISONS: November 24, 2016 ADDITIONAL PERTINENT HISTORY: Fall with syncope TECHNIQUE: Multiple axial images were obtained from the skull base to the vertex without IV contrast . One of the following dose optimization techniques was utilized in the performance of this exam: Aut omated exposure control; adjustment of the mA and/or kV according to the patient's size; or use of an iterative reconstruction technique. Specific details can be referenced in the facility's radiology CT exam operational policy. FINDINGS: Midline shift: Negative Ventricles: Enlargement of the lateral ventricles particularly the occipital horns of both lateral v entricles compatible with colpocephaly. There is a parallel appearance of both lateral ventricles. Brain parenchyma: Agenesis of the corpus callosum. Patchy hypoattenuation within the periventricular and subcortical white matter, nonspecific but likely representing small vessel ischemic change on a chronic basis. No intraparenchymal hemorrhage or mass effect. Extra-axial spaces: Mild cerebral atrophy. Intracranial vasculature: Negative Osseous structures: Negative Paranasal sinuses and mastoid air cells: Negative Surrounding soft tissues and orbits: Negative IMPRESSION: 1. Agenesis of the corpus callosum. 2. Mild age-related changes as described above. 3. No acute intracranial pathology. Report Dictated By: Bossman Crowder MD at 03/14/2019 12:44 PM Report E-Signed By: Bossman Crowder MD at 03/14/2019 12:51 PM WSN:[id number]
[2019-03-14] MEDS ORDERED: MECL25TA9 PO (13:08)
[2019-03-14 13:18] VITALS: BP 109/79
== END 2019-03-14 13:17 | disposition home or self-care (01) ==
LOC: ER 11:54
DX: R42 Dizziness and giddiness (principal)
CPT/HCPCS: 70450; 84484; 85025; 93005; 99284; J8597; 82040; 82247; 82310; 82374; 82435; 82565; 82947; 84075; 84132; 84155; 84295; 84450; 84460; 84520

== ENCOUNTER 2019-04-05 23:27 | Emergency (ER) | payer MEDICARE, MEDICAID ==
[2018-05-20 09:30] VITALS: Wt 68.0 kg
[~2019-04-05 23:27] MED LIST changes: +CALC667T PO; -CALC667T3 PO; +MELA5TAB3 PO; -MELA5TAB6 PO; -OMEP-125 PO; +OMEP-126 PO
--- NOTE | 2019-04-06 01:04 | ER Report ---
History and Physical Time Seen By MD: 01:04 Hx. of Stated Complaint: patient woke up at 2200 with really sharp pain in left flank, patient had surgery on saturday to get fistula for dialysis. patient given a Tramadol for pain, they advised patient there was a lot of side affects with it, patient worried it may be a side affect of medication. Nausea, especially with movement. HPI/ROS CHIEF COMPLAINT: left lower abdominal pain HISTORY OF PRESENT ILLNESS: This is a 53 year old female. woke at 2200 hours with sharp pain in left lower abdomen and left lower back. Had surgery on left arm for fistula for dialysis a few days ago. Healing well. On Tramadol for pain. Not sure if this could be a side effect of the medicine. Has been having regular bowel movements until a few days ago. Some loose stools today. No trouble with urination. Denies chest pain or shortness of breath. No blood in stool or urine. Nausea present, worsens with activity. Able to eat and drink normally today. Allergies: Coded Allergies: promethazine (Verified Allergy, Severe, RESTLESS LEGS, 03/14/19) sumatriptan (Verified Allergy, Intermediate, HIVES, SOB, 03/14/19) only with nose spray, she can take oral sumatriptan NSAIDS (Non-Steroidal Anti-Inflamma (Verified Allergy, Mild, NAUSEA, HEADACHES, 03/14/19) orphenadrine (Verified Allergy, Unknown, 03/14/19) keeps her awake oxycodone (Verified Allergy, Unknown, 03/14/19) aspirin (Verified Adverse Reaction, Mild, NAUSEA, 03/14/19) furosemide (Verified Adverse Reaction, Unknown, 03/14/19) too hard on kidneys Uncoded Allergies: COBAN (Allergy, Mild, rash, 04/03/13) Home Meds Active Scripts Risperidone (RISPERIDONE) 0.5 Mg Tablet, 0.5 MG PO QHS, #90 TAB 1 Refill Prov:BETSEY PIERSON MD 04/01/19 Meclizine Hcl (MECLIZINE HCL) 25 Mg Tablet, 25 MG PO Q8H for dizzness, #15 TAB 0 Refills Prov:ESTEBAN ALDANA MD 03/14/19 Sertraline Hcl (SERTRALINE HCL) 100 Mg Tablet, 1.5 TAB PO QDAY, #135 TAB 1 Refill Prov:BETSEY PIERSON MD 02/18/19 Amlodipine Besylate (AMLODIPINE BESYLATE) 2.5 Mg Tablet, 2.5 MG PO QDAY, #90 TAB 3 Refills Prov:BETSEY PIERSON MD 02/11/19 Levothyroxine Sodium (LEVOTHYROXINE SODIUM) 0.112 Mg Tab, 0.112 MG PO QDAY for 90 Days, #30 TAB 4 Refills Prov:BETSEY PIERSON MD 01/01/19 Hydrocodone Bit/Acetaminophen (HYDROCODON-ACETAMINOPHEN 5-325) 1 Each Tablet, 1 EACH PO BID PRN for pain, #60 TAB Prov:BETSEY PIERSON MD 12/17/18 Ondansetron 4 Mg Odt (ONDANSETRON 4 MG ODT) 4 Mg Tab.rapdis, 4 MG PO ONCE, #30 TAB Prov:PANKAJ RODRIGUEZ DO 12/06/18 Omeprazole (OMEPRAZOLE) 20 Mg Capsule.dr, 1 CAP PO QODAY, #30 CAP 6 Refills Prov:BETSEY PIERSON MD 11/14/18 Topiramate (TOPIRAMATE) 50 Mg Tablet, 50 MG PO QDAY, #30 TAB 4 Refills Prov:BETSEY PIERSON MD 11/05/18 Simvastatin (SIMVASTATIN) 10 Mg Tablet, 1 TAB PO QHS, #90 TAB 4 Refills Prov:BETSEY PIERSON MD 04/10/18 Propranolol Hcl (INDERAL LA) 80 Mg Cap.sa.24h, 1 CAP PO QDAY, #90 CAP 4 Refills Prov:BETSEY PIERSON MD 02/05/18 Febuxostat (ULORIC) 40 Mg Tablet, 1 TAB PO QDAY, #90 TAB 1 Refill Prov:BETSEY PIERSON MD 07/27/16 Reported Medications Phenazopyridine Hcl (PHENAZOPYRIDINE HCL) 200 Mg Tablet, 200 MG PO TID, #10 TAB 01/08/19 Docusate Calcium (SURFAK) 240 Mg Capsule, 240 MG PO PRN for constipation, CAPSULE 05/20/18 Melatonin/Pyridoxine HCl (B6) (Melatonin 3 mg Tablet) 1 Each Tablet, 1 TAB QHS, TAB 10/23/17 Sodium Bicarbonate (SODIUM BICARBONATE) 650 Mg Tablet, 2 TAB PO BID 07/26/16 Imipramine Hcl (Tofranil) 25 Mg Tab, 1 TAB PO DAILY, 0 Refills 09/26/12 Reviewed Nurses Notes: Yes Hx Smoking: Yes (SMOKED AGE 16 TO UNTIL 2000, / PPD) Smoking Status: Former Smoker Exposure to Second Hand Smoke?: No Hx Substance Use Disorder: No Hx Alcohol Use: Yes Constitutional Vital Sign - Last 24 Hours 04/06/19 00:18 Temp 98.2 Pulse 68 Resp 16 B/P (MAP) 159/92 Pulse Ox 97 O2 Delivery Room Air Physical Exam General Appearance: The patient is alert. No acute distress. Eyes: Pupils are equal, round. No pallor, injection or icterus. ENT: Mucous membranes are moist. Normal oral mucosa and posterior oropharynx. Neck: Supple and non tender. Respiratory: Lungs are clear to auscultation. Cardiovascular: Regular rate and rhythm. No murmurs, gallops or rubs. Normal capillary refill. Gastrointestinal: Abdomen is soft, some tenderness in lower abdomen, worse in suprapubic and left lower. Nondistended. Guarding, no rebound. Normal active bowel sounds. No costovertebral angle tenderness with percussion. Neurological: Alert and oriented x3. No focal neurologic deficits Skin: Warm and dry. No rashes. Musculoskeletal: No tenderness in palpation of the spine, but some pain in the lower paraspinous lumbar area. DIFFERENTIAL DIAGNOSIS: After history and physical exam, differential diagnosis was considered for pain in the abdomen and low back with some loose stools and nausea. Medical Decision Making Data Points Result Diagram: 04/06/19 0159 04/06/19 0159 Laboratory Hematology Test 04/06/19 01:53 04/06/19 01:59 Urine Color Straw Urine Clarity Clear Urine pH 8.0 pH (4.8-9.5) Urine Specific [place] 1.010 Urine Protein Negative mg/dL (NEGATIVE) Urine Glucose (UA) Negative mg/dL (NEGATIVE) Urine Ketones Negative mg/dL (NEGATIVE) Urine Blood Negative (NEGATIVE) Urine Nitrite Negative (NEGATIVE) Urine Bilirubin Negative (NEGATIVE) Urine Urobilinogen Negative mg/dL (0.2-1.9) Urine Leukocyte Esterase Negative (NEGATIVE) Urine RBC 1 /HPF (0-2/HPF) Urine WBC <1 /HPF (0-5/HPF) Urine Squamous Epithelial Cells Many /LPF (</=FEW) Urine Amorphous Crystals Few /HPF Urine Bacteria Negative /HPF (NONE-FEW) Urine Mucus None /HPF (NONE-FEW) Red Blood Count 3.51 M/uL (4.17-5.56) Mean Corpuscular Volume 92.9 fL (80.0-96.0) Mean Corpuscular Hemoglobin 32.6 pg (26.0-33.0) Mean Corpuscular Hemoglobin Concent 35.1 g/dL (32.0-36.0) Red Cell Distribution Width 12.8 % (11.5-14.5) Mean Platelet Volume 6.7 fL (7.2-11.1) Neutrophils (%) (Auto) 64.3 % (39.4-72.5) Lymphocytes (%) (Auto) 20.9 % (17.6-49.6) Monocytes (%) (Auto) 8.7 % (4.1-12.4) Eosinophils (%) (Auto) 5.5 % (0.4-6.7) Basophils (%) (Auto) 0.6 % (0.3-1.4) Nucleated RBC Relative Count (auto) 0.1 /100WBC Neutrophils # (Auto) 3.7 K/uL (2.0-7.4) Lymphocytes # (Auto) 1.2 K/uL (1.3-3.6) Monocytes # (Auto) 0.5 K/uL (0.3-1.0) Eosinophils # (Auto) 0.3 K/uL (0.0-0.5) Basophils # (Auto) 0.0 K/uL (0.0-0.1) Nucleated RBC Absolute Count (auto) 0.00 K/uL Sodium Level 140 mmol/L (137-145) Potassium Level 3.8 mmol/L (3.5-5.0) Chloride Level 105 mmol/L (98-107) Carbon Dioxide Level 24 mmol/L (22-31) Blood Urea Nitrogen 29 mg/dl (7-18) Creatinine 3.70 mg/dl (0.52-1.04) Glomerular Filtration Rate Calc 12.8 Random Glucose 105 mg/dl (75-110) Calcium Level 9.8 mg/dl (8.4-10.2) Total Bilirubin 0.4 mg/dl (0.2-1.3) Aspartate Amino Transf (AST/SGOT) 15 U/L (0-35) Alanine Aminotransferase (ALT/SGPT) 25 U/L (0-56) Alkaline Phosphatase 49 U/L (0-126) Total Protein 7.3 g/dl (6.3-8.2) Albumin 4.2 g/dl (3.5-5.0) Chemistry Test 04/06/19 01:53 04/06/19 01:59 Urine Color Straw Urine Clarity Clear Urine pH 8.0 pH (4.8-9.5) Urine Specific [place] 1.010 Urine Protein Negative mg/dL (NEGATIVE) Urine Glucose (UA) Negative mg/dL (NEGATIVE) Urine Ketones Negative mg/dL (NEGATIVE) Urine Blood Negative (NEGATIVE) Urine Nitrite Negative (NEGATIVE) Urine Bilirubin Negative (NEGATIVE) Urine Urobilinogen Negative mg/dL (0.2-1.9) Urine Leukocyte Esterase Negative (NEGATIVE) Urine RBC 1 /HPF (0-2/HPF) Urine WBC <1 /HPF (0-5/HPF) Urine Squamous Epithelial Cells Many /LPF (</=FEW) Urine Amorphous Crystals Few /HPF Urine Bacteria Negative /HPF (NONE-FEW) Urine Mucus None /HPF (NONE-FEW) White Blood Count 5.7 k/uL (4.5-11.0) Red Blood Count 3.51 M/uL (4.17-5.56) Hemoglobin 11.5 g/dL (12.0-16.0) Hematocrit 32.6 % (34.0-47.0) Mean Corpuscular Volume 92.9 fL (80.0-96.0) Mean Corpuscular Hemoglobin 32.6 pg (26.0-33.0) Mean Corpuscular Hemoglobin Concent 35.1 g/dL (32.0-36.0) Red Cell Distribution Width 12.8 % (11.5-14.5) Platelet Count 173 K/uL (150-450) Mean Platelet Volume 6.7 fL (7.2-11.1) Neutrophils (%) (Auto) 64.3 % (39.4-72.5) Lymphocytes (%) (Auto) 20.9 % (17.6-49.6) Monocytes (%) (Auto) 8.7 % (4.1-12.4) Eosinophils (%) (Auto) 5.5 % (0.4-6.7) Basophils (%) (Auto) 0.6 % (0.3-1.4) Nucleated RBC Relative Count (auto) 0.1 /100WBC Neutrophils # (Auto) 3.7 K/uL (2.0-7.4) Lymphocytes # (Auto) 1.2 K/uL (1.3-3.6) Monocytes # (Auto) 0.5 K/uL (0.3-1.0) Eosinophils # (Auto) 0.3 K/uL (0.0-0.5) Basophils # (Auto) 0.0 K/uL (0.0-0.1) Nucleated RBC Absolute Count (auto) 0.00 K/uL Glomerular Filtration Rate Calc 12.8 Calcium Level 9.8 mg/dl (8.4-10.2) Total Bilirubin 0.4 mg/dl (0.2-1.3) Aspartate Amino Transf (AST/SGOT) 15 U/L (0-35) Alanine Aminotransferase (ALT/SGPT) 25 U/L (0-56) Alkaline Phosphatase 49 U/L (0-126) Total Protein 7.3 g/dl (6.3-8.2) Albumin 4.2 g/dl (3.5-5.0) Urinalysis Test 04/06/19 01:53 Urine Color Straw Urine Clarity Clear Urine pH 8.0 pH (4.8-9.5) Urine Specific [place] 1.010 Urine Protein Negative mg/dL (NEGATIVE) Urine Glucose (UA) Negative mg/dL (NEGATIVE) Urine Ketones Negative mg/dL (NEGATIVE) Urine Blood Negative (NEGATIVE) Urine Nitrite Negative (NEGATIVE) Urine Bilirubin Negative (NEGATIVE) Urine Urobilinogen Negative mg/dL (0.2-1.9) Urine Leukocyte Esterase Negative (NEGATIVE) Urine RBC 1 /HPF (0-2/HPF) Urine WBC <1 /HPF (0-5/HPF) Urine Squamous Epithelial Cells Many /LPF (</=FEW) Urine Amorphous Crystals Few /HPF Urine Bacteria Negative /HPF (NONE-FEW) Urine Mucus None /HPF (NONE-FEW) EKG/Imaging Imaging CT ABDOMEN PELVIS W/O CON HISTORY: Left flank pain. COMPARISON: 01/13/2019 and studies dating to 06/04/2015. TECHNIQUE: Axial images were obtained from the lung bases through the symphysis pubis without intravenous contrast. Sagittal and coronal reformats were performed. One of the following dose optimization techniques was utilized in the performance of this exam: Automated exposure control; adjustment of the mA and/or kV according to the patient's size; or use of an iterative reconstruction technique. Specific details can be referenced in the facility's radiology CT exam operational policy. CONTRAST: None. FINDINGS: LOWER CHEST: There is a small right pleural effusion, new. There is mild right greater than left atelectasis. LIVER: Normal. GALLBLADDER/BILIARY: Cholecystectomy. No intrahepatic or extrahepatic ductal di lation. PANCREAS: Normal. SPLEEN: Normal. ADRENALS: Normal. KIDNEYS/URETERS/BLADDER: Severe atrophy of the right kidney. There is persistent lobulation of the left kidney. There is stable mild left perinephric stranding. There is a 1 mm nonobstructing left renal calculus (image 133 series 3). No hydronephrosis. The ureters and the bladder are normal. GI/MESENTERY/PERITONEAL CAVITY: There is circumferential thickening of the distal esophagus. There is stable fatty infiltration of the wall of the rectosigmoid. There is no bowel obstruction. There is no wall thickening or pericolonic stranding. The appendix is not discretely visualized. No inflammatory stranding adjacent to the cecum. No diverticula. No free air or free fluid. VESSELS: There is mild atherosclerotic disease. No aneurysm. NODES: Normal. PELVIS: Uterus is absent. Ovaries are not identified and may be surgically absent. There are pelvic phleboliths. BONES/VERTEBRA/SOFT TISSUES: Right mastectomy. Postsurgical changes at L4-5 with fusion of the bilateral facets. Stable 2-3 mm anterolisthesis of L3 and L4 com pared to L2 and L5. There is 3 mm retrolisthesis of L1 compared to L2, unchanged. There is stable 2 mm retrolisthesis of T12 compared to L1. Vertebral body heights are maintained. There is mild narrowing of the spinal canal at T12-L1, unchanged. There are tiny fat-containing ventral hernias at the level of the umbilicus (sagittal image 70). IMPRESSION: 1. Persistent lobulation of the left kidney. There is 1 mm nonobstructing left renal calculus. No hydronephrosis or obstructing calculus. 2. Severe atrophy of the right kidney is unchanged. 3. Circumferential thickening of the distal esophagus. This can be seen with esophagitis. 4. New small right pleural effusion and new bibasilar atelectasis, right greater than left. Report Dictated By: Jenny Chavis at 04/06/2019 2:55 AM ED Course/Re-evaluation Clinical Indication for ER IV: IV Access ED Course Undifferentiated abdominal pain. Labs and imaging negative as noted above. Could be viral, cramping, recommended fluids, rest, and follow-up with primary care. Decision to Disposition Date: Apr 06, 2019 Decision to Disposition Time: 03:24 Depart Departure Latest Vital Signs Vital Signs Date Time Temp Pulse Resp B/P (MAP) Pulse Ox O2 Delivery O2 Flow Rate FiO2 04/06/19 00:18 98.2 68 16 159/92 97 Room Air Impression: Primary Impression: Abdominal pain Condition: Improved Disposition: HOME OR SELF-CARE Referrals: BETSEY PIERSON MD (PCP) Patient Instructions: Abdominal Pain (ED) Additional Instructions: No problems found on imaging or labs tonight to explain abdominal pain. Recommend bland diet. Follow-up with primary care. Rest with increase fluid intake. Problem Qualifiers Primary Impression: Abdominal pain Abdominal location: left lower quadrant Qualified Codes: R10.32 - Left lower quadrant pain EFREN URIOSTEGUI MD Apr 06, 2019 01:04
[2019-04-06 02:10] LABS: PLATELET COUNT, AUTOMATED 173 K/uL (150-450)
--- NOTE | 2019-04-06 03:21 | RADIOLOGY IMAGING REPORT ---
FACILITY: [facility] - [place] PATIENT NAME: Rachel Huang : 1965 MR: [id number] V: [id number] EXAM DATE: ORDERING PHYSICIAN: EFREN URIOSTEGUI TECHNOLOGIST: Location: [facility] [place] Patient: Rachel Huang : 1965 Visit/Account:[id number] Date of Sevice: 04/06/2019 CT ABDOMEN PELVIS W/O CON HISTORY: Left flank pain. COMPARISON: 01/13/2019 and studies dating to 06/04/2015. TECHNIQUE: Axial images were obtained from the lung bases through the symphysis pubis without intrave nous contrast. Sagittal and coronal reformats were performed. One of the following dose optimization techniques was utilized in the performance of this exam: Autom ated exposure control; adjustment of the mA and/or kV according to the patient's size; or use of an i terative reconstruction technique. Specific details can be referenced in the facility's radiology CT exam operational policy. CONTRAST: None. FINDINGS: LOWER CHEST: There is a small right pleural effusion, new. There is mild right greater than left atel ectasis. LIVER: Normal. GALLBLADDER/BILIARY: Cholecystectomy. No intrahepatic or extrahepatic ductal dilation. PANCREAS: Normal. SPLEEN: Normal. ADRENALS: Normal. KIDNEYS/URETERS/BLADDER: Severe atrophy of the right kidney. There is persistent lobulation of the le ft kidney. There is stable mild left perinephric stranding. There is a 1 mm nonobstructing left renal calculus (image 133 series 3). No hydronephrosis. The ureters and the bladder are normal. GI/MESENTERY/PERITONEAL CAVITY: There is circumferential thickening of the distal esophagus. There is stable fatty infiltration of the wall of the rectosigmoid. There is no bowel obstruction. There is n o wall thickening or pericolonic stranding. The appendix is not discretely visualized. No inflammator y stranding adjacent to the cecum. No diverticula. No free air or free fluid. VESSELS: There is mild atherosclerotic disease. No aneurysm. NODES: Normal. PELVIS: Uterus is absent. Ovaries are not identified and may be surgically absent. There are pelvic p hleboliths. BONES/VERTEBRA/SOFT TISSUES: Right mastectomy. Postsurgical changes at L4-5 with fusion of the bilate ral facets. Stable 2-3 mm anterolisthesis of L3 and L4 compared to L2 and L5. There is 3 mm retrolist hesis of L1 compared to L2, unchanged. There is stable 2 mm retrolisthesis of T12 compared to L1. [place] tebral body heights are maintained. There is mild narrowing of the spinal canal at T12-L1, unchanged . There are tiny fat-containing ventral hernias at the level of the umbilicus (sagittal image 70). IMPRESSION: 1. Persistent lobulation of the left kidney. There is 1 mm nonobstructing left renal calculus. No hyd ronephrosis or obstructing calculus. 2. Severe atrophy of the right kidney is unchanged. 3. Circumferential thickening of the distal esophagus. This can be seen with esophagitis. 4. New small right pleural effusion and new bibasilar atelectasis, right greater than left. Report Dictated By: Jenny Chavis at 04/06/2019 2:55 AM Report E-Signed By: Jenny Chavis at 04/06/2019 3:13 AM WSN:[id number]
[2019-04-06 03:32] VITALS: BP 145/88
== END 2019-04-06 03:33 | disposition home or self-care (01) ==
LOC: ER 04-06 00:42
DX: R10.32 Left lower quadrant pain (principal); N20.0 Calculus of kidney
CPT/HCPCS: 74176; 81001; 82040; 82247; 82310; 82374; 82435; 82565; 82947; 84075; 84132; 84155; 84295; 84450; 84460; 84520; 85025; 99284

== ENCOUNTER → 2019-04-27 | Outpatient (CLI) | payer MEDICARE, MEDICAID ==
[2018-05-20 09:30] VITALS: BMI 25.7
[2019-04-27 17:12] LABS: PLATELET COUNT, AUTOMATED 192 K/uL (150-450)
== END ==
LOC: LAB 16:24
PROVIDERS: ATTEND Internal Medicine
DX: R10.9 Unspecified abdominal pain (principal); R19.7 Diarrhea, unspecified; R11.10 Vomiting, unspecified; N18.4 Chronic kidney disease, stage 4 (severe)
CPT/HCPCS: 36415; 81001; 82040; 82150; 82247; 82310; 82374; 82435; 82565; 82947; 83690; 84075; 84132; 84155; 84295; 84443; 84450; 84460; 84520; 85025

== ENCOUNTER 2019-04-28 05:18 | Emergency (ER) | payer MEDICARE, MEDICAID ==
[2018-05-20 09:30] VITALS: Wt 68.1 kg
[2019-04-28] MEDS ORDERED: NS(*) 0.9% 500 ML BAG 500 ML IV ONE (05:32)
[2019-04-28] MEDS ORDERED: ONDANSETRON 4 MG/2 ML VIAL IVP ONE (05:35)
--- NOTE | 2019-04-28 05:42 | ER Report ---
History and Physical Time Seen By MD: 05:20 Hx. of Stated Complaint: PATIENT STATES SHE HAS BEEN HAVING NAUSEA, VOMITING AND DIARRHEA, PATIENT WAS SEEN AT HER PCP OFFICE YESTERDAY FOR DIARRHEA, WAS SUPPOSED TO BRING A STOOL SAMPLE IN TO LAB TO CHECK FOR C-DIFF. PATIENT HAS ABDOMINAL PAIN. HPI/ROS CHIEF COMPLAINT: Vomiting, diarrhea and abd pain HISTORY OF PRESENT ILLNESS: Pt states she started feeling "lousy" 2 weeks ago with abd pain and nausea. Pt states now with vomiting and diarrhea for last week. Vomiting 2-3 x a day and diarrhea 3-4 x a day. Pt saw pcp yesterday who sent her for blood work and told her to send a stool for c.diff. Pt got blood work yesterday but never collected a stool as of yet. Pt states she as felt hot and then cold. no documented fever. pt has LLQ abdominal pain. PT using zofran a t home. REVIEW OF SYSTEMS: Constitutional: ? fever, + chills. Eyes: No discharge. ENT: No sore throat. Cardiovascular: No chest pain, no palpitations. Respiratory: No cough, no shortness of breath. Gastrointestinal: + abdominal pain, +nausea, + vomiting, + diarrhea Genitourinary: No hematuria. Musculoskeletal: No back pain. Skin: No rashes. Neurological: CHronic headache. Allergies: Coded Allergies: promethazine (Verified Allergy, Severe, RESTLESS LEGS, 04/28/19) sumatriptan (Verified Allergy, Intermediate, HIVES, SOB, 04/28/19) only with nose spray, she can take oral sumatriptan NSAIDS (Non-Steroidal Anti-Inflamma (Verified Allergy, Mild, NAUSEA, HEADACHES, 04/28/19) orphenadrine (Verified Allergy, Unknown, 04/28/19) keeps her awake oxycodone (Verified Allergy, Unknown, 04/28/19) aspirin (Verified Adverse Reaction, Mild, NAUSEA, 04/28/19) furosemide (Verified Adverse Reaction, Unknown, 04/28/19) too hard on kidneys Uncoded Allergies: COBAN (Allergy, Mild, rash, 04/03/13) Home Meds Active Scripts Hydrocodone Bit/Acetaminophen (HYDROCODON-ACETAMINOPHEN 5-325) 1 Each Tablet, 1 EACH PO BID PRN for pain, #60 TAB Prov:BETSEY PIERSON MD 04/27/19 Risperidone (RISPERIDONE) 0.5 Mg Tablet, 0.5 MG PO QHS, #90 TAB 1 Refill Prov:BETSEY PIERSON MD 04/01/19 Meclizine Hcl (MECLIZINE HCL) 25 Mg Tablet, 25 MG PO Q8H for dizzness, #15 TAB 0 Refills Prov:ESTEBAN ALDANA MD 03/14/19 Sertraline Hcl (SERTRALINE HCL) 100 Mg Tablet, 1.5 TAB PO QDAY, #135 TAB 1 Refill Prov:BETSEY PIERSON MD 02/18/19 Amlodipine Besylate (AMLODIPINE BESYLATE) 2.5 Mg Tablet, 2.5 MG PO QDAY, #90 TAB 3 Refills Prov:BETSEY PIERSON MD 02/11/19 Levothyroxine Sodium (LEVOTHYROXINE SODIUM) 0.112 Mg Tab, 0.112 MG PO QDAY for 90 Days, #30 TAB 4 Refills Prov:BETSEY PIERSON MD 01/01/19 Ondansetron 4 Mg Odt (ONDANSETRON 4 MG ODT) 4 Mg Tab.rapdis, 4 MG PO ONCE, #30 TAB Prov:PANKAJ RODRIGUEZ DO 12/06/18 Omeprazole (OMEPRAZOLE) 20 Mg Capsule.dr, 1 CAP PO QODAY, #30 CAP 6 Refills Prov:BETSEY PIERSON MD 11/14/18 Topiramate (TOPIRAMATE) 50 Mg Tablet, 50 MG PO QDAY, #30 TAB 4 Refills Prov:BETSEY PIERSON MD 11/05/18 Simvastatin (SIMVASTATIN) 10 Mg Tablet, 1 TAB PO QHS, #90 TAB 4 Refills Prov:BETSEY PIERSON MD 04/10/18 Propranolol Hcl (INDERAL LA) 80 Mg Cap.sa.24h, 1 CAP PO QDAY, #90 CAP 4 Refills Prov:BETSEY PIERSON MD 02/05/18 Febuxostat (ULORIC) 40 Mg Tablet, 1 TAB PO QDAY, #90 TAB 1 Refill Prov:BETSEY PIERSON MD 07/27/16 Reported Medications Phenazopyridine Hcl (PHENAZOPYRIDINE HCL) 200 Mg Tablet, 200 MG PO TID, #10 TAB 01/08/19 Docusate Calcium (SURFAK) 240 Mg Capsule, 240 MG PO PRN for constipation, CAPSULE 05/20/18 Melatonin/Pyridoxine HCl (B6) (Melatonin 3 mg Tablet) 1 Each Tablet, 1 TAB QHS, TAB 10/23/17 Sodium Bicarbonate (SODIUM BICARBONATE) 650 Mg Tablet, 2 TAB PO BID 07/26/16 Imipramine Hcl (Tofranil) 25 Mg Tab, 1 TAB PO DAILY, 0 Refills 09/26/12 Past Medical/Surgical History Pmhx: rest less leg syndrome, chronic HUITRON, htn, hypothyroid, depression, anxiety, hyperlipid, gerd, renal failure, kidney stones, gout Pshx: breast reduction, TA, appy, bre, cysto, hyster, dialysis fistula Reviewed Nurses Notes: Yes Old Medical Records Reviewed: Yes Hx Smoking: Yes (SMOKED AGE 16 TO UNTIL 2000, 10/29 PPD) Smoking Status: Former Smoker Exposure to Second Hand Smoke?: No Hx Substance Use Disorder: No Hx Alcohol Use: Yes Constitutional Vital Sign - Last 24 Hours 04/28/19 04/28/19 04/28/19 04/28/19 05:22 05:30 05:33 06:00 Temp 100.0 Pulse 76 74 Resp 20 B/P (MAP) 128/85 132/95 (107) 148/89 (108) Pulse Ox 94 94 O2 Delivery Room Air 04/28/19 04/28/19 04/28/19 06:05 06:20 06:30 Pulse 74 74 B/P (MAP) 141/93 (109) Pulse Ox 93 94 Intake and Output 04/27/19 04/27/19 04/28/19 15:02 23:02 07:02 Intake Total 500 ml Output Total 5 ml Balance 495 ml Physical Exam General Appearance: The patient is alert, has no immediate need for airway protection and no signs of toxicity. Eyes: Pupils equal and round no pallor or injection, EOMI ENT: no pharyngeal erythema or exudates, Mucous membranes are moist Respiratory: There are no retractions, lungs are clear to auscultation. Cardiovascular: Regular rate and rhythm. pulses are equal and symmetrical Gastrointestinal: Abdomen is soft and tender LUQ and LLQ, no masses, bowel sounds normal, no guarding, no rigidity or rebound Neurological: Cranial nerves II-XII grossly intact, no sensory or motor loss Skin: Warm and dry, no rashes. Musculoskeletal: Neck is supple non tender, no vertebral tenderness Extremities are non tender, nonswollen and have full range of motion. DIFFERENTIAL DIAGNOSIS: After history and physical exam differential diagnosis was considered for colitis, dehydration, c.diff, electrolyte abnl, pancreatitis, gastroenteritis Medical Decision Making Data Points Result Diagram: 04/28/19 0528 04/28/19 0528 Laboratory Hematology Test 04/28/19 05:28 04/28/19 06:35 Red Blood Count 3.75 M/uL (4.17-5.56) Mean Corpuscular Volume 92.8 fL (80.0-96.0) Mean Corpuscular Hemoglobin 32.3 pg (26.0-33.0) Mean Corpuscular Hemoglobin Concent 34.9 g/dL (32.0-36.0) Red Cell Distribution Width 13.0 % (11.5-14.5) Mean Platelet Volume 6.9 fL (7.2-11.1) Neutrophils (%) (Auto) 77.8 % (39.4-72.5) Lymphocytes (%) (Auto) 10.7 % (17.6-49.6) Monocytes (%) (Auto) 7.4 % (4.1-12.4) Eosinophils (%) (Auto) 3.5 % (0.4-6.7) Basophils (%) (Auto) 0.6 % (0.3-1.4) Nucleated RBC Relative Count (auto) 0.0 /100WBC Neutrophils # (Auto) 6.9 K/uL (2.0-7.4) Lymphocytes # (Auto) 1.0 K/uL (1.3-3.6) Monocytes # (Auto) 0.7 K/uL (0.3-1.0) Eosinophils # (Auto) 0.3 K/uL (0.0-0.5) Basophils # (Auto) 0.0 K/uL (0.0-0.1) Nucleated RBC Absolute Count (auto) 0.00 K/uL Sodium Level 143 mmol/L (137-145) Potassium Level 4.7 mmol/L (3.5-5.0) Chloride Level 108 mmol/L (98-107) Carbon Dioxide Level 18 mmol/L (22-31) Blood Urea Nitrogen 19 mg/dl (7-18) Creatinine 3.80 mg/dl (0.52-1.04) Glomerular Filtration Rate Calc 12.4 Random Glucose 112 mg/dl (75-110) Calcium Level 9.9 mg/dl (8.4-10.2) Total Bilirubin 0.5 mg/dl (0.2-1.3) Aspartate Amino Transf (AST/SGOT) 19 U/L (0-35) Alanine Aminotransferase (ALT/SGPT) 27 U/L (0-56) Alkaline Phosphatase 55 U/L (0-126) Total Protein 7.8 g/dl (6.3-8.2) Albumin 4.5 g/dl (3.5-5.0) Amylase Level 114 U/L (0-110) Lipase 316 U/L (23-300) Urine Color Straw Urine Clarity Clear Urine pH 9.0 pH (4.8-9.5) Urine Specific [place] 1.008 Urine Protein Negative mg/dL (NEGATIVE) Urine Glucose (UA) Negative mg/dL (NEGATIVE) Urine Ketones Negative mg/dL (NEGATIVE) Urine Blood Negative (NEGATIVE) Urine Nitrite Negative (NEGATIVE) Urine Bilirubin Negative (NEGATIVE) Urine Urobilinogen Negative mg/dL (0.2-1.9) Urine Leukocyte Esterase Negative (NEGATIVE) Urine RBC <1 /HPF (0-2/HPF) Urine WBC None /HPF (0-5/HPF) Urine Squamous Epithelial Cells Many /LPF (NONE-FEW) Urine Bacteria Negative /HPF (NONE-FEW) Urine Mucus None /HPF (NONE-FEW) Chemistry Test 04/28/19 05:28 04/28/19 06:35 White Blood Count 8.9 k/uL (4.5-11.0) Red Blood Count 3.75 M/uL (4.17-5.56) Hemoglobin 12.1 g/dL (12.0-16.0) Hematocrit 34.8 % (34.0-47.0) Mean Corpuscular Volume 92.8 fL (80.0-96.0) Mean Corpuscular Hemoglobin 32.3 pg (26.0-33.0) Mean Corpuscular Hemoglobin Concent 34.9 g/dL (32.0-36.0) Red Cell Distribution Width 13.0 % (11.5-14.5) Platelet Count 197 K/uL (150-450) Mean Platelet Volume 6.9 fL (7.2-11.1) Neutrophils (%) (Auto) 77.8 % (39.4-72.5) Lymphocytes (%) (Auto) 10.7 % (17.6-49.6) Monocytes (%) (Auto) 7.4 % (4.1-12.4) Eosinophils (%) (Auto) 3.5 % (0.4-6.7) Basophils (%) (Auto) 0.6 % (0.3-1.4) Nucleated RBC Relative Count (auto) 0.0 /100WBC Neutrophils # (Auto) 6.9 K/uL (2.0-7.4) Lymphocytes # (Auto) 1.0 K/uL (1.3-3.6) Monocytes # (Auto) 0.7 K/uL (0.3-1.0) Eosinophils # (Auto) 0.3 K/uL (0.0-0.5) Basophils # (Auto) 0.0 K/uL (0.0-0.1) Nucleated RBC Absolute Count (auto) 0.00 K/uL Glomerular Filtration Rate Calc 12.4 Calcium Level 9.9 mg/dl (8.4-10.2) Total Bilirubin 0.5 mg/dl (0.2-1.3) Aspartate Amino Transf (AST/SGOT) 19 U/L (0-35) Alanine Aminotransferase (ALT/SGPT) 27 U/L (0-56) Alkaline Phosphatase 55 U/L (0-126) Total Protein 7.8 g/dl (6.3-8.2) Albumin 4.5 g/dl (3.5-5.0) Amylase Level 114 U/L (0-110) Lipase 316 U/L (23-300) Urine Color Straw Urine Clarity Clear Urine pH 9.0 pH (4.8-9.5) Urine Specific [place] 1.008 Urine Protein Negative mg/dL (NEGATIVE) Urine Glucose (UA) Negative mg/dL (NEGATIVE) Urine Ketones Negative mg/dL (NEGATIVE) Urine Blood Negative (NEGATIVE) Urine Nitrite Negative (NEGATIVE) Urine Bilirubin Negative (NEGATIVE) Urine Urobilinogen Negative mg/dL (0.2-1.9) Urine Leukocyte Esterase Negative (NEGATIVE) Urine RBC <1 /HPF (0-2/HPF) Urine WBC None /HPF (0-5/HPF) Urine Squamous Epithelial Cells Many /LPF (NONE-FEW) Urine Bacteria Negative /HPF (NONE-FEW) Urine Mucus None /HPF (NONE-FEW) Urinalysis Test 04/28/19 06:35 Urine Color Straw Urine Clarity Clear Urine pH 9.0 pH (4.8-9.5) Urine Specific [place] 1.008 Urine Protein Negative mg/dL (NEGATIVE) Urine Glucose (UA) Negative mg/dL (NEGATIVE) Urine Ketones Negative mg/dL (NEGATIVE) Urine Blood Negative (NEGATIVE) Urine Nitrite Negative (NEGATIVE) Urine Bilirubin Negative (NEGATIVE) Urine Urobilinogen Negative mg/dL (0.2-1.9) Urine Leukocyte Esterase Negative (NEGATIVE) Urine RBC <1 /HPF (0-2/HPF) Urine WBC None /HPF (0-5/HPF) Urine Squamous Epithelial Cells Many /LPF (NONE-FEW) Urine Bacteria Negative /HPF (NONE-FEW) Urine Mucus None /HPF (NONE-FEW) ED Course/Re-evaluation Clinical Indication for ER IV: Hydration, IV Access ED Course Check labs and compare from yesterday. Repeat ct to compare from 04/0604/28/2019 6:18:48 am Pts initial fluid bolus is complete. Pts blood work has returned and no significant change from baseline accept bicarb drown from 21 to 18. will give a second bolus. Pt has not had any vomiting or diarrhea in the emergency room. Pts CT does not show any acute pathology. No pancreatitis or sign of bowel inflammation. Awaiting urine and stool. If unable to have a stool in ED pt has script for culture by pcp. 04/28/2019 6:56:09 am Pts urine does not show acute infection. Spoke with family and will follow up with pcp. Decision to Disposition Date: Apr 28, 2019 Decision to Disposition Time: 06:51 Depart Departure Latest Vital Signs Vital Signs Date Time Temp Pulse Resp B/P (MAP) Pulse Ox O2 Delivery O2 Flow Rate FiO2 04/28/19 06:30 141/93 (109) 04/28/19 06:20 74 94 04/28/19 05:22 100.0 20 Room Air Impression: Primary Impression: Abdominal pain Additional Impressions: Nausea and vomiting Diarrhea Condition: Condition Unchanged Disposition: HOME OR SELF-CARE Referrals: BETSEY PIERSON MD (PCP) 2 Days Patient Instructions: Acute Diarrhea (ED), Acute Nausea and Vomiting (ED) Additional Instructions: Your cat scan today was stable. Follow up with your family doctor. Problem Qualifiers Primary Impression: Abdominal pain Abdominal location: generalized Qualified Codes: R10.84 - Generalized abdominal pain Additional Impressions: Nausea and vomiting Vomiting type: unspecified Vomiting Intractability: non-intractable Qualified Codes: R11.2 - Nausea with vomiting, unspecified Diarrhea Diarrhea type: unspecified type Qualified Codes: R19.7 - Diarrhea, unspecified CHAZ TAYLOR DO Apr 28, 2019 05:42
[2019-04-28 05:47] LABS: PLATELET COUNT, AUTOMATED 197 K/uL (150-450)
[2019-04-28] MEDS ORDERED: LR(*) 1000 ML BAG 1,000 ML IV ONE (06:07)
--- NOTE | 2019-04-28 06:09 | RADIOLOGY IMAGING REPORT ---
FACILITY: [facility] PATIENT NAME: Rachel Huang : 1965 MR: [id number] V: [id number] EXAM DATE: ORDERING PHYSICIAN: CHAZ TAYLOR TECHNOLOGIST: Location: [facility] - [place] Patient: Rachel Huang : 1965 Visit/Account:[id number] Date of Sevice: 04/28/2019 CT ABDOMEN PELVIS W/O CON HISTORY:Left sided abd pain; diarrhea TECHNIQUE: CT abdomen and pelvis without intravenous contrast. Contiguous axial images of the abdom en and pelvis was performed from the lung bases to the symphysis pubis. One of the following dose optimization techniques was utilized in the performance of this exam: Autom ated exposure control; adjustment of the mA and/or kV according to the patient's size; or use of an i terative reconstruction technique. Specific details can be referenced in the facility's radiology C T exam operational policy. CONTRAST: None. COMPARISON: 04/06/2019 FINDINGS: Visualized lung bases: There is a small hiatal hernia. Hepatobiliary: Gallbladder is absent. Spleen: Negative. Adrenals: Negative. Kidneys/: There is chronic atrophy of the right kidney. The patient functionally has a solitary le ft kidney. The left kidney is lobulated with a 1 mm nonobstructing stone in the midpole. No obstructi ng ureteral stones. Pancreas: Negative. GI: No bowel obstruction or focal inflammation. Vessels/spaces/nodes: Negative. Bones/soft tissues: Postoperative changes are noted from prior laminectomy and intervertebral body f usion L4-5. IMPRESSION: 1. No acute pathology in the abdomen or pelvis. 2. 1 mm nonobstructing stone midpole left kidney. 3. Chronic atrophy of the right kidney. The patient functionally has a solitary left kidney which is lobulated but unchanged from prior. Report Dictated By: Ac Piper MD at 04/28/2019 5:58 AM Report E-Signed By: Ac Piper MD at 04/28/2019 6:04 AM WSN:[id number]
[2019-04-28 07:30] VITALS: BP 154/88
[2019-04-28] MEDS ORDERED: LEVO-3 PO (14:09)
== END 2019-04-28 07:59 | disposition home or self-care (01) ==
LOC: ER 05:24
DX: R10.84 Generalized abdominal pain (principal); R11.2 Nausea with vomiting, unspecified; R19.7 Diarrhea, unspecified
CPT/HCPCS: 74176; 81001; 82150; 83690; 85025; 96361; 96374; 99284; A4353; J2405; J7040; J7120; 82040; 82247; 82310; 82374; 82435; 82565; 82947; 84075; 84132; 84155; 84295; 84450; 84460; 84520

== ENCOUNTER → 2019-05-01 | Outpatient (CLI) | payer MEDICARE, MEDICAID ==
[2018-05-20 09:30] VITALS: BMI 25.7
[2019-05-01 16:43] LABS: PLATELET COUNT, AUTOMATED 189 K/uL (150-450)
== END ==
LOC: LAB 15:59
PROVIDERS: ATTEND Internal Medicine Nephrology
DX: N25.81 Secondary hyperparathyroidism of renal origin (principal); N18.4 Chronic kidney disease, stage 4 (severe); R80.1 Persistent proteinuria, unspecified; N26.1 Atrophy of kidney (terminal); N17.9 Acute kidney failure, unspecified; E83.52 Hypercalcemia
CPT/HCPCS: 36415; 82040; 82310; 82374; 82435; 82565; 82947; 83970; 84100; 84132; 84295; 84520; 85025

== ENCOUNTER 2019-05-04 06:18 | Emergency (ER) | payer MEDICARE, MEDICAID ==
[2018-05-20 09:30] VITALS: Wt 68.1 kg
--- NOTE | 2019-05-04 06:20 | ER Report ---
History and Physical Time Seen By MD: 06:17 (WILLOW JARQUIN DO) HPI/ROS Patient patient denies chest pain, shortness of breath CHIEF COMPLAINT: Syncope HISTORY OF PRESENT ILLNESS: 54-year-old female with a list of chronic medical pr oblems. Undergoing plans for dialysis, has had a fistula placed in her arm. Patient's been having vomiting and diarrhea was seen by her primary care doctor Deejay on 04/27 and subsequently was seen in the ER on 04/28 with vomiting and diarrhea and additional abdominal pain. A repeat CT scan was performed. Which was unremarkable. Patient received 2 L of normal saline as a bolus. She was discharged home and advised to follow up by returning a stool specimen for analysis, which she has failed to do. Patient got up this morning to go to the bathroom and had a syncopal episode. Her caught her so she did not fall. She apparently passed out for a few seconds. She notes that when she w gianfranco up she was feeling very nauseated. Patient denies chest pain or shortness of breath. Patient notes some dysuria but denies fever or chills. REVIEW OF SYSTEMS: Respiratory: No cough, no dyspnea. Cardiovascular: No chest pain, no palpitations. Gastrointestinal: As above Musculoskeletal: No back pain. (WILLOW JARQUIN DO) Allergies: Coded Allergies: promethazine (Verified Allergy, Severe, RESTLESS LEGS, 05/04/19) sumatriptan (Verified Allergy, Intermediate, HIVES, SOB, 05/04/19) only with nose spray, she can take oral sumatriptan NSAIDS (Non-Steroidal Anti-Inflamma (Verified Allergy, Mild, NAUSEA, HEADACHES, 05/04/19) orphenadrine (Verified Allergy, Unknown, 05/04/19) keeps her awake oxycodone (Verified Allergy, Unknown, 05/04/19) aspirin (Verified Adverse Reaction, Mild, NAUSEA, 05/04/19) furosemide (Verified Adverse Reaction, Unknown, 05/04/19) too hard on kidneys Uncoded Allergies: COBAN (Allergy, Mild, rash, 04/03/13) Home Meds Active Scripts Levothyroxine Sodium (LEVOTHYROXINE SODIUM) 100 Mcg Tablet, 100 MCG PO QDAY, #90 TAB 3 Refills Prov:BETSEY VILLALBA MD 04/28/19 Hydrocodone Bit/Acetaminophen (HYDROCODON-ACETAMINOPHEN 5-325) 1 Each Tablet, 1 EACH PO BID PRN for pain, #60 TAB Prov:BETSEY VILLALBA MD 04/27/19 Risperidone (RISPERIDONE) 0.5 Mg Tablet, 0.5 MG PO QHS, #90 TAB 1 Refill Prov:BETSEY VILLALBA MD 04/01/19 Meclizine Hcl (MECLIZINE HCL) 25 Mg Tablet, 25 MG PO Q8H for dizzness, #15 TAB 0 Refills Prov:ESTEBAN ALDANA MD 03/14/19 Sertraline Hcl (SERTRALINE HCL) 100 Mg Tablet, 1.5 TAB PO QDAY, #135 TAB 1 Refill Prov:BETSEY VILLALBA MD 02/18/19 Amlodipine Besylate (AMLODIPINE BESYLATE) 2.5 Mg Tablet, 2.5 MG PO QDAY, #90 TAB 3 Refills Prov:BETSEY VILLALBA MD 02/11/19 Ondansetron 4 Mg Odt (ONDANSETRON 4 MG ODT) 4 Mg Tab.rapdis, 4 MG PO ONCE, #30 TAB Prov:PANKAJ RODRIGUEZ DO 12/06/18 Omeprazole (OMEPRAZOLE) 20 Mg Capsule.dr, 1 CAP PO QODAY, #30 CAP 6 Refills Prov:BETSEY VILLALBA MD 11/14/18 Topiramate (TOPIRAMATE) 50 Mg Tablet, 50 MG PO QDAY, #30 TAB 4 Refills Prov:BETSEY VILLALBA MD 11/05/18 Simvastatin (SIMVASTATIN) 10 Mg Tablet, 1 TAB PO QHS, #90 TAB 4 Refills Prov:BETSEY VILLALBA MD 04/10/18 Propranolol Hcl (INDERAL LA) 80 Mg Cap.sa.24h, 1 CAP PO QDAY, #90 CAP 4 Refills Prov:BETSEY VILLALBA MD 02/05/18 Febuxostat (ULORIC) 40 Mg Tablet, 1 TAB PO QDAY, #90 TAB 1 Refill Prov:BETSEY VILLALBA MD 07/27/16 Reported Medications Phenazopyridine Hcl (PHENAZOPYRIDINE HCL) 200 Mg Tablet, 200 MG PO TID, #10 TAB 01/08/19 Docusate Calcium (SURFAK) 240 Mg Capsule, 240 MG PO PRN for constipation, CAPSULE 05/20/18 Melatonin/Pyridoxine HCl (B6) (Melatonin 3 mg Tablet) 1 Each Tablet, 1 TAB QHS, TAB 10/23/17 Sodium Bicarbonate (SODIUM BICARBONATE) 650 Mg Tablet, 2 TAB PO BID 07/26/16 Imipramine Hcl (Tofranil) 25 Mg Tab, 1 TAB PO DAILY, 0 Refills 09/26/12 Discontinued Scripts Levothyroxine Sodium (LEVOTHYROXINE SODIUM) 0.112 Mg Tab, 0.112 MG PO QDAY for 90 Days, #30 TAB 4 Refills Prov:BETSEY VILLALBA MD 01/01/19 Past Medical/Surgical History Past Medical History Neurologic: Reports hx of: developmental delay restless leg syndrome Cardiovascular: Reports hx of: edema (YES, IN FEET AND ANKLES WITH GOUT FLARE- UPS) hyperlipidemia hypertension Respiratory: Reports hx of: chronic bronchitis Gastrointestinal: Reports hx of: GERD Genitourinary: Reports hx of: chronic renal failure kidney stones Musculoskeletal: Reports hx of: gout Psychiatric: Reports hx of: depression suicide attempt(s) (1) Endocrine: Reports hx of: hypothyroidism Hematology/oncology: Reprots hx of: anemia Past Surgical History HEENT: Reports hx of: tonsillectomy Gastrointestinal: Reports hx of: appendectomy cholecystectomy other GI surgery (colonscopy, EGD (03/2018 [facility])) Gynecologic: Reports hx of: cystoscopy (mulitple) hysterectomy ([facility], Dr. Gallo, 2005) lithotripsy other surgery (Hydrodistention of bladder, [facility], 07/2017) Breast: Reports hx of: other breast surgery (Breast reduction) Musculoskeletal: Reports hx of: carpal tunnel release Below information was copied from Dr. Villalba's April 27, note This patient is a 53-year-old female who came in today for the chief complaint that she has been having abdominal pain nausea vomiting and diarrhea for last 1 week patient was seen in the emergency room on 04/06/2019 for lower abdominal pain at that time she underwent CT scan of the abdomen and pelvis she was found to have circumferential thickening of the distal esophagus and no acute abdominal pathology identified she denies any fever or chills she also complains of decreased appetite and pain is mostly generalized Past medical history significant for stage IV chronic kidney disease and most recent labs have shown creatinine of 3.70 with GFR of 12.8% she has undergone fistula placement in the left arm and is expecting to start dialysis in next couple of months she is following up with a certified [employer] administrator she has no edema of the lower extremities and is currently on sodium bicarbonate her potassium appears to be normal and she has no metabolic acidosis at this time Patient also has history of hysterectomy and hormone replacement but it has been discontinued and patient was found to have a lump in the left breast for which fine needle aspiration biopsy was performed on 11/25/18 which was negative for malignancy Past medical history significant for chronic headaches patient is currently on propranolol and Topamax patient has been following up with the neurologist it appears that her headache has improved Past medical history significant for hypertension for which he is currently on propranolol 80 mg, and amlodipine 2.5 mg daily. Losartan was discontinued becaus e of worsening of chronic kidney disease blood pressure was 159/95 when she came in but repeat blood pressure was 137/90 Past medical history significant for hypothyroidism for which she is on levoth yroxine and her most recent TSH level was low and the dose was adjusted plan to recheck thyroid function test Patient also has history of learning disabilities in the past Patient has history of depression and anxiety she is following up with a psychiatrist and has been on several medications for it (WILLOW JARQUIN DO) Reviewed Nurses Notes: Yes Old Medical Records Reviewed: Yes (WILLOW JARQUIN DO) Hx Smoking: Yes (SMOKED AGE 16 TO UNTIL 2000, 10/29 PPD) Smoking Status: Former Smoker Exposure to Second Hand Smoke?: No Hx Substance Use Disorder: No Hx Alcohol Use: Yes (WILLOW JARQUIN DO) Constitutional Vital Sign - Last 24 Hours 05/04/19 05/04/19 05/04/19 05/04/19 06:21 06:22 06:30 06:37 Temp 98.0 Pulse 66 Resp 14 B/P (MAP) 113/70 (84) 113/70 107/68 (81) 113/82 (92) Pulse Ox 96 O2 Delivery Room Air 05/04/19 05/04/19 05/04/19 05/04/19 06:48 06:53 07:00 07:23 Pulse 66 70 67 Resp 14 12 16 B/P (MAP) 119/91 (100) Pulse Ox 94 97 94 05/04/19 05/04/19 05/04/19 05/04/19 07:30 07:35 08:00 08:05 Pulse 69 67 Resp 20 19 B/P (MAP) 117/80 (92) 117/90 (99) Pulse Ox 96 97 05/04/19 05/04/19 05/04/19 05/04/19 08:10 08:30 08:40 09:00 Pulse 68 77 Resp 24 10 B/P (MAP) 125/82 (96) 131/87 (102) Pulse Ox 96 99 05/04/19 09:10 Pulse 66 Resp 17 Pulse Ox 96 (RACHEL BOATENG MD) Physical Exam Vital signs stable, afebrile, pulse ox normal General Appearance: The patient is alert, has no immediate need for airway protection and no current signs of toxicity. Slightly pale appearing, skin warm and dry HEENT: Pupils equal and round no injection. Oropharynx without redness or exudate Respiratory: Chest is non tender, lungs are clear to auscultation. Cardiac: regular rate and rhythm Gastrointestinal: Abdomen is soft and non tender, no masses, bowel sounds normal. Musculoskeletal: Neck: Neck is supple and non tender. Extremities have full range of motion and are non tender. Skin: No rashes or lesions. DIFFERENTIAL DIAGNOSIS: After history and physical exam differential diagnosis was considered for syncope including but not limited to vasovagal syncope, arrhythmia, dehydration, and blood loss. (WILLOW JARQUIN DO) Medical Decision Making Data Points Result Diagram: 05/04/19 0633 05/04/19 0633 Laboratory Hematology Test 05/04/19 00:00 05/04/19 06:33 05/04/19 08:30 Stool Occult Blood (IFOB) Positive (NEGATIVE) Red Blood Count 3.16 M/uL (4.17-5.56) Mean Corpuscular Volume 92.3 fL (80.0-96.0) Mean Corpuscular Hemoglobin 32.6 pg (26.0-33.0) Mean Corpuscular Hemoglobin Concent 35.3 g/dL (32.0-36.0) Red Cell Distribution Width 12.6 % (11.5-14.5) Mean Platelet Volume 6.7 fL (7.2-11.1) Neutrophils (%) (Auto) 60.6 % (39.4-72.5) Lymphocytes (%) (Auto) 24.7 % (17.6-49.6) Monocytes (%) (Auto) 8.7 % (4.1-12.4) Eosinophils (%) (Auto) 5.0 % (0.4-6.7) Basophils (%) (Auto) 1.0 % (0.3-1.4) Nucleated RBC Relative Count (auto) 0.0 /100WBC Neutrophils # (Auto) 3.1 K/uL (2.0-7.4) Lymphocytes # (Auto) 1.3 K/uL (1.3-3.6) Monocytes # (Auto) 0.4 K/uL (0.3-1.0) Eosinophils # (Auto) 0.3 K/uL (0.0-0.5) Basophils # (Auto) 0.1 K/uL (0.0-0.1) Nucleated RBC Absolute Count (auto) 0.00 K/uL Sodium Level 142 mmol/L (137-145) Potassium Level 3.8 mmol/L (3.5-5.0) Chloride Level 109 mmol/L (98-107) Carbon Dioxide Level 20 mmol/L (22-31) Blood Urea Nitrogen 30 mg/dl (7-18) Creatinine 3.80 mg/dl (0.52-1.04) Glomerular Filtration Rate Calc 12.4 Random Glucose 102 mg/dl (75-110) Calcium Level 9.5 mg/dl (8.4-10.2) Total Bilirubin 0.3 mg/dl (0.2-1.3) Aspartate Amino Transf (AST/SGOT) 15 U/L (0-35) Alanine Aminotransferase (ALT/SGPT) 22 U/L (0-56) Alkaline Phosphatase 55 U/L (0-126) Troponin I 0.043 ng/ml Total Protein 6.7 g/dl (6.3-8.2) Albumin 3.7 g/dl (3.5-5.0) Urine Color Colorless Urine Clarity Clear Urine pH 8.0 pH (4.8-9.5) Urine Specific [place] 1.004 Urine Protein Negative mg/dL (NEGATIVE) Urine Glucose (UA) Negative mg/dL (NEGATIVE) Urine Ketones Negative mg/dL (NEGATIVE) Urine Blood Negative (NEGATIVE) Urine Nitrite Negative (NEGATIVE) Urine Bilirubin Negative (NEGATIVE) Urine Urobilinogen Negative mg/dL (0.2-1.9) Urine Leukocyte Esterase Negative (NEGATIVE) Urine RBC <1 /HPF (0-2/HPF) Urine WBC None /HPF (0-5/HPF) Urine Squamous Epithelial Cells Many /LPF (NONE-FEW) Urine Bacteria Negative /HPF (NONE-FEW) Urine Mucus None /HPF (NONE-FEW) Chemistry Test 05/04/19 00:00 05/04/19 06:33 05/04/19 08:30 Stool Occult Blood (IFOB) Positive (NEGATIVE) White Blood Count 5.1 k/uL (4.5-11.0) Red Blood Count 3.16 M/uL (4.17-5.56) Hemoglobin 10.3 g/dL (12.0-16.0) Hematocrit 29.1 % (34.0-47.0) Mean Corpuscular Volume 92.3 fL (80.0-96.0) Mean Corpuscular Hemoglobin 32.6 pg (26.0-33.0) Mean Corpuscular Hemoglobin Concent 35.3 g/dL (32.0-36.0) Red Cell Distribution Width 12.6 % (11.5-14.5) Platelet Count 181 K/uL (150-450) Mean Platelet Volume 6.7 fL (7.2-11.1) Neutrophils (%) (Auto) 60.6 % (39.4-72.5) Lymphocytes (%) (Auto) 24.7 % (17.6-49.6) Monocytes (%) (Auto) 8.7 % (4.1-12.4) Eosinophils (%) (Auto) 5.0 % (0.4-6.7) Basophils (%) (Auto) 1.0 % (0.3-1.4) Nucleated RBC Relative Count (auto) 0.0 /100WBC Neutrophils # (Auto) 3.1 K/uL (2.0-7.4) Lymphocytes # (Auto) 1.3 K/uL (1.3-3.6) Monocytes # (Auto) 0.4 K/uL (0.3-1.0) Eosinophils # (Auto) 0.3 K/uL (0.0-0.5) Basophils # (Auto) 0.1 K/uL (0.0-0.1) Nucleated RBC Absolute Count (auto) 0.00 K/uL Glomerular Filtration Rate Calc 12.4 Calcium Level 9.5 mg/dl (8.4-10.2) Total Bilirubin 0.3 mg/dl (0.2-1.3) Aspartate Amino Transf (AST/SGOT) 15 U/L (0-35) Alanine Aminotransferase (ALT/SGPT) 22 U/L (0-56) Alkaline Phosphatase 55 U/L (0-126) Troponin I 0.043 ng/ml Total Protein 6.7 g/dl (6.3-8.2) Albumin 3.7 g/dl (3.5-5.0) Urine Color Colorless Urine Clarity Clear Urine pH 8.0 pH (4.8-9.5) Urine Specific [place] 1.004 Urine Protein Negative mg/dL (NEGATIVE) Urine Glucose (UA) Negative mg/dL (NEGATIVE) Urine Ketones Negative mg/dL (NEGATIVE) Urine Blood Negative (NEGATIVE) Urine Nitrite Negative (NEGATIVE) Urine Bilirubin Negative (NEGATIVE) Urine Urobilinogen Negative mg/dL (0.2-1.9) Urine Leukocyte Esterase Negative (NEGATIVE) Urine RBC <1 /HPF (0-2/HPF) Urine WBC None /HPF (0-5/HPF) Urine Squamous Epithelial Cells Many /LPF (NONE-FEW) Urine Bacteria Negative /HPF (NONE-FEW) Urine Mucus None /HPF (NONE-FEW) Urinalysis Test 05/04/19 08:30 Urine Color Colorless Urine Clarity Clear Urine pH 8.0 pH (4.8-9.5) Urine Specific [place] 1.004 Urine Protein Negative mg/dL (NEGATIVE) Urine Glucose (UA) Negative mg/dL (NEGATIVE) Urine Ketones Negative mg/dL (NEGATIVE) Urine Blood Negative (NEGATIVE) Urine Nitrite Negative (NEGATIVE) Urine Bilirubin Negative (NEGATIVE) Urine Urobilinogen Negative mg/dL (0.2-1.9) Urine Leukocyte Esterase Negative (NEGATIVE) Urine RBC <1 /HPF (0-2/HPF) Urine WBC None /HPF (0-5/HPF) Urine Squamous Epithelial Cells Many /LPF (NONE-FEW) Urine Bacteria Negative /HPF (NONE-FEW) Urine Mucus None /HPF (NONE-FEW) (RACHEL BOATENG MD) EKG/Imaging EKG Interpretation 12 lead EK 635 Rhythm: normal sinus rhythm [place]: normal QRS: normal ST segments: normal, comparison to previous EKG dated 03/14/19 and 01/28/19, no significant change (WILLOW JARQUIN DO) ED Course/Re-evaluation Turned Over The care of the patient was turned over to Dr. Rachel Boateng. Dr. Jarquin I authorize my typed signature that I authenticated this report. (WILLOW JARQUIN DO) ED Course No fever, no chest pain or abdominal pain, UA normal. No diarrhea while in the ED. Noted is a H/H which has been trending downwards for the past 4 months. Had colo/endoscopy within the last 6 months. I do not think this Hct is in need of transfusion at this time. I don't think her symptoms today are secondary to this level of anemia. Feeling of lightheaded and pre-syncope likely secondary to recent diarrhea. The pt. has an appointment with her PCM next week. Will have her stay home from work today and monitor pt. at home for any further episodes. This is at the patient's request which I think is reasonable. Decision to Disposition Date: May 04, 2019 Decision to Disposition Time: 09:32 (RACHEL BOATENG MD) Depart Departure Latest Vital Signs Vital Signs Date Time Temp Pulse Resp B/P (MAP) Pulse Ox O2 Delivery O2 Flow Rate FiO2 05/04/19 09:10 66 17 96 05/04/19 09:00 131/87 (102) 05/04/19 06:22 98.0 Room Air (RACHEL BOATENG MD) Impression: Primary Impression: Pre-syncope Condition: Improved Disposition: HOME OR SELF-CARE Referrals: BETSEY VILLALBA MD (PCP) Patient Instructions: Lightheadedness (ED) Additional Instructions: FOLLOW UP WITH YOUR PCM SCHEDULED NEXT WEEK WILLOW JARQUIN DO May 04, 2019 06:19 RACHEL BOATENG MD May 04, 2019 09:36
[2019-05-04] MEDS ORDERED: NS(*) 0.9% 1000 ML BAG 1,000 ML IV ONE (06:31)
[2019-05-04] MEDS ORDERED: ONDANSETRON 4 MG/2 ML VIAL IVP ONE (06:35)
--- NOTE | 2019-05-04 06:43 | EKG ---
FACILITY: [facility] - [place] PATIENT NAME: GREGORIO LINDSEY : [id number] MR: [id number] V: [id number] EXAM DATE: ORDERING PHYSICIAN: WILLOW DOYLE TECHNOLOGIST: JASON Aguilar Reason : SYNCOPE Blood Pressure : / mmHG Vent. Rate : 062 BPM Atrial Rate : 062 BPM P-R Int : 148 ms QRS Dur : 094 ms QT Int : 432 ms P-R-T Axes : 047 029 010 degrees QTc Int : 438 ms Normal sinus rhythm Nonspecific T wave abnormality Abnormal ECG When compared with ECG of 14-MAR-2019 12:13, T wave inversion less evident in Inferior leads Confirmed by QASIM HAM ([id number]) on 05/04/2019 12:53:13 PM Referred By: ER Confirmed By:QASIM HAM
[2019-05-04 06:44] LABS: PLATELET COUNT, AUTOMATED 181 K/uL (150-450)
--- NOTE | 2019-05-04 06:58 | RADIOLOGY IMAGING REPORT ---
FACILITY: [facility] PATIENT NAME: Rachel Huang : 1965 MR: [id number] V: [id number] EXAM DATE: ORDERING PHYSICIAN: WILLOW DOYLE TECHNOLOGIST: Location: [facility] Patient: Rachel Huang : 1965 Visit/Account:[id number] Date of Sevice: 05/04/2019 CHEST SINGLE AP COMPARISONS: February 13, 2019 ADDITIONAL PERTINENT HISTORY: Syncope FINDINGS: Cardiomediastinal silhouette: Negative. Pulmonary vasculature: Negative. Lung reina: Negative. Pleural spaces: Negative. Osseous structures: Patient status post previous placement of suture anchors along the right glenoid . Previous resection of the distal right clavicle. Surrounding soft tissues: Negative. IMPRESSION: No evidence of acute cardiopulmonary disease. Report Dictated By: Bossman Crowder MD at 05/04/2019 6:50 AM Report E-Signed By: Bossman Crowder MD at 05/04/2019 6:51 AM WSN:[id number]
[2019-05-04 09:30] VITALS: BP 113/89
== END 2019-05-04 09:44 | disposition home or self-care (01) ==
LOC: ER 06:22
DX: R55 Syncope and collapse (principal)
CPT/HCPCS: 71045; 81001; 82274; 84484; 85025; 93005; 96361; 96374; 99284; A4353; J2405; J7030; 82040; 82247; 82310; 82374; 82435; 82565; 82947; 84075; 84132; 84155; 84295; 84450; 84460; 84520

== ENCOUNTER 2019-05-16 20:19 | Emergency (ER) | payer MEDICARE, MEDICAID ==
[2018-05-20 09:30] VITALS: Wt 68.1 kg
[2019-05-16 20:26] VITALS: BP 126/76
--- NOTE | 2019-05-16 20:27 | ER Report ---
History and Physical Time Seen By MD: 20:24 HPI/ROS CHIEF COMPLAINT: problem with new port dressing. HISTORY OF PRESENT ILLNESS: Dressing is coming loose, but not completely off. Reinforced with bandaids. No other complaints. Allergies: Coded Allergies: promethazine (Verified Allergy, Severe, RESTLESS LEGS, 05/16/19) sumatriptan (Verified Allergy, Intermediate, HIVES, SOB, 05/16/19) only with nose spray, she can take oral sumatriptan NSAIDS (Non-Steroidal Anti-Inflamma (Verified Allergy, Mild, NAUSEA, HEADACHES, 05/16/19) orphenadrine (Verified Allergy, Unknown, 05/16/19) keeps her awake oxycodone (Verified Allergy, Unknown, 05/16/19) aspirin (Verified Adverse Reaction, Mild, NAUSEA, 05/16/19) furosemide (Verified Adverse Reaction, Unknown, 05/16/19) too hard on kidneys Uncoded Allergies: COBAN (Allergy, Mild, rash, 04/03/13) Home Meds Active Scripts Levothyroxine Sodium (LEVOTHYROXINE SODIUM) 100 Mcg Tablet, 100 MCG PO QDAY, #90 TAB 3 Refills Prov:BETSEY PIERSON MD 04/28/19 Hydrocodone Bit/Acetaminophen (HYDROCODON-ACETAMINOPHEN 5-325) 1 Each Tablet, 1 EACH PO BID PRN for pain, #60 TAB Prov:BETSEY PIERSON MD 04/27/19 Risperidone (RISPERIDONE) 0.5 Mg Tablet, 0.5 MG PO QHS, #90 TAB 1 Refill Prov:BETSEY PIERSON MD 04/01/19 Meclizine Hcl (MECLIZINE HCL) 25 Mg Tablet, 25 MG PO Q8H for dizzness, #15 TAB 0 Refills Prov:ESTEBAN ALDANA MD 03/14/19 Sertraline Hcl (SERTRALINE HCL) 100 Mg Tablet, 1.5 TAB PO QDAY, #135 TAB 1 Refill Prov:BETSEY PIERSON MD 02/18/19 Amlodipine Besylate (AMLODIPINE BESYLATE) 2.5 Mg Tablet, 2.5 MG PO QDAY, #90 TAB 3 Refills Prov:BETSEY PIERSON MD 02/11/19 Ondansetron 4 Mg Odt (ONDANSETRON 4 MG ODT) 4 Mg Tab.rojelio 4 MG PO ONCE, #30 TAB Prov:JAMES RODRIGUEZLAS Vielka GRANT 12/06/18 Omeprazole (OMEPRAZOLE) 20 Mg Capsule.dr, 1 CAP PO QODAY, #30 CAP 6 Refills Prov:BETSEY PIERSON MD 11/14/18 Topiramate (TOPIRAMATE) 50 Mg Tablet, 50 MG PO QDAY, #30 TAB 4 Refills Prov:BETSEY PIERSON MD 11/05/18 Simvastatin (SIMVASTATIN) 10 Mg Tablet, 1 TAB PO QHS, #90 TAB 4 Refills Prov:BETSEY PIERSON MD 04/10/18 Propranolol Hcl (INDERAL LA) 80 Mg Cap.sa.24h, 1 CAP PO QDAY, #90 CAP 4 Refills Prov:BETSEY PIERSON MD 02/05/18 Febuxostat (ULORIC) 40 Mg Tablet, 1 TAB PO QDAY, #90 TAB 1 Refill Prov:BETSEY PIERSON MD 07/27/16 Reported Medications Phenazopyridine Hcl (PHENAZOPYRIDINE HCL) 200 Mg Tablet, 200 MG PO TID, #10 TAB 01/08/19 Docusate Calcium (SURFAK) 240 Mg Capsule, 240 MG PO PRN for constipation, CAPSULE 05/20/18 Melatonin/Pyridoxine HCl (B6) (Melatonin 3 mg Tablet) 1 Each Tablet, 1 TAB QHS, TAB 10/23/17 Sodium Bicarbonate (SODIUM BICARBONATE) 650 Mg Tablet, 2 TAB PO BID 07/26/16 Imipramine Hcl (Tofranil) 25 Mg Tab, 1 TAB PO DAILY, 0 Refills 09/26/12 Reviewed Nurses Notes: Yes Hx Smoking: Yes (SMOKED AGE 16 TO UNTIL 2000, 1/2 PPD) Smoking Status: Former Smoker Exposure to Second Hand Smoke?: No Hx Substance Use Disorder: No Hx Alcohol Use: Yes Constitutional Vital Sign - Last 24 Hours 05/16/19 20:26 Temp 98.2 Pulse 76 Resp 14 B/P (MAP) 126/76 Pulse Ox 95 O2 Delivery Room Air Physical Exam Dressing in place. Reinforced with bandaids. Medical Decision Making ED Course/Re-evaluation ED Course Nursing replaced the sterile dressing. Patient doing well. Decision to Disposition Date: May 16, 2019 Decision to Disposition Time: 20:50 Depart Departure Latest Vital Signs Vital Signs Date Time Temp Pulse Resp B/P (MAP) Pulse Ox O2 Delivery O2 Flow Rate FiO2 05/16/19 20:26 98.2 76 14 126/76 95 Room Air Impression: Primary Impression: Dressing change or removal, surgical wound Condition: Improved Disposition: HOME OR SELF-CARE Referrals: BETSEY IPERSON MD (PCP) Additional Instructions: No changes to your plan of care. Follow-up with dialysis and with your surgeon as already instructed. EFREN URIOSTEGUI MD May 16, 2019 20:27
== END 2019-05-16 20:56 | disposition home or self-care (01) ==
LOC: ER 20:37
DX: Z48.01 Encounter for change or removal of surgical wound dressing (principal)
CPT/HCPCS: 99281

== ENCOUNTER 2019-05-18 11:58 | Outpatient (RCR) | payer MEDICARE, MEDICAID ==
[2018-05-20 09:30] VITALS: BMI 25.7
[~2019-05-18 11:58] MED LIST changes: +DIALYSIS ACETAMINOPHEN 325 MG PO PRN; +HEPARIN (PORCINE) 1000 UNIT/ML (DIALYSIS) IVP PRN; +LOPERAMIDE HCL 2 MG CAP PO PRN; +PROMETHAZINE HCL 25 MG TAB PO PRN; +[UNRECOGNIZED DRUG - OTHER] IVP PRN; +diphenhydr DIALYSIS 50 MG/ML IVP PRN
[2019-05-18] MEDS: HEPARIN SOD (PORCINE) LOAD IVP PRN (14:10)
[2019-05-20] MEDS: HEPARIN SOD (PORCINE) LOAD IVP PRN (13:35)
[2019-05-20 14:02] LABS: PLATELET COUNT, AUTOMATED 157 K/uL (150-450)
[2019-05-21] MEDS ORDERED: B CO PO (13:26)
[2019-05-22] MEDS ORDERED: GABA-547 PO (10:13)
[2019-05-22] MEDS: HEPARIN SOD (PORCINE) LOAD IVP PRN (13:50)
[2019-05-22] MEDS: DARBEPOETIN ESRD 25 MCG/ML IVP PRN (14:18)
[2019-05-22] MEDS ORDERED: GABA-549 PO (17:43)
[2019-05-25] MEDS: HEPARIN SOD (PORCINE) LOAD IVP PRN (13:44)
[2019-05-25] MEDS: ALTEPLASE RECOMB 2 MG VIAL IVP PRN (17:04)
[2019-05-25] MEDS: WATER STERILE 10 ML VIAL IVP PRN (17:06)
[2019-05-27] MEDS: HEPARIN SOD (PORCINE) LOAD IVP PRN (13:46)
[2019-05-27] MEDS: SODIUM FERRIC GLUC 62.5 MG/5ML IVP PRN (15:49)
[2019-05-29] MEDS: HEPARIN SOD (PORCINE) LOAD IVP PRN (15:38)
[2019-05-29] MEDS: DARBEPOETIN ESRD 25 MCG/ML IVP PRN (15:49)
[2019-06-01] MEDS: HEPARIN SOD (PORCINE) LOAD IVP PRN (15:29)
[2019-06-03] MEDS: HEPARIN SOD (PORCINE) LOAD IVP PRN (15:24)
[2019-06-03] MEDS: SODIUM FERRIC GLUC 62.5 MG/5ML IVP PRN (15:58)
[2019-06-04] MEDS ORDERED: PANT40TA65 PO (10:31)
[2019-06-04] MEDS ORDERED: HYOS0.128 PO (10:31)
[2019-06-05] MEDS ORDERED: DICY10CA11 PO (13:26)
[2019-06-05] MEDS: HEPARIN SOD (PORCINE) LOAD IVP PRN (15:21)
[2019-06-05] MEDS: DARBEPOETIN ESRD 25 MCG/ML IVP PRN (16:57)
[2019-06-05] MEDS: ALTEPLASE RECOMB 2 MG VIAL IVP PRN (19:05)
[2019-06-08] MEDS: HEPARIN SOD (PORCINE) LOAD IVP PRN (15:26)
[2019-06-10] MEDS: HEPARIN SOD (PORCINE) LOAD IVP PRN (15:17)
[2019-06-10] MEDS: SODIUM FERRIC GLUC 62.5 MG/5ML IVP PRN (15:32)
[2019-06-10 15:41] LABS: PLATELET COUNT, AUTOMATED 197 K/uL (150-450)
[2019-06-12] MEDS: HEPARIN SOD (PORCINE) LOAD IVP PRN (13:50)
[2019-06-12] MEDS: DARBEPOETIN ESRD 25 MCG/ML IVP PRN (14:04)
[2019-06-12] MEDS ORDERED: AMOX500T10 PO (14:23)
[2019-06-12] MEDS: ALTEPLASE RECOMB 2 MG VIAL IVP PRN (17:27)
[2019-06-12] MEDS: WATER STERILE 10 ML VIAL IVP PRN (17:27)
[2019-06-15] MEDS: HEPARIN SOD (PORCINE) LOAD IVP PRN (13:50)
[2019-06-17] MEDS: HEPARIN SOD (PORCINE) LOAD IVP PRN (13:50)
[2019-06-17] MEDS: HEPARIN (PORCINE) 1000 UNIT/ML (DIALYSIS) IVP PRN (13:50)
[2019-06-17] MEDS: SODIUM FERRIC GLUC 62.5 MG/5ML IVP PRN (14:13)
[2019-06-19] MEDS: HEPARIN SOD (PORCINE) LOAD IVP PRN (13:50)
[2019-06-19] MEDS: HEPARIN (PORCINE) 1000 UNIT/ML (DIALYSIS) IVP PRN (13:50)
[2019-06-19] MEDS: DARBEPOETIN ESRD 25 MCG/ML IVP PRN (14:40)
== END 2019-06-27 ==
LOC: DIAL 11:58
PROVIDERS: ATTEND Internal Medicine Nephrology
DX: I12.0 Hypertensive chronic kidney disease with stage 5 chronic kidney disease or end stage renal disease (principal); N18.6 End stage renal disease; N35.92 Unspecified urethral stricture, female; D63.1 Anemia in chronic kidney disease; M10.9 Gout, unspecified; N20.0 Calculus of kidney; N25.81 Secondary hyperparathyroidism of renal origin; Z90.5 Acquired absence of kidney; Z99.2 Dependence on renal dialysis
CPT/HCPCS: 82040; 82108; 82247; 82310; 82374; 82465; 82565; 82607; 82728; 82746; 82947; 83036; 83540; 83550; 83970; 84075; 84100; 84132; 84295; 84443; 84460; 84478; 84520; 85025; 86580; 90999; A4216; A4657; G0472; J0882; J2916; J2997; 86803

== ENCOUNTER 2019-05-30 18:27 | Emergency (ER) | payer MEDICARE, MEDICAID ==
[2018-05-20 09:30] VITALS: Wt 68.1 kg
[~2019-05-30 18:27] MED LIST changes: +B CO PO; -DIALYSIS ACETAMINOPHEN 325 MG PO PRN; +GABA-547 PO; +GABA-549 PO; -HEPARIN (PORCINE) 1000 UNIT/ML (DIALYSIS) IVP PRN; -LOPERAMIDE HCL 2 MG CAP PO PRN; -PROMETHAZINE HCL 25 MG TAB PO PRN; -[UNRECOGNIZED DRUG - OTHER] IVP PRN; -diphenhydr DIALYSIS 50 MG/ML IVP PRN
--- NOTE | 2019-05-30 19:00 | ER Report ---
History and Physical Time Seen By MD: 18:34 Hx. of Stated Complaint: STABBING PAIN IN CHEST FOR APPROX 30 MINUTES HPI/ROS CHIEF COMPLAINT: Chest Pain HISTORY OF PRESENT ILLNESS: 54 yo F here with CP that started several hrs ago while sitting on the couch. Feels sharp and is circumferential around to her back. Associated SOB and pain with inspiration. has a metallic taste in her mouth. Denies N, V, D, radiation of pain or orthopnea. Has not had pain like this before. Has not taken anything for the pain. Is on dialysis for CKD. Last dialysis treatment was on saturday which was stopped due to blood clots. Was able to restart and finish dialysis that day. REVIEW OF SYSTEMS: Respiratory: No cough, dyspnea, SOB Cardiovascular: chest pain, no palpitations. Gastrointestinal: No vomiting, no abdominal pain. Musculoskeletal: back pain. Allergies: Coded Allergies: promethazine (Verified Allergy, Severe, RESTLESS LEGS, 05/30/19) sumatriptan (Verified Allergy, Intermediate, HIVES, SOB, 05/30/19) only with nose spray, she can take oral sumatriptan NSAIDS (Non-Steroidal Anti-Inflamma (Verified Allergy, Mild, NAUSEA, HEADACHES, 05/30/19) orphenadrine (Verified Allergy, Unknown, 05/30/19) keeps her awake oxycodone (Verified Allergy, Unknown, 05/30/19) aspirin (Verified Adverse Reaction, Mild, NAUSEA, 05/30/19) furosemide (Verified Adverse Reaction, Unknown, 05/30/19) too hard on kidneys Uncoded Allergies: COBAN (Allergy, Mild, rash, 04/03/13) Home Meds Active Scripts Levothyroxine Sodium (LEVOTHYROXINE SODIUM) 100 Mcg Tablet, 100 MCG PO QDAY, #90 TAB 3 Refills Prov:BETSEY PIERSON MD 04/28/19 Hydrocodone Bit/Acetaminophen (HYDROCODON-ACETAMINOPHEN 5-325) 1 Each Tablet, 1 EACH PO BID PRN for pain, #60 TAB Prov:BETSEY PIERSON MD 04/27/19 Risperidone (RISPERIDONE) 0.5 Mg Tablet, 0.5 MG PO QHS, #90 TAB 1 Refill Prov:BETSEY PIERSON MD 04/01/19 Meclizine Hcl (MECLIZINE HCL) 25 Mg Tablet, 25 MG PO Q8H for dizzness, #15 TAB 0 Refills Prov:ESTEBAN ALDANA MD 03/14/19 Sertraline Hcl (SERTRALINE HCL) 100 Mg Tablet, 1.5 TAB PO QDAY, #135 TAB 1 Refill Prov:BETSEY PIERSON MD 02/18/19 Ondansetron 4 Mg Odt (ONDANSETRON 4 MG ODT) 4 Mg Tab.rapdis, 4 MG PO ONCE, #30 TAB Prov:PANKAJ RODRIGUEZ DO 12/06/18 Omeprazole (OMEPRAZOLE) 20 Mg Capsule.dr, 1 CAP PO QODAY, #30 CAP 6 Refills Prov:BETSEY PIERSON MD 11/14/18 Topiramate (TOPIRAMATE) 50 Mg Tablet, 50 MG PO QDAY, #30 TAB 4 Refills Prov:BETSEY PIERSON MD 11/05/18 Simvastatin (SIMVASTATIN) 10 Mg Tablet, 1 TAB PO QHS, #90 TAB 4 Refills Prov:BETSEY PIERSON MD 04/10/18 Febuxostat (ULORIC) 40 Mg Tablet, 1 TAB PO QDAY, #90 TAB 1 Refill Prov:BETSEY PIERSON MD 07/27/16 Reported Medications Gabapentin (GABAPENTIN) 300 Mg Capsule, 100 MG PO HS, CAPSULE Take 1-3 cap PO QHS 05/22/19 B Complex & C No.20/Folic Acid (Mynephron Capsule) 1 Mg Capsule, 1 CAP PO QDAY 05/21/19 Docusate Calcium (SURFAK) 240 Mg Capsule, 240 MG PO PRN for constipation, CAPSULE 05/20/18 Past Medical/Surgical History Migraines, murmur, angina, HTN, Hypercholesterolemia, bronchitis, pneumonia, GERD, gall bladder disease, incontinence, frequenct urination, UTI, breast biopsy, breast reduction, gout, arthritis, fx, back pain, scoliosis, vision problems, endocrine disorder, thyroid disease, alcohol abuse, hysterectomy, shoulder surgeries x3, depression, Fhx stroke, appendectomy, cholecystectomy, cystoscopies and dilations, c-spine, tonsillectomy Hx Smoking: Yes (SMOKED AGE 16 TO UNTIL 2000, 10/29 PPD) Smoking Status: Former Smoker Exposure to Second Hand Smoke?: No Hx Substance Use Disorder: No Hx Alcohol Use: Yes Constitutional Vital Sign - Last 24 Hours 05/30/19 05/30/19 05/30/19 05/30/19 18:30 18:31 18:57 19:00 Temp 98.2 Pulse 119 119 Resp 16 14 B/P (MAP) 147/96 (113) 147/96 156/84 (108) Pulse Ox 95 94 O2 Delivery Room Air 05/30/19 05/30/19 05/30/19 05/30/19 19:05 19:30 19:35 20:00 Pulse 116 107 Resp 11 10 B/P (MAP) 131/120 (124) 131/81 (98) Pulse Ox 93 94 05/30/19 20:05 Pulse 112 Resp 14 Physical Exam General Appearance: The patient is alert, has no immediate need for airway protection and no current signs of toxicity. Eyes: Pupils equal and round no injection. Respiratory: Chest is tender, lungs are clear to auscultation. Cardiac: regular rhythm, tachycardic, no murmurs Gastrointestinal: Abdomen is soft and non tender, no masses, bowel sounds normal. Neck: Neck is supple and non tender, scar from cervical sx Skin: No rashes or lesions. DIFFERENTIAL DIAGNOSIS: After history and physical exam differential diagnosis was considered for PE, OR, Costochondritis, pneumonia, ACS Medical Decision Making Data Points Result Diagram: 05/30/19 1832 05/30/19 1832 Laboratory Hematology Test 05/30/19 18:32 White Blood Count 7.9 k/uL (4.5-11.0) Red Blood Count 3.08 M/uL (4.17-5.56) L Hemoglobin 10.0 g/dL (12.0-16.0) L Hematocrit 28.7 % (34.0-47.0) L Mean Corpuscular Volume 93.2 fL (80.0-96.0) Mean Corpuscular Hemoglobin 32.4 pg (26.0-33.0) Mean Corpuscular Hemoglobin Concent 34.8 g/dL (32.0-36.0) Red Cell Distribution Width 13.9 % (11.5-14.5) Platelet Count 203 K/uL (150-450) Mean Platelet Volume 7.6 fL (7.2-11.1) Neutrophils (%) (Auto) 60.0 % (39.4-72.5) Lymphocytes (%) (Auto) 25.5 % (17.6-49.6) Monocytes (%) (Auto) 10.9 % (4.1-12.4) Eosinophils (%) (Auto) 2.8 % (0.4-6.7) Basophils (%) (Auto) 0.8 % (0.3-1.4) Nucleated RBC Relative Count (auto) 0.1 /100WBC Neutrophils # (Auto) 4.7 K/uL (2.0-7.4) Lymphocytes # (Auto) 2.0 K/uL (1.3-3.6) Monocytes # (Auto) 0.9 K/uL (0.3-1.0) Eosinophils # (Auto) 0.2 K/uL (0.0-0.5) Basophils # (Auto) 0.1 K/uL (0.0-0.1) Nucleated RBC Absolute Count (auto) 0.01 K/uL Chemistry Test 05/30/19 18:32 Sodium Level 139 mmol/L (137-145) Potassium Level 4.1 mmol/L (3.5-5.0) Chloride Level 101 mmol/L (98-107) Carbon Dioxide Level 23 mmol/L (22-31) Blood Urea Nitrogen 22 mg/dl (7-18) Creatinine 4.80 mg/dl (0.52-1.04) Glomerular Filtration Rate Calc 9.5 Random Glucose 93 mg/dl (75-110) Calcium Level 9.7 mg/dl (8.4-10.2) Total Bilirubin 0.3 mg/dl (0.2-1.3) Aspartate Amino Transf (AST/SGOT) 27 U/L (0-35) Alanine Aminotransferase (ALT/SGPT) 33 U/L (0-56) Alkaline Phosphatase 67 U/L (0-126) Troponin I < 0.012 ng/ml Total Protein 7.5 g/dl (6.3-8.2) Albumin 4.3 g/dl (3.5-5.0) EKG/Imaging Imaging 2 VIEWS CHEST INDICATION: Chest pain for one day. COMPARISON: 05/04/2019. FINDINGS: Cardiomediastinal silhouette and pulmonary vessels within normal limits. Right double-lumen catheter is in place tip in SVC. There is no focal infiltrate or lobar consolidation. There is no pneumothorax or pleural effusion. No nodule. Upper abdomen is unremarkable. Surgical clips in the right lower quadrant. No acute bony abnormality. Surgical anchor seen in the right humeral head. IMPRESSION: 1. No acute cardiopulmonary process. Report Dictated By: Ac Mckeon at 05/30/2019 8:30 PM Report E-Signed By: Ac Mckeon at 05/30/2019 8:32 PM WSN:[id number] ED Course/Re-evaluation ED Course Patient presented to the ED with tachycardia and chest pain that worsened with inspiration. Full cardiac work up was done and was negative for cardiac issues. Physical exam showed chest wall tenderness to palpation, worst on the left. Chest x-ray showed a large amount of air in the stomach and proximal small intestines. Patient was counseled, given Gas-X and discharged. Instructed to sampler pickup OTC Gas-X and use up to 4 times per day until symptoms resolve. Decision to Disposition Date: May 30, 2019 Decision to Disposition Time: 20:50 Depart Departure Latest Vital Signs Vital Signs Date Time Temp Pulse Resp B/P (MAP) Pulse Ox O2 Delivery O2 Flow Rate FiO2 05/30/19 20:05 112 14 05/30/19 20:00 131/81 (98) 05/30/19 19:35 94 05/30/19 18:31 98.2 Room Air Impression: Primary Impression: Gassy chest pain Condition: Improved Disposition: HOME OR SELF-CARE Referrals: BETSEY PIERSON MD (PCP) Patient Instructions: GENERAL ER DISCHARGE INSTRUCTIONS Additional Instructions: Recommended to get over the counter Gas-X. May take up to four times per day. If chest pain or shortness of breath worsens return to ED. MABLE EL May 30, 2019 19:00
[2019-05-30] MEDS ORDERED: ASPIRIN 81 MG CHEW PO ONE (19:15)
[2019-05-30 19:18] LABS: PLATELET COUNT, AUTOMATED 203 K/uL (150-450)
[2019-05-30 20:30] VITALS: BP 124/80
--- NOTE | 2019-05-30 20:39 | RADIOLOGY IMAGING REPORT ---
FACILITY: [facility] - [place] PATIENT NAME: Rachel Huang : 1965 MR: [id number] V: [id number] EXAM DATE: ORDERING PHYSICIAN: MABLE EL TECHNOLOGIST: Location: [facility] - [place] Patient: Rachel Huang : 1965 Visit/Account:[id number] Date of Sevice: 05/30/2019 2 VIEWS CHEST INDICATION: Chest pain for one day. COMPARISON: 05/04/2019. FINDINGS: Cardiomediastinal silhouette and pulmonary vessels within normal limits. Right double-lumen catheter is in place tip in SVC. There is no focal infiltrate or lobar consolidation. There is no pneumothorax or pleural effusion. No nodule. Upper abdomen is unremarkable. Surgical clips in the right lower quadrant. No acute bony abnormality. Surgical anchor seen in the right humeral head. IMPRESSION: 1. No acute cardiopulmonary process. Report Dictated By: Ac Mckeon at 05/30/2019 8:30 PM Report E-Signed By: Ac Mckeon at 05/30/2019 8:32 PM WSN:[id number]
--- NOTE | 2019-05-30 20:44 | EKG ---
FACILITY: [facility] - [place] PATIENT NAME: GREGORIO LINDSEY : [id number] MR: [id number] V: [id number] EXAM DATE: ORDERING PHYSICIAN: MABLE EL TECHNOLOGIST: Test Reason : Blood Pressure : / mmHG Vent. Rate : 121 BPM Atrial Rate : 121 BPM P-R Int : 142 ms QRS Dur : 078 ms QT Int : 424 ms P-R-T Axes : 055 046 046 degrees QTc Int : 602 ms Sinus tachycardia Nonspecific ST-T findings Abnormal ECG Confirmed by QASIM HAM ([id number] on 05/31/2019 6:49:54 AM Referred By: Confirmed By:QASIM HAM
[2019-05-30] MEDS ORDERED: SIMETHICONE 80 MG CHEW CHEW ONE (20:50)
== END 2019-05-30 20:57 | disposition home or self-care (01) ==
LOC: ER 18:32
DX: R14.1 Gas pain (principal)
CPT/HCPCS: 71046; 84484; 85025; 93005; 99284; A9270; 82040; 82247; 82310; 82374; 82435; 82565; 82947; 84075; 84132; 84155; 84295; 84450; 84460; 84520